=== PATIENT | female | born 1955 | race African-American/Black ===

== ENCOUNTER 2016-09-12 12:32 | Emergency (ER) | payer MEDICARE, MEDICAID ==
--- NOTE | 2016-09-12 13:11 | ER Document Report ---
ED Medical Screen (RME) - General Chief Complaint: Cough Stated Complaint: COUGH,SHORTNESS OF BREATH Notes: 60 yo female with hx/o asthma, COPD, CHF, Afib, c/o persitant cough. Pt was seen in ED 08/16 for same. Treated with steroids with some improvement, but cough has increased. worse at night when supine. denies fever, chest pain, shortness of breath, swelling to feet. TRAVEL OUTSIDE OF THE [place] IN LAST 30 DAYS: No - Related Data Allergies/Adverse Reactions: No Known Allergies Allergy (Verified 09/12/16 12:53) Past Medical History - Social History Chew tobacco use (# tins/day): No Frequency of alcohol use: None Drug Abuse: None - Past Medical History Cardiac Medical History: Reports: Hx Atrial Fibrillation, Hx Congestive Heart Failure, Hx Hypercholesterolemia, Hx Hypertension Pulmonary Medical History: Reports: Hx Asthma, Hx COPD Denies: Hx Tuberculosis Neurological Medical History: Reports: Hx Cerebrovascular Accident Endocrine Medical History: Reports: Hx Diabetes Mellitus Type 2 Musculoskeltal Medical History: Reports Hx Arthritis Past Surgical History: Reports: Hx Section - X2, Hx Orthopedic Surgery - Bilateral knee replacement, Hx Tubal Ligation - Immunizations Hx Diphtheria, Pertussis, Tetanus Vaccination: Yes Physical Exam - Vital signs Vitals: Temp Pulse Resp BP Pulse Ox 97.9 F 80 20 177/111 H 98 09/12/16 12:55 09/12/16 12:55 09/12/16 12:55 09/12/16 12:55 09/12/16 12:55 Course - Vital Signs Vital signs: Temp Pulse Resp BP Pulse Ox 97.9 F 80 20 177/111 H 98 09/12/16 12:55 09/12/16 12:55 09/12/16 12:55 09/12/16 12:55 09/12/16 12:55
[2016-09-12 13:39] LABS: ABSOLUTE BASOPHILS # (AUTO) 0.1 10^3/uL (0.0-0.2); ABSOLUTE EOSINOPHILS # (AUTO) 0.3 10^3/uL (0.0-0.6); ABSOLUTE LYMPHOCYTES (AUTO) 2.9 10^3/uL (0.5-4.7); ABSOLUTE MONOCYTES (AUTO) 0.7 10^3/uL (0.1-1.4); ABSOLUTE NEUT (AUTO) 4.9 10^3/uL (1.7-8.2); BASOPHILS % (AUTO) 0.7 % (0-2); EOSINOPHILS % (AUTO) 2.9 % (0-6); HEMATOCRIT 39.1 % (36.0-47.0); HEMOGLOBIN 12.9 g/dL (12.0-15.5); HGB HCT DIFFERENCE -0.4; LYMPHOCYTES % (AUTO) 33.1 % (13-45); MEAN CORPUSCULAR VOLUME 82 fl (80-97); MONOCYTES % (AUTO) 7.9 % (3-13); RED BLOOD COUNT 4.78 10^6/uL (3.72-5.28); RED CELL DISTRIBUTION WIDTH 17.4 % (11.5-14.0); SEGMENTED NEUTROPHILS % (AUTO) 55.4 % (42-78); WHITE BLOOD COUNT 8.7 10^3/uL (4.0-10.5)
[2016-09-12 13:44] LABS: APPEARANCE,URINE SLIGHTLY-CLOUDY; BILIRUBIN,URINE NEGATIVE (NEGATIVE); GLUCOSE, URINE NEGATIVE (NEGATIVE); KETONES,URINE NEGATIVE (NEGATIVE); LEUKOCYTE ESTERASE,URINE NEGATIVE (NEGATIVE); NITRITE,URINE NEGATIVE (NEGATIVE); PROTEIN,URINE NEGATIVE (NEGATIVE); URINE SPECIFIC GRAVITY 1.005; UROBILINOGEN,URINE NEGATIVE mg/dL (<2.0)
[2016-09-12 13:58] LABS: ALANINE AMINOTRANSFERASE 40 U/L (9-52); ALKALINE PHOSPHATASE 110 U/L (38-126); ANION GAP 12 (5-19); ASPARTATE AMINO TRANSFERASE 30 U/L (14-36); BILIRUBIN,TOTAL 0.7 mg/dL (0.2-1.3); BLOOD UREA NITROGEN 12 mg/dL (7-20); CALCIUM 9.8 mg/dL (8.4-10.2); CARBON DIOXIDE 28 mmol/L (22-30); CHLORIDE 105 mmol/L (98-107); CREATININE RESULT 0.98 mg/dL (0.52-1.25); GLUCOSE 112 mg/dL (75-110); POTASSIUM 4.5 mmol/L (3.6-5.0); SODIUM 144.5 mmol/L (137-145); TOTAL PROTEIN 7.7 g/dL (6.3-8.2)
--- NOTE | 2016-09-12 15:01 | ER Document Report ---
[id number],SHORTNESS OF BREATH Notes: The patient is a 60-year-old female, past medical history COPD, current smoker, hypertension, presents with 5 days of cough with white sputum. He is taking TheraFlu and using her albuterol inhaler with some relief of symptoms. She had similar symptoms 2 months ago and was placed on steroids, which relieved her coughing. She denies chest pain, leg swelling, nausea, vomiting, PND, orthopnea , back pain, abdominal pain, fevers or chills. TRAVEL OUTSIDE OF THE [place] IN LAST 30 DAYS: No - Related Data Allergies/Adverse Reactions: No Known Allergies Allergy (Verified 09/12/16 12:53) Past Medical History - General Information source: Patient - Social History Smoking Status: Current Some Day Smoker Chew tobacco use (# tins/day): No Frequency of alcohol use: None Drug Abuse: None Family History: CAD, CVA, DM, Hyperlipidemia, Hypertension Patient has suicidal ideation: No Patient has homicidal ideation: No - Past Medical History Cardiac Medical History: Reports: Hx Atrial Fibrillation, Hx Congestive Heart Failure, Hx Hypercholesterolemia, Hx Hypertension Pulmonary Medical History: Reports: Hx Asthma, Hx COPD Denies: Hx Tuberculosis Neurological Medical History: Reports: Hx Cerebrovascular Accident Endocrine Medical History: Reports: Hx Diabetes Mellitus Type 2 Musculoskeltal Medical History: Reports Hx Arthritis Past Surgical History: Reports: Hx Section - X2, Hx Orthopedic Surgery - Bilateral knee replacement, Hx Tubal Ligation - Immunizations Hx Diphtheria, Pertussis, Tetanus Vaccination: Yes Hx Pneumococcal Vaccination: 06/09/13 Review of Systems - Review of Systems Notes: REVIEW OF SYSTEMS: CONSTITUTIONAL: Denies fever, chills, or sweats. Denies recent illness. EENT: Denies eye, ear, throat, or mouth pain or symptoms. Denies nasal or sinus congestion. CARDIOVASCULAR: Denies chest pain. RESPIRATORY: +cough, Denies SOB ABDOMINAL: Denies nausea, vomiting, or diarrhea. Denies constipation. GENITOURINARY: Denies difficulty urinating, painful urination, burning, frequency, or blood in urine. FEMALE GENITOURINARY: Denies vaginal bleeding, abnormal or irregular periods. MUSCULOSKELETAL: Denies neck or back pain or joint pain or swelling. SKIN: Denies rash or skin lesions. HEMATOLOGIC: Denies easy bruising or bleeding. LYMPHATIC: Denies swollen, enlarged glands. NEUROLOGICAL: Denies altered mental status or loss of consciousness. Denies headache. Denies weakness or paralysis or loss of use of either side. Denies problems with gait or speech. Denies sensory or motor loss. PSYCHIATRIC: Denies anxiety or stress or depression. ALL OTHER SYSTEMS REVIEWED AND NEGATIVE. Physical Exam - Vital signs Vitals: Temp Pulse Resp BP Pulse Ox 97.9 F 80 20 177/111 H 98 09/12/16 12:55 09/12/16 12:55 09/12/16 12:55 09/12/16 12:55 09/12/16 12:55 - Notes Notes: PHYSICAL EXAMINATION: GENERAL: Well-appearing, well-nourished and in no acute distress. HEAD: Atraumatic, normocephalic. EYES: Pupils equal round and reactive to light, extraocular movements intact, sclera anicteric, conjunctiva are normal. ENT: nares patent, oropharynx clear without exudates. Moist mucous membranes. NECK: Normal range of motion, supple without lymphadenopathy LUNGS: Mild end-expiratory wheezing. No respiratory distress. HEART: Regular rate and rhythm without murmurs ABDOMEN: Soft, nontender, normoactive bowel sounds. No guarding, no rebound. No masses appreciated. EXTREMITIES: Normal range of motion, no pitting or edema. No cyanosis. NEUROLOGICAL: Cranial nerves grossly intact. Normal speech, normal gait. Normal sensory, motor, and reflex exams. PSYCH: Normal mood, normal affect. SKIN: Warm, Dry, normal turgor, no rashes or lesions noted. Course - Re-evaluation Re-evalutation: Patient has no evidence of pneumonia on chest x-ray. Will treat with steroids and albuterol for mild bronchitis. Patient does not appear to be fluid overloaded. Will DC home with follow-up at her primary care doctor - Vital Signs Vital signs: Temp Pulse Resp BP Pulse Ox 97.5 F 163 H 18 164/91 H 99 09/12/16 15:27 09/12/16 15:27 09/12/16 15:27 09/12/16 15:27 09/12/16 15:27 09/12/16 18:28 Actual pulse rate 63. Tech entered 163 in error. - Laboratory Result Diagrams: 09/12/16 13:15 09/12/16 13:15 Laboratory results interpreted by me: 01/12/2409/12/16 09/12/16 13:15 13:15 13:15 RDW 17.4 H Est GFR (Non-Af Amer) 58 L Glucose 112 H NT-Pro-B Natriuret Pep 2630 H Urine Blood 09/12/16 13:15 RDW Est GFR (Non-Af Amer) Glucose NT-Pro-B Natriuret Pep Urine Blood SMALL H - Diagnostic Test Radiology reviewed: Image reviewed, Reports reviewed Radiology results interpreted by me: CXR: NAD Discharge - Discharge Clinical Impression: Mild intermittent asthmatic bronchitis with exacerbation Disposition: HOME, SELF-CARE Additional Instructions: BRONCHITIS: You have acute bronchitis. This disease is an infection or inflammation of the air passageways in your lungs. Symptoms usually include cough, low grade fever, shortness of breath, and wheezing. The cough usually persists for a couple of weeks. Most cases of bronchitis get better without antibiotics. We prescribe antibiotics when we believe bacteria are damaging your airways, or if there's high risk the bronchitis will worsen into pneumonia. Increase your fluid intake. A cool mist humidifier may make your lungs more comfortable. An expectorant (cough medicine that loosens phlegm) can help. If you smoke, STOP!!! Recovery from bronchitis can be somewhat slow, but you should see improvement within a day or two. Repeated episodes of bronchitis may result in lung damage -- for example, chronic bronchitis, recurrent pneumonias, or emphysema. Call the doctor if you develop increasing fever, shortness of breath, chest pain, bloody sputum, or otherwise worsen. If you have not improved at all after several days, contact the physician. BRONCHITIS WITH BRONCHOSPASM (WHEEZING): You have bronchitis with bronchospasm (wheezing). Sometimes people develop wheezing with a chest cold. This occurs either because of an underlying tendency toward asthma or because the virus itself irritates the bronchial tubes. This irritation causes cough, shortness of breath, and wheezing. Emergency treatment of bronchospasm may include adrenaline shots or bronchodilator aerosol. You may feel lightheaded and have a rapid pulse for an hour or two. Rest and get plenty of fluids. At home, we'll treat you with a bronchodilator inhaler. Corticosteroids may be required for some patients. Until you recover, avoid chemical fumes, dusts, pollens, and exercising in very cold or dry air. If you smoke, stop now! Most cases of bronchitis get better without antibiotics. We prescribe antibiotics when we believe bacteria are damaging your airways, or if there's high risk the bronchitis will worsen into pneumonia. Increase your fluid intake. A cool mist humidifier may make your lungs more comfortable. An expectorant (cough medicine that loosens phlegm) can help. Repeated episodes of bronchitis and bronchospasm may result in lung damage -- for example, chronic bronchitis, recurrent pneumonias, or emphysema. If you develop a fever, increased wheezing, chest pain, or severe shortness of breath, you should contact the doctor immediately. INHALED BRONCHODILATORS: You have received a treatment of and/or prescription for an inhaled bronchodilator -- a medication which stimulates the airways in the lung to dilate. This improves the flow of air in asthma, bronchitis, and emphysema. These medicines have some similarity to adrenaline, and can cause similar side effects: shakiness, racing heart, and a sense of nervousness. These side effects decrease with time. Contact your doctor if these side effects are severe. Do not over-use the medicine. Too-frequent use of the inhaler may make it ineffective. Call your doctor if the inhaler is not controlling your symptoms at the prescribed doses. STEROID MEDICATION: You have been given an injection of or oral medicine of the cortisone/ steroid class. This medication is used to control inflammation or allergy. Lucho t is usually only given for a short period of time, until the acute process subsides. There are usually no side effects from short-term use of cortisone-like medications. Some persons feel an increased sense of well-being and are not sleepy at bedtime. Long-term use of cortisone medications is best avoided, unless required for a severe condition. If your condition does not remit, or relapses after the course of corticosteroid medication, you should consult your physician. USE OF ACETAMINOPHEN (Tylenol): Acetaminophen may be taken for pain relief or fever control. It's much safer than aspirin, offering a wider range of "safe" dosages. It is safe during . Some brand names are Tylenol, Panadol, Datril, Anacin 3, Tempra, and Liquiprin. Acetaminophen can be repeated every four hours. The following are maximum recommended dosages: >89 pounds or adults 650 mg to 900 mg Acetaminophen can be repeated every four hours. Maximum dose not to exceed 4000 mg a day. SMOKING: If you smoke, you should stop smoking. The tar and chemicals in cigarette smoke are harmful. Smoking has been shown to cause: emphysema chronic bronchitis lung cancer mouth and throat cancer stomach and pancreas cancer premature aging defects In addition, smoking increases ear and lung infections in children of smokers. FOLLOW-UP CARE: If you have been referred to a physician for follow-up care, call the physician s office for an appointment as you were instructed or within the next two days. If you experience worsening or a significant change in your symptoms, notify the physician immediately or return to the Emergency Department at any time for re-evaluation. Prescriptions: Albuterol Sulfate [Albuterol Sulfate 2.5mg/3 mL] 2.5 mg IH Q4H PRN 10 Days PRN Reason: Prednisone 50 mg PO DAILY #5 tablet Referrals: ESTEFANÍA ESPINAL FNP-C [Primary Care Provider] - Follow up as needed
[2016-09-12 15:35] VITALS: BP 164/91
== END 2016-09-12 15:39 | disposition home or self-care (01) ==
LOC: ER 12:32
DX: J45.21 Mild intermittent asthma with (acute) exacerbation (principal); J44.9 Chronic obstructive pulmonary disease, unspecified; F17.200 Nicotine dependence, unspecified, uncomplicated; I10 Essential (primary) hypertension; I48.91 Unspecified atrial fibrillation; I50.9 Heart failure, unspecified; E78.00 Pure hypercholesterolemia, unspecified; E11.9 Type 2 diabetes mellitus without complications; Z96.653 Presence of artificial knee joint, bilateral; Z98.51 Tubal ligation status
CPT/HCPCS: 36415; 71020; 80053; 81001; 83880; 85025; 99283

== ENCOUNTER 2016-10-25 11:08 | Emergency (ER) | payer MEDICARE, MEDICAID ==
[2016-10-25] MEDS ORDERED: IPRATROPIUM/ALBUTEROL 0.5-2.5 MG/3 ML AMPUL NEB ONE (11:15)
[2016-10-25] MEDS ORDERED: PREDNISONE 20 MG TABLET PO ONE (11:15)
--- NOTE | 2016-10-25 11:16 | ER Document Report ---
ED Medical Screen (RME) - General Stated Complaint: DIFFICULTY BREATHING Notes: patient complaining of SOB since saturday, worse with exertion and laying flat. using albuterol nebulizers weconnorh she states helps her breathing. PMH; COPD, CVA in 2011, atrial fibrillation on xarelto, htn, hld Patinet is sating 99-100% on room air, heart rate 84bpm. able to speak in full sentences, no pursed lip breathing, dyspneic and SOb but able to speak in full sentences I have greeted and performed a rapid initial assessment of this patient. A comprehensive ED assessment and evaluation of the patient, analysis of test results and completion of the medical decision making process will be conducted by additional ED providers. TRAVEL OUTSIDE OF THE [place] IN LAST 30 DAYS: No - Related Data Allergies/Adverse Reactions: No Known Allergies Allergy (Verified 09/12/16 12:53) Past Medical History - Past Medical History Cardiac Medical History: Reports: Hx Atrial Fibrillation, Hx Congestive Heart Failure, Hx Hypercholesterolemia, Hx Hypertension Pulmonary Medical History: Reports: Hx Asthma, Hx COPD Denies: Hx Tuberculosis Neurological Medical History: Reports: Hx Cerebrovascular Accident Endocrine Medical History: Reports: Hx Diabetes Mellitus Type 2 Musculoskeltal Medical History: Reports Hx Arthritis Past Surgical History: Reports: Hx Section - X2, Hx Orthopedic Surgery - Bilateral knee replacement, Hx Tubal Ligation - Immunizations Hx Diphtheria, Pertussis, Tetanus Vaccination: Yes
[2016-10-25] MEDS: ALBUTEROL SULFATE 0.083% NEB 2.5 MG/3 ML AMPUL NEB SCH ×2 (11:27→13:21)
[2016-10-25 11:45] LABS: ABSOLUTE BASOPHILS # (AUTO) 0.1 10^3/uL (0.0-0.2); ABSOLUTE EOSINOPHILS # (AUTO) 0.5 10^3/uL (0.0-0.6); ABSOLUTE LYMPHOCYTES (AUTO) 1.6 10^3/uL (0.5-4.7); ABSOLUTE MONOCYTES (AUTO) 0.5 10^3/uL (0.1-1.4); ABSOLUTE NEUT (AUTO) 3.2 10^3/uL (1.7-8.2); BASOPHILS % (AUTO) 1.7 % (0-2); EOSINOPHILS % (AUTO) 8.3 % (0-6); HEMATOCRIT 37.6 % (36.0-47.0); HEMOGLOBIN 11.9 g/dL (12.0-15.5); HGB HCT DIFFERENCE -1.9; LYMPHOCYTES % (AUTO) 27.3 % (13-45); MEAN CORPUSCULAR HEMOGLOBIN 26.4 pg (27.0-33.4); MEAN CORPUSCULAR HGB CONC 31.7 g/dL (32.0-36.0); MEAN CORPUSCULAR VOLUME 83 fl (80-97); MONOCYTES % (AUTO) 8.4 % (3-13); RED BLOOD COUNT 4.52 10^6/uL (3.72-5.28); RED CELL DISTRIBUTION WIDTH 16.2 % (11.5-14.0); SEGMENTED NEUTROPHILS % (AUTO) 54.3 % (42-78); WHITE BLOOD COUNT 5.9 10^3/uL (4.0-10.5)
[2016-10-25 12:06] LABS: ALANINE AMINOTRANSFERASE 30 U/L (9-52); ALBUMIN 4.1 g/dL (3.5-5.0); ALKALINE PHOSPHATASE 115 U/L (38-126); ANION GAP 11 (5-19); ASPARTATE AMINO TRANSFERASE 30 U/L (14-36); BILIRUBIN,TOTAL 0.7 mg/dL (0.2-1.3); BLOOD UREA NITROGEN 20 mg/dL (7-20); CALCIUM 9.8 mg/dL (8.4-10.2); CARBON DIOXIDE 26 mmol/L (22-30); CHLORIDE 108 mmol/L (98-107); GLUCOSE 131 mg/dL (75-110); POTASSIUM 4.3 mmol/L (3.6-5.0); SODIUM 144.6 mmol/L (137-145); TOTAL PROTEIN 7.5 g/dL (6.3-8.2)
--- NOTE | 2016-10-25 12:49 | EKG REPORT ---
SEVERITY:- ABNORMAL ECG - ATRIAL FIBRILLATION RIGHT BUNDLE BRANCH BLOCK : Confirmed by: Bradley Oilvarez 25-Oct-2016 12:48:19
--- NOTE | 2016-10-25 13:30 | ER Document Report ---
[id number] DIFFICULTY BREATHING Notes: The patient is a 60-year-old female, past medical history A. fib, COPD, asthma, current smoker, hypertension, presents with increased wheezing, cough and shortness of breath over the past 3 days. He said is having an asthma exacerbation every month. She is taking her Symbicort and Advair. She is also using her albuterol and is now out of it. Denies nausea, vomiting, chest pain, leg swelling, fevers, back pain or abdominal pain. TRAVEL OUTSIDE OF THE [place] IN LAST 30 DAYS: No - Related Data Allergies/Adverse Reactions: No Known Allergies Allergy (Verified 10/25/16 11:13) Past Medical History - General Information source: Patient - Social History Smoking Status: Current Some Day Smoker Chew tobacco use (# tins/day): No Frequency of alcohol use: None Drug Abuse: None Family History: CAD, CVA, DM, Hyperlipidemia, Hypertension Patient has suicidal ideation: No Patient has homicidal ideation: No - Past Medical History Cardiac Medical History: Reports: Hx Atrial Fibrillation, Hx Congestive Heart Failure, Hx Hypercholesterolemia, Hx Hypertension Pulmonary Medical History: Reports: Hx Asthma, Hx COPD Denies: Hx Tuberculosis Neurological Medical History: Reports: Hx Cerebrovascular Accident Endocrine Medical History: Reports: Hx Diabetes Mellitus Type 2 Renal/ Medical History: Denies: Hx Peritoneal Dialysis Musculoskeltal Medical History: Reports Hx Arthritis Past Surgical History: Reports: Hx Section - X2, Hx Orthopedic Surgery - Bilateral knee replacement, Hx Tubal Ligation - Immunizations Hx Diphtheria, Pertussis, Tetanus Vaccination: Yes Hx Pneumococcal Vaccination: 06/09/13 Review of Systems - Review of Systems Notes: REVIEW OF SYSTEMS: CONSTITUTIONAL: -fevers, -chills EENT: -eye pain, -difficulty swallowing, -nasal congestion CARDIOVASCULAR: -chest pain, -syncope. RESPIRATORY: +cough, +SOB GASTROINTESTINAL: -abdominal pain, - nausea, -vomiting, -diarrhea GENITOURINARY: -dysuria, -hematuria MUSCULOSKELETAL: -back pain, -neck pain SKIN: -rash or skin lesions. HEMATOLOGIC: -easy bruising or bleeding. LYMPHATIC: -swollen, enlarged glands. NEUROLOGICAL: -altered mental status or loss of consciousness, -headache, - neurologic symptoms PSYCHIATRIC: -anxiety, -depression. ALL OTHER SYSTEMS REVIEWED AND NEGATIVE. Physical Exam - Vital signs Vitals: Resp 24 H 10/25/16 13:05 - Notes Notes: PHYSICAL EXAMINATION: GENERAL: Well-appearing, well-nourished and in no acute distress. HEAD: Atraumatic, normocephalic. EYES: Pupils equal round and reactive to light, extraocular movements intact, sclera anicteric, conjunctiva are normal. ENT: nares patent, oropharynx clear without exudates. Moist mucous membranes. NECK: Normal range of motion, supple without lymphadenopathy LUNGS: No respiratory distress. Mild end expiratory wheezes. HEART: Regular rate and rhythm without murmurs ABDOMEN: Soft, nontender, normoactive bowel sounds. No guarding, no rebound. No masses appreciated. EXTREMITIES: Normal range of motion, no pitting or edema. No cyanosis. NEUROLOGICAL: Cranial nerves grossly intact. Normal speech, normal gait. Normal sensory, motor, and reflex exams. PSYCH: Normal mood, normal affect. SKIN: Warm, Dry, normal turgor, no rashes or lesions noted. Course - Re-evaluation Re-evalutation: Patient appears well. No respiratory distress. Wheezing mostly resolved. Labs and chest x-ray are all unremarkable. Will provide her with steroids course and refill her albuterol with follow-up at her primary care physician. - Vital Signs Vital signs: Temp Pulse Resp BP Pulse Ox 97.5 F 77 21 H 153/82 H 99 10/25/16 14:30 10/25/16 14:30 10/25/16 14:30 10/25/16 14:30 10/25/16 14:30 - Laboratory Result Diagrams: 10/25/16 11:30 10/25/16 11:30 Laboratory results interpreted by me: 10/25/16 10/25/16 11:30 11:30 Hgb 11.9 L MCH 26.4 L MCHC 31.7 L RDW 16.2 H Plt Count 144 L Eosinophils % 8.3 H Chloride 108 H Est GFR (Non-Af Amer) 50 L Glucose 131 H - Diagnostic Test Radiology reviewed: Image reviewed, Reports reviewed Radiology results interpreted by me: 10/25/16 20:19 CXR: NAD Discharge - Discharge Clinical Impression: Asthma exacerbation, mild Condition: Good Disposition: HOME, SELF-CARE Additional Instructions: BRONCHITIS: You have acute bronchitis. This disease is an infection or inflammation of the air passageways in your lungs. Symptoms usually include cough, low grade fever, shortness of breath, and wheezing. The cough usually persists for a couple of weeks. Most cases of bronchitis get better without antibiotics. We prescribe antibiotics when we believe bacteria are damaging your airways, or if there's high risk the bronchitis will worsen into pneumonia. Increase your fluid intake. A cool mist humidifier may make your lungs more comfortable. An expectorant (cough medicine that loosens phlegm) can help. If you smoke, STOP!!! Recovery from bronchitis can be somewhat slow, but you should see improvement within a day or two. Repeated episodes of bronchitis may result in lung damage -- for example, chronic bronchitis, recurrent pneumonias, or emphysema. Call the doctor if you develop increasing fever, shortness of breath, chest pain, bloody sputum, or otherwise worsen. If you have not improved at all after several days, contact the physician. BRONCHITIS WITH BRONCHOSPASM (WHEEZING): You have bronchitis with bronchospasm (wheezing). Sometimes people develop wheezing with a chest cold. This occurs either because of an underlying tendency toward asthma or because the virus itself irritates the bronchial tubes. This irritation causes cough, shortness of breath, and wheezing. Emergency treatment of bronchospasm may include adrenaline shots or bronchodilator aerosol. You may feel lightheaded and have a rapid pulse for an hour or two. Rest and get plenty of fluids. At home, we'll treat you with a bronchodilator inhaler. Corticosteroids may be required for some patients. Until you recover, avoid chemical fumes, dusts, pollens, and exercising in very cold or dry air. If you smoke, stop now! Most cases of bronchitis get better without antibiotics. We prescribe antibiotics when we believe bacteria are damaging your airways, or if there's high risk the bronchitis will worsen into pneumonia. Increase your fluid intake. A cool mist humidifier may make your lungs more comfortable. An expectorant (cough medicine that loosens phlegm) can help. Repeated episodes of bronchitis and bronchospasm may result in lung damage -- for example, chronic bronchitis, recurrent pneumonias, or emphysema. If you develop a fever, increased wheezing, chest pain, or severe shortness of breath, you should contact the doctor immediately. INHALED BRONCHODILATORS: You have received a treatment of and/or prescription for an inhaled bronchodilator -- a medication which stimulates the airways in the lung to dilate. This improves the flow of air in asthma, bronchitis, and emphysema. These medicines have some similarity to adrenaline, and can cause similar side effects: shakiness, racing heart, and a sense of nervousness. These side effects decrease with time. Contact your doctor if these side effects are severe. Do not over-use the medicine. Too-frequent use of the inhaler may make it ineffective. Call your doctor if the inhaler is not controlling your symptoms at the prescribed doses. STEROID MEDICATION: You have been given an injection of or oral medicine of the cortisone/ steroid class. This medication is used to control inflammation or allergy. Lucho t is usually only given for a short period of time, until the acute process subsides. There are usually no side effects from short-term use of cortisone-like medications. Some persons feel an increased sense of well-being and are not sleepy at bedtime. Long-term use of cortisone medications is best avoided, unless required for a severe condition. If your condition does not remit, or relapses after the course of corticosteroid medication, you should consult your physician. USE OF ACETAMINOPHEN (Tylenol): Acetaminophen may be taken for pain relief or fever control. It's much safer than aspirin, offering a wider range of "safe" dosages. It is safe during . Some brand names are Tylenol, Panadol, Datril, Anacin 3, Tempra, and Liquiprin. Acetaminophen can be repeated every four hours. The following are maximum recommended dosages: >89 pounds or adults 650 mg to 900 mg Acetaminophen can be repeated every four hours. Maximum dose not to exceed 4000 mg a day. SMOKING: If you smoke, you should stop smoking. The tar and chemicals in cigarette smoke are harmful. Smoking has been shown to cause: emphysema chronic bronchitis lung cancer mouth and throat cancer stomach and pancreas cancer premature aging defects In addition, smoking increases ear and lung infections in children of smokers. FOLLOW-UP CARE: If you have been referred to a physician for follow-up care, call the physician s office for an appointment as you were instructed or within the next two days. If you experience worsening or a significant change in your symptoms, notify the physician immediately or return to the Emergency Department at any time for re-evaluation. Prescriptions: Albuterol Sulfate [Proair HFA Inhalation Aerosol 8.5 gm MDI] 2 puff IH Q4H PRN # 1 mdi PRN Reason: Prednisone [Deltasone 20 mg Tablet] 3 tab PO DAILY 5 Days Referrals: JHON PIMENTEL MD [Primary Care Provider] - Follow up as needed
[2016-10-25 15:53] VITALS: BP 153/82
== END 2016-10-25 14:45 | disposition home or self-care (01) ==
LOC: ER 11:08
DX: J45.901 Unspecified asthma with (acute) exacerbation (principal); J44.9 Chronic obstructive pulmonary disease, unspecified; F17.200 Nicotine dependence, unspecified, uncomplicated; I10 Essential (primary) hypertension; R05 Cough; R06.02 Shortness of breath; E11.9 Type 2 diabetes mellitus without complications; Z79.899 Other long term (current) drug therapy; Z79.51 Long term (current) use of inhaled steroids; Z86.73 Personal history of transient ischemic attack (TIA), and cerebral infarction without residual deficits
CPT/HCPCS: 93005; 94640 ×2; 99285; 36415; 85025; 80053; 84484; 71010; 93010; A9270 ×3; J7512; J7620

== ENCOUNTER 2016-11-21 17:14 | Emergency (ER) | payer MEDICARE, MEDICAID ==
[2016-11-21] MEDS ORDERED: FUROSEMIDE INJ/PF 40 MG/4 ML SDV IV ONE (18:03)
--- NOTE | 2016-11-21 18:09 | ER Document Report ---
ED General - General Chief Complaint: Breathing Difficulty Stated Complaint: SHORTNESS OF BREATH Time seen by provider: 17:50 Mode of Arrival: Medic Information source: Patient Notes: 61-year-old female who reports chronic shortness of breath and dyspnea on exertion and has been getting worse over the past 2 weeks. Patient seen emergent yesterday diagnosed bronchitis and placed on Levaquin and oral steroids but says she is no better. Patient says she recently completed a two- week course of doxycycline prescribed by her fast food manager Dr. Flores which also did not seem to help. The patient reports for the past month she's noticed swelling to her legs worsen her baseline and family believes that she looks puffy "all over" though they're not sure how long she look that way. The patient reports sleeping on 6 pillows at night but says she's done that for least 6 months. She denies chest pain, abdominal pain, back pain, nausea, vomiting, diaphoresis, fever, chills, earache, sore throat. She reports numbness to the right side of her body related to old stroke that is not new. She reports cough productive of yellow or white sputum which is chronic for her. Patient reports prior history of renal insufficiency related to nonsteroidal use but says her renal function improved to 6% of normal after stopping that. She says she's been told in the past she might of fluid around her lungs but denies a diagnosis of congestive heart.. She reports she chronically has an irregular heartbeat for which she is on Xarelto but doesn't know the name of it and says she follows Dr. Lanodn for that Physical Exam: General: Alert, appears well. HEENT: Normocephalic. Atraumatic. PERRLA. Extraocular movements intact. Oropharynx clear. Neck: Supple. Non-tender. JVD Respiratory: Mildly tachypnea with talking but able to speak in complete sentences. Chest with diminished aeration throughout all lung yanez and scattered wheezes bilaterally. Cardiovascular: Slightly irregular no murmur PMI not displaced Abdominal: Normal Inspection. Soft, non-tender. No distension. Normal Bowel Sounds. Back: Non-tender. No deformity or step off. Extremities: Moves all four extremities. Upper extremities: Normal inspection. Non-tender. Normal color. Normal ROM. Normal temperature. Lower extremities: 2+ pulses no cyanosis no Homans sign 3+ edema from knees down bilaterally Neurological: Speech clear mentation normal strength 5 out of 5 equal both upper - motor function 4+ out of 5 and equal both lower extremities Psychological: Normal affect. Normal Mood. Skin: Warm. Dry. Normal color. TRAVEL OUTSIDE OF THE [place] IN LAST 30 DAYS: No - Related Data Allergies/Adverse Reactions: No Known Allergies Allergy (Verified 11/20/16 11:11) Past Medical History - Social History Smoking Status: Current Every Day Smoker Family History: CAD, CVA, DM, Hyperlipidemia, Hypertension - Past Medical History Cardiac Medical History: Reports: Hx Atrial Fibrillation, Hx Congestive Heart Failure, Hx Hypercholesterolemia, Hx Hypertension Pulmonary Medical History: Reports: Hx Asthma, Hx COPD Denies: Hx Tuberculosis Neurological Medical History: Reports: Hx Cerebrovascular Accident Endocrine Medical History: Reports: Hx Diabetes Mellitus Type 2 Renal/ Medical History: Denies: Hx Peritoneal Dialysis Musculoskeltal Medical History: Reports Hx Arthritis Past Surgical History: Reports: Hx Section - X2, Hx Orthopedic Surgery - Bilateral knee replacement, Hx Tubal Ligation - Immunizations Hx Diphtheria, Pertussis, Tetanus Vaccination: Yes Hx Pneumococcal Vaccination: 06/09/13 Review of Systems - Review of Systems Constitutional: denies: Chills, Diaphoresis EENT: denies: Ear pain, Throat pain Cardiovascular: denies: Chest pain, Syncope, Dizziness, Lightheaded Respiratory: See HPI Gastrointestinal: denies: Abdominal pain, Diarrhea, Nausea, Vomiting, Blood in vomit, Black stools, Rectal bleeding Genitourinary: denies: Burning, Dysuria Female Genitourinary: denies: Musculoskeletal: Leg swelling, Ankle swelling. denies: Back pain, Muscle pain Skin: denies: Rash Hematologic/Lymphatic: denies: Swollen glands Neurological/Psychological: denies: Weakness, Numbness Physical Exam - Vital signs Vitals: Temp Pulse Resp BP Pulse Ox 97.8 F 92 24 H 159/109 H 100 11/21/16 17:40 11/21/16 17:40 11/21/16 17:40 11/21/16 17:40 11/21/16 17:40 Course - Re-evaluation Re-evalutation: 11/21/16 20:22 Reevaluation shows much improved aeration. Patient reports she has diarrhea since she's been here. Oxygen saturations remained 100% on room air which she is not to with talking. I believe there is a component of volume overload as her BNP is elevated compared to yesterday but she's had no chest pain and to believe she requires admission for this. I instructed to take Lasix 40 TWICE a day instead of once a day for the next 3 days but not to do extra dosing beyond that without following up with her physicians including her food counter worker, fast food manager, and advertising account manager. I also instructed her to continue taking steroids nebulizer treatments and antibiotics previously prescribed - Vital Signs Vital signs: Temp Pulse Resp BP Pulse Ox 97.8 F 92 20 152/106 H 100 11/21/16 17:40 11/21/16 17:40 11/21/16 19:53 11/21/16 19:53 11/21/16 19:53 - Laboratory Result Diagrams: 11/21/16 19:13 11/21/16 19:13 Laboratory results interpreted by me: 11/21/16 11/21/16 11/21/16 19:13 19:13 19:13 MCH 26.0 L MCHC 31.9 L RDW 16.4 H Seg Neutrophils % 82.9 H Lymphocytes % 12.1 L Potassium 5.2 H BUN 24 H Est GFR (Non-Af Amer) 49 L Glucose 122 H Alkaline Phosphatase 134 H NT-Pro-B Natriuret Pep 3750 H - Diagnostic Test Radiology reviewed: Image reviewed, Reports reviewed - EKG Interpretation by Me Additional EKG results interpreted by me: 11/21/16 20:22 EKG reviewed on [facility] or fibrillation with ventricular rate of 85 right bundle-branch block no acute changes Discharge - Discharge Clinical Impression: Congestive heart failure Qualifiers: Congestive heart failure type: unspecified congestive heart failure type Congestive heart failure chronicity: unspecified congestive heart failure chronicity Qualified Code(s): I50.9 - Heart failure, unspecified Condition: Stable Disposition: HOME, SELF-CARE Additional Instructions: Congestive Heart Failure You have been diagnosed as having congestive heart failure (CHF). CHF occurs when the heart is unable to pump blood efficiently, leading to fluid buildup in the veins and lungs. Typical symptoms are swelling of the legs, shortness of breath on minor exertion, and fatigue. CHF is treated with salt restriction, medicine to eliminate excess water and salt from the body, and medication to help the heart contract more efficiently. Eliminate added salt and salty foods in your diet. Decrease your activity until excess fluid has been eliminated. It will also be helpful to raise the head of your bed so you can sleep more easily. Keep a daily record of your weight. This will help your physician monitor your progress. Once extra water has been eliminated, light aerobic exercise daily -- such as walking -- will be helpful (unless your physician has told you to restrict activity for other reasons). Be sure to follow up with the physician as instructed. Contact the doctor at once if you worsen in any way. Continue taking her other medicines as prescribed. He have bronchitis causing some of your breathing problems and those medicines will help. Take Lasix 40 mg twice a day instead of once a day for the next 3 days and then go back to your normal once a day dose unless told otherwise by your doctors Referrals: JHON PIMENTEL MD [Primary Care Provider] - Follow up in 1 week ENE FLORES MD [ACTIVE STAFF] - Follow up in 1 week AMOL GARZA MD [ACTIVE STAFF] - Follow up in 1 week GINA LANDON MD [ACTIVE STAFF] - Follow up in 1 week
[2016-11-21] MEDS ORDERED: IPRATROPIUM/ALBUTEROL 0.5-2.5 MG/3 ML AMPUL NEB ONE (18:39)
[2016-11-21 19:23] LABS: ABSOLUTE LYMPHOCYTES (AUTO) 1.1 10^3/uL (0.5-4.7); ABSOLUTE MONOCYTES (AUTO) 0.5 10^3/uL (0.1-1.4); ABSOLUTE NEUT (AUTO) 7.9 10^3/uL (1.7-8.2); BASOPHILS % (AUTO) 0.3 % (0-2); HEMATOCRIT 37.5 % (36.0-47.0); HGB HCT DIFFERENCE -1.5; LYMPHOCYTES % (AUTO) 12.1 % (13-45); MEAN CORPUSCULAR HGB CONC 31.9 g/dL (32.0-36.0); MEAN CORPUSCULAR VOLUME 81 fl (80-97); MONOCYTES % (AUTO) 4.7 % (3-13); RED BLOOD COUNT 4.62 10^6/uL (3.72-5.28); RED CELL DISTRIBUTION WIDTH 16.4 % (11.5-14.0); SEGMENTED NEUTROPHILS % (AUTO) 82.9 % (42-78); WHITE BLOOD COUNT 9.5 10^3/uL (4.0-10.5)
[2016-11-21 19:50] LABS: ALANINE AMINOTRANSFERASE 33 U/L (9-52); ALBUMIN 4.3 g/dL (3.5-5.0); ALKALINE PHOSPHATASE 134 U/L (38-126); ANION GAP 13 (5-19); ASPARTATE AMINO TRANSFERASE 31 U/L (14-36); BILIRUBIN,TOTAL 0.6 mg/dL (0.2-1.3); BLOOD UREA NITROGEN 24 mg/dL (7-20); CALCIUM 10.1 mg/dL (8.4-10.2); CARBON DIOXIDE 23 mmol/L (22-30); CHLORIDE 107 mmol/L (98-107); CREATINE KINASE 91 U/L (30-135); CREATININE RESULT 1.12 mg/dL (0.52-1.25); GLUCOSE 122 mg/dL (75-110); MAGNESIUM 2.3 mg/dL (1.6-2.3); POTASSIUM 5.2 mmol/L (3.6-5.0); TOTAL PROTEIN 8.2 g/dL (6.3-8.2)
[2016-11-21 20:01] LABS: CREATINE KINASE MB 1.74 ng/mL (<4.55)
[2016-11-21 20:02] LABS: TROPONIN I < 0.012 ng/mL
[2016-11-21 20:57] VITALS: BP 170/107
--- NOTE | 2016-11-22 11:12 | EKG REPORT ---
SEVERITY:- ABNORMAL ECG - ATRIAL FIBRILLATION, V-RATE 62-112 RIGHT BUNDLE BRANCH BLOCK : Confirmed by: Bradley Olivarez 22-Nov-2016 11:11:53
== END 2016-11-21 20:57 | disposition home or self-care (01) ==
LOC: ER 17:14
DX: I11.0 Hypertensive heart disease with heart failure (principal); I50.9 Heart failure, unspecified; I45.10 Unspecified right bundle-branch block; R19.7 Diarrhea, unspecified; J44.9 Chronic obstructive pulmonary disease, unspecified; J45.909 Unspecified asthma, uncomplicated; E11.9 Type 2 diabetes mellitus without complications; I69.398 Other sequelae of cerebral infarction; R20.0 Anesthesia of skin; I48.91 Unspecified atrial fibrillation; Z79.01 Long term (current) use of anticoagulants; R05 Cough; R06.02 Shortness of breath; F17.200 Nicotine dependence, unspecified, uncomplicated; Z82.49 Family history of ischemic heart disease and other diseases of the circulatory system
CPT/HCPCS: 93005; 94640; 99285; 96374; 36415; 82553; 82550; 83735; 85025; 80053; 84484; 83880; 71010; 93010; J1940; A9270; J7620

== ENCOUNTER 2016-12-11 07:23 | Emergency (ER) | payer MEDICARE, MEDICAID ==
--- NOTE | 2016-12-11 08:21 | ER Document Report ---
ED Respiratory Problem - General Chief Complaint: Breathing Difficulty Stated Complaint: DIFFICULTY BREATHING Mode of Arrival: Ambulatory Information source: Patient TRAVEL OUTSIDE OF THE [place] IN LAST 30 DAYS: No - HPI Patient complains to provider of: Short of breath Duration: Continuous Quality of pain: No pain Context: Hx CHF, Hx COPD. denies: DVT, Factor V Leiden, Malignancy, , Recent cardiac event, Recent foreign travel, Recent long distance trvl, Recent immobilization, Recent surgery Short of Breath: Moderate Cough: Nonproductive Associated symptoms: Ankle/leg swelling - Chronic, Cough - Chronic, Orthopnea - Chronic, Short of breath - Chronic. denies: Fever, Heart racing, Hoarseness, Hurts to breathe, Hyperventilation, Leg/calf/joint pain Notes: The patient arrives today with complaints of shortness of breath. This is a chronic problem for this patient, and she has been seen several times in the emergency department for this in the past. She saw her weed sprayer last week and was put on steroids. Patient states that she continues to feel short of breath feels like this might be getting somewhat worse. Ejection has an appointment to see her weed sprayer today, but states that she didn't sleep very good last night so she came to the emergency department to be evaluated. She denies any chest pain. She denies any fever. She denies any worsening swelling to her legs. She denies any chest pain at this time. She denies any unilateral numbness tingling or weakness. No nausea vomiting diarrhea. No other complaints at this moment. Patient has a history of A. fib, she's currently on Xaralto for this, chronic renal disease, congestive heart failure, COPD, diabetes, hypertension. She denies any recent trips or surgeries, no unilateral leg swelling or pain, no history of DVT or PE, no cancer, no hormones. - Related Data Allergies/Adverse Reactions: No Known Allergies Allergy (Verified 12/11/16 07:27) Past Medical History - Social History Smoking Status: Unknown if Ever Smoked Family History: CAD, CVA, DM, Hyperlipidemia, Hypertension Patient has suicidal ideation: No Patient has homicidal ideation: No - Past Medical History Cardiac Medical History: Reports: Hx Atrial Fibrillation, Hx Congestive Heart Failure, Hx Hypercholesterolemia, Hx Hypertension Pulmonary Medical History: Reports: Hx Asthma, Hx COPD Denies: Hx Tuberculosis Neurological Medical History: Reports: Hx Cerebrovascular Accident Endocrine Medical History: Reports: Hx Diabetes Mellitus Type 2 Renal/ Medical History: Denies: Hx Peritoneal Dialysis Musculoskeltal Medical History: Reports Hx Arthritis Past Surgical History: Reports: Hx Section - X2, Hx Orthopedic Surgery - Bilateral knee replacement, Hx Tubal Ligation - Immunizations Hx Diphtheria, Pertussis, Tetanus Vaccination: Yes Hx Pneumococcal Vaccination: 06/09/13 Review of Systems - Review of Systems -: Yes All other systems reviewed and negative Physical Exam - Vital signs Vitals: Temp Pulse Resp BP Pulse Ox 97.5 F 103 H 20 149/85 H 94 12/11/16 07:29 12/11/16 07:29 12/11/16 07:29 12/11/16 07:29 12/11/16 07:29 - General General appearance: Appears well, Alert In distress: None - HEENT Head: Normocephalic Eyes: Normal Conjunctiva: Normal External canal: Normal Mucous membranes: Normal Pharynx: Normal Neck: Normal - Respiratory Respiratory status: No respiratory distress Breath sounds: Rales - Fine in the bases, Wheezing - Expiratory throughout - Cardiovascular Rhythm: Irregularly irregular. No: Tachycardia Murmur: No - Abdominal Inspection: Normal Tenderness: Nontender - Back Back: Normal, Nontender - Extremities General upper extremity: Normal inspection, Nontender, Normal color, Normal ROM , Normal temperature General lower extremity: Normal inspection, Nontender, Normal color, Normal ROM , Normal temperature, Normal weight bearing. No: Skip's sign - Neurological Notes: +2 pitting edema to the bilateral lower extremities up to the mid plascencia. No redness. Oral pulses and sensation distally. - Psychological Associated symptoms: Normal affect, Normal mood - Skin Skin Temperature: Warm Skin Moisture: Dry Skin Color: Normal Course - Re-evaluation Re-evalutation: 12/11/16 10:29 Patient is nontoxic-appearing with stable vitals. The patient arrives today with complaints of chronic shortness of breath. This is not a new complaint for her. She was seen by her weed sprayer last week and actually has an appointment with her weed sprayer today. Given the ER if she didn't sleep very well last night. She has a completely benign exam at this time. She is noted have some mild pitting edema to the lower extremities which is chronic. Her vitals are stable, she is 100% on room air. Her lab work shows a normal renal function and her BNP is stable at 2500. Troponin is normal. EKG shows A. fib which is chronic. Patient's in no respiratory distress at this time. This point we will discharge her home with instructions to follow-up with her weed sprayer as scheduled later today, SOONER for any worsening symptoms or any further concerns. The patient is noted to have elevated blood pressure during today's emergency department visit. The patient was informed of this finding. The patient was instructed that this may be related to pre-hypertension and requires further evaluation with a primary care provider. The patient has no hypertensive symptoms at this time. The patient's emergency department workup and current diagnosis were explained to the patient and or family. Follow-up instructions were provided. Medications if prescribed were discussed. Instructions for when to return to the emergency department including specific worrisome symptoms were discussed with the patient and/or family. - Vital Signs Vital signs: Temp Pulse Resp BP Pulse Ox 97.5 F 103 H 20 145/92 H 100 12/11/16 07:29 12/11/16 07:29 12/11/16 09:07 12/11/16 09:07 12/11/16 09:07 - Laboratory Result Diagrams: 12/11/16 08:30 12/11/16 08:30 Laboratory results interpreted by me: 12/11/16 12/11/16 12/11/16 08:30 08:30 08:30 Hgb 11.6 L Hct 35.8 L MCV 79 L MCH 25.6 L RDW 16.7 H Sodium 146.6 H Est GFR (Non-Af Amer) 51 L Glucose 116 H NT-Pro-B Natriuret Pep 2500 H Urine Blood 12/11/16 08:30 Hgb Hct MCV MCH RDW Sodium Est GFR (Non-Af Amer) Glucose NT-Pro-B Natriuret Pep Urine Blood SMALL H - EKG Interpretation by Me Additional EKG results interpreted by me: 12/11/16 09:20 Atrial fibrillation with a rate of 89 and a right bundle branch block. Unchanged from prior EKG dated 11/21/2016 Discharge - Discharge Clinical Impression: Shortness of breath Condition: Stable Disposition: HOME, SELF-CARE Instructions: Chronic Obstructive Lung Disease ([facility]), Congestive Heart Failure ([facility]) Additional Instructions: Continue taking all your normal medications. Follow-up with her weed sprayer as scheduled later today. Follow-up sooner or return to emergency department for worsening shortness of breath, high fever, chest pain, difficulty breathing , or any further concerns Your blood pressure was elevated during today's visit. Have this rechecked with your doctor. Forms: Elevated Blood Pressure Referrals: ENE FLORES MD [ACTIVE STAFF] - 12/11/16 (As scheduled)
[2016-12-11 08:41] LABS: ABSOLUTE BASOPHILS # (AUTO) 0.1 10^3/uL (0.0-0.2); ABSOLUTE EOSINOPHILS # (AUTO) 0.3 10^3/uL (0.0-0.6); ABSOLUTE LYMPHOCYTES (AUTO) 1.9 10^3/uL (0.5-4.7); ABSOLUTE MONOCYTES (AUTO) 0.8 10^3/uL (0.1-1.4); ABSOLUTE NEUT (AUTO) 4.8 10^3/uL (1.7-8.2); HEMATOCRIT 35.8 % (36.0-47.0); HEMOGLOBIN 11.6 g/dL (12.0-15.5); LYMPHOCYTES % (AUTO) 23.7 % (13-45); MEAN CORPUSCULAR HEMOGLOBIN 25.6 pg (27.0-33.4); MEAN CORPUSCULAR HGB CONC 32.4 g/dL (32.0-36.0); MEAN CORPUSCULAR VOLUME 79 fl (80-97); MONOCYTES % (AUTO) 10.3 % (3-13); RED BLOOD COUNT 4.55 10^6/uL (3.72-5.28); RED CELL DISTRIBUTION WIDTH 16.7 % (11.5-14.0); WHITE BLOOD COUNT 7.9 10^3/uL (4.0-10.5)
[2016-12-11 08:49] LABS: APPEARANCE,URINE CLEAR; BILIRUBIN,URINE NEGATIVE (NEGATIVE); GLUCOSE, URINE NEGATIVE (NEGATIVE); KETONES,URINE NEGATIVE (NEGATIVE); LEUKOCYTE ESTERASE,URINE NEGATIVE (NEGATIVE); NITRITE,URINE NEGATIVE (NEGATIVE); PROTEIN,URINE NEGATIVE (NEGATIVE); URINE SPECIFIC GRAVITY 1.006; UROBILINOGEN,URINE NEGATIVE mg/dL (<2.0)
[2016-12-11 09:00] LABS: ALANINE AMINOTRANSFERASE 36 U/L (9-52); ALBUMIN 3.8 g/dL (3.5-5.0); ALKALINE PHOSPHATASE 122 U/L (38-126); ANION GAP 16 (5-19); ASPARTATE AMINO TRANSFERASE 32 U/L (14-36); BILIRUBIN,DIRECT 0.3 mg/dL (0.0-0.4); BILIRUBIN,TOTAL 1.1 mg/dL (0.2-1.3); BLOOD UREA NITROGEN 18 mg/dL (7-20); CALCIUM 9.6 mg/dL (8.4-10.2); CARBON DIOXIDE 25 mmol/L (22-30); CHLORIDE 106 mmol/L (98-107); CREATINE KINASE 65 U/L (30-135); CREATININE RESULT 1.08 mg/dL (0.52-1.25); GLUCOSE 116 mg/dL (75-110); POTASSIUM 4.2 mmol/L (3.6-5.0); SODIUM 146.6 mmol/L (137-145); TOTAL PROTEIN 7.2 g/dL (6.3-8.2)
[2016-12-11 09:12] LABS: TROPONIN I < 0.012 ng/mL
[2016-12-11 10:22] VITALS: BP 145/92
--- NOTE | 2016-12-11 13:08 | EKG REPORT ---
SEVERITY:- ABNORMAL ECG - ATRIAL FIBRILLATION, V-RATE 77-107 RIGHT BUNDLE BRANCH BLOCK : Confirmed by: Shirley Moreland MD 11-Dec-2016 13:07:35
== END 2016-12-11 10:44 | disposition home or self-care (01) ==
LOC: ER 07:23
DX: R06.02 Shortness of breath (principal); I48.91 Unspecified atrial fibrillation; Z79.01 Long term (current) use of anticoagulants; I50.9 Heart failure, unspecified; J44.9 Chronic obstructive pulmonary disease, unspecified; E11.9 Type 2 diabetes mellitus without complications; I10 Essential (primary) hypertension
CPT/HCPCS: 36415; 71020; 80053; 81001; 82550; 83880; 84484; 85025; 93005; 93010; 99285

== ENCOUNTER → 2016-12-12 | Outpatient (CLI) | payer MEDICARE, MEDICAID | LOC: RAD 10:10 | PROVIDERS: ATTEND Internal Medicine Critical Care Medicine | DX: J45.909 Unspecified asthma, uncomplicated (principal); R91.8 Other nonspecific abnormal finding of lung field; F51.04 Psychophysiologic insomnia; R53.83 Other fatigue; Z86.73 Personal history of transient ischemic attack (TIA), and cerebral infarction without residual deficits; Z87.09 Personal history of other diseases of the respiratory system; I10 Essential (primary) hypertension; G47.10 Hypersomnia, unspecified; E66.01 Morbid (severe) obesity due to excess calories | CPT/HCPCS: 71250 ==

== ENCOUNTER 2016-12-27 09:34 | Emergency (ER) | payer MEDICARE, MEDICAID ==
--- NOTE | 2016-12-27 09:50 | ER Document Report ---
ED Medical Screen (RME) - General Chief Complaint: Edema Stated Complaint: LEG PROBLEM Notes: 61-year-old female patient with chronic interstitial lung disease, congestive heart failure, edema. She reports breathing been bad since August it is not any worse over the last several days than it has been. She is here for weeping from the right leg. She had her Lasix dose increased last week and thinks it has improved the swelling. She is on high-dose Lasix. I have greeted and performed a rapid initial assessment of this patient. A comprehensive ED assessment and evaluation of the patient, analysis of test results and completion of the medical decision making process will be conducted by additional ED providers. TRAVEL OUTSIDE OF THE [place] IN LAST 30 DAYS: No - Related Data Allergies/Adverse Reactions: No Known Allergies Allergy (Verified 12/27/16 09:46) Past Medical History - Past Medical History Cardiac Medical History: Reports: Hx Atrial Fibrillation, Hx Congestive Heart Failure, Hx Hypercholesterolemia, Hx Hypertension Pulmonary Medical History: Reports: Hx Asthma, Hx COPD Denies: Hx Tuberculosis Neurological Medical History: Reports: Hx Cerebrovascular Accident Endocrine Medical History: Reports: Hx Diabetes Mellitus Type 2 Renal/ Medical History: Denies: Hx Peritoneal Dialysis Musculoskeltal Medical History: Reports Hx Arthritis Past Surgical History: Reports: Hx Section - X2, Hx Orthopedic Surgery - Bilateral knee replacement, Hx Tubal Ligation - Immunizations Hx Diphtheria, Pertussis, Tetanus Vaccination: Yes Physical Exam - Vital signs Vitals: Temp Pulse Resp BP Pulse Ox 97.6 F 96 24 H 143/114 H 98 12/27/16 09:38 12/27/16 09:38 12/27/16 09:38 12/27/16 09:38 12/27/16 09:38 Course - Vital Signs Vital signs: Temp Pulse Resp BP Pulse Ox 97.6 F 96 24 H 143/114 H 98 12/27/16 09:38 12/27/16 09:38 12/27/16 09:38 12/27/16 09:38 12/27/16 09:38 - Laboratory Result Diagrams: 12/27/16 09:58 12/27/16 09:58
[2016-12-27 10:37] LABS: ABSOLUTE BASOPHILS # (AUTO) 0.1 10^3/uL (0.0-0.2); ABSOLUTE EOSINOPHILS # (AUTO) 0.2 10^3/uL (0.0-0.6); ABSOLUTE LYMPHOCYTES (AUTO) 1.8 10^3/uL (0.5-4.7); ABSOLUTE MONOCYTES (AUTO) 0.7 10^3/uL (0.1-1.4); ABSOLUTE NEUT (AUTO) 4.3 10^3/uL (1.7-8.2); BASOPHILS % (AUTO) 1.1 % (0-2); EOSINOPHILS % (AUTO) 2.8 % (0-6); HEMATOCRIT 34.6 % (36.0-47.0); HEMOGLOBIN 11.3 g/dL (12.0-15.5); HGB HCT DIFFERENCE -0.7; LYMPHOCYTES % (AUTO) 25.2 % (13-45); MEAN CORPUSCULAR HEMOGLOBIN 25.6 pg (27.0-33.4); MEAN CORPUSCULAR HGB CONC 32.6 g/dL (32.0-36.0); MEAN CORPUSCULAR VOLUME 79 fl (80-97); RED CELL DISTRIBUTION WIDTH 17.1 % (11.5-14.0); SEGMENTED NEUTROPHILS % (AUTO) 60.9 % (42-78)
[2016-12-27 10:42] LABS: APPEARANCE,URINE CLEAR; BILIRUBIN,URINE NEGATIVE (NEGATIVE); GLUCOSE, URINE NEGATIVE (NEGATIVE); KETONES,URINE NEGATIVE (NEGATIVE); LEUKOCYTE ESTERASE,URINE NEGATIVE (NEGATIVE); NITRITE,URINE NEGATIVE (NEGATIVE); PROTEIN,URINE 30 mg/dL (NEGATIVE)
--- NOTE | 2016-12-27 10:49 | ER Document Report ---
ED General - General Chief Complaint: Edema Stated Complaint: LEG PROBLEM Time seen by provider: 10:43 Mode of Arrival: Wheelchair Information source: Patient Notes: 61-year-old female presented to ED for chronic interstitial lung disease CHF edema and reports she has been breathing at 20-24 hours since August and is not getting any worse today at the last several days and she has been but she has started having weeping from her right lower leg. She had her Lasix increased last week and thinks it is important to swelling she is on a high dose of Lasix at home. TRAVEL OUTSIDE OF THE [place] IN LAST 30 DAYS: No - HPI Onset: This morning Onset/Duration: Gradual Quality of pain: Pressure Pain Level: 3 Associated symptoms: Shortness of breath Exacerbated by: Movement, Walking Relieved by: Denies Similar symptoms previously: Yes Recently seen / treated by doctor: Yes - Related Data Allergies/Adverse Reactions: No Known Allergies Allergy (Verified 12/27/16 09:46) Past Medical History - General Information source: Patient - Social History Smoking Status: Current Every Day Smoker Cigarette use (# per day): Yes - 1cig per day Chew tobacco use (# tins/day): No Smoking Education Provided: Yes - less than 2 minutes Frequency of alcohol use: None Drug Abuse: None Lives with: Alone Family History: Arthritis, CAD, CVA, DM, Hyperlipidemia, Hypertension, Malignancy Patient has suicidal ideation: No Patient has homicidal ideation: No - Past Medical History Cardiac Medical History: Reports: Hx Atrial Fibrillation, Hx Congestive Heart Failure, Hx Hypercholesterolemia, Hx Hypertension Pulmonary Medical History: Reports: Hx Asthma, Hx COPD, Hx Pneumonia EENT Medical History: Reports: None Neurological Medical History: Reports: Hx Cerebrovascular Accident Endocrine Medical History: Reports: Hx Diabetes Mellitus Type 2 Renal/ Medical History: Reports: None Malignancy Medical History: Reports: None GI Medical History: Reports: None Musculoskeltal Medical History: Reports Hx Arthritis, Reports Hx Musculoskeletal Deformity Skin Medical History: Reports None Psychiatric Medical History: Reports: None Traumatic Medical History: Reports: None Infectious Medical History: Reports: None Past Surgical History: Reports: Hx Section - X2, Hx Orthopedic Surgery - Bilateral knee replacement, Hx Tubal Ligation - Immunizations Hx Diphtheria, Pertussis, Tetanus Vaccination: Yes Hx Pneumococcal Vaccination: 06/09/13 Review of Systems - Review of Systems Constitutional: No symptoms reported EENT: No symptoms reported Cardiovascular: Edema Respiratory: Short of breath Gastrointestinal: No symptoms reported Genitourinary: No symptoms reported Female Genitourinary: No symptoms reported Musculoskeletal: Leg swelling, Ankle swelling Skin: No symptoms reported Hematologic/Lymphatic: No symptoms reported Neurological/Psychological: No symptoms reported -: Yes All other systems reviewed and negative Physical Exam - Vital signs Vitals: Temp Pulse Resp BP Pulse Ox 97.6 F 96 24 H 143/114 H 98 12/27/16 09:38 12/27/16 09:38 12/27/16 09:38 12/27/16 09:38 12/27/16 09:38 Interpretation: Normal - General General appearance: Appears well, Alert - HEENT Head: Normocephalic, Atraumatic Eyes: Normal Pupils: PERRL - Respiratory Respiratory status: Tachypnea Chest status: Nontender Breath sounds: Nonproductive cough, Wheezing Chest palpation: Normal - Cardiovascular Rhythm: Regular Heart sounds: Normal auscultation Murmur: No - Abdominal Inspection: Normal Distension: No distension Bowel sounds: Normal Tenderness: Nontender Organomegaly: No organomegaly - Back Back: Normal, Nontender - Extremities General upper extremity: Normal inspection, Nontender, Normal color, Normal ROM , Normal temperature General lower extremity: Normal inspection, Nontender, Normal color, Normal ROM , Normal temperature, Normal weight bearing. No: Skip's sign Ankle: Edema, Other - Right leg weeping Foot: Edema - Neurological Neuro grossly intact: Yes Cognition: Normal Orientation: AAOx4 [place] Coma Scale Eye Opening: Spontaneous [place] Coma Scale Verbal: Oriented [place] Coma Scale Motor: Obeys Commands [place] Coma Scale Total: 15 Speech: Normal Motor strength normal: LUE, RUE, LLE, RLE Sensory: Normal - Psychological Associated symptoms: Normal affect, Normal mood - Skin Skin Temperature: Warm Skin Moisture: Dry Skin Color: Normal Course - Re-evaluation Re-evalutation: 12/27/16 15:[address] Jo concerning the elevation in bun and creatinine. She stated the patient needs to increase lasix to 80 mg bid. Will start on azithromycin and prednisone and write another prescription for abuterol nebs. 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 - Vital Signs Vital signs: Temp Pulse Resp BP Pulse Ox 97.6 F 79 18 140/93 H 98 12/27/16 15:40 12/27/16 15:40 12/27/16 15:40 12/27/16 15:40 12/27/16 15:40 - Laboratory Result Diagrams: 12/27/16 09:58 12/27/16 09:58 Laboratory results interpreted by me: 12/27/16 12/27/16 12/27/16 09:58 09:58 09:58 Hgb 11.3 L Hct 34.6 L MCV 79 L MCH 25.6 L RDW 17.1 H Sodium 147.8 H BUN 24 H Creatinine 1.30 H Est GFR ( Amer) 50 L Est GFR (Non-Af Amer) 42 L Alkaline Phosphatase 157 H NT-Pro-B Natriuret Pep Urine Protein 30 H Urine Blood SMALL H Urine Urobilinogen 2.0 H 12/27/16 13:18 Hgb Hct MCV MCH RDW Sodium BUN Creatinine Est GFR ( Amer) Est GFR (Non-Af Amer) Alkaline Phosphatase NT-Pro-B Natriuret Pep 1860 H Urine Protein Urine Blood Urine Urobilinogen - Diagnostic Test Radiology reviewed: Image reviewed, Reports reviewed Discharge - Discharge Clinical Impression: COPD exacerbation, Leg edema, right HTN (hypertension) Qualifiers: Hypertension type: other secondary hypertension Qualified Code(s): I15.8 - Other secondary hypertension Condition: Stable Disposition: HOME, SELF-CARE Additional Instructions: Chronic Obstructive Lung Disease You have chronic obstructive lung disease (COPD). The symptoms come from emphysema (damage to small airways, with trapping of air in large sacks in the lung) and chronic bronchitis (repeated infection and damage to larger airways). The cause is almost always cigarette smoking, although dust exposure, asthma, and infections contribute. You should avoid fumes, dust, and smoke (especially tobacco smoke). Your condition will flare from time to time. There is no cure, but the symptoms can be treated. Bronchodilators (asthma medicine) are often helpful. Antibiotics help when infection is present. When shortness of breath is severe, we may prescribe cortisone medication. If medicine doesn't help enough, we can arrange for you to have an oxygen tank at home. Notify your doctor at once if sputum becomes thick, foul, or bloody, if you develop a fever or chest pain, or if your shortness of breath worsens. STEROID MEDICATION: You have been given an injection of or oral medicine of the cortisone/ steroid class. This medication is used to control inflammation or allergy. Lucho t is usually only given for a short period of time, until the acute process subsides. There are usually no side effects from short-term use of cortisone-like medications. Some persons feel an increased sense of well-being and are not sleepy at bedtime. Long-term use of cortisone medications is best avoided, unless required for a severe condition. If your condition does not remit, or relapses after the course of corticosteroid medication, you should consult your physician. INHALED BRONCHODILATORS: You have received treatment(s) of and/or prescription for an inhaled bronchodilator -- a medication which stimulates the airways in the lung to dilate. This improves the flow of air in asthma, bronchitis, and emphysema. These medicines have some similarity to adrenaline, and can cause similar side effects: shakiness, racing heart, and a sense of nervousness. These side effects decrease with time. Contact your doctor if these side effects are severe. Do not over-use the medicine. Too-frequent use of the inhaler may make it ineffective. Call your doctor if the inhaler is not controlling your symptoms at the prescribed doses. Lasix increase Lasix to 80 mg twice a day and follow-up with your lung doctor and your kidney doctor Furosemide (Lasix) has been prescribed to eliminate excess fluid from your system. Lasix forces the kidney to put out extra salt and water in the urine. It is used for fluid retention due to heart or lung disease -- improving the symptoms of swelling, shortness of breath, and fatigue. Lasix may cause potassium loss (hypokalemia), so a potassium supplement is usually prescribed. If no potassium has been recommended for you, be sure to have your serum potassium checked after a short time on the medication. Contact your doctor if you have severe weakness or palpitations. Weigh yourself daily. Changes in your weight show how much salt and water your body is eliminating (or retaining). Generally, you should not lose more than about two pounds daily. Once you have lost the desired amount of extra fluid, continued weighing is recommended to monitor your condition. SMOKING: If you smoke, you should stop smoking. The tar and chemicals in cigarette smoke are harmful. Smoking has been shown to cause: emphysema chronic bronchitis lung cancer mouth and throat cancer stomach and pancreas cancer premature aging defects In addition, smoking increases ear and lung infections in children of smokers. AZITHROMYCIN: Azithromycin (Zithromax) is a broad spectrum antibiotic in the same class as erythromycin. It can treat a variety of bacterial infections, but is most frequently used for respiratory infections. Azithromycin is extremely long-lasting. It accumulates in body tissues and continues to kill bacteria for many days. In order to improve absorption, Azithromycin should be taken at least one hour before or two hours after a meal. It does not have the same strong tendency to upset the stomach as erythromycin and is usually very well tolerated. Patients who have had a rash or other true allergic reactions to erythromycin should not take this medication. Call if you develop gastrointestinal distress, severe diarrhea, rash, hives, itching, or shortness of breath. FOLLOW-UP CARE: If you have been referred to a physician for follow-up care, call the physician s office for an appointment as you were instructed or within the next two days. If you experience worsening or a significant change in your symptoms, notify the physician immediately or return to the Emergency Department at any time for re-evaluation. Please complete the patient's satisfaction survey if you get one and return. If you do not receive a survey you can go to [facility] website [email or web address] and place your comments about your very good care. Thank you very much. It was a pleasure be in your medical provider today. Prescriptions: Albuterol Sulfate [Albuterol Sulfate 2.5mg/3 mL] 1 vial IH Q4 PRN #24 vial PRN Reason: Azithromycin [Zithromax 250 mg Tablet] 250 mg PO ASDIR PRN #6 tablet PRN Reason: Prednisone [Deltasone 20 mg Tablet] 3 tab PO DAILY 5 Days Forms: Elevated Blood Pressure, Smoking Cessation Education
[2016-12-27] MEDS ORDERED: IPRATROPIUM/ALBUTEROL 0.5-2.5 MG/3 ML AMPUL NEB ONE (10:50)
[2016-12-27 10:53] LABS: ALANINE AMINOTRANSFERASE 32 U/L (9-52); ALKALINE PHOSPHATASE 157 U/L (38-126); ANION GAP 18 (5-19); ASPARTATE AMINO TRANSFERASE 33 U/L (14-36); BILIRUBIN,DIRECT 0.3 mg/dL (0.0-0.4); BILIRUBIN,TOTAL 0.8 mg/dL (0.2-1.3); BLOOD UREA NITROGEN 24 mg/dL (7-20); CALCIUM 9.1 mg/dL (8.4-10.2); CARBON DIOXIDE 24 mmol/L (22-30); CHLORIDE 106 mmol/L (98-107); CREATINE KINASE 106 U/L (30-135); GLUCOSE 87 mg/dL (75-110); SODIUM 147.8 mmol/L (137-145); TOTAL PROTEIN 7.4 g/dL (6.3-8.2)
[2016-12-27] MEDS: ALBUTEROL SULFATE 0.083% NEB 2.5 MG/3 ML AMPUL NEB SCH ×2 (11:28→12:07)
[2016-12-27 14:37] LABS: CREATINE KINASE MB 1.56 ng/mL (<4.55)
[2016-12-27 14:39] LABS: TROPONIN I < 0.012 ng/mL
[2016-12-27 15:41] VITALS: BP 140/93
== END 2016-12-27 15:40 | disposition home or self-care (01) ==
LOC: ER 09:34
DX: I11.0 Hypertensive heart disease with heart failure (principal); I50.9 Heart failure, unspecified; J44.1 Chronic obstructive pulmonary disease with (acute) exacerbation; R60.0 Localized edema; R05 Cough; R06.02 Shortness of breath; F17.210 Nicotine dependence, cigarettes, uncomplicated; Z71.6 Tobacco abuse counseling; E11.9 Type 2 diabetes mellitus without complications; Z79.899 Other long term (current) drug therapy; Z86.73 Personal history of transient ischemic attack (TIA), and cerebral infarction without residual deficits; Z87.01 Personal history of pneumonia (recurrent)
CPT/HCPCS: 94640 ×2; 99285; 36415; 82553; 82550; 85025; 80053; 81001; 84484; 83880; 71020; A9270 ×2; J7620

== ENCOUNTER 2017-01-16 12:17 | Emergency (ER) | payer MEDICARE, MEDICAID ==
--- NOTE | 2017-01-16 12:59 | ER Document Report ---
ED General - General Chief Complaint: Abdominal Pain Stated Complaint: ABDOMINAL PAIN Time Seen by Provider: 01/16/17 12:54 Mode of Arrival: Wheelchair Information source: Patient Notes: 61-year-old female reports sudden onset of right upper quadrant abdominal pain when she was twisting around to put on her seatbelt. She reports that she has had frequent episodes of sharp pain like this with movement which usually go away after few minutes. At times she is passed out with the pain but did not do that this time. She did have one episode of nausea vomiting after the pain began but that has since resolved. She reports the pain went away after few minutes her nausea has resolved and she has no complaints now. She reports she seen physicians for this complaint TIMES in the past with no specific etiology having been found. She reports she has history of kidney problems which she is followed by Dr. garza and had blood drawn this morning for which she is supposed to follow-up with her next week. She otherwise has been in her usual state of health recently. Physical Exam: General: Alert, appears well. HEENT: Normocephalic. Atraumatic. PERRLA. Extraocular movements intact. Oropharynx clear. Neck: Supple. Non-tender. Respiratory: No respiratory distress. Clear and equal breath sounds bilaterally. Cardiovascular: Regular rate and rhythm. Abdominal: Normal Inspection. Soft, non-tender. No distension. Normal Bowel Sounds. No guarding rebound rigidity Back: Non-tender. No deformity or step off. 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 Normal Mood. Skin: Warm. Dry. Normal color. TRAVEL OUTSIDE OF THE [place] IN LAST 30 DAYS: No - Related Data Allergies/Adverse Reactions: No Known Allergies Allergy (Verified 01/16/17 12:52) Past Medical History - Social History Smoking Status: Current Every Day Smoker Chew tobacco use (# tins/day): No Frequency of alcohol use: None Drug Abuse: None Family History: Arthritis, CAD, CVA, DM, Hyperlipidemia, Hypertension, Malignancy Patient has suicidal ideation: No Patient has homicidal ideation: No - Past Medical History Cardiac Medical History: Reports: Hx Atrial Fibrillation, Hx Congestive Heart Failure, Hx Hypercholesterolemia, Hx Hypertension Pulmonary Medical History: Reports: Hx Asthma, Hx COPD, Hx Pneumonia Denies: Hx Tuberculosis Neurological Medical History: Reports: Hx Cerebrovascular Accident Endocrine Medical History: Reports: Hx Diabetes Mellitus Type 2 Renal/ Medical History: Denies: Hx Peritoneal Dialysis Musculoskeltal Medical History: Reports Hx Arthritis, Reports Hx Musculoskeletal Deformity Past Surgical History: Reports: Hx Section - X2, Hx Orthopedic Surgery - Bilateral knee replacement, Hx Tubal Ligation - Immunizations Hx Diphtheria, Pertussis, Tetanus Vaccination: Yes Hx Pneumococcal Vaccination: 06/09/13 Review of Systems - Review of Systems Constitutional: denies: Chills, Fever EENT: denies: Ear pain, Throat pain Cardiovascular: denies: Chest pain, Syncope, Dizziness Respiratory: denies: Cough, Short of breath Gastrointestinal: See HPI. denies: Blood in vomit, Black stools, Rectal bleeding Genitourinary: denies: Burning, Dysuria Female Genitourinary: denies: Musculoskeletal: denies: Back pain, Muscle pain, Leg swelling Skin: denies: Rash Hematologic/Lymphatic: denies: Swollen glands Neurological/Psychological: denies: Weakness, Numbness Course - Re-evaluation Re-evalutation: 01/16/17 12:57 Patient has a benign exam and no complaints now. She has a history consistent with muscle cramping reports prior workups for this with no specific problem or serious that being found. Patient doesn't wish further workup here and is agreeable to discharge. She is hemodynamically stable and do not believe that further workup here would be in her best interest. Discharge - Discharge Clinical Impression: Nausea & vomiting Qualifiers: Vomiting type: unspecified Vomiting Intractability: non-intractable Qualified Code(s): R11.2 - Nausea with vomiting, unspecified Condition: Stable Disposition: HOME, SELF-CARE Instructions: Vomiting ([facility]) Referrals: AMOL GARZA MD [ACTIVE STAFF] - Follow up in 1 week
== END 2017-01-16 13:03 | disposition home or self-care (01) ==
LOC: ER 12:17
DX: R11.2 Nausea with vomiting, unspecified (principal); R10.11 Right upper quadrant pain; E11.9 Type 2 diabetes mellitus without complications; I10 Essential (primary) hypertension; J44.9 Chronic obstructive pulmonary disease, unspecified; F17.200 Nicotine dependence, unspecified, uncomplicated; Z86.79 Personal history of other diseases of the circulatory system
CPT/HCPCS: 99283

== ENCOUNTER → 2017-04-05 | Outpatient (CLI) | payer MEDICARE, MEDICAID ==
--- NOTE | 2017-04-05 14:49 | WOMENS IMAGING REPORT ---
EXAM DESCRIPTION: 3D SCREENING MAMMO BILAT COMPLETED DATE/TIME: 04/05/2017 9:45 am REASON FOR STUDY: ROUTINE SCREENING 3D; Z12.31 Z12.31 ENCNTR SCREEN MAMMOGRAM FOR MALIGNANT NEOPLAS M OF ANH COMPARISON: 11/10/2015 and 10/19/2014. TECHNIQUE: Standard craniocaudal and mediolateral oblique views of each breast recorded using digita l acquisition and breast tomosynthesis. LIMITATIONS: None. FINDINGS: Findings present which are benign by mammographic criteria. No suspicious masses, calcifi cations or architectural distortion. Pertinent benign findings: Benign calcifications. Read with the assistance of CAD. .[facility] - R2 [employer] Version 1.3 .[facility] - R2 Cenova Version 1.3 .[facility] - R2 Cenova Version 2.4 .[facility] [place] R2 Cenova Version 2.4 .[facility] - R2 [employer] Version 9.2 Benign mammographic findings may include one or more of the following: Smooth masses, popcorn/rim/co arse calcifications, asymmetries, post-procedure changes, and lesions with long-standing stability. IMPRESSION: BENIGN MAMMOGRAPHIC FINDINGS. BIRADS 2 BREAST DENSITY: b. There are scattered areas of fibroglandular density. BIRAD: 2 BENIGN FINDING(S) RECOMMENDATION: RECOMMENDATION: ROUTINE SCREENING COMMENT: The patient has been notified of the results by letter per [place] requirements. Additional no tification policies are in place for contacting patient with suspicious or incomplete findings. Quality ID #[id number]: The [employer] recommends an annual screening mammogram for women aged 40 years or over. This facility utilizes a reminder system to ensure that all patients receive reminder letters, and/or direct phone calls for appointments. This includes reminders for routine scr eening mammograms, diagnostic mammograms, or other Breast Imaging Interventions when appropriate. Th is patient will be placed in the appropriate reminder system. The [employer] (ACR) has developed recommendations for screening MRI of the breast s in certain patient populations, to be used in conjunction with mammography. Breast MRI surveillanc e may be appropriate for women with more than 20% lifetime risk of developing breast cancer as deter mined by genetic testing, significant family history of the disease, or history of mantle radiation f or Hodgkins Disease. ACR Practice Guidelines 2008. DBT Technology DBT is a type of tomographic mammography. With conventional mammography, overlapping breast tissue ma y make lesions difficult to detect, even with good compression. DBT uses an x-ray tube that rotates a round the breast, taking images at different angles. These images are then combined to create thin sl ices of the breast that the radiologist can view as a 3D reconstruction. The [employer] unit can perform full-field digital mammograms (2D imaging); or DBT (3D imaging); or both, in a combination mode that quickly performs both the mammogram and the tomosynthesis scan while the breast is still compressed. PQRS 6045F: Fluoroscopic imaging is not utilized for breast tomosynthesis. TECHNICAL DOCUMENTATION: FINDING NUMBER: (1) ASSESSMENT: (1) JOB ID: [id number] [employer]- All Rights Reserved
== END ==
LOC: WI 10:35
PROVIDERS: ATTEND Family Medicine
DX: Z12.31 Encounter for screening mammogram for malignant neoplasm of breast (principal)
CPT/HCPCS: 77063; G0202; 77067

== ENCOUNTER 2017-08-29 06:00 | Emergency (ER) | payer MEDICARE, MEDICAID ==
[2017-08-29] MEDS ORDERED: IPRATROPIUM/ALBUTEROL 0.5-2.5 MG/3 ML AMPUL NEB ONE ×3 (06:41→06:42)
--- NOTE | 2017-08-29 06:42 | ER Document Report ---
ED General - General Chief Complaint: Breathing Difficulty Stated Complaint: BREATHING DIFFICULTY Time Seen by Provider: 08/29/17 06:32 Mode of Arrival: Ambulatory Information source: Patient Notes: 61-year-old female history of COPD CHF presents with complaints of shortness of breath of one-week duration. Patient notes initially was a productive cough that has since turned into dry cough. Patient notes shortness of breath when laying flat and with exertion. She denies any recent weight gain. TRAVEL OUTSIDE OF THE [place] IN LAST 30 DAYS: No - HPI Onset: Last week Onset/Duration: Worse Quality of pain: No pain Severity: Moderate Pain Level: Denies Associated symptoms: Nonproductive cough, Productive cough, Shortness of breath Exacerbated by: Supine, Walking Relieved by: Denies Similar symptoms previously: Yes Recently seen / treated by doctor: Yes - Related Data Allergies/Adverse Reactions: No Known Allergies Allergy (Verified 01/16/17 12:52) Past Medical History - Social History Smoking Status: Current Every Day Smoker Cigarette use (# per day): Yes Chew tobacco use (# tins/day): No Smoking Education Provided: No Frequency of alcohol use: None Drug Abuse: None Family History: Arthritis, CAD, CVA, DM, Hyperlipidemia, Hypertension, Malignancy Patient has suicidal ideation: No Patient has homicidal ideation: No - Past Medical History Cardiac Medical History: Reports: Hx Atrial Fibrillation, Hx Congestive Heart Failure, Hx Hypercholesterolemia, Hx Hypertension Pulmonary Medical History: Reports: Hx Asthma, Hx COPD, Hx Pneumonia Denies: Hx Tuberculosis Neurological Medical History: Reports: Hx Cerebrovascular Accident Endocrine Medical History: Reports: Hx Diabetes Mellitus Type 2 Renal/ Medical History: Denies: Hx Peritoneal Dialysis Musculoskeltal Medical History: Reports Hx Arthritis, Reports Hx Musculoskeletal Deformity Past Surgical History: Reports: Hx Section - X2, Hx Orthopedic Surgery - Bilateral knee replacement, Hx Tubal Ligation - Immunizations Hx Diphtheria, Pertussis, Tetanus Vaccination: Yes Hx Pneumococcal Vaccination: 06/09/13 Review of Systems - Review of Systems Notes: REVIEW OF SYSTEMS: CONSTITUTIONAL : Denies fever, chills, or sweats. Denies recent illness. EENT: Denies eye, ear, throat, or mouth pain or symptoms. Denies nasal or sinus congestion or discharge. Denies throat, tongue, or mouth swelling or difficulty swallowing. CARDIOVASCULAR: Denies chest pain. Denies palpitations or racing or irregular heart beat. Denies ankle edema. RESPIRATORY: Admits shortness of breath cough initially productive the nonproductive GASTROINTESTINAL: Denies abdominal pain or distention. Denies nausea, vomiting , or diarrhea. Denies blood in vomitus, stools, or per rectum. Denies black, tarry stools. Denies constipation. GENITOURINARY: Denies difficulty urinating, painful urination, burning, frequency, blood in urine, or discharge. FEMALE GENITOURINARY: Denies vaginal bleeding, heavy or abnormal periods, irregular periods. Denies vaginal discharge or odor. MUSCULOSKELETAL: Denies back or neck pain or stiffness. Denies joint pain or swelling. SKIN: Denies rash, lesions or sores. HEMATOLOGIC : Denies easy bruising or bleeding. LYMPHATIC: Denies swollen, enlarged glands. NEUROLOGICAL: Denies confusion or altered mental status. Denies passing out or loss of consciousness. Denies dizziness or lightheadedness. Denies headache. Denies weakness or paralysis or loss of use of either side. Denies problems with gait or speech. Denies sensory loss, numbness, or tingling. Denies seizures. PSYCHIATRIC: Denies anxiety or stress. Denies depression, suicidal ideation, or homicidal ideation. ALL OTHER SYSTEMS REVIEWED AND NEGATIVE. PHYSICAL EXAMINATION: GENERAL: Well-appearing, well-nourished and in no acute distress. HEAD: Atraumatic, normocephalic. EYES: Pupils equal round and reactive to light, extraocular movements intact, conjunctiva are normal. ENT: Nares patent, oropharynx clear without exudates. Moist mucous membranes. NECK: Normal range of motion, supple without lymphadenopathy LUNGS: Tachypneic with end expiratory wheezing all throughout HEART: Regular rate and rhythm without murmurs ABDOMEN: Soft, nontender, nondistended abdomen. No guarding, no rebound. No masses appreciated. Female : deferred Musculoskeletal: Normal range of motion, no pitting or edema. No cyanosis. NEUROLOGICAL: Cranial nerves grossly intact. Normal speech, normal gait. Normal sensory, motor exams PSYCH: Normal mood, normal affect. SKIN: Warm, Dry, normal turgor, no rashes or lesions noted. Dictation was performed using [email or web address] voice recognition software Physical Exam - Vital signs Vitals: Temp Pulse Resp BP Pulse Ox 97.9 F 72 22 H 161/105 H 97 08/29/17 06:09 08/29/17 06:09 08/29/17 06:09 08/29/17 06:09 08/29/17 06:09 Course - Re-evaluation Re-evalutation: 08/29/17 06:44 Patient's presentation is more consistent with COPD rather than CHF however lab work workup pending to rule out life-threatening causes of respiratory distress. Patient is satting 100% on room air at this time in no distress 08/29/17 14:49 Patient was reevaluated multiple times she feels much better wishes to be discharged, I will discharge her with the understanding that she must return immediately if there are any other concerns After performing a Medical Screening Examination, I estimate there is LOW risk for ACUTE CORONARY SYNDROME, PULMONARY EMBOLI, RESPIRATORY FAILURE, SEPSIS OR MENINGITIS, thus I consider the discharge disposition reasonable. I have reevaluated this patient multiple times and no significant life threatening changes are noted. The patient and I have discussed the diagnosis and risks, and we agree with discharging home with close follow-up. We also discussed returning to the Emergency Department immediately if new or worsening symptoms occur. We have discussed the symptoms which are most concerning (e.g., changing or worsening pain, trouble swallowing or breathing, neck stiffness, fever) that necessitate immediate return. - Vital Signs Vital signs: Temp Pulse Resp BP Pulse Ox 97.9 F 72 25 H 141/77 H 100 08/29/17 06:09 08/29/17 06:09 08/29/17 09:02 08/29/17 09:02 08/29/17 09:00 - Laboratory Result Diagrams: 08/29/17 06:55 08/29/17 06:55 Laboratory results interpreted by me: 08/29/17 08/29/17 08/29/17 06:55 06:55 06:55 Hgb 10.4 L Hct 31.6 L RDW 16.5 H Plt Count 127 L BUN 26 H Est GFR ( Amer) 54 L Est GFR (Non-Af Amer) 44 L Glucose 111 H NT-Pro-B Natriuret Pep 3760 H Total Protein 8.5 H Urine Protein Urine Blood Ur Leukocyte Esterase 08/29/17 07:51 Hgb Hct RDW Plt Count BUN Est GFR ( Amer) Est GFR (Non-Af Amer) Glucose NT-Pro-B Natriuret Pep Total Protein Urine Protein 100 H Urine Blood SMALL H Ur Leukocyte Esterase SMALL H - Diagnostic Test Radiology reviewed: Image reviewed, Reports reviewed Discharge - Discharge Clinical Impression: COPD exacerbation, SOB (shortness of breath) Condition: Stable Disposition: HOME, SELF-CARE Instructions: Chronic Obstructive Lung Disease ([facility]) Additional Instructions: Follow up with your physician tomorrow for further care or return to the ED IMMEDIATELY if symptoms worsen or new concerns occur. If you cannot afford to follow up with your primary care physician a list of low cost clinics have been provided at the end of your discharge papers as well. Prescriptions: Prednisone [Deltasone 20 mg Tablet] 3 tab PO DAILY 5 Days tablet
[2017-08-29 07:11] LABS: ABSOLUTE BASOPHILS # (AUTO) 0.1 10^3/uL (0.0-0.2); ABSOLUTE EOSINOPHILS # (AUTO) 0.2 10^3/uL (0.0-0.6); ABSOLUTE LYMPHOCYTES (AUTO) 1.6 10^3/uL (0.5-4.7); ABSOLUTE MONOCYTES (AUTO) 0.8 10^3/uL (0.1-1.4); ABSOLUTE NEUT (AUTO) 5.5 10^3/uL (1.7-8.2); BASOPHILS % (AUTO) 0.6 % (0-2); EOSINOPHILS % (AUTO) 2.9 % (0-6); HEMATOCRIT 31.6 % (36.0-47.0); HEMOGLOBIN 10.4 g/dL (12.0-15.5); HGB HCT DIFFERENCE -0.4; MEAN CORPUSCULAR HEMOGLOBIN 27.6 pg (27.0-33.4); MEAN CORPUSCULAR HGB CONC 33.1 g/dL (32.0-36.0); MEAN CORPUSCULAR VOLUME 84 fl (80-97); MONOCYTES % (AUTO) 10.1 % (3-13); RED BLOOD COUNT 3.79 10^6/uL (3.72-5.28); RED CELL DISTRIBUTION WIDTH 16.5 % (11.5-14.0); SEGMENTED NEUTROPHILS % (AUTO) 66.4 % (42-78); WHITE BLOOD COUNT 8.3 10^3/uL (4.0-10.5)
[2017-08-29 07:34] LABS: ALANINE AMINOTRANSFERASE 28 U/L (9-52); ALBUMIN 4.4 g/dL (3.5-5.0); ALKALINE PHOSPHATASE 119 U/L (38-126); ANION GAP 12 (5-19); ASPARTATE AMINO TRANSFERASE 31 U/L (14-36); BILIRUBIN,DIRECT 0.4 mg/dL (0.0-0.4); BILIRUBIN,TOTAL 0.5 mg/dL (0.2-1.3); BLOOD UREA NITROGEN 26 mg/dL (7-20); CALCIUM 9.9 mg/dL (8.4-10.2); CARBON DIOXIDE 25 mmol/L (22-30); CHLORIDE 106 mmol/L (98-107); CREATINE KINASE 81 U/L (30-135); CREATININE RESULT 1.23 mg/dL (0.52-1.25); GLUCOSE 111 mg/dL (75-110); POTASSIUM 3.7 mmol/L (3.6-5.0); SODIUM 142.9 mmol/L (137-145); TOTAL PROTEIN 8.5 g/dL (6.3-8.2)
--- NOTE | 2017-08-29 07:34 | RADIOLOGY REPORT (SQ) ---
EXAM DESCRIPTION: CHEST SINGLE VIEW CLINICAL HISTORY: 61 years, Female, dyspnea, hx copd, chf COMPARISON: 11/21/2016. LIMITATIONS: None. FINDINGS: Small atelectasis or scar of the left midlung field, moderate lung volume, moderate enlargement of the cardiac silhouette, atherosclerosis, and intact bony thorax. IMPRESSION: No acute cardiopulmonary findings. No significant interval change. 2011 [employer]- All Rights Reserved
[2017-08-29 07:46] LABS: CREATINE KINASE MB 0.91 ng/mL (<4.55)
--- NOTE | 2017-08-29 07:47 | EKG REPORT ---
SEVERITY:- ABNORMAL ECG - SINUS RHYTHM RIGHT BUNDLE BRANCH BLOCK NONSPECIFIC ST-T CHANGES- INFERIOR LEADS : Confirmed by: Antonio Stuart MD 29-Aug-2017 07:47:21
[2017-08-29 07:49] LABS: TROPONIN I < 0.012 ng/mL
[2017-08-29] MEDS ORDERED: METHYLPREDNISOLONE INJ 125 MG/2 ML SDV IV ONE (08:00)
[2017-08-29 08:08] LABS: APPEARANCE,URINE SLIGHTLY-CLOUDY; BILIRUBIN,URINE NEGATIVE (NEGATIVE); GLUCOSE, URINE NEGATIVE (NEGATIVE); KETONES,URINE NEGATIVE (NEGATIVE); LEUKOCYTE ESTERASE,URINE SMALL (NEGATIVE); NITRITE,URINE NEGATIVE (NEGATIVE); PROTEIN,URINE 100 mg/dL (NEGATIVE); URINE SPECIFIC GRAVITY 1.017; UROBILINOGEN,URINE NEGATIVE mg/dL (<2.0)
[2017-08-29 09:12] VITALS: BP 141/77
== END 2017-08-29 09:20 | disposition home or self-care (01) ==
LOC: ER 06:00
DX: J44.1 Chronic obstructive pulmonary disease with (acute) exacerbation (principal); R06.02 Shortness of breath; I50.9 Heart failure, unspecified; R05 Cough; F17.210 Nicotine dependence, cigarettes, uncomplicated
CPT/HCPCS: 93005; 94640 ×2; 99285; 96374; 36415; 87040; 82553; 82550; 85025; 80053; 81001; 84484; 83880; 71010; 93010; J2930; A9270; J7620

== ENCOUNTER 2017-09-03 10:00 | Inpatient (IN) | payer MEDICARE, MEDICAID ==
[2017-09-03] MEDS ORDERED: IPRATROPIUM/ALBUTEROL 0.5-2.5 MG/3 ML AMPUL NEB ONE ×2 (10:24→14:55)
[2017-09-03] MEDS ORDERED: ALBUTEROL SULFATE 0.083% NEB 2.5 MG/3 ML AMPUL NEB ONE ×2 (10:25→11:45)
[2017-09-03] MEDS ORDERED: LORAZEPAM 1 MG TABLET PO ONE (10:25)
--- NOTE | 2017-09-03 10:26 | ER Document Report ---
ED General - General Mode of Arrival: Ambulatory Information source: Patient TRAVEL OUTSIDE OF THE [place] IN LAST 30 DAYS: No <OTTO KAUFMAN - Last Filed: 09/03/17 10:28> <NGUYEN XIAO - Last Filed: 09/03/17 16:24> - General Chief Complaint: Breathing Difficulty Stated Complaint: DIFFICULTY BREATHING Time Seen by Provider: 09/03/17 10:16 Notes: Patient is a 61 year old female with a history of COPD, CHF and Type 2 Diabetes reports to the emergency department complaining of shortness of breath. Patient was recently seen in the emergency department 5 days ago complaining of shortness of breath and was treated with Albuetrol and a prescription of Prednisone. At bedside patient began to complain of left sided chest pain. (OTTO KAUFMAN) - Related Data Allergies/Adverse Reactions: No Known Allergies Allergy (Verified 09/03/17 10:03) Past Medical History - General Information source: Patient - Social History Smoking Status: Current Every Day Smoker Cigarette use (# per day): Yes Chew tobacco use (# tins/day): No Family History: Arthritis, CAD, CVA, DM, Hyperlipidemia, Hypertension, Malignancy - Past Medical History Cardiac Medical History: Reports: Hx Atrial Fibrillation, Hx Congestive Heart Failure, Hx Hypercholesterolemia, Hx Hypertension Pulmonary Medical History: Reports: Hx Asthma, Hx COPD, Hx Pneumonia Neurological Medical History: Reports: Hx Cerebrovascular Accident Endocrine Medical History: Reports: Hx Diabetes Mellitus Type 2 Musculoskeltal Medical History: Reports Hx Arthritis, Reports Hx Musculoskeletal Deformity Past Surgical History: Reports: Hx Section - X2, Hx Orthopedic Surgery - Bilateral knee replacement, Hx Tubal Ligation - Immunizations Hx Diphtheria, Pertussis, Tetanus Vaccination: Yes Hx Pneumococcal Vaccination: 06/09/13 <OTTO KAUFMAN - Last Filed: 09/03/17 10:28> Review of Systems - Review of Systems Constitutional: No symptoms reported EENT: No symptoms reported Cardiovascular: No symptoms reported Respiratory: See HPI, Short of breath Gastrointestinal: No symptoms reported Genitourinary: No symptoms reported Female Genitourinary: No symptoms reported Musculoskeletal: No symptoms reported Skin: No symptoms reported Hematologic/Lymphatic: No symptoms reported Neurological/Psychological: No symptoms reported -: Yes All other systems reviewed and negative <OTTO KAUFMAN - Last Filed: 09/03/17 10:28> Physical Exam - General General appearance: Appears well, Alert, Other - Patient is very excitable and is hyperventilating at bedside. - Respiratory Respiratory status: Labored Chest status: Tender - tender to palpation on left inferior peristernal Breath sounds: Wheezing - Cardiovascular Rhythm: Regular Heart sounds: Normal auscultation - Abdominal Inspection: Obese Distension: No distension Bowel sounds: Normal Tenderness: Nontender Organomegaly: No organomegaly - Back Back: Normal - Extremities General upper extremity: Normal inspection, Normal ROM General lower extremity: Normal inspection, Normal ROM - Neurological Neuro grossly intact: Yes Cognition: Normal Orientation: AAOx4 Guill[place] Coma Scale Eye Opening: Spontaneous [place] Coma Scale Verbal: Oriented Guillermo Coma Scale Motor: Obeys Commands [place] Coma Scale Total: 15 Speech: Normal - Psychological Associated symptoms: Normal affect, Normal mood - Skin Skin Temperature: Warm Skin Moisture: Dry Skin Color: Normal <OTTO KAUFMAN - Last Filed: 09/03/17 10:28> - Vital signs Vitals: Temp Pulse Resp BP Pulse Ox 97.5 F 86 36 H 184/82 H 92 09/03/17 10:05 09/03/17 10:05 09/03/17 10:05 09/03/17 10:05 09/03/17 10:05 Course <OTTO KAUFMAN - Last Filed: 09/03/17 10:28> - Laboratory Result Diagrams: 09/03/17 10:45 09/03/17 10:45 - Diagnostic Test Radiology reviewed: Image reviewed, Reports reviewed - Chest x-ray shows mild cardiomegaly with no acute changes and no pulmonary vascular congestion or pulmonary edema. - Consults Ghulam Perkins RN Time consulted: 16:20 Consulted provider: will come to ER <NGUYEN XIAO - Last Filed: 09/03/17 16:24> - Re-evaluation Re-evalutation: 09/03/17 14:57 Patient reports he feels much better and is happy now. I think Ativan is worked quite well. She still has diffuse inspiratory respiratory wheezes but is considerably improved from when she first came in. We will add magnesium IV and another DuoNeb treatment at this time. (NGUYEN XIAO) - Vital Signs Vital signs: Temp Pulse Resp BP Pulse Ox 97.5 F 86 19 159/110 H 100 09/03/17 10:05 09/03/17 10:05 09/03/17 15:14 09/03/17 15:14 09/03/17 15:14 - Laboratory Laboratory results interpreted by me: 09/03/17 09/03/17 09/03/17 10:45 10:45 10:45 Hgb 11.2 L Hct 34.4 L RDW 16.4 H Lymphocytes % 12.2 L Potassium 3.3 L Carbon Dioxide 34 H BUN 25 H Creatinine 1.26 H Est GFR ( Amer) 52 L Est GFR (Non-Af Amer) 43 L Glucose 180 H Creatine Kinase 162 H NT-Pro-B Natriuret Pep 5920 H Discharge <OTTO KAUFMAN - Last Filed: 09/03/17 10:28> - Discharge Admitting Provider: Hospitalist Unit Admitted: IMCU <NGUYEN XIAO - Last Filed: 09/03/17 16:24> - Discharge Clinical Impression: Acute exacerbation of COPD with asthma, Status asthmaticus with COPD (chronic obstructive pulmonary disease) Anxiety disorder Qualifiers: Anxiety disorder type: unspecified anxiety disorder Qualified Code(s): F41.9 - Anxiety disorder, unspecified Condition: Stable Disposition: ADMITTED INPATIENT Scribe Attestation: 09/03/17 11:45 I personally performed the services described in the documentation, reviewed and edited the documentation which was dictated to the scribe in my presence, and it accurately records my words and actions. (NGUYEN XIAO) Scribe Documentation - Scribe Written by Scribe:: Kina Hercules, 09/03/2017 10:31 acting as scribe for :: Antwan <OTTO KAUFMAN - Last Filed: 09/03/17 10:28>
[2017-09-03 10:57] LABS: ABSOLUTE EOSINOPHILS # (AUTO) 0.2 10^3/uL (0.0-0.6); ABSOLUTE LYMPHOCYTES (AUTO) 1.2 10^3/uL (0.5-4.7); ABSOLUTE MONOCYTES (AUTO) 1.1 10^3/uL (0.1-1.4); ABSOLUTE NEUT (AUTO) 7.4 10^3/uL (1.7-8.2); BASOPHILS % (AUTO) 0.3 % (0-2); EOSINOPHILS % (AUTO) 1.7 % (0-6); HEMATOCRIT 34.4 % (36.0-47.0); HEMOGLOBIN 11.2 g/dL (12.0-15.5); LYMPHOCYTES % (AUTO) 12.2 % (13-45); MEAN CORPUSCULAR HGB CONC 32.5 g/dL (32.0-36.0); MEAN CORPUSCULAR VOLUME 83 fl (80-97); MONOCYTES % (AUTO) 10.9 % (3-13); PLATELET COUNT 190 10^3/uL (150-450); RED BLOOD COUNT 4.14 10^6/uL (3.72-5.28); RED CELL DISTRIBUTION WIDTH 16.4 % (11.5-14.0); SEGMENTED NEUTROPHILS % (AUTO) 74.9 % (42-78); TOTAL CELLS COUNTED % (AUTO) 100 %; WHITE BLOOD COUNT 9.9 10^3/uL (4.0-10.5)
--- NOTE | 2017-09-03 11:10 | RADIOLOGY REPORT (SQ) ---
EXAM DESCRIPTION: CHEST SINGLE VIEW COMPLETED DATE/TIME: 09/03/2017 10:57 am REASON FOR STUDY: SOB COMPARISON: 08/29/2017 EXAM PARAMETERS: NUMBER OF VIEWS: One view. TECHNIQUE: Single frontal radiographic view of the chest acquired. RADIATION DOSE: NA LIMITATIONS: Poor inspiration. FINDINGS: LUNGS AND PLEURA: Minimal atelectasis or scarring in the left mid lung. No acute opacitie s, masses or pneumothorax. No pleural effusion. MEDIASTINUM AND HILAR STRUCTURES: Chronic prominence of the aortic arch. HEART AND VASCULAR STRUCTURES: Mild cardiomegaly. No evidence of failure. BONES: No acute findings. HARDWARE: None in the chest. OTHER: No other significant finding. IMPRESSION: Mild cardiomegaly without evidence of acute cardiopulmonary disease. TECHNICAL DOCUMENTATION: JOB ID: [id number] [employer]- All Rights Reserved
[2017-09-03 11:14] LABS: ALANINE AMINOTRANSFERASE 41 U/L (9-52); ALBUMIN 4.2 g/dL (3.5-5.0); ALKALINE PHOSPHATASE 98 U/L (38-126); ANION GAP 11 (5-19); ASPARTATE AMINO TRANSFERASE 31 U/L (14-36); BILIRUBIN,DIRECT 0.3 mg/dL (0.0-0.4); BILIRUBIN,TOTAL 0.7 mg/dL (0.2-1.3); BLOOD UREA NITROGEN 25 mg/dL (7-20); CALCIUM 9.9 mg/dL (8.4-10.2); CARBON DIOXIDE 34 mmol/L (22-30); CHLORIDE 99 mmol/L (98-107); CREATINE KINASE 162 U/L (30-135); GLUCOSE 180 mg/dL (75-110); POTASSIUM 3.3 mmol/L (3.6-5.0); SODIUM 143.9 mmol/L (137-145); TOTAL PROTEIN 7.5 g/dL (6.3-8.2)
[2017-09-03 11:25] LABS: TROPONIN I 0.014 ng/mL
[2017-09-03] MEDS ORDERED: PREDNISONE 20 MG TABLET PO ONE (14:57)
[2017-09-03] MEDS: MAGNESIUM SULFATE/D5W 1 GM/100 ML RTUPB IV SCH ×2 (15:07→16:38)
[2017-09-03] MEDS ORDERED: ACETAMINOPHEN 325 MG TABLET PO PRN ×2 (16:24→19:20)
[2017-09-03] MEDS ORDERED: ONDANSETRON 4 MG TAB.RAPDIS PO PRN (16:24)
[2017-09-03] MEDS ORDERED: LEVALBUTEROL HCL NEB 0.63 MG/3 ML AMPUL NEB PRN (17:10)
[2017-09-03] MEDS ORDERED: DEXTROSE 50%-WATER 25 GM/50 ML DISP.SYRIN IV PRN ×2 (17:13)
[2017-09-03] MEDS ORDERED: HYDRALAZINE HCL INJ/PF 20 MG/1 ML SDV IV PRN (17:13)
[2017-09-03] MEDS ORDERED: DEXTROSE 40% GEL 15 GM TUBE PO PRN ×2 (17:13)
[2017-09-03] MEDS ORDERED: GLUCAGON,HUMAN RECOMB 1 MG INJ IM PRN (17:13)
[2017-09-03] MEDS ORDERED: POTASSIUM CHLORIDE 10 MEQ TABLET.SA PO ONE (17:15)
[2017-09-03] MEDS ORDERED: FUROSEMIDE INJ/PF 40 MG/4 ML SDV IV ONE (17:15)
[2017-09-03] MEDS: DOCUSATE SODIUM 100 MG CAPSULE PO SCH (17:26)
[2017-09-03] MEDS ORDERED: LEVALBUTEROL HCL NEB 1.25 MG/3 ML AMPUL NEB PRN (17:30)
[2017-09-03] MEDS ORDERED: MONTELUKAST SODIUM 10 MG TABLET PO SCH (18:00)
[2017-09-03] MEDS ORDERED: DOXYCYCLINE HYCLATE 100 MG TABLET PO ONE (18:00)
[2017-09-03] MEDS ORDERED: GUAIFENESIN 600 MG TABLET.SA PO ONE (18:00)
[2017-09-03] MEDS ORDERED: FLUTICASONE NASAL SPRAY 50 MCG/SPRY 120 SPRAY/16 GM NASL ONE (18:30)
--- NOTE | 2017-09-03 18:43 | HISTORY AND PHYSICAL E ---
History and Physical NAME: JOLIE CAMARA : 1955 AGE: 61Y ADMITTED: 09/03/2017 ROOM: ED08 PRIMARY CARE PROVIDER: Dr. Quiroga. OUTPATIENT STEEL FINISHER: Libia Jo MD. OUTPATIENT SENIOR WIND TURBINE TECHNICIAN: Justyn Sung MD. CHIEF COMPLAINT: Shortness of breath. HISTORY OF PRESENT ILLNESS: The patient is a very pleasant 61-year-old female with a past medical history of COPD. The patient presented to the emergency department with a chief complaint of shortness of breath. According to the patient, about a week ago, she was seen in the emergency department. At that time, she was given a steroid pack and the patient stated that her symptoms remained at bay; however, yesterday was her first day without a steroid, and subsequently, her symptoms came back worse than before. The patient notes progressive wheezing, as well as a strong cough, but scant sputum production. The patient denies any nausea, vomiting, diarrhea. No fevers, chills. The patient does admit to being sore on her chest, which she relates to significant coughing. The patient stated that her daughter saw her today and felt that she was edematous, as well, and was urged to come to the emergency department for evaluation. Upon presentation to the emergency department, the patient was found to be tachypneic, hypoxic. The chest x-ray was not suggestive of any overt failure; however, given the patient's persistent tachypnea, with heart rates up to 30 and her requiring oxygen supplementation, the patient has been referred to the hospital for admission and management. Upon my examination of the patient, she is quite dyspneic, unable to complete sentences, and does appear to be in some mild distress. PAST MEDICAL HISTORY: 1. Paroxysmal atrial fibrillation. 2. Chronic anticoagulation. 3. Cerebrovascular disease with history of cerebrovascular accident without deficit. 4. Chronic right bundle branch block. 5. Chronic obstructive pulmonary disease. 6. Anxiety disorder. 7. Thoracic aortic aneurysm. 8. Hypertension. 9. Morbid obesity with a BMI of 44. 10. Chronic kidney disease, stage III. PAST SURGICAL HISTORY: 1. section x2. 2. Bilateral knee arthroscopy. 3. Sebaceous cyst removal on her back. 4. Tubal ligation. ALLERGIES: No known drug allergies. HOME MEDICATIONS: Include: 1. Prednisone taper. 2. Atorvastatin 40 mg p.o. q. hour of sleep. 3. Lasix 40 mg p.o. daily. 4. Xarelto 20 mg p.o. daily. 5. Advair 250/50 one puff inhalation daily. 6. Albuterol nebulizer 1 neb q.6 hours p.r.n. 7. Singulair 10 mg p.o. q. hour of sleep. 8. ProAir HFA 2 puffs inhalation q.i.d. p.r.n. 9. Spiriva 2 puffs inhalation q. a.m. 10. Tramadol 50 mg p.o. daily. SOCIAL HISTORY: [place] The patient's surrogate decision-maker is her daughter, Anette, who may be reached at [phone]. The patient does have a long history of tobacco use, equating approximately 40 pack years. Since the patient's stroke in 2013, she has only been smoking 1 to 3 cigarettes a day. The patient denies any alcohol use or illicit drug use. FAMILY MEDICAL HISTORY: Positive for hypertension, diabetes and heart disease. REVIEW OF SYSTEMS: CONSTITUTIONAL: The patient denies any fevers, chills. No dizziness, weakness. No change of appetite. SKIN: The patient denies any diaphoresis, rashes, bruising or itching. HEENT: Denies any visual changes, hearing loss, nasal drainage, sore throat or headache. She does admit to sinus congestion. CARDIOVASCULAR: The patient denies any chest pain, edema, heart palpitations. RESPIRATORY: Denies any hemoptysis, but admits to shortness of breath, cough and sputum production. GASTROINTESTINAL: Denies any nausea, vomiting, diarrhea, abdominal pain, bloody hematemesis, constipation, melena, hematochezia. No epigastric pain. GENITOURINARY: Denies any hematuria, pyuria or dysuria. MUSCULOSKELETAL: Denies any acute or chronic joint pain. NEUROLOGIC: No seizures or loss of consciousness. HEMATOLOGIC: Denies any wicho bleeding, easy bruising. ENDOCRINE: Denies any recent weight changes. PSYCHIATRIC: Denies suicidal or homicidal ideations. The rest of the review of the other systems was negative. PHYSICAL EXAMINATION: GENERAL: The patient is a well-developed, morbidly obese 61-year-old female, who is awake, alert and oriented to person, place and situation. She is verbal, conversational. Is still unable to complete sentences and appears to be in some mild distress. VITAL SIGNS: Temperature is 97.5, pulse 74, respirations 18, blood pressure is 159/110, oxygen saturation is 97% on 2 liters nasal cannula. SKIN: Warm and dry. No rashes. Nondiaphoretic. HEENT: Pupils equal, round and reactive to light and accommodation. Conjunctivae are clear. Sclerae are anicteric. NECK: Supple. No JVD. No palpable lymphadenopathy or thyromegaly. CARDIOVASCULAR: Heart is regular. No murmur or rub. CHEST: Expiratory wheezes are noted throughout upper lung yanez. Symmetrical, labored. ABDOMEN: Soft, nontender, nondistended. Bowel sounds are present. Could not appreciate organomegaly. BACK: No CVA tenderness or sacral edema. EXTREMITIES: No clubbing, cyanosis or peripheral signs of embolization. Plus 1 pedal pulses noted bilaterally. The patient has 1+ bilateral lower extremity edema. DIAGNOSTICS: Lab values are as follows: Hematology obtained 09/03/2017: WBCs 9.9, hemoglobin 12.2, hematocrit 34.4, platelet count is 190,000. Coagulation obtained on 09/03/2017: D-dimer is 0.23. Chemistry obtained on 09/03/2017: Sodium is 143, potassium 2.3, chloride is 99, carbon dioxide is 34, BUN 25, creatinine is 1.26, glucose 180. A1c is 6.2. Calcium is 9.9. Bilirubin is 0.7. AST 31, ALT 41, alk phos 98. CK 162, troponin 0.014. BNP is 5920. Total protein is 7.2, albumin 4.2. Chest x-ray obtained on 09/03/2017 reveals mild cardiomegaly without evidence of an acute cardiopulmonary disease. IMPRESSION AND PLAN: 1. Chronic obstructive pulmonary disease exacerbation. Will admit the patient to inpatient. Will add steroids. Continue the patient's home inhalers as well, and follow. We do have suspicion for possible bronchitis. Will add Mucinex as well as Singulair and flutter valve, as well as incentive spirometry. 2. Acute on chronic hypoxemic respiratory failure. Will titrate O2 accordingly. Will obtain d-dimer. 3. Paroxysmal atrial fibrillation. The patient is currently in sinus rhythm. Will continue the patient's home medications, as well as chronic coagulation, and follow. 4. Hypertensive urgency. Will resume the patient's home blood pressure medications and add the coverage. 5. Chronic kidney disease, stage III. The patient's creatinine is at baseline. 6. Hypokalemia. Will supplement potassium and repeat. 7. Prediabetes. Will place the patient on sliding scale coverage and a CCC diet, given the steroids, and add an A1c and follow. 8. Chronic CHF. Unable to further classify, given there is no available information at this time. Will obtain an echocardiogram. The patient is on chronic Lasix, but will diuresis with Lasix for now, and follow. 9. Tobacco use. Have counseled the patient regarding cessation of smoking. The patient declines any pharmacological intervention at this time. Spent 3 minutes doing this. DISPOSITION: The patient is a FULL CODE. Pending patient's symptomatology and diagnostic findings, will reevaluate in the a.m. Will admit the patient to inpatient IMCU, as the patient's expected length of stay should surpass 2 midnights. Time spent on this admission, including assessment, plan, physical examination, patient education, family meeting and review of records is 50 minutes. DICTATING PHYSICIAN: ANAHI HARVEY [id number] PHY#: [id number] ID: [id number] JOB#: [id number] ACCT: [id number] cc:MERON DUFFY M.D. > MTDDennis
[2017-09-03] MEDS ORDERED: (PENDING PHARMACY ID) (Acetaminophen [Tylenol Arthritis 650 Mg Tablet] 650 MG) PO PRN (19:07)
[2017-09-03] MEDS ORDERED: TRAMADOL HCL 50 MG TABLET PO PRN (19:07)
[2017-09-03] MEDS ORDERED: RIVAROXABAN 10 MG TABLET PO ONE (20:00)
[2017-09-03] MEDS ORDERED: LEVALBUTEROL HCL NEB 1.25 MG/3 ML AMPUL NEB SCH (20:00)
[2017-09-03] MEDS ORDERED: LISINOPRIL 10 MG TABLET PO ONE (20:00)
[2017-09-03 21:00] LABS: ARTERIAL BLOOD BASE EXCESS 7.6 mmol/L; ARTERIAL BLOOD FIO2 2L; ARTERIAL BLOOD H2CO3 1.57 mmol/L (1.05-1.35); ARTERIAL BLOOD HCO3 33.4 mmol/L (20-26); ARTERIAL BLOOD O2 SATURATION 96.1 % (94-98); ARTERIAL BLOOD PCO2 52.3 mmHg (35-45); ARTERIAL BLOOD PH 7.42 (7.35-7.45); ARTERIAL BLOOD PO2 81.7 mmHg (80-100)
[2017-09-03] MEDS ORDERED: MAGNESIUM SULFATE/D5W 1 GM/100 ML RTUPB IV SCH (21:00)
[2017-09-03] MEDS: GUAIFENESIN 600 MG TABLET.SA PO SCH (21:03)
[2017-09-03] MEDS: RIVAROXABAN 10 MG TABLET PO SCH (21:04)
[2017-09-03] MEDS: HEPARIN SOD (PORCINE) 5,000 UNIT/ML 1 ML SYRINGE SUBCUT SCH (21:04)
[2017-09-03] MEDS: MONTELUKAST SODIUM 10 MG TABLET PO SCH (21:05)
[2017-09-03] MEDS: ATORVASTATIN CALCIUM 40 MG TABLET PO SCH (21:06)
[2017-09-03] MEDS: METHYLPREDNISOLONE INJ 125 MG/2 ML SDV IV SCH (21:06)
[2017-09-03] MEDS: FLUTICASONE/SALMETEROL DISKUS 250-50 MCG/DOSE IH SCH (21:36)
[2017-09-03] MEDS: LEVALBUTEROL HCL NEB 1.25 MG/3 ML AMPUL NEB PRN (21:40)
[2017-09-04] MEDS: HALOPERIDOL LACTATE INJ 5 MG/1 ML VIAL IV PRN (00:52)
[2017-09-04] MEDS: LORAZEPAM 0.5 MG TABLET PO PRN ×2 (03:50→17:48)
[2017-09-04 05:29] LABS: ANION GAP 14 (5-19); BLOOD UREA NITROGEN 27 mg/dL (7-20); CALCIUM 9.7 mg/dL (8.4-10.2); CARBON DIOXIDE 32 mmol/L (22-30); CHLORIDE 98 mmol/L (98-107); GLUCOSE 174 mg/dL (75-110); MAGNESIUM 2.2 mg/dL (1.6-2.3); POTASSIUM 4.2 mmol/L (3.6-5.0); SODIUM 143.9 mmol/L (137-145)
[2017-09-04] MEDS: HEPARIN SOD (PORCINE) 5,000 UNIT/ML 1 ML SYRINGE SUBCUT SCH ×3 (05:38→21:06)
[2017-09-04] MEDS: FLUTICASONE NASAL SPRAY 50 MCG/SPRY 120 SPRAY/16 GM NASL SCH ×2 (05:38→17:49)
[2017-09-04] MEDS: METHYLPREDNISOLONE INJ 125 MG/2 ML SDV IV SCH ×3 (05:38→21:06)
[2017-09-04] MEDS: LEVALBUTEROL HCL NEB 1.25 MG/3 ML AMPUL NEB SCH ×4 (07:36→20:28)
[2017-09-04] MEDS ORDERED: (PENDING PHARMACY ID) (Tiotropium Bromide [Spiriva Respimat] 2 PUFF) IH SCH (08:00)
[2017-09-04] MEDS: LEVALBUTEROL HCL NEB 1.25 MG/3 ML AMPUL NEB PRN ×2 (09:30→17:57)
[2017-09-04] MEDS: METOPROLOL SUCCINATE 50 MG TAB.SR.24H PO SCH (10:00)
[2017-09-04] MEDS: DOCUSATE SODIUM 100 MG CAPSULE PO SCH ×2 (10:00→17:47)
[2017-09-04] MEDS: DOXYCYCLINE HYCLATE 100 MG TABLET PO SCH ×2 (10:00→21:06)
[2017-09-04] MEDS: GUAIFENESIN 600 MG TABLET.SA PO SCH ×2 (10:01→21:06)
[2017-09-04] MEDS: MAGNESIUM OXIDE 400 MG TABLET PO SCH (10:01)
[2017-09-04] MEDS: CHOLECALCIFEROL (D3) 1,000 UNIT TABLET PO SCH (10:01)
[2017-09-04] MEDS: FUROSEMIDE 40 MG TABLET PO SCH ×2 (10:02→17:48)
[2017-09-04] MEDS: FERROUS SULFATE 325 MG TABLET PO SCH (10:02)
[2017-09-04] MEDS: LISINOPRIL 10 MG TABLET PO SCH (10:05)
[2017-09-04] MEDS: TIOTROPIUM BROMIDE DPI 5 CAP/KIT (18 MCG/CAP) IH SCH (10:06)
[2017-09-04] MEDS: FLUTICASONE/SALMETEROL DISKUS 250-50 MCG/DOSE IH SCH ×2 (10:07→21:08)
[2017-09-04] MEDS ORDERED: LORAZEPAM 1 MG TABLET PO ONE (10:51)
[2017-09-04] MEDS ORDERED: POTASSIUM CHLORIDE 10 MEQ TABLET.SA PO ONE (10:51)
[2017-09-04] MEDS ORDERED: AMLODIPINE BESYLATE 5 MG TABLET PO ONE (11:30)
[2017-09-04] MEDS ORDERED: FUROSEMIDE INJ/PF 40 MG/4 ML SDV IV ONE ×2 (12:00→16:00)
--- NOTE | 2017-09-04 12:48 | PROGRESS NOTE E ---
Progress Note NAME: JOLIE CAMARA : 1955 AGE: 61Y DATE: 09/04/2017 ROOM: 303 SUBJECTIVE: The patient is currently lying in bed. She states that she feels much better than she did yesterday. The patient is still not able to fully complete sentences but is not as distressed as she was upon admission yesterday. The patient denies any nausea, vomiting or diarrhea, no dizziness or chest pain. The patient has been producing an excellent amount of sputum and the patient is complaining of edema in her lower extremities and does not voice any other concerns. REVIEW OF SYSTEMS: Rest of the review of systems is negative. MEDICATIONS: Medications have been reviewed. OBJECTIVE: GENERAL: The patient is a 61-year-old female, who is awake, alert and oriented to person, place and situation. She is verbal, conversational and does not appear to be in any distress. VITAL SIGNS: Temperature is 97.9, pulse 87, respirations 20, blood pressure is 163/82, oxygen saturation is 98% on 3 L nasal cannula. SKIN: Warm and dry. No rashes. Not diaphoretic. HEENT: Pupils equal, round and reactive to light and accommodation. Conjunctivae are pink. No JVP. CARDIOVASCULAR: Heart is regular. There is no rub. CHEST: Expiratory wheezes are noted throughout both lung yanez. Mildly labored but symmetrical. ABDOMEN: Obese, soft. Bowel sounds are present. EXTREMITIES: No clubbing or cyanosis. The patient does have trace bilateral lower extremity edema. PSYCHIATRIC: Very pleasant affect and mood. DIAGNOSTICS: Lab values are as follows: Hematology obtained 09/03/2017: WBCs 9.9, hemoglobin 12.2, hematocrit 34.4, platelet count is 190,000. Chemistry obtained on 09/04/2017: Sodium is 142, potassium 4.2, chloride is 98, carbon dioxide is 32, BUN 27, creatinine is 0.95, glucose 174. A1c is 6.2. Calcium is 9.7, magnesium is 2.2. IMPRESSION AND PLAN: 1. CHRONIC OBSTRUCTIVE PULMONARY DISEASE EXACERBATION. Will continue the patient's home inhalers as well as steroids and follow. 2. ACUTE ASTHMATIC BRONCHITIS. Have added Singulair as well as doxycycline. The patient is producing a good amount of sputum. Will continue to encourage flutter valve as well. 3. ON CHRONIC HYPOXEMIC RESPIRATORY FAILURE. Will titrate O2 accordingly. The patient did have a negative D-dimer. 4. PAROXYSMAL ATRIAL FIBRILLATION. Will continue the patient's home medications as well as her chronic coagulation. 5. HYPERTENSIVE URGENCY. The patient's blood pressures have improved overall but still remain elevated. Will add additional agent and follow. 6. CHRONIC KIDNEY DISEASE, STAGE III. The patient's creatinine is at baseline. 7. HYPOKALEMIA. This was supplemented. 8. PREDIABETES. Will continue sliding scale coverage. 9. CHRONIC CONGESTIVE HEART FAILURE. Unable to further classify, most likely diastolic dysfunction. Currently awaiting echocardiogram. Will give the patient another dose of Lasix and follow. 10. TOBACCO DEPENDENCY. Will continue p.r.n. nicotine patch. DISPOSITION: The patient is a FULL CODE. Pending patient's symptomatology and diagnostic findings, we will reevaluate in the a.m. Time spent on this admission, including assessment, plan, physical examination, patient education, and review of records is 35 minutes. DICTATING PHYSICIAN: ANAHI HARVEY NP [id number] PHY#: [id number] ID: [id number] JOB#: [id number] ACCT: [id number] cc: > MTDD
--- NOTE | 2017-09-04 12:50 | XCELERA REPORT ---
[address] [address] Transthoracic Echocardiogram Report Name: JOLIE CAMARA Age: 61 yrs Gender: Female : 1955 Patient Status: Inpatient Patient Location: [address] [place] [address] Study Date: 09/04/2017 09:18 AM Height: 68 in Weight: 294 lb BSA: 2.4 m2 Procedure: A complete two-dimensional transthoracic echocardiogram was performed (2D, M-mode, spectral and color flow Doppler). The study was technically difficult with many images being suboptimal in quality. Reason For Study: Dyspnea, hypoxia, elevated BNP Ordering Physician: ANAHI HARVEY Performed By: Malena Hernandez Interpretation Summary The left ventricular ejection fraction is normal. There is borderline concentric left ventricular hypertrophy. The left ventricle is grossly normal size. Doppler measurements suggest pseudonormalized left ventricular relaxation, which is associated with grade II/IV or mild to moderate diastolic dysfunction Wall motion cannot be accurately commented on, but no definite regional wall motion abnormalities noted. The right ventricular systolic function is mild to moderately reduced. The right ventricle is moderately dilated. The left atrium is severely dilated. The right atrium is moderate to severely dilated. There is a moderate amount of mitral regurgitation There is no mitral valve stenosis. There is a moderate amount of aortic regurgitation There is no aortic valve stenosis There is a mild amount of tricuspid regurgitation There is servere pulmonary hypertension by echo Right ventricular systolic pressure is estimated to be elevated at >60mmHg. There is no pericardial effusion. MMode/2D Measurements & Calculations RVDd: 3.8 cm LVIDd: 4.9 cm FS: 40.2 % Ao root diam: 2.9 cm IVSd: 0.89 cm LVIDs: 2.9 cm EDV(Teich): 112.9 ml LVPWd: 0.94 cm ESV(Teich): 33.0 ml Ao root area: 6.4 cm2 EF(Teich): 70.7 % LA dimension: 5.7 cm Doppler Measurements & Calculations MV E max hillary: MV P1/2t max hillary: Ao V2 max: AI max hillary: 149.3 cm/sec 149.3 cm/sec 156.7 cm/sec 475.6 cm/sec MV A max hillary: MV P1/2t: 59.8 msec Ao max PG: AI max P.6 cm/sec 9.8 mmHg 90.5 mmHg MV E/A: 1.6 MVA(P1/2t): 3.7 cm2 AI dec slope: MV dec slope: 731.7 cm/sec2 408.9 cm/sec2 MV dec time: AI P1/2t: 0.20 sec 340.7 msec LV V1 max PG: PA V2 max: PI end-d hillary: TR max hillary: 6.5 mmHg 90.3 cm/sec 173.7 cm/sec 441.1 cm/sec LV V1 max: PA max P.3 mmHg TR max P.8 cm/sec 77.8 mmHg Left Ventricle The left ventricle is grossly normal size. There is borderline concentric left ventricular hypertrophy. The left ventricular ejection fraction is normal. Doppler measurements suggest pseudonormalized left ventricular relaxation, which is associated with grade II/IV or mild to moderate diastolic dysfunction. Wall motion cannot be accurately commented on, but no definite regional wall motion abnormalities noted. Right Ventricle The right ventricle is moderately dilated. There is normal right ventricular wall thickness. The right ventricular systolic function is mild to moderately reduced. Atria The right atrium is moderate to severely dilated. The left atrium is severely dilated. Interarterial septum not well visualized and not well dopplered. Cannot comment on ASD/PFO presence. Mitral Valve The mitral valve is grossly normal. There is no mitral valve stenosis. There is a moderate amount of mitral regurgitation. Aortic Valve The aortic valve is not well visualized secondary to technical limitations. There is no aortic valve stenosis. There is a moderate amount of aortic regurgitation. Tricuspid Valve The tricuspid valve is not well visualized secondary to technical limitations. There is no tricuspid stenosis. There is a mild amount of tricuspid regurgitation. There is servere pulmonary hypertension by echo. Right ventricular systolic pressure is estimated to be elevated at >60mmHg. Pulmonic Valve The pulmonic valve is not well visualized. Great Vessels The aortic root is not well visualized. The inferior vena cava was not visualized. Effusions There is no pericardial effusion. : ANAHI HARVEY > Bradley Olivarez
[2017-09-04] MEDS: RIVAROXABAN 10 MG TABLET PO SCH (21:06)
[2017-09-04] MEDS: MONTELUKAST SODIUM 10 MG TABLET PO SCH (21:06)
[2017-09-04] MEDS: ATORVASTATIN CALCIUM 40 MG TABLET PO SCH (21:06)
[2017-09-04] MEDS: INSULIN LISPRO 100 UNIT/ML 3 ML VIAL SUBCUT PRN (23:04)
[2017-09-05] MEDS: LORAZEPAM 0.5 MG TABLET PO PRN ×2 (02:16→11:53)
[2017-09-05] MEDS: HALOPERIDOL LACTATE INJ 5 MG/1 ML VIAL IV PRN (03:34)
[2017-09-05] MEDS: HEPARIN SOD (PORCINE) 5,000 UNIT/ML 1 ML SYRINGE SUBCUT SCH (05:20)
[2017-09-05] MEDS: METHYLPREDNISOLONE INJ 125 MG/2 ML SDV IV SCH ×3 (05:20→22:27)
[2017-09-05] MEDS: FLUTICASONE NASAL SPRAY 50 MCG/SPRY 120 SPRAY/16 GM NASL SCH ×2 (05:23→18:23)
[2017-09-05 06:16] LABS: ANION GAP 10 (5-19); BLOOD UREA NITROGEN 32 mg/dL (7-20); CALCIUM 9.7 mg/dL (8.4-10.2); CARBON DIOXIDE 35 mmol/L (22-30); CHLORIDE 97 mmol/L (98-107); GLUCOSE 165 mg/dL (75-110); MAGNESIUM 2.2 mg/dL (1.6-2.3); POTASSIUM 3.7 mmol/L (3.6-5.0); SODIUM 141.7 mmol/L (137-145)
[2017-09-05] MEDS: LEVALBUTEROL HCL NEB 1.25 MG/3 ML AMPUL NEB SCH ×4 (07:48→19:40)
[2017-09-05] MEDS: INSULIN LISPRO 100 UNIT/ML 3 ML VIAL SUBCUT PRN ×3 (08:23→18:21)
[2017-09-05] MEDS: FLUTICASONE/SALMETEROL DISKUS 250-50 MCG/DOSE IH SCH ×2 (09:21→22:31)
[2017-09-05] MEDS: TIOTROPIUM BROMIDE DPI 5 CAP/KIT (18 MCG/CAP) IH SCH (09:22)
[2017-09-05] MEDS: FUROSEMIDE 40 MG TABLET PO SCH ×2 (09:23→18:21)
[2017-09-05] MEDS: FERROUS SULFATE 325 MG TABLET PO SCH (09:23)
[2017-09-05] MEDS: CHOLECALCIFEROL (D3) 1,000 UNIT TABLET PO SCH (09:23)
[2017-09-05] MEDS: MAGNESIUM OXIDE 400 MG TABLET PO SCH (09:24)
[2017-09-05] MEDS: METOPROLOL SUCCINATE 50 MG TAB.SR.24H PO SCH (09:25)
[2017-09-05] MEDS: DOCUSATE SODIUM 100 MG CAPSULE PO SCH ×2 (09:25→18:22)
[2017-09-05] MEDS: LISINOPRIL 10 MG TABLET PO SCH (09:25)
[2017-09-05] MEDS: DOXYCYCLINE HYCLATE 100 MG TABLET PO SCH ×2 (09:26→22:26)
[2017-09-05] MEDS: GUAIFENESIN 600 MG TABLET.SA PO SCH ×2 (09:26→22:27)
[2017-09-05] MEDS ORDERED: AMLODIPINE BESYLATE 5 MG TABLET PO SCH (10:00)
--- NOTE | 2017-09-05 11:33 | PROGRESS NOTE E ---
Progress Note NAME: JOLIE CAMARA : 1955 AGE: 61Y DATE: 09/05/2017 ROOM: 303 SUBJECTIVE: The patient is currently sitting up in bed. She states that she does feel better than yesterday or even when she came in; however, the patient is still quite dyspneic and unable to fully complete sentences. The patient denies any nausea, vomiting, or diarrhea. No dizziness, chest pain, fever, chills. The patient is still producing a good amount of sputum, has a strong cough, and the patient does not voice any other concerns at this time. REVIEW OF SYSTEMS: Rest of the review of systems negative. MEDICATIONS: Have been reviewed. OBJECTIVE: GENERAL: The patient is a 61-year-old -[place] female who is awake, alert, and oriented to person, place, time, and situation. She is verbal, conversational, and does not appear to be distressed. VITAL SIGNS: Temperature 97.4, pulse 79, respirations 23, blood pressure 136/82, oxygen saturation is 100% on 3 L nasal cannula. SKIN: Warm and dry. No rash. She is not diaphoretic. HEENT: Pupils equal, round, reactive to light and accommodation. Conjunctivae are pink. No JVP. CARDIOVASCULAR: Heart is regular. No rub. CHEST: Patient does have expiratory wheezes noted throughout both lung yanez, symmetrical, slightly labored. ABDOMEN: Obese, soft, nontender. EXTREMITIES: No clubbing or cyanosis. The patient's edema has appeared to have resolved. PSYCHIATRIC: Appropriate affect. Pleasant mood. DIAGNOSTICS: Lab values are as follows: Hematology obtained on 09/03/2017: WBCs 9.9, hemoglobin 12.2, hematocrit 34.4, platelet count is 190,000. Chemistry obtained on 09/05/2017: Sodium is 141, potassium 3.7, chloride is 97, carbon dioxide is 35, BUN 32, creatinine is 0.93, glucose 165, calcium is 9.7, magnesium is 2.2. IMPRESSION AND PLAN: 1. CHRONIC OBSTRUCTIVE PULMONARY DISEASE EXACERBATION. Will continue the patient's home inhalers as well as steroids. Given that the patient's symptoms have not improved tremendously, will go ahead and obtain a CTA and follow. 2. ACUTE ASTHMATIC BRONCHITIS. Will continue Singulair as well as doxycycline. The patient is producing a good amount of sputum. Will continue flutter valve and monitor. 3. [id number] HYPOXEMIC RESPIRATORY FAILURE. Will titrate O2 accordingly. Negative D-dimer. 4. PAROXYSMAL ATRIAL FIBRILLATION. Will continue the patient's home medications as well as chronic coagulation. The patient does appear to be well rate controlled in spite of nebs. 5. HYPERTENSIVE URGENCY. Overall the patient's blood pressures are much improved. Will continue current regimen. 6. CHRONIC KIDNEY DISEASE STAGE III. The patient's creatinine is at baseline. 7. HYPOKALEMIA. The patient has been supplemented. 8. PREDIABETES. Will continue sliding scale coverage. 9. CHRONIC DIASTOLIC CONGESTIVE HEART FAILURE. The patient also has evidence of right-sided heart failure on echo. The patient is followed by Dr. Veras as her outpatient infant teacher. Continue home dose of Lasix for now. She has been diuresed with IV Lasix and follow. 10. SEVERE PULMONARY HYPERTENSION BY ECHO. The patient is followed outpatient by Dr. Veras. 11. TOBACCO DEPENDENCY. Have recommended p.r.n. nicotine patch. The patient is down to 3 cigarettes a day. DISPOSITION: The patient is a FULL CODE. Pending patient's symptomatology and diagnostic findings, we will reevaluate as needed. Time spent on this admission, including assessment, plan, physical examination, patient education, and review of records is 35 minutes. DICTATING PHYSICIAN: ANAHI HARVEY NP [id number] PHY#: [id number] ID: [id number] JOB#: [id number] ACCT: [id number] cc: >
--- NOTE | 2017-09-05 13:42 | RADIOLOGY REPORT (SQ) ---
EXAM DESCRIPTION: CTA CHEST COMPLETED DATE/TIME: 09/05/2017 12:22 pm REASON FOR STUDY: Hypoxia, dyspnea COMPARISON: 12/12/2016. TECHNIQUE: CT scan of the chest performed using helical scanning technique with dynamic intravenous contrast injection. Images reviewed with lung, soft tissue and bone windows. Reconstructed coronal and sagittal MPR images reviewed. Additional 3 dimensional post-processing performed to develop Maximal Intensity Projection images (AZ P). All images stored on PACS. All CT scanners at this facility use dose modulation, iterative reconstruction, and/or weight based d osing when appropriate to reduce radiation dose to as low as reasonably achievable (ALARA). [facility]: Dose Right [facility]: CareDose [facility]: Dose Right [facility]: Teradose 4D [facility]: [facility] CONTRAST TYPE AND DOSE: contrast/concentration: Isovue 370.00 mg/ml; Total Contrast Delivered: 86.0 ml; Total Saline Delivered: 100.0 ml Contrast bolus optimized for the pulmonary arteries. Not diagnostic for the aorta. RENAL FUNCTION: BUN 32 creatinine 0.93. RADIATION DOSE: CT Rad equipment meets quality standard of care and radiation dose reduction techniq ues were employed. CTDIvol: 23.2 - 38.9 mGy. DLP: 1354 mGy-cm. . LIMITATIONS: None. FINDINGS: LUNGS AND PLEURA: No masses, infiltrates, pneumothorax. No pleural effusions, calcificati ons. AORTA AND GREAT VESSELS: No aneurysm. Contrast bolus not optimized for the aorta. HEART: No pericardial effusion. No significant coronary artery calcifications. PULMONARY ARTERIES: No emboli visualized in the main pulmonary arteries or the segmental branches. HILAR AND MEDIASTINAL STRUCTURES: No identified masses or abnormal nodes. HARDWARE: None in the chest. UPPER ABDOMEN: No significant findings. Limited exam. THYROID AND OTHER SOFT TISSUES: No masses. No adenopathy. BONES: No acute or significant finding. 3D MIPS: Confirm above findings. OTHER: No other significant finding. IMPRESSION: NORMAL CTA OF THE CHEST. NO PULMONARY EMBOLI. COMMENT: Quality ID # [id number]: Final reports with documentation of one or more dose reduction techniques (e.g., Automated exposure control, adjustment of the mA and/or kV according to patient size, use of iterative reconstruction technique) TECHNICAL DOCUMENTATION: JOB ID: [id number] [employer]- All Rights Reserved
[2017-09-05] MEDS: RIVAROXABAN 10 MG TABLET PO SCH (22:25)
[2017-09-05] MEDS: AMLODIPINE BESYLATE 5 MG TABLET PO SCH (22:26)
[2017-09-05] MEDS: ATORVASTATIN CALCIUM 40 MG TABLET PO SCH (22:27)
[2017-09-05] MEDS: MONTELUKAST SODIUM 10 MG TABLET PO SCH (22:27)
[2017-09-06] MEDS: LEVALBUTEROL HCL NEB 1.25 MG/3 ML AMPUL NEB PRN (04:18)
[2017-09-06 05:00] LABS: HEMATOCRIT 36.6 % (36.0-47.0); HEMOGLOBIN 11.7 g/dL (12.0-15.5); MEAN CORPUSCULAR HEMOGLOBIN 26.5 pg (27.0-33.4); MEAN CORPUSCULAR HGB CONC 32.1 g/dL (32.0-36.0); MEAN CORPUSCULAR VOLUME 83 fl (80-97); PLATELET COUNT 222 10^3/uL (150-450); RED BLOOD COUNT 4.43 10^6/uL (3.72-5.28); RED CELL DISTRIBUTION WIDTH 16.5 % (11.5-14.0); WHITE BLOOD COUNT 17.8 10^3/uL (4.0-10.5)
[2017-09-06] MEDS: METHYLPREDNISOLONE INJ 125 MG/2 ML SDV IV SCH ×3 (05:01→22:04)
[2017-09-06] MEDS: FLUTICASONE NASAL SPRAY 50 MCG/SPRY 120 SPRAY/16 GM NASL SCH ×2 (05:01→18:04)
[2017-09-06 05:20] LABS: ANION GAP 14 (5-19); BLOOD UREA NITROGEN 35 mg/dL (7-20); CALCIUM 10.2 mg/dL (8.4-10.2); CARBON DIOXIDE 35 mmol/L (22-30); CHLORIDE 97 mmol/L (98-107); GLUCOSE 177 mg/dL (75-110); MAGNESIUM 2.3 mg/dL (1.6-2.3); POTASSIUM 3.6 mmol/L (3.6-5.0); SODIUM 146.2 mmol/L (137-145)
[2017-09-06] MEDS: LEVALBUTEROL HCL NEB 1.25 MG/3 ML AMPUL NEB SCH ×4 (07:57→19:23)
[2017-09-06] MEDS: INSULIN LISPRO 100 UNIT/ML 3 ML VIAL SUBCUT PRN ×3 (08:35→18:04)
[2017-09-06] MEDS: LISINOPRIL 10 MG TABLET PO SCH (11:17)
[2017-09-06] MEDS: GUAIFENESIN 600 MG TABLET.SA PO SCH ×2 (11:18→22:04)
[2017-09-06] MEDS: TIOTROPIUM BROMIDE DPI 5 CAP/KIT (18 MCG/CAP) IH SCH (11:18)
[2017-09-06] MEDS: DOCUSATE SODIUM 100 MG CAPSULE PO SCH ×2 (11:19→18:03)
[2017-09-06] MEDS: CETIRIZINE 10 MG TABLET PO SCH (11:19)
[2017-09-06] MEDS: MAGNESIUM OXIDE 400 MG TABLET PO SCH (11:19)
[2017-09-06] MEDS: AMLODIPINE BESYLATE 5 MG TABLET PO SCH ×2 (11:19→22:04)
[2017-09-06] MEDS: CHOLECALCIFEROL (D3) 1,000 UNIT TABLET PO SCH (11:19)
[2017-09-06] MEDS: DOXYCYCLINE HYCLATE 100 MG TABLET PO SCH ×2 (11:20→22:04)
[2017-09-06] MEDS: METOPROLOL SUCCINATE 50 MG TAB.SR.24H PO SCH (11:20)
[2017-09-06] MEDS: FUROSEMIDE 40 MG TABLET PO SCH ×2 (11:20→18:03)
[2017-09-06] MEDS: FLUTICASONE/SALMETEROL DISKUS 250-50 MCG/DOSE IH SCH (11:20)
[2017-09-06] MEDS: FERROUS SULFATE 325 MG TABLET PO SCH (11:20)
--- NOTE | 2017-09-06 12:19 | PDOC CONSULTATION ---
Consultation Consult Date: 09/06/17 Attending physician:: ANAHI HARVEY Consult reason:: Dyspnea History of Present Illness Admission Date/PCP: 09/03/17 16:29 History of Present Illness: JOLIE CAMARA is a 61 year old female Came to ED complaining shortness of breath was given Solu-Medrol nebulized treatments and was sent home return within 24 hours of same complaints was subsequently admitted admitted. He denies wearing oxygen at home denies shortness of breath or dips and exertion at baseline cough productive of yellow phlegm no hemoptysis PPD status unknown no history of chronic lung disease as a child or adolescent. No history of exposure to passive smoke as a child. She herself is smoked a pack a day for 40 years and is currently down to a quarter pack per day she is also been around many adults that was smoking. She denies any significant occupational exposure to potential respiratory toxins. She has no pets and has no recent travel. She admits to some tightness in her chest sleeps on 5 pillows or in a recliner admits to frequent PND frequent nocturnal cough and edema. She carries a diagnosis of obstructive sleep apnea however she is not aware of her CPAP/BiPAP settings Past Medical History Cardiac Medical History: Reports: Atrial Fibrillation, Congestive Heart Failure , Hyperlipidema, Hypertension Pulmonary Medical History: Reports: Asthma, Chronic Obstructive Pulmonary Disease (COPD), Pneumonia, Sleep Apnea Denies: Tuberculosis EENT Medical History: Denies: Ears, Nose, Throat Neurological Medical History: Reports: Ischemic CVA Denies: Multiple Sclerosis, Seizures Endocrine Medical History: Reports: Diabetes Mellitus Type 2, Obesity Renal/ Medical History: Reports: Chronic Kidney Disease Denies: Nephrolithiasis Malignancy Medical History: Reports: None GI Medical History: Denies: Crohn's Disease, Hepatitis, Peptic Ulcer Disease, Ulcerative Colitis Musculoskeltal Medical History: Reports: Arthritis Denies: Gout Skin Medical History: Denies: Eczema, Psoriasis Psychiatric Medical History: Reports: General Anxiety Disorder, Tobacco Dependency Traumatic Medical History: Denies: Traumatic Brain Injury Hematology: Denies: Sickle Cell Disease, Bleeding Tendencies Infectious Medical History: Denies: Hepatitis B, Hepatitis C Past Surgical History Past Surgical History: Reports: Section - X2, Orthopedic Surgery - Bilateral knee replacement, Tubal Ligation Social History Information Source: Patient, [facility] Records Lives with: Family Smoking Status: Current Every Day Smoker Cigarettes Packs Per Day: 1 Last Time Smoked: 44 Passive smoke exposure as: Adult Frequency of Alcohol Use: Occasional Hx Recreational Drug Use: No Drugs: None Hx Prescription Drug Abuse: No Do you have pets?: No Have you had any respiratory illnesses as a child?: No Have you been exposed to any sick contacts recently?: No Have you had any recent respiratory illnesses?: No Have you travelled outside of [place] in the past 12 months?: No Family History Family History: Arthritis, CAD, CVA, DM, Hyperlipidemia, Hypertension, Malignancy Parental Family History Reviewed: Yes Children Family History Reviewed: Yes Sibling(s) Family History Reviewed.: Yes Medication/Allergy Home Medications: Acetaminophen [Tylenol Arthritis 650 mg Tablet] 650 mg PO Q4HP PRN 09/03/17 Albuterol Sulfate [Albuterol Sulfate 2.5mg/3 mL] 1 vial IH RTQ6 09/03/17 Albuterol Sulfate [Proair Hfa Inhalation Aerosol 8.5 gm Mdi] 2 puff IH Q4 Atorvastatin Calcium [Lipitor 40 mg Tablet] 40 mg PO QHS 09/03/17 Cholecalciferol (Vitamin D3) [Vitamin D3 1000 Unit Tablet] 1,000 unit PO DAILY 09/03/17 Clonidine HCl [Clonidine HCl] 0.4 mg PO DAILY 09/03/17 Ferrous Sulfate [Feosol] 325 mg PO DAILY 09/03/17 Fluticasone/Salmeterol [Advair 250-50 Diskus 28 dose] 1 inh IH Q12 09/03/17 Furosemide [Lasix 40 mg Tablet] 40 mg PO BID 09/03/17 Lisinopril [Prinivil 40 mg Tablet] 40 mg PO DAILY 09/03/17 Magnesium Oxide [Mag-Ox 400 mg Tablet] 400 mg PO DAILY 09/03/17 Melatonin 1 mg PO QHS 09/03/17 Metolazone [Zaroxolyn 2.5 Mg Tablet] 2.5 mg PO DAILYP PRN 09/03/17 Metoprolol Succinate [Toprol Xl] 50 mg PO DAILY 09/03/17 Montelukast Sodium [Singulair 10 mg Tablet] 10 mg PO QHS 09/03/17 Rivaroxaban [Xarelto] 20 mg PO DAILY 09/03/17 Tiotropium [place] [Spiriva Respimat] 2 puff IH QAM 09/03/17 Tramadol HCl [Ultram] 50 mg PO Q4HP PRN 09/03/17 Allergies/Adverse Reactions: No Known Allergies Allergy (Verified 09/03/17 10:03) Review of Systems Constitutional: PRESENT: chills, fever(s), headache(s). ABSENT: anorexia, fatigue, night sweats, weakness Eyes: ABSENT: visual disturbances Ears: ABSENT: hearing changes Nose, Mouth, and Throat: ABSENT: mouth pain, sore throat Cardiovascular: PRESENT: dyspnea on exertion, orthropnea, palpitations. ABSENT : edema Respiratory: PRESENT: cough, dyspnea. ABSENT: hemoptysis Gastrointestinal: PRESENT: dysphagia, melena, nausea. ABSENT: abdominal pain, bloating, coffee ground emesis, heartburn, hematemesis, hematochezia Genitourinary: PRESENT: nocturia. ABSENT: dysuria, hematuria Musculoskeletal: ABSENT: deformity, joint swelling Integumentary: ABSENT: pruritus, rash Neurological: ABSENT: abnormal speech, confusion, convulsions, focal weakness, frequent falls, memory loss Psychiatric: ABSENT: hallucinations, homidical ideation, suicidal ideation Endocrine: ABSENT: cold intolerance, heat intolerance Hematologic/Lymphatic: ABSENT: easy bruising Physical Exam Vital Signs: Temp Pulse Resp BP Pulse Ox 98.0 F 77 20 177/77 H 100 09/06/17 11:03 09/06/17 11:03 09/06/17 11:03 09/06/17 11:03 09/06/17 11:03 Intake & Output 09/05/17 09/06/17 09/07/17 06:59 06:59 06:59 Intake Total 825 1026 Output Total 665 450 Balance 160 576 Weight 131.4 kg 130.8 kg General appearance: PRESENT: no acute distress, cooperative, disheveled, morbidly obese, well-developed Head exam: PRESENT: atraumatic, normocephalic Eye exam: PRESENT: conjunctiva pale, EOMI. ABSENT: conjunctival injection, conjunctiva pink, nystagmus, periorbital swelling, scleral icterus Mouth exam: PRESENT: moist, neck supple, tongue midline. ABSENT: dry mucosa, laceration Teeth exam: PRESENT: poor dentation Neck exam: ABSENT: carotid bruit, JVD, lymphadenopathy, thyromegaly, tracheal deviation, tracheostomy Respiratory exam: PRESENT: crackles, decreased breath sounds, prolonged expiratory phas, rhonchi, symmetrical, unlabored, wheezes. ABSENT: accessory muscle use, chest wall tenderness, clear to auscultation tao, rales, retraction , stridor, tachypnea Cardiovascular exam: PRESENT: irregular rhythm Pulses: PRESENT: normal radial pulses GI/Abdominal exam: PRESENT: normal bowel sounds, soft. ABSENT: distended, guarding, mass, organolmegaly, rebound, tenderness Extremities exam: PRESENT: pedal edema. ABSENT: clubbing, joint swelling Musculoskeletal exam: ABSENT: deformity, dislocation Neurological exam: PRESENT: alert, awake Psychiatric exam: PRESENT: normal mood Skin exam: PRESENT: dry, warm Results Laboratory Results: 09/06/17 04:18 09/06/17 04:18 09/06/17 09/06/17 04:18 04:18 WBC 17.8 H RBC 4.43 Hgb 11.7 L Hct 36.6 MCV 83 MCH 26.5 L MCHC 32.1 RDW 16.5 H Plt Count 222 Sodium 146.2 H Potassium 3.6 Chloride 97 L Carbon Dioxide 35 H Anion Gap 14 BUN 35 H Creatinine 1.03 Est GFR ( Amer) > 60 Est GFR (Non-Af Amer) 54 L Glucose 177 H Calcium 10.2 Magnesium 2.3 Impressions: Chest X-Ray 09/03/17 10:25 IMPRESSION: Mild cardiomegaly without evidence of acute cardiopulmonary disease. Chest/Abdomen CTA 09/05/17 00:00 IMPRESSION: NORMAL CTA OF THE CHEST. NO PULMONARY EMBOLI. Assessment & Plan - Diagnosis (1) Acute exacerbation of COPD with asthma Is this a current diagnosis for this admission?: Yes Plan: Was not able to historically elicit a history of asthma Generic Name Dose Route Start Last Admin Trade Name Freq PRN Reason Stop Dose Admin Guaifenesin 1,200 mg 09/03/17 22:00 09/06/17 11:18 Mucinex Sr 600 Mg Tablet.Sa PO 10/03/17 21:59 1,200 mg Q12 ALLIE Methylprednisolone Sodium Succinate 60 mg 09/06/17 11:28 Solu-Medrol Inj/Pf 125 Mg/2 Ml Sdv IV 10/06/17 11:27 Q8 ALLIE Tiotropium [place] 1 cap 09/04/17 10:00 09/06/17 11:18 Spiriva Handihaler 5 Cap/Kit (18 Mcg/Cap) 10/04/17 09:59 1 cap DAILY ALLIE Levalbuterol HCl 1.25 mg 09/03/17 21:02 09/06/17 04:18 Xopenex Neb 1.25 Mg/3 Ml Ampul NEB 10/03/17 21:01 1.25 mg RTQ2HP PRN SHORTNESS OF BREATH Levalbuterol HCl 1.25 mg 09/04/17 08:00 09/06/17 12:04 Xopenex Neb 1.25 Mg/3 Ml Ampul NEB 10/04/17 07:59 1.25 mg [id number] ALLIE Fluticasone/Salmeterol 1 inh 09/03/17 22:00 09/06/17 11:20 Advair 250-50 Diskus 14 Dose/Diskus IH 10/03/17 21:59 1 inh Q12 ALLIE Fluticasone Propionate 2 spray 09/04/17 06:00 09/06/17 05:01 Flonase Nasal [place] 50 Mcg/Rogers 16 Gm NASL 10/04/17 05:59 2 spray Q12A ALLIE Montelukast Sodium 10 mg 09/03/17 22:00 09/05/17 22:27 Singulair 10 Mg Tablet PO 10/03/17 21:59 10 mg QHS ALLIE (2) Anxiety disorder Qualifiers: Anxiety disorder type: unspecified anxiety disorder Qualified Code(s): F41.9 - Anxiety disorder, unspecified Is this a current diagnosis for this admission?: Yes (3) Afib Is this a current diagnosis for this admission?: Yes Plan: Chronic anticoagulation (4) Obstructive sleep apnea Is this a current diagnosis for this admission?: Yes Plan: Continue noninvasive positive pressure ventilation (5) Sleeps in sitting position due to orthopnea Is this a current diagnosis for this admission?: Yes Plan: Check a MUGA
--- NOTE | 2017-09-06 15:58 | RADIOLOGY REPORT (SQ) ---
EXAM DESCRIPTION: NM MUGA REST COMPLETED DATE/TIME: 09/06/2017 3:24 pm REASON FOR STUDY: orthopnea COMPARISON: Cardiac echo 09/04/2017 CT chest 09/05/2017 RADIONUCLIDE AND DOSE: 21.8 mCi of technetium 99 M pyrophosphate was tagged to the patient's own red cells The route of agent administration: Intravenous TECHNIQUE: Following administration of the radionuclide, gated images of the heart are obtained in t hree projections. Left ventricular functional analysis performed. LIMITATIONS: Patient has AFib FINDINGS: LEFT VENTRICULAR FUNCTION: EJECTION FRACTION: 76%. END-DIASTOLIC VOLUME: 142 mL. END-SYSTOLIC VOLUME: 31 mL. WALL MOTION: No focal wall motion abnormalities. OTHER: No other significant finding. IMPRESSION: Left ventricular ejection fraction 76%. Please note the patient was in AFib during the exam this. This report was called to Dr Solano TECHNICAL DOCUMENTATION: JOB ID: [id number] [employer]- All Rights Reserved
--- NOTE | 2017-09-06 17:28 | PDOC PROGRESS REPORT ---
Subjective Progress Note for:: 09/06/17 Subjective:: Patient presented with COPD exacerbation with very gradual improvement. Patient states her breathing is getting better however she is wheezing quite a bit. Patient states she feels very anxious and worried. Patient easily brought to tears. Reason For Visit: COPD EXACERBATION Physical Exam Vital Signs: Temp Pulse Resp BP Pulse Ox 97.7 F 76 18 165/85 H 99 09/06/17 15:59 09/06/17 15:59 09/06/17 15:59 09/06/17 15:59 09/06/17 15:59 Intake & Output 09/05/17 09/06/17 09/07/17 06:59 06:59 06:59 Intake Total 825 1026 200 Output Total 665 450 Balance 160 576 200 Weight 131.4 kg 130.8 kg General appearance: PRESENT: no acute distress, morbidly obese, well-nourished Head exam: PRESENT: normocephalic Eye exam: PRESENT: EOMI. ABSENT: scleral icterus Mouth exam: PRESENT: moist Neck exam: ABSENT: carotid bruit, JVD, lymphadenopathy, thyromegaly Respiratory exam: PRESENT: tachypnea, wheezes - Diffuse wheezing, other - Pausing between words. ABSENT: accessory muscle use, rales, rhonchi, unlabored Cardiovascular exam: PRESENT: irregular rhythm. ABSENT: diastolic murmur, rubs , systolic murmur GI/Abdominal exam: PRESENT: normal bowel sounds, soft. ABSENT: distended, guarding, mass, organolmegaly, rebound, tenderness Rectal exam: PRESENT: deferred Extremities exam: PRESENT: full ROM. ABSENT: calf tenderness, clubbing, pedal edema Neurological exam: PRESENT: alert, awake, oriented to person, oriented to place , oriented to time, oriented to situation, CN II-XII grossly intact. ABSENT: motor sensory deficit Psychiatric exam: PRESENT: anxious. ABSENT: homicidal ideation, suicidal ideation Skin exam: PRESENT: dry, intact, warm. ABSENT: cyanosis, rash Results Laboratory Results: 09/06/17 04:18 09/06/17 04:18 09/06/17 09/06/17 04:18 04:18 WBC 17.8 H RBC 4.43 Hgb 11.7 L Hct 36.6 MCV 83 MCH 26.5 L MCHC 32.1 RDW 16.5 H Plt Count 222 Sodium 146.2 H Potassium 3.6 Chloride 97 L Carbon Dioxide 35 H Anion Gap 14 BUN 35 H Creatinine 1.03 Est GFR ( Amer) > 60 Est GFR (Non-Af Amer) 54 L Glucose 177 H Calcium 10.2 Magnesium 2.3 Impressions: Chest X-Ray 09/03/17 10:25 IMPRESSION: Mild cardiomegaly without evidence of acute cardiopulmonary disease. Chest/Abdomen CTA 09/05/17 00:00 IMPRESSION: NORMAL CTA OF THE CHEST. NO PULMONARY EMBOLI. MUGA 09/06/17 12:17 IMPRESSION: Left ventricular ejection fraction 76%. Please note the patient was in AFib during the exam this. This report was called to Dr Solano Assessment & Plan - Diagnosis (1) COPD exacerbation Plan: Patient with COPD exacerbation most likely due to acute bronchitis. Patient currently on nebs with systemic steroids and inhaled steroids. Patient also on doxycycline. Patient is being followed by Dr. Solano. Patient is having very slow improvement in her symptoms. Patient still with diffuse wheezing and tachypnea. Patient is not able to speak in complete sentences without pausing. (2) Acute bronchitis Is this a current diagnosis for this admission?: Yes Plan: Patient is having a productive cough will order sputum is culture. Patient has been on doxycycline therefore the culture be negative. Continue management as stated above in problem #1. (3) Acute on chronic respiratory failure with hypoxemia Is this a current diagnosis for this admission?: Yes Plan: Patient still receiving supplemental oxygen and BiPAP when needed. CTA negative for PE. (4) Hypertensive urgency Is this a current diagnosis for this admission?: Yes Plan: Blood pressures are currently on the higher side however this may be secondary to the use of high-dose steroids. Will continue to monitor and use as needed antihypertensives. (5) Hypokalemia Is this a current diagnosis for this admission?: Yes Plan: Her potassium has been repleted. (6) Pre-diabetes Is this a current diagnosis for this admission?: Yes Plan: Med on sliding scale insulin. Patient blood glucoses may be elevated due to the use of high-dose steroids. (7) Chronic diastolic (congestive) heart failure Is this a current diagnosis for this admission?: Yes Plan: She appears euvolemic at this time. Will continue patient on diuretic. (8) Pulmonary hypertension, moderate to severe Is this a current diagnosis for this admission?: Yes Plan: Followed by Dr. Veras as outpatient. Dr. Solano is following patient while admitted. (9) CKD (chronic kidney disease), stage III Is this a current diagnosis for this admission?: Yes Plan: Patient renal function is actually stable at this point. Will continue to monitor. (10) Tobacco abuse Is this a current diagnosis for this admission?: Yes Plan: She states that she has stopped smoking. (11) Morbid obesity with BMI of 40.0-44.9, adult Is this a current diagnosis for this admission?: Yes Plan: Will counseling case manager patient on healthy diet and activity and weight loss. - Time Time Spent with patient: 15-24 minutes Anticipated discharge: Home Within: within 72 hours - Inpatient Certification Medical Necessity: Significant Comorbidiites Make Outpatient Treatment Too Risky , Need Close Monitoring Due to Risk of Patient Decompensation, Need For Continuous Telemetry Monitoring, Need for Nebulizer Therapy and Monitoring of Response
[2017-09-06] MEDS: BUDESONIDE NEB 0.5 MG/2 ML AMPUL NEB SCH (19:23)
[2017-09-06] MEDS: RIVAROXABAN 10 MG TABLET PO SCH (22:04)
[2017-09-06] MEDS: MONTELUKAST SODIUM 10 MG TABLET PO SCH (22:04)
[2017-09-06] MEDS: ATORVASTATIN CALCIUM 40 MG TABLET PO SCH (22:04)
[2017-09-07] MEDS: INSULIN LISPRO 100 UNIT/ML 3 ML VIAL SUBCUT PRN ×4 (01:18→21:44)
[2017-09-07] MEDS: METHYLPREDNISOLONE INJ 125 MG/2 ML SDV IV SCH ×3 (05:05→21:05)
[2017-09-07] MEDS: FLUTICASONE NASAL SPRAY 50 MCG/SPRY 120 SPRAY/16 GM NASL SCH ×2 (05:05→17:41)
[2017-09-07] MEDS: BUDESONIDE NEB 0.5 MG/2 ML AMPUL NEB SCH ×2 (07:54→19:51)
[2017-09-07] MEDS: LEVALBUTEROL HCL NEB 1.25 MG/3 ML AMPUL NEB SCH ×4 (07:54→19:51)
[2017-09-07] MEDS: DOCUSATE SODIUM 100 MG CAPSULE PO SCH ×2 (09:52→17:40)
[2017-09-07] MEDS: FUROSEMIDE 40 MG TABLET PO SCH ×2 (09:52→17:40)
[2017-09-07] MEDS: CHOLECALCIFEROL (D3) 1,000 UNIT TABLET PO SCH (09:53)
[2017-09-07] MEDS: CETIRIZINE 10 MG TABLET PO SCH (09:53)
[2017-09-07] MEDS: METOPROLOL SUCCINATE 50 MG TAB.SR.24H PO SCH (09:53)
[2017-09-07] MEDS: GUAIFENESIN 600 MG TABLET.SA PO SCH ×2 (09:53→21:06)
[2017-09-07] MEDS: AMLODIPINE BESYLATE 5 MG TABLET PO SCH ×2 (09:53→21:05)
[2017-09-07] MEDS: MAGNESIUM OXIDE 400 MG TABLET PO SCH (09:54)
[2017-09-07] MEDS: DOXYCYCLINE HYCLATE 100 MG TABLET PO SCH ×2 (09:54→21:05)
[2017-09-07] MEDS: LISINOPRIL 10 MG TABLET PO SCH (09:54)
[2017-09-07] MEDS: FERROUS SULFATE 325 MG TABLET PO SCH (09:54)
[2017-09-07] MEDS ORDERED: METOLAZONE 2.5 MG TABLET PO PRN (11:55)
--- NOTE | 2017-09-07 12:06 | PDOC PROGRESS REPORT ---
Subjective Progress Note for:: 09/07/17 Subjective:: Patient presented with COPD exacerbation with very gradual improvement. Patient states her breathing is getting better. Patient was able to ambulate and felt okay. Patient will ambulate with a pulse ox the next time. Patient still has some end expiratory wheezing. She feels better today. Reason For Visit: COPD EXACERBATION Physical Exam Vital Signs: Temp Pulse Resp BP Pulse Ox 98.0 F 81 16 183/90 H 98 09/07/17 07:31 09/07/17 07:54 09/07/17 07:54 09/07/17 07:31 09/07/17 07:54 Intake & Output 09/06/17 09/07/17 09/08/17 06:59 06:59 06:59 Intake Total 1026 1320 Output Total 450 Balance 576 1320 Weight 130.8 kg General appearance: PRESENT: no acute distress, morbidly obese, well-developed, well-nourished Head exam: PRESENT: normocephalic Eye exam: PRESENT: EOMI. ABSENT: scleral icterus Mouth exam: PRESENT: moist Neck exam: ABSENT: carotid bruit, JVD, lymphadenopathy, thyromegaly Respiratory exam: PRESENT: wheezes - End expiratory wheezing coarse breath sounds at the bases. ABSENT: rales, rhonchi Cardiovascular exam: PRESENT: RRR. ABSENT: diastolic murmur, rubs, systolic murmur GI/Abdominal exam: PRESENT: normal bowel sounds, soft. ABSENT: distended, guarding, mass, organolmegaly, rebound, tenderness Rectal exam: PRESENT: deferred Extremities exam: PRESENT: full ROM. ABSENT: calf tenderness, clubbing, pedal edema Neurological exam: PRESENT: alert, awake, oriented to person, oriented to place , oriented to time, oriented to situation, CN II-XII grossly intact. ABSENT: motor sensory deficit Psychiatric exam: PRESENT: appropriate affect, normal mood. ABSENT: homicidal ideation, suicidal ideation Skin exam: PRESENT: dry, intact, warm. ABSENT: cyanosis, rash Results Laboratory Results: 09/06/17 04:18 09/06/17 04:18 Impressions: Chest X-Ray 09/03/17 10:25 IMPRESSION: Mild cardiomegaly without evidence of acute cardiopulmonary disease. Chest/Abdomen CTA 09/05/17 00:00 IMPRESSION: NORMAL CTA OF THE CHEST. NO PULMONARY EMBOLI. MUGA 09/06/17 12:17 IMPRESSION: Left ventricular ejection fraction 76%. Please note the patient was in AFib during the exam this. This report was called to Dr Solano Assessment & Plan - Diagnosis (1) COPD exacerbation Plan: Patient with COPD exacerbation most likely due to acute bronchitis. Patient currently on nebs with systemic steroids and inhaled steroids. Patient also on doxycycline. Patient is being followed by Dr. Solano. Patient seems to finally be showing noticeable improvement. She still has end-expiratory wheezing however she is not as tachypneic and is able to speak in complete sentences. Will continue current management. (2) Acute bronchitis Is this a current diagnosis for this admission?: Yes Plan: Not able to obtain a sputum. However this may be of low yield since patient has been on several days of doxycycline. Continue management as stated above in problem #1. (3) Acute on chronic respiratory failure with hypoxemia Is this a current diagnosis for this admission?: Yes Plan: Patient still receiving supplemental oxygen and BiPAP when needed. She has been off her oxygen to ambulate. Patient ambulate with pulse ox to make sure she is not de satting. CTA negative for PE. (4) Hypertensive urgency Is this a current diagnosis for this admission?: Yes Plan: Blood pressures are currently on the higher side however this may be secondary to the use of high-dose steroids. Continue as needed hydralazine. Will wean steroids as tolerated. (5) Hypokalemia Is this a current diagnosis for this admission?: Yes Plan: Resolved. Will follow up in a.m. (6) Pre-diabetes Is this a current diagnosis for this admission?: Yes Plan: Continue sliding scale insulin and monitor. Patient blood glucoses in the 100s. A1c is 6.2. (7) Chronic diastolic (congestive) heart failure Is this a current diagnosis for this admission?: Yes Plan: She appears euvolemic at this time. Continue diuretic. (8) Pulmonary hypertension, moderate to severe Is this a current diagnosis for this admission?: Yes Plan: Followed by Dr. Veras as outpatient. Dr. Solano is following patient while admitted. (9) CKD (chronic kidney disease), stage III Is this a current diagnosis for this admission?: Yes Plan: Patient renal function is actually stable at this point. Continue to monitor. (10) Tobacco abuse Is this a current diagnosis for this admission?: Yes Plan: She states that she has stopped smoking. (11) Morbid obesity with BMI of 40.0-44.9, adult Is this a current diagnosis for this admission?: Yes Plan: Will marriage counselor patient on healthy diet and activity and weight loss. (12) Leukocytosis Is this a current diagnosis for this admission?: Yes Plan: Most likely secondary to steroid use. Have weaned steroids. Will follow-up CBC in the morning. - Time Time Spent with patient: Less than 15 minutes Anticipated discharge: Home Within: within 72 hours - Inpatient Certification Medical Necessity: Significant Comorbidiites Make Outpatient Treatment Too Risky , Need Close Monitoring Due to Risk of Patient Decompensation
[2017-09-07] MEDS: MONTELUKAST SODIUM 10 MG TABLET PO SCH (21:05)
[2017-09-07] MEDS: ATORVASTATIN CALCIUM 40 MG TABLET PO SCH (21:05)
[2017-09-07] MEDS: RIVAROXABAN 10 MG TABLET PO SCH (21:06)
[2017-09-08] MEDS: METHYLPREDNISOLONE INJ 125 MG/2 ML SDV IV SCH ×2 (05:18→13:48)
[2017-09-08] MEDS: FLUTICASONE NASAL SPRAY 50 MCG/SPRY 120 SPRAY/16 GM NASL SCH ×2 (05:18→17:13)
[2017-09-08 05:53] LABS: HEMATOCRIT 35.4 % (36.0-47.0); HEMOGLOBIN 11.3 g/dL (12.0-15.5); MEAN CORPUSCULAR HEMOGLOBIN 26.5 pg (27.0-33.4); MEAN CORPUSCULAR VOLUME 83 fl (80-97); PLATELET COUNT 178 10^3/uL (150-450); RED BLOOD COUNT 4.27 10^6/uL (3.72-5.28); RED CELL DISTRIBUTION WIDTH 16.5 % (11.5-14.0); WHITE BLOOD COUNT 13.7 10^3/uL (4.0-10.5)
[2017-09-08 06:26] LABS: ABSOLUTE LYMPHOCYTES# (MANUAL) 2.3 10^3/uL (0.5-4.7); ABSOLUTE MONOCYTES # (MANUAL) 0.3 10^3/uL (0.1-1.4); ABSOLUTE NEUTROPHILS# (MANUAL) 11.1 10^3/uL (1.7-8.2); BAND NEUTROPHILS % (MANUAL) 1 % (3-5); BASOPHILS % (MANUAL) 0 % (0-2); EOSINOPHILS % (MANUAL) 0 % (0-6); LYMPHOCYTES % (MANUAL) 14 % (13-45); MONOCYTES % (MANUAL) 2 % (3-13); SEGMENTED NEUTROPHILS % (MAN) 80 % (42-78); TOTAL CELLS COUNTED 100
[2017-09-08 06:29] LABS: ANISOCYTOSIS 1+; HYPOCHROMASIA SLIGHT; POLYCHROMASIA SLIGHT; TOXIC GRANULATION SLIGHT; TOXIC VACUOLATION PRESENT
[2017-09-08 06:30] LABS: OVALOCYTES 1+; PLATELET COMMENT ADEQUATE; POIKILOCYTOSIS SLIGHT
[2017-09-08] MEDS: INSULIN LISPRO 100 UNIT/ML 3 ML VIAL SUBCUT PRN ×3 (07:59→17:14)
[2017-09-08] MEDS: BUDESONIDE NEB 0.5 MG/2 ML AMPUL NEB SCH (08:17)
[2017-09-08] MEDS: LEVALBUTEROL HCL NEB 1.25 MG/3 ML AMPUL NEB SCH ×3 (08:17→16:00)
[2017-09-08] MEDS: MAGNESIUM OXIDE 400 MG TABLET PO SCH (09:39)
[2017-09-08] MEDS: LISINOPRIL 10 MG TABLET PO SCH (09:39)
[2017-09-08] MEDS: FERROUS SULFATE 325 MG TABLET PO SCH (09:40)
[2017-09-08] MEDS: DOCUSATE SODIUM 100 MG CAPSULE PO SCH ×2 (09:40→17:12)
[2017-09-08] MEDS: CHOLECALCIFEROL (D3) 1,000 UNIT TABLET PO SCH (09:40)
[2017-09-08] MEDS: METOPROLOL SUCCINATE 50 MG TAB.SR.24H PO SCH (09:40)
[2017-09-08] MEDS: GUAIFENESIN 600 MG TABLET.SA PO SCH (09:40)
[2017-09-08] MEDS: DOXYCYCLINE HYCLATE 100 MG TABLET PO SCH (09:40)
[2017-09-08] MEDS: CETIRIZINE 10 MG TABLET PO SCH (09:41)
[2017-09-08] MEDS: AMLODIPINE BESYLATE 5 MG TABLET PO SCH (09:41)
[2017-09-08] MEDS: FUROSEMIDE 40 MG TABLET PO SCH ×2 (09:41→17:12)
--- NOTE | 2017-09-08 18:10 | PDOC DISCHARGE SUMMARY ---
General - Admit/Disc Date/PCP Admission Date/Primary Care Provider: 09/03/17 16:29 Discharge Date: 09/08/17 - Discharge Diagnosis (2) Acute bronchitis Is this a current diagnosis for this admission?: Yes (3) Acute on chronic respiratory failure with hypoxemia Is this a current diagnosis for this admission?: Yes (4) Hypertensive urgency Is this a current diagnosis for this admission?: Yes (5) Hypokalemia Is this a current diagnosis for this admission?: Yes (6) Pre-diabetes Is this a current diagnosis for this admission?: Yes (7) Chronic diastolic (congestive) heart failure Is this a current diagnosis for this admission?: Yes (8) Pulmonary hypertension, moderate to severe Is this a current diagnosis for this admission?: Yes (9) CKD (chronic kidney disease), stage III Is this a current diagnosis for this admission?: Yes (10) Tobacco abuse Is this a current diagnosis for this admission?: Yes (11) Morbid obesity with BMI of 40.0-44.9, adult Is this a current diagnosis for this admission?: Yes (12) Leukocytosis Is this a current diagnosis for this admission?: Yes - Additional Information Discharge Diet: Regular Discharge Activity: Activity As Tolerated Prescriptions: Doxycycline Hyclate [Vibramycin 100 mg Tablet] 100 mg PO Q12 #10 tablet Methylprednisolone [Medrol Dosepack (4 mg/Tab) 21 Tab/Dosepak] 4 mg PO ASDIR # 21 tab.ds.pk Home Medications: Acetaminophen [Tylenol Arthritis 650 mg Tablet] 650 mg PO Q4HP PRN 09/03/17 Albuterol Sulfate [Proair HFA Inhalation Aerosol 8.5 gm MDI] 2 puff IH Q4 Atorvastatin Calcium [Lipitor 40 mg Tablet] 40 mg PO QHS 09/03/17 Cholecalciferol (Vitamin D3) [Vitamin D3 1000 Unit Tablet] 1,000 unit PO DAILY 09/03/17 Clonidine HCl 0.4 mg PO DAILY 09/03/17 Ferrous Sulfate [Feosol] 325 mg PO DAILY 09/03/17 Fluticasone/Salmeterol [Advair 250-50 Diskus 28 dose] 1 inh IH Q12 09/03/17 Furosemide [Lasix 40 mg Tablet] 40 mg PO BID 09/03/17 Lisinopril [Prinivil 40 mg Tablet] 40 mg PO DAILY 09/03/17 Magnesium Oxide [Mag-Ox 400 mg Tablet] 400 mg PO DAILY 09/03/17 Melatonin 1 mg PO QHS 09/03/17 Metolazone [Zaroxolyn 2.5 mg Tablet] 2.5 mg PO DAILYP PRN 09/03/17 Metoprolol Succinate [Toprol Xl] 50 mg PO DAILY 09/03/17 Montelukast Sodium [Singulair 10 mg Tablet] 10 mg PO QHS 09/03/17 Rivaroxaban [Xarelto] 20 mg PO DAILY 09/03/17 Tiotropium [place] [Spiriva Respimat] 2 puff IH QAM 09/03/17 Tramadol HCl [Ultram] 50 mg PO Q4HP PRN 09/03/17 Albuterol Sulfate [Albuterol Sulfate 2.5mg/3 mL] 1 vial IH TID #90 09/08/17 Doxycycline Hyclate [Vibramycin 100 mg Tablet] 100 mg PO Q12 #10 tablet Methylprednisolone [Medrol Dosepack (4 mg/Tab) 21 Tab/Dosepak] 4 mg PO ASDIR # 21 tab.ds.pk 09/08/17 History of Present Illness History of Present Illness: JOLIE CAMARA is a 61 year old female with history of COPD. Patient was admitted for COPD exacerbation. Please refer to history and physical dictated by Ghulam Perkins NP. Hospital Course Hospital Course: Patient presented with COPD exacerbation most likely due to bronchitis. Patient was placed on systemic steroids while in this hospital. Patient steroids were weaned gradually during admission. Patient did take some time to improve however has improved significantly over the last several days. Patient was continued on doxycycline. Patient does continue to have mild wheeze however when relating she no longer has dyspnea. Patient did give a sputum sample however is not growing anything at this time. Patient also with acute on chronic hypoxic respiratory failure and was placed on BiPAP. Patient does use BiPAP at home. CTA was done of the chest to rule out PE and was negative. Hypertensive urgency patient blood pressures have been higher however this may be due to the use of steroids. Patient was continued on her home medications. Explained to the patient that once she is weaned off steroids the blood pressures will be better controlled. However in the hospital we did have the use as needed hydralazine to control blood pressures. Patient was given potassium replacement for hypokalemia. Patient is also known to be treated diabetic with a hemoglobin A1c of 6.2 and is on sliding scale insulin. Patient blood glucoses did remain in the 100s however she did have one in the 200s today. Patient also with chronic diastolic heart failure and appears euvolemic at this time. With patient was continued on her diuretics. Patient also has moderate to severe pulmonary hypertension patient sees Dr. Veras as outpatient. Patient has a recent history of tobacco abuse however states that she has stopped smoking. Patient is awaiting her of her weight and how this can be affecting her breathing. Patient tries to stay physically active and watch what she eats. Patient did have leukocytosis however this is most likely due to the use of steroids. The leukocytosis did improve with weaning of her steroids. Also has a history of A. fib which is rate controlled however she still in A. fib. Patient is on anticoagulation with Xarelto. Physical Exam Vital Signs: Temp Pulse Resp BP Pulse Ox 98.1 F 84 16 163/82 H 97 09/08/17 15:39 09/08/17 16:00 09/08/17 16:00 09/08/17 15:39 09/08/17 16:00 Intake & Output 09/07/17 09/08/17 09/09/17 06:59 06:59 06:59 Intake Total 2016 836 8510 Balance 1775 570 4303 Weight 119.1 kg General appearance: PRESENT: no acute distress, morbidly obese Head exam: PRESENT: normocephalic Eye exam: PRESENT: EOMI. ABSENT: scleral icterus Ear exam: PRESENT: normal external ear exam Mouth exam: PRESENT: moist Neck exam: ABSENT: carotid bruit, JVD, lymphadenopathy, thyromegaly Respiratory exam: PRESENT: unlabored, wheezes - Mild wheezing wheezing. ABSENT : rales, rhonchi Cardiovascular exam: PRESENT: RRR. ABSENT: diastolic murmur, rubs, systolic murmur GI/Abdominal exam: PRESENT: normal bowel sounds, soft. ABSENT: distended, guarding, mass, organolmegaly, rebound, tenderness Rectal exam: PRESENT: deferred Extremities exam: PRESENT: full ROM. ABSENT: calf tenderness, clubbing, pedal edema Neurological exam: PRESENT: alert, awake, oriented to person, oriented to place , oriented to time, oriented to situation, other - Hard of hearing. ABSENT: motor sensory deficit Psychiatric exam: PRESENT: appropriate affect, normal mood. ABSENT: homicidal ideation, suicidal ideation Skin exam: PRESENT: dry, intact, warm. ABSENT: cyanosis, rash Results Laboratory Results: 09/08/17 04:39 09/06/17 04:18 09/08/17 09/08/17 04:39 04:39 WBC 13.7 H RBC 4.27 Hgb 11.3 L Hct 35.4 L MCV 83 MCH 26.5 L MCHC 32.0 RDW 16.5 H Plt Count 178 Seg Neutrophils % Not Reportable Lymphocytes % Not Reportable Monocytes % Not Reportable Eosinophils % Not Reportable Basophils % Not Reportable Absolute Neutrophils Not Reportable Absolute Lymphocytes Not Reportable Absolute Monocytes Not Reportable Absolute Eosinophils Not Reportable Absolute Basophils Not Reportable Magnesium 2.2 Impressions: Chest X-Ray 09/03/17 10:25 IMPRESSION: Mild cardiomegaly without evidence of acute cardiopulmonary disease. Chest/Abdomen CTA 09/05/17 00:00 IMPRESSION: NORMAL CTA OF THE CHEST. NO PULMONARY EMBOLI. MUGA 09/06/17 12:17 IMPRESSION: Left ventricular ejection fraction 76%. Please note the patient was in AFib during the exam this. This report was called to Dr Solano Qualifiers [facility] BEING DISCHARGED WITH ANY OF THE FOLLOWING DIAGNOSIS?: No Plan Time Spent: Greater than 30 Minutes
[2017-09-08 18:39] VITALS: BP 151/68
== END 2017-09-08 19:10 | disposition home or self-care (01) | DRG 190 ==
LOC: ER 10:00 → EH 16:29 → 3N 18:45
PROVIDERS: ADMIT Pediatrics; ATTEND Pediatrics
PROC: 5A09557 Assistance with Respiratory Ventilation, Greater than 96 Consecutive Hours, Continuous Positive Airway Pressure (ICD-10-PCS; principal; 2017-09-03)
PROC: 3E0F73Z Introduction of Anti-inflammatory into Respiratory Tract, Via Natural or Artificial Opening (ICD-10-PCS; 2017-09-03)
DX: J44.1 Chronic obstructive pulmonary disease with (acute) exacerbation (principal); J96.21 Acute and chronic respiratory failure with hypoxia; I13.0 Hypertensive heart and chronic kidney disease with heart failure and stage 1 through stage 4 chronic kidney disease, or unspecified chronic kidney disease; I50.32 Chronic diastolic (congestive) heart failure; Z68.41 Body mass index [BMI] 40.0-44.9, adult; J45.902 Unspecified asthma with status asthmaticus; I16.0 Hypertensive urgency; N18.3 Chronic kidney disease, stage 3 (moderate); E87.6 Hypokalemia; R73.03 Prediabetes; I27.20 Pulmonary hypertension, unspecified; F17.210 Nicotine dependence, cigarettes, uncomplicated; E66.01 Morbid (severe) obesity due to excess calories; J20.9 Acute bronchitis, unspecified; J44.0 Chronic obstructive pulmonary disease with (acute) lower respiratory infection; E78.5 Hyperlipidemia, unspecified; G47.30 Sleep apnea, unspecified; M19.90 Unspecified osteoarthritis, unspecified site; F41.1 Generalized anxiety disorder; G47.33 Obstructive sleep apnea (adult) (pediatric); I45.10 Unspecified right bundle-branch block; I48.0 Paroxysmal atrial fibrillation; Z79.01 Long term (current) use of anticoagulants; Z86.73 Personal history of transient ischemic attack (TIA), and cerebral infarction without residual deficits; Z79.899 Other long term (current) drug therapy; Z96.653 Presence of artificial knee joint, bilateral; Z82.61 Family history of arthritis; Z82.3 Family history of stroke; Z83.3 Family history of diabetes mellitus; Z80.9 Family history of malignant neoplasm, unspecified; Z82.49 Family history of ischemic heart disease and other diseases of the circulatory system
CPT/HCPCS: 36415; 71010; 71275; 78472; 80048; 80053; 82550; 82803; 82962; 83036; 83735; 83880; 84484; 85025; 85027; 85379; 87070; 87077; 87205; 93306; 94660; 94667; 94668; 94799; 96365; 99285; A9560; J0360; J1630; J1644; J1815; J1940; J2930; J3475; J3490; J7512; J7620; Q9969

== ENCOUNTER 2017-11-27 15:30 | Inpatient (IN) | payer MEDICARE, MEDICAID ==
--- NOTE | 2017-11-27 16:14 | ER Document Report ---
ED Medical Screen (RME) - General Chief Complaint: Shortness Of Breath Stated Complaint: BREATHING ISSUES Time Seen by Provider: 11/27/17 16:12 Notes: pt with several days of sob/cough/fatigue TRAVEL OUTSIDE OF THE [place] IN LAST 30 DAYS: No - Related Data Allergies/Adverse Reactions: No Known Allergies Allergy (Verified 09/03/17 10:03) Past Medical History - Social History Chew tobacco use (# tins/day): No Frequency of alcohol use: None Drug Abuse: None - Past Medical History Cardiac Medical History: Reports: Hx Atrial Fibrillation, Hx Congestive Heart Failure, Hx Hypercholesterolemia, Hx Hypertension Pulmonary Medical History: Reports: Hx Asthma, Hx COPD, Hx Pneumonia, Hx Sleep Apnea Denies: Hx Tuberculosis Neurological Medical History: Reports: Hx Cerebrovascular Accident. Denies: Hx Seizures Endocrine Medical History: Reports: Hx Diabetes Mellitus Type 2 Renal/ Medical History: Denies: Hx Peritoneal Dialysis GI Medical History: Denies: Hx Crohn's Disease, Hx Hepatitis, Hx Ulcerative Colitis Musculoskeltal Medical History: Reports Hx Arthritis, Denies Hx Gout, Reports Hx Musculoskeletal Deformity Skin Medical History: Denies Hx Eczema, Denies Hx Psoriasis Traumatic Medical History: Denies: Hx Traumatic Brain Injury Infectious Medical History: Denies: Hx Hepatitis Past Surgical History: Reports: Hx Section - X2, Hx Orthopedic Surgery - Bilateral knee replacement, Hx Tubal Ligation - Immunizations Hx Diphtheria, Pertussis, Tetanus Vaccination: Yes History of Influenza Vaccine for 06/2017 - 11/2017 Season: Yes Influenza Administration Date for 06/2017 - 11/2017 Season: 07/09/17 Physical Exam - Vital signs Vitals: Temp Pulse Resp BP Pulse Ox 97.8 F 63 30 H 154/73 H 99 11/27/17 15:35 11/27/17 15:35 11/27/17 15:35 11/27/17 15:35 11/27/17 15:35 Course - Vital Signs Vital signs: Temp Pulse Resp BP Pulse Ox 97.8 F 63 30 H 154/73 H 99 11/27/17 15:35 11/27/17 15:35 11/27/17 15:35 11/27/17 15:35 11/27/17 15:35
[2017-11-27] MEDS ORDERED: ALBUTEROL SULFATE 0.083% NEB 2.5 MG/3 ML AMPUL NEB ONE (16:15)
[2017-11-27 16:27] LABS: ABSOLUTE BASOPHILS # (AUTO) 0.1 10^3/uL (0.0-0.2); ABSOLUTE EOSINOPHILS # (AUTO) 0.7 10^3/uL (0.0-0.6); ABSOLUTE LYMPHOCYTES (AUTO) 3.2 10^3/uL (0.5-4.7); ABSOLUTE MONOCYTES (AUTO) 0.7 10^3/uL (0.1-1.4); ABSOLUTE NEUT (AUTO) 2.4 10^3/uL (1.7-8.2); BASOPHILS % (AUTO) 1.2 % (0-2); EOSINOPHILS % (AUTO) 9.7 % (0-6); HEMOGLOBIN 12.3 g/dL (12.0-15.5); LYMPHOCYTES % (AUTO) 45.4 % (13-45); MEAN CORPUSCULAR HEMOGLOBIN 26.2 pg (27.0-33.4); MEAN CORPUSCULAR HGB CONC 32.2 g/dL (32.0-36.0); MEAN CORPUSCULAR VOLUME 81 fl (80-97); PLATELET COUNT 155 10^3/uL (150-450); RED BLOOD COUNT 4.69 10^6/uL (3.72-5.28); RED CELL DISTRIBUTION WIDTH 16.9 % (11.5-14.0); SEGMENTED NEUTROPHILS % (AUTO) 33.7 % (42-78); TOTAL CELLS COUNTED % (AUTO) 100 %; WHITE BLOOD COUNT 7.1 10^3/uL (4.0-10.5)
--- NOTE | 2017-11-27 16:34 | RADIOLOGY REPORT (SQ) ---
EXAM DESCRIPTION: CHEST PA/LAT COMPLETED DATE/TIME: 11/27/2017 4:26 pm REASON FOR STUDY: cough/sob COMPARISON: CT angio chest 09/05/2017 Two-view chest 12/27/2016 EXAM PARAMETERS: NUMBER OF VIEWS: two views TECHNIQUE: Digital Frontal and Lateral radiographic views of the chest acquired. RADIATION DOSE: NA LIMITATIONS: none FINDINGS: LUNGS AND PLEURA: Patchy left basilar airspace disease worrisome for early or developing p neumonia. Right lung clear. No pleural effusion, no pneumothorax. MEDIASTINUM AND HILAR STRUCTURES: No masses or contour abnormalities. HEART AND VASCULAR STRUCTURES: Cardiac silhouette size upper limits of normal BONES: No acute findings. HARDWARE: None in the chest. OTHER: No other significant finding. IMPRESSION: Left basilar airspace disease atelectasis versus pneumonia TECHNICAL DOCUMENTATION: JOB ID: [id number] [employer]- All Rights Reserved Reading location - IP/workstation name: [email or web address]
[2017-11-27 16:52] LABS: ALANINE AMINOTRANSFERASE 47 U/L (9-52); ALBUMIN 4.6 g/dL (3.5-5.0); ALKALINE PHOSPHATASE 109 U/L (38-126); ANION GAP 12 (5-19); ASPARTATE AMINO TRANSFERASE 45 U/L (14-36); BILIRUBIN,DIRECT 0.4 mg/dL (0.0-0.4); BILIRUBIN,TOTAL 0.6 mg/dL (0.2-1.3); BLOOD UREA NITROGEN 34 mg/dL (7-20); CALCIUM 9.9 mg/dL (8.4-10.2); CARBON DIOXIDE 29 mmol/L (22-30); CHLORIDE 100 mmol/L (98-107); GLUCOSE 99 mg/dL (75-110); POTASSIUM 4.5 mmol/L (3.6-5.0); SODIUM 140.9 mmol/L (137-145); TOTAL PROTEIN 8.4 g/dL (6.3-8.2)
[2017-11-27 17:04] LABS: NT PRO BNP 1270 pg/mL (5-900); TROPONIN I < 0.012 ng/mL
[2017-11-27] MEDS ORDERED: IPRATROPIUM/ALBUTEROL 0.5-2.5 MG/3 ML AMPUL NEB ONE ×2 (19:01→19:28)
[2017-11-27] MEDS ORDERED: METHYLPREDNISOLONE INJ 125 MG/2 ML SDV IV ONE (19:27)
[2017-11-27] MEDS ORDERED: VANCOMYCIN HCL INJ 1000 MG VIAL IV ONE (19:27)
--- NOTE | 2017-11-27 19:36 | ER Document Report ---
ED Respiratory Problem - General Chief Complaint: Shortness Of Breath Stated Complaint: BREATHING ISSUES Time Seen by Provider: 11/27/17 16:12 Mode of Arrival: Ambulatory Information source: Patient TRAVEL OUTSIDE OF THE [place] IN LAST 30 DAYS: No - HPI Patient complains to provider of: Cough, Short of breath Onset: Last week Notes: Patient is here with complaints of shortness of breath. She has a history of COPD. She was recently admitted to the hospital for COPD exacerbation without hospital in September 09. Here today with 1 week of cough and exertional shortness of breath with wheezing. She denies fever. She denies any chest pain. She denies any leg swelling. She denies any recent long trips or surgeries, hormones, cancer, history of DVT or PE. She denies any nausea, vomiting, diarrhea. She denies any rash. She denies any abdominal pain. Shortness of breath is worse with exertion, seems to be better when she rests. She denies any other complaints at this time. - Related Data Allergies/Adverse Reactions: No Known Allergies Allergy (Verified 09/03/17 10:03) Past Medical History - Social History Smoking Status: Current Every Day Smoker Chew tobacco use (# tins/day): No Frequency of alcohol use: None Drug Abuse: None Family History: Arthritis, CAD, CVA, DM, Hyperlipidemia, Hypertension, Malignancy Patient has suicidal ideation: No Patient has homicidal ideation: No - Past Medical History Cardiac Medical History: Reports: Hx Atrial Fibrillation, Hx Congestive Heart Failure, Hx Hypercholesterolemia, Hx Hypertension Pulmonary Medical History: Reports: Hx Asthma, Hx COPD, Hx Pneumonia, Hx Sleep Apnea Denies: Hx Tuberculosis Neurological Medical History: Reports: Hx Cerebrovascular Accident. Denies: Hx Seizures Endocrine Medical History: Reports: Hx Diabetes Mellitus Type 2 Renal/ Medical History: Denies: Hx Peritoneal Dialysis GI Medical History: Denies: Hx Crohn's Disease, Hx Hepatitis, Hx Ulcerative Colitis Musculoskeltal Medical History: Reports Hx Arthritis, Denies Hx Gout, Reports Hx Musculoskeletal Deformity Skin Medical History: Denies Hx Eczema, Denies Hx Psoriasis Traumatic Medical History: Denies: Hx Traumatic Brain Injury Infectious Medical History: Denies: Hx Hepatitis Past Surgical History: Reports: Hx Section - X2, Hx Orthopedic Surgery - Bilateral knee replacement, Hx Tubal Ligation - Immunizations Hx Diphtheria, Pertussis, Tetanus Vaccination: Yes Hx Pneumococcal Vaccination: 07/08/13 Review of Systems - Review of Systems -: Yes All other systems reviewed and negative Physical Exam - Vital signs Vitals: Temp Pulse Resp BP Pulse Ox 97.8 F 63 30 H 154/73 H 99 11/27/17 15:35 11/27/17 15:35 11/27/17 15:35 11/27/17 15:35 11/27/17 15:35 - Notes Notes: GENERAL: alert, cooperative, nontoxic, mild respiratory distress. HEAD: normocephalic, atraumatic EYES: conjunctiva pink without discharge, no external redness or swelling. EARS: no external swelling, no external redness NOSE: atraumatic, no external swelling MOUTH/THROAT: mucous membranes moist and pink, posterior pharynx without erythema, swelling, exudate. No trismus or drooling. NECK: soft, supple, full range of motion, no meningismus. CHEST: Mild respiratory distress with mild tachypnea. Slight increased work of breathing. Respiratory respiratory wheezing noted throughout. Fair air movement. CARDIAC: regular rate and rhythm, no murmur, normal capillary refill, normal pulses. Trace pitting edema to the bilateral lower extremities. ABDOMEN: Soft, nontender. BACK: full range of motion, no CVA tenderness. EXTREMITIES: full range of motion of all extremities. No redness, no swelling. NEURO: alert and oriented x 3, no focal deficits, full range of motion of all extremities. PYSCH: appropriate mood, affect. Patient is cooperative. SKIN: pink, warm, dry, no rash. Course - Re-evaluation Re-evalutation: 11/27/17 19:33 Patient is here with mild distress with increased work of breathing expiratory expiratory wheezing and tachypnea. She is not hypoxic. She has a history of COPD is here with complaints of cough and shortness of breath with exertion for 1 week. No fever. She was recently admitted to the hospital within the last 90 days. White count is normal. Her BNP is mildly elevated but stable for her. Troponin is negative. Chest x-ray shows left basilar pneumonia versus atelectasis. Patient continues to be in some mild distress after 2 breathing treatments. She will be given another DuoNeb, I have ordered Solu-Medrol and vancomycin due to a facility acquired pneumonia. Plan will be to admit the patient to the hospital for further evaluation and management. We will continue to closely monitor the patient. I have attempted to contact the hospitalist without success at this time. 11/27/17 19:59 Case discussed with overnight hospitalist. She has accepted the admission. Patient will be admitted for further evaluation and management. - Vital Signs Vital signs: Temp Pulse Resp BP Pulse Ox 97.8 F 63 30 H 154/73 H 99 11/27/17 15:35 11/27/17 15:35 11/27/17 15:35 11/27/17 15:35 11/27/17 15:35 - Laboratory Result Diagrams: 11/27/17 16:17 11/27/17 16:17 Laboratory results interpreted by me: 11/27/17 11/27/17 11/27/17 16:17 16:17 16:17 MCH 26.2 L RDW 16.9 H Seg Neutrophils % 33.7 L Lymphocytes % 45.4 H Eosinophils % 9.7 H Absolute Eosinophils 0.7 H BUN 34 H Est GFR ( Amer) 54 L Est GFR (Non-Af Amer) 45 L AST 45 H NT-Pro-B Natriuret Pep 1270 H Total Protein 8.4 H - Diagnostic Test Radiology reviewed: Image reviewed, Reports reviewed - Left basilar pneumonia versus atelectasis on chest x-ray. Discharge - Discharge Clinical Impression: COPD exacerbation, Respiratory distress Pneumonia Qualifiers: Pneumonia type: due to unspecified organism Laterality: left Lung location: lower lobe of lung Qualified Code(s): J18.1 - Lobar pneumonia, unspecified organism Condition: Serious Disposition: ADMITTED INPATIENT Admitting Provider: Hospitalist - Dr Pugh Unit Admitted: Telemetry Referrals: JHON PIMENTEL MD [Primary Care Provider] - Follow up as needed
[2017-11-27] MEDS ORDERED: ACETAMINOPHEN 325 MG TABLET PO PRN (21:09)
[2017-11-27] MEDS ORDERED: PROMETHAZINE HCL INJ 25 MG/1 ML VIAL IV PRN (21:09)
[2017-11-27] MEDS ORDERED: ALBUTEROL SULFATE 0.083% NEB 2.5 MG/3 ML AMPUL NEB PRN (21:09)
[2017-11-27] MEDS ORDERED: VANCOMYCIN HCL 0 MG in DEXTROSE 5%-WATER 250 ML IV NR (21:15)
[2017-11-27] MEDS ORDERED: VANCOMYCIN HCL 1,000 MG in DEXTROSE 5%-WATER 250 ML IV SCH (22:00)
[2017-11-27] MEDS ORDERED: GUAIFENESIN/D-METHORPHAN (200-20 MG) SYRUP 10 ML PO PRN (23:52)
[2017-11-28] MEDS ORDERED: CEFEPIME 1 GM/D5W RTU 1 GM/50 ML RTUPB IV ONE (00:15)
[2017-11-28] MEDS: CEFEPIME 1 GM/D5W RTU 1 GM/50 ML RTUPB IV SCH ×2 (00:26→09:43)
[2017-11-28] MEDS ORDERED: DEXTROSE 40% GEL 15 GM TUBE PO PRN ×2 (01:22)
[2017-11-28] MEDS ORDERED: GLUCAGON,HUMAN RECOMB 1 MG INJ IM PRN (01:22)
[2017-11-28] MEDS ORDERED: DEXTROSE 50%-WATER 25 GM/50 ML DISP.SYRIN IV PRN ×2 (01:22)
--- NOTE | 2017-11-28 01:45 | PDOC H&P ---
History of Present Illness Admission Date/PCP: 11/27/17 20:19 JHON PIMENTEL MD Patient complains of: Worsening dyspnea on exertion for last week or so. History of Present Illness: JOLIE CAMARA is a 62 year old female smoker with history of COPD/asthma ( not on home oxygen), severe cor pulmonale/diastolic CHF, obstructive sleep apnea (noncompliant with CPAP), A. fib (on Eliquis) and pre-diabetes was admitted with above-mentioned complaint. The patient was last hospitalized from 09/03/2017 to 09/08/2017 with COPD exacerbation/bronchitis and hypertensive urgency. She denied any chest pain but complained of worsening cough with yellowish sputum, no sick contacts or fever but she had chills couple of days ago with runny nose but no sore throat. She also denied any increased leg swelling. She said that she usually walks with a walker when she goes outside. She used her nebulizer twice today with some improvement in her breathing. She still smokes 3 cigarettes a day. She is up-to-date with her flu vaccine but she never received any pneumonia vaccine. In the ED, her temperature was 97.8, heart rate 63, respiratory rate 30, blood pressure 154/73 with oxygen saturation of 99% on room air. Her WBC was 7.1 with hemoglobin of 12.3. Her inital troponin was negative. A chest x-ray was done which showed lower lobe atelectasis/pneumonia. She received Albuterol neb x1, DuoNebs x2, 125 mg IV Solu-Medrol 1 and Vancomycin 1. Past Medical History Medical History: Other - According to the patient and periphery previous records. Cardiac Medical History: Reports: Atrial Fibrillation, Congestive Heart Failure , Hyperlipidema, Hypertension Pulmonary Medical History: Reports: Asthma, Chronic Obstructive Pulmonary Disease (COPD), Pneumonia, Sleep Apnea Denies: Tuberculosis Neurological Medical History: Denies: Seizures Endocrine Medical History: Reports: Diabetes Mellitus Type 2 - prediabetic. GI Medical History: Denies: Crohn's Disease, Hepatitis, Ulcerative Colitis Musculoskeltal Medical History: Reports: Arthritis Denies: Gout Skin Medical History: Denies: Eczema, Psoriasis Traumatic Medical History: Denies: Traumatic Brain Injury Hematology: Denies: Sickle Cell Disease, Bleeding Tendencies Past Surgical History Past Surgical History: Reports: Section - X2, Orthopedic Surgery - Bilateral knee replacement, Tubal Ligation, Other - D&C right groin cyst. Social History Smoking Status: Current Every Day Smoker Cigarettes Packs Per Day: 0.5 - 3 cigarettes a day now but she's been smoking more than 20 years. Frequency of Alcohol Use: None Hx Recreational Drug Use: No Drugs: None Hx Prescription Drug Abuse: No - Advance Directive Resuscitation Status: Full Code Family History Family History: Arthritis, CAD, CVA, DM, Hyperlipidemia, Hypertension, Malignancy Parental Family History Reviewed: Yes - Mother: DM 2, sister: CAD Children Family History Reviewed: No Sibling(s) Family History Reviewed.: Yes Medication/Allergy Home Medications: Albuterol Sulfate [Albuterol Sulfate 2.5mg/3 mL] 1 vial NEB Q6 11/27/17 Albuterol Sulfate [Proair HFA] 2 puff IH QID 11/27/17 Apixaban [Eliquis 5 mg Tablet] 5 mg PO BID 11/27/17 Atorvastatin Calcium [Lipitor 40 mg Tablet] 40 mg PO QHS 11/27/17 Clonidine HCl [Catapres 0.2 mg Tablet] 0.4 mg PO DAILY 11/27/17 Fluticasone Propionate [Flovent Hfa 110 Mcg Inhalation Aerosol 12 gm] 2 puff IH BID 11/27/17 Furosemide [Lasix 40 mg Tablet] 40 mg PO BID 11/27/17 Lisinopril [Prinivil 40 mg Tablet] 40 mg PO DAILY 11/27/17 Metoprolol Succinate [Toprol Xl 50 mg Tab.sr] 50 mg PO DAILY 11/27/17 Montelukast Sodium [Singulair 10 mg Tablet] 10 mg PO QHS 11/27/17 Umeclidinium Brm/Vilanterol Tr [Anoro Ellipta 62.5-25 Mcg INH] 1 puff IH DAILY 11/27/17 Allergies/Adverse Reactions: No Known Allergies Allergy (Verified 09/03/17 10:03) Review of Systems ROS unobtainable: Other - Pertinent positives and negatives as detailed in the HPI. She denied any abdominal pain, diarrhea or constipation or any urinary symptoms. She also denied any focal weakness or numbness. She ambulates outside with a walker. Physical Exam Vital Signs: Temp Pulse Resp BP Pulse Ox 97.8 F 63 30 H 154/73 H 99 11/27/17 15:35 11/27/17 15:35 11/27/17 15:35 11/27/17 15:35 11/27/17 15:35 General appearance: PRESENT: mild distress, well-developed, well-nourished Head exam: PRESENT: atraumatic, normocephalic Eye exam: PRESENT: conjunctiva pink, PERRLA. ABSENT: scleral icterus Mouth exam: PRESENT: moist, neck supple Neck exam: PRESENT: full ROM. ABSENT: JVD Respiratory exam: PRESENT: decreased breath sounds, rhonchi, wheezes. ABSENT: rales Cardiovascular exam: PRESENT: RRR, +S1, +S2 Pulses: PRESENT: normal dorsalis pedis pul GI/Abdominal exam: PRESENT: normal bowel sounds, soft. ABSENT: distended, rebound, tenderness Rectal exam: PRESENT: deferred Extremities exam: ABSENT: pedal edema Musculoskeletal exam: PRESENT: full ROM Neurological exam: PRESENT: alert, altered, awake, motor sensory deficit - grossly. Skin exam: PRESENT: dry, warm. ABSENT: erythema, rash Results Laboratory Results: CBC: WBC 7.1, hemoglobin 12.3, hematocrit 38.0, MCV 81, RDW 16.9, platelets 155. CMP: Sodium 140.9, potassium 4.5, chloride 100, bicarb 29, anion gap 12, BUN 34 , creatinine 1.22, liver enzymes within normal limits. Troponin: Less than 0.012. ProBNP pending. Impressions: Chest X-Ray 11/27/17 16:13 IMPRESSION: Left basilar airspace disease atelectasis versus pneumonia Assessment & Plan - Diagnosis (1) COPD exacerbation Is this a current diagnosis for this admission?: Yes Plan: Chest x-ray reviewed. We will check VBG and continue scheduled duonebs, IV Solu -Medrol and Vanco and cefepime given possible pneumonia on chest x-ray. We will follow-up blood cultures. She was strongly advised to stop smoking. (2) LLL pneumonia Qualifiers: Pneumonia type: due to unspecified organism Qualified Code(s): J18.1 - Lobar pneumonia, unspecified organism Is this a current diagnosis for this admission?: Yes Plan: possible HCAP. Will continue broad-coverage antibiotics for now with vancomycin and cefepime awaiting blood cultures. Will check CAT scan angiogram of the chest as well. Of note, the patient is on Eliquis for A. fib. (3) Moderate to severe pulmonary hypertension Is this a current diagnosis for this admission?: No Plan: With a chronic cor pulmonale/diastolic congestive heart failure. Will check proBNP. She had a recent echocardiogram on 09/04/2017 so will not repeat. Will resume some her BP home medications until further clarified by pharmacy. (4) Pre-diabetes Is this a current diagnosis for this admission?: No Plan: HbA1c 6.2 on 09/03/2017. Will start Humalog sliding scale while on steroids. (5) LAYNE (obstructive sleep apnea) Is this a current diagnosis for this admission?: No Plan: noncompliant with CPAP. (6) Smoker Is this a current diagnosis for this admission?: Yes Plan: 3 cigarettes a day now but she's been smoking for many years. She does not seem motivated to quit. She refused a nicotine patch. (7) Atrial fibrillation Qualifiers: Atrial fibrillation type: chronic Qualified Code(s): I48.2 - Chronic atrial fibrillation Is this a current diagnosis for this admission?: No Plan: rate controlled. Will continue Eliquis. - Time Time Spent: 50 to 70 Minutes Anticipated discharge: Home - Inpatient Certification Based on my medical assessment, after consideration of the patient's comorbidities, presenting symptoms, or acuity I expect that the services needed warrant INPATIENT care.: Yes I certify that my determination is in accordance with my understanding of Medicare's requirements for reasonable and necessary INPATIENT services [42 CFR 412.3e].: Yes
[2017-11-28] MEDS: IPRATROPIUM/ALBUTEROL 0.5-2.5 MG/3 ML AMPUL NEB SCH ×4 (02:09→19:59)
[2017-11-28 04:43] LABS: HEMATOCRIT 35.6 % (36.0-47.0); HEMOGLOBIN 11.5 g/dL (12.0-15.5); MEAN CORPUSCULAR HEMOGLOBIN 26.1 pg (27.0-33.4); MEAN CORPUSCULAR HGB CONC 32.4 g/dL (32.0-36.0); MEAN CORPUSCULAR VOLUME 80 fl (80-97); PLATELET COUNT 140 10^3/uL (150-450); RED BLOOD COUNT 4.42 10^6/uL (3.72-5.28); RED CELL DISTRIBUTION WIDTH 16.4 % (11.5-14.0); WHITE BLOOD COUNT 6.5 10^3/uL (4.0-10.5)
[2017-11-28 04:59] LABS: ANION GAP 17 (5-19); BLOOD UREA NITROGEN 34 mg/dL (7-20); CALCIUM 9.5 mg/dL (8.4-10.2); CARBON DIOXIDE 22 mmol/L (22-30); CHLORIDE 100 mmol/L (98-107); GLUCOSE 206 mg/dL (75-110); POTASSIUM 3.8 mmol/L (3.6-5.0); SODIUM 138.8 mmol/L (137-145)
[2017-11-28] MEDS ORDERED: METHYLPREDNISOLONE INJ 40 MG/1 ML SDV IV SCH ×2 (06:00→10:00)
[2017-11-28] MEDS: INSULIN LISPRO 100 UNIT/ML 3 ML VIAL SUBCUT PRN ×4 (08:35→22:14)
--- NOTE | 2017-11-28 09:10 | EKG REPORT ---
SEVERITY:- ABNORMAL ECG - SINUS RHYTHM RIGHT BUNDLE BRANCH BLOCK : Confirmed by: Bradley Olivarez 28-Nov-2017 09:09:19
--- NOTE | 2017-11-28 09:17 | RADIOLOGY REPORT (SQ) ---
EXAM DESCRIPTION: CTA CHEST COMPLETED DATE/TIME: 11/28/2017 8:32 am REASON FOR STUDY: Dyspnea on exertion COMPARISON: CT chest 09/05/2017, 12/12/2016, 06/02/2013, 03/09/2007 TECHNIQUE: CT scan of the chest performed using helical scanning technique with dynamic intravenous contrast injection. Images reviewed with lung, soft tissue and bone windows. Reconstructed coronal and sagittal MPR images reviewed. Additional 3 dimensional post-processing performed to develop Maximal Intensity Projection images (NH P). All images stored on PACS. All CT scanners at this facility use dose modulation, iterative reconstruction, and/or weight based d osing when appropriate to reduce radiation dose to as low as reasonably achievable (ALARA). [facility]: Dose Right [facility]: CareDose [facility]: Dose Right [facility]: Teradose 4D [facility]: [employer] CONTRAST TYPE AND DOSE: 71 mL IV Isovue 370 Contrast bolus adequate for pulmonary arteries and aorta. RENAL FUNCTION: Creatinine 1.0 RADIATION DOSE: 65 mGy . LIMITATIONS: None. FINDINGS: LUNGS AND PLEURA: There is bandlike scarring in the lateral aspect of the left upper lobe near the major fissure, and lateral basal segment left lower lobe similar compared to previous studie s. Patient had dense pneumonia in these areas in 2006. No fluffy alveolar infiltrates worrisome for edema or pneumonia. No pleural effusion. No pneumothor ax. Airways are patent. AORTA AND GREAT VESSELS: Proximal descending thoracic aorta, 4.3 cm in greatest transverse diameter s imilar compared to 09/06/2017 and 12/12/2016. No thoracic aortic dissection. HEART: No pericardial effusion. No significant coronary artery calcifications. PULMONARY ARTERIES: No emboli visualized in the main pulmonary arteries or the segmental branches. HILAR AND MEDIASTINAL STRUCTURES: Precarinal 1.9 x 1.2 cm lymph node axial image 44 HARDWARE: None in the chest. UPPER ABDOMEN: No significant findings. Limited exam. THYROID AND OTHER SOFT TISSUES: Large perforation, breasts are outside the field of view. Thyroid un remarkable. BONES: No acute or significant finding. 3D MIPS: Confirm above findings. OTHER: No other significant finding. IMPRESSION: No acute findings. COMMENT: Quality ID # [id number]: Final reports with documentation of one or more dose reduction techniques (e.g., Automated exposure control, adjustment of the mA and/or kV according to patient size, use of iterative reconstruction technique) TECHNICAL DOCUMENTATION: JOB ID: [id number] [facility] [email or web address]- All Rights Reserved Reading location - IP/workstation name: [email or web address]
[2017-11-28] MEDS: METOPROLOL SUCCINATE 50 MG TAB.SR.24H PO SCH (09:41)
[2017-11-28] MEDS: APIXABAN 5 MG TABLET PO SCH ×2 (09:42→17:15)
[2017-11-28] MEDS ORDERED: FUROSEMIDE 40 MG TABLET PO SCH (10:00)
[2017-11-28] MEDS ORDERED: VANCOMYCIN HCL 1,000 MG in DEXTROSE 5%-WATER 250 ML IV SCH (10:00)
[2017-11-28] MEDS ORDERED: BENZONATATE 100 MG CAPSULE PO PRN (11:40)
[2017-11-28] MEDS ORDERED: NICOTINE 14 MG/24 HR PATCH.TD24 TD PRN (12:36)
--- NOTE | 2017-11-28 12:38 | PDOC PROGRESS REPORT ---
Subjective Progress Note for:: 11/28/17 Subjective:: Patient refers that she still short of breath. She admits that she does not use the CPAP on a regular basis and she continues smoking Review of system All organ systems evaluated and negative except as in subjective All significant laboratories and diagnostics have been reviewed Reason For Visit: COPD EXACERBATION/PNA Physical Exam Vital Signs: Temp Pulse Resp BP Pulse Ox 97.6 F 65 18 147/68 H 99 11/27/17 22:32 11/28/17 02:10 11/28/17 02:10 11/27/17 22:32 11/27/17 22:32 Intake & Output 11/27/17 11/28/17 11/29/17 06:59 06:59 06:59 Intake Total 200 Output Total 700 Balance -500 General appearance: PRESENT: cooperative, mild distress Head exam: PRESENT: atraumatic, normocephalic Eye exam: PRESENT: conjunctiva pink, EOMI, PERRLA Ear exam: PRESENT: normal external ear exam Mouth exam: PRESENT: moist Neck exam: PRESENT: full ROM. ABSENT: JVD, lymphadenopathy, tenderness Respiratory exam: PRESENT: crackles, decreased breath sounds, wheezes Cardiovascular exam: PRESENT: irregular rhythm. ABSENT: diastolic murmur, systolic murmur GI/Abdominal exam: PRESENT: normal bowel sounds, soft. ABSENT: tenderness Extremities exam: PRESENT: full ROM, +2 edema Musculoskeletal exam: PRESENT: ambulatory Neurological exam: PRESENT: alert, awake, oriented to person, oriented to place , oriented to time, oriented to situation, CN II-XII grossly intact Psychiatric exam: PRESENT: appropriate affect, normal mood Skin exam: PRESENT: intact, normal color Results Laboratory Results: 11/28/17 04:20 11/28/17 04:20 11/28/17 11/28/17 11/28/17 04:20 04:20 04:20 WBC 6.5 RBC 4.42 Hgb 11.5 L Hct 35.6 L MCV 80 MCH 26.1 L MCHC 32.4 RDW 16.4 H Plt Count 140 L Sodium 138.8 Potassium 3.8 Chloride 100 Carbon Dioxide 22 Anion Gap 17 BUN 34 H Creatinine 1.03 Est GFR ( Amer) > 60 Est GFR (Non-Af Amer) 54 L Glucose 206 H Calcium 9.5 Magnesium 2.1 Impressions: Chest X-Ray 11/27/17 16:13 IMPRESSION: Left basilar airspace disease atelectasis versus pneumonia Assessment & Plan - Diagnosis (1) Atrial fibrillation Qualifiers: Atrial fibrillation type: chronic Qualified Code(s): I48.2 - Chronic atrial fibrillation Is this a current diagnosis for this admission?: Yes Plan: Continue Eliquis and Toprol-XL (2) COPD exacerbation Is this a current diagnosis for this admission?: Yes Plan: Continue nebulizer treatments and will decrease IV steroids. Discontinue vancomycin and cefepime. To place on Zithromax (3) LLL pneumonia Qualifiers: Pneumonia type: due to unspecified organism Qualified Code(s): J18.1 - Lobar pneumonia, unspecified organism Is this a current diagnosis for this admission?: No Plan: Patient had CTA of the chest and there are no acute infiltrates (4) Moderate to severe pulmonary hypertension Is this a current diagnosis for this admission?: Yes Plan: This is major issue on this patient. Will switch to IV Lasix and will diurese aggressively as long as blood pressure allows (5) LAYNE (obstructive sleep apnea) Is this a current diagnosis for this admission?: Yes Plan: Patient made aware of importance 2 years CPAP at bedtime since may be lifesaving in her case. Will order CPAP (6) Chronic diastolic (congestive) heart failure Is this a current diagnosis for this admission?: Yes Plan: Elevated BNP due to right-sided failure. Will start on Norvasc for blood pressure control (7) HTN (hypertension) Qualifiers: Hypertension type: essential hypertension Qualified Code(s): I10 - Essential (primary) hypertension Is this a current diagnosis for this admission?: Yes Plan: Norvasc and follow-up response (8) Tobacco abuse Is this a current diagnosis for this admission?: Yes Plan: To place a nicotine patch - Time Time Spent with patient: 15-24 minutes Medications reviewed and adjusted accordingly: Yes Anticipated discharge: Home Within: within 72 hours - Inpatient Certification Based on my medical assessment, after consideration of the patient's comorbidities, presenting symptoms, or acuity I expect that the services needed warrant INPATIENT care.: Yes I certify that my determination is in accordance with my understanding of Medicare's requirements for reasonable and necessary INPATIENT services [42 CFR 412.3e].: Yes Medical Necessity: Need Close Monitoring Due to Risk of Patient Decompensation, Need For Continuous Telemetry Monitoring, Need for Nebulizer Therapy and Monitoring of Response
[2017-11-28] MEDS ORDERED: AZITHROMYCIN 250 MG TABLET PO ONE (13:00)
[2017-11-28] MEDS ORDERED: AMLODIPINE BESYLATE 10 MG TABLET PO ONE (13:00)
[2017-11-28] MEDS: METHYLPREDNISOLONE INJ 40 MG/1 ML SDV IV SCH ×2 (13:33→22:14)
[2017-11-28] MEDS ORDERED: MAGNESIUM OXIDE 400 MG TABLET PO ONE (15:00)
[2017-11-28] MEDS: FUROSEMIDE INJ/PF 40 MG/4 ML SDV IV SCH (17:14)
[2017-11-28] MEDS: MONTELUKAST SODIUM 10 MG TABLET PO SCH (22:13)
[2017-11-28] MEDS: ATORVASTATIN CALCIUM 40 MG TABLET PO SCH (22:13)
[2017-11-28] MEDS: MAGNESIUM OXIDE 400 MG TABLET PO SCH (22:14)
[2017-11-28] MEDS: GUAIFENESIN 600 MG TABLET.SA PO SCH (22:14)
[2017-11-29] MEDS: METHYLPREDNISOLONE INJ 40 MG/1 ML SDV IV SCH (05:17)
[2017-11-29] MEDS: FUROSEMIDE INJ/PF 40 MG/4 ML SDV IV SCH (05:17)
[2017-11-29 08:20] LABS: ANION GAP 17 (5-19); BLOOD UREA NITROGEN 44 mg/dL (7-20); CALCIUM 10.3 mg/dL (8.4-10.2); CARBON DIOXIDE 24 mmol/L (22-30); CHLORIDE 101 mmol/L (98-107); GLUCOSE 207 mg/dL (75-110); POTASSIUM 3.7 mmol/L (3.6-5.0); SODIUM 141.5 mmol/L (137-145)
[2017-11-29] MEDS: IPRATROPIUM/ALBUTEROL 0.5-2.5 MG/3 ML AMPUL NEB SCH ×3 (08:27→20:03)
[2017-11-29 09:02] LABS: ABSOLUTE LYMPHOCYTES (AUTO) 1.4 10^3/uL (0.5-4.7); ABSOLUTE MONOCYTES (AUTO) 0.4 10^3/uL (0.1-1.4); ABSOLUTE NEUT (AUTO) 12.4 10^3/uL (1.7-8.2); BASOPHILS % (AUTO) 0.1 % (0-2); HEMATOCRIT 38.6 % (36.0-47.0); HEMOGLOBIN 12.5 g/dL (12.0-15.5); LYMPHOCYTES % (AUTO) 9.9 % (13-45); MEAN CORPUSCULAR HGB CONC 32.4 g/dL (32.0-36.0); MEAN CORPUSCULAR VOLUME 80 fl (80-97); PLATELET COUNT 169 10^3/uL (150-450); RED BLOOD COUNT 4.81 10^6/uL (3.72-5.28); RED CELL DISTRIBUTION WIDTH 16.6 % (11.5-14.0); TOTAL CELLS COUNTED % (AUTO) 100 %
[2017-11-29 09:04] LABS: WHITE BLOOD COUNT 14.2 10^3/uL (4.0-10.5)
[2017-11-29] MEDS: GUAIFENESIN 600 MG TABLET.SA PO SCH ×2 (09:27→21:22)
[2017-11-29] MEDS: MAGNESIUM OXIDE 400 MG TABLET PO SCH ×2 (09:27→21:24)
[2017-11-29] MEDS: AMLODIPINE BESYLATE 10 MG TABLET PO SCH (09:27)
[2017-11-29] MEDS: APIXABAN 5 MG TABLET PO SCH ×2 (09:28→18:23)
[2017-11-29] MEDS: METOPROLOL SUCCINATE 50 MG TAB.SR.24H PO SCH (09:28)
[2017-11-29] MEDS ORDERED: AZITHROMYCIN 250 MG TABLET PO SCH (10:00)
[2017-11-29 10:47] LABS: VANCOMYCIN,TROUGH 9.8 ug/mL (5.0-20.0)
[2017-11-29] MEDS: INSULIN LISPRO 100 UNIT/ML 3 ML VIAL SUBCUT PRN ×2 (12:13→18:23)
--- NOTE | 2017-11-29 15:02 | PDOC PROGRESS REPORT ---
Subjective Progress Note for:: 11/29/17 Subjective:: Refers she feels better and would like to be discharged to go to [facility] [employer] [facility]. Respiratory reports that patient did not use CPAP last night Review of system All organ systems evaluated and negative except as in subjective All significant laboratories and diagnostics have been reviewed Reason For Visit: COPD EXACERBATION/PNA Physical Exam Vital Signs: Temp Pulse Resp BP Pulse Ox 97.9 F 84 20 185/91 H 96 11/29/17 11:36 11/29/17 14:01 11/29/17 14:01 11/29/17 11:36 11/29/17 14:01 Intake & Output 11/28/17 11/29/17 11/30/17 06:59 06:59 06:59 Intake Total 200 1610 Output Total 700 1550 Balance -500 60 Weight 131 kg General appearance: PRESENT: cooperative, morbidly obese Head exam: PRESENT: atraumatic, normocephalic Eye exam: PRESENT: conjunctiva pink, EOMI, PERRLA Ear exam: PRESENT: normal external ear exam Neck exam: PRESENT: full ROM. ABSENT: JVD, lymphadenopathy, tenderness Respiratory exam: PRESENT: other - Improved movement of air with scattered wheezes and crackles mostly localized to the left side of her lung Cardiovascular exam: PRESENT: irregular rhythm. ABSENT: diastolic murmur, systolic murmur GI/Abdominal exam: PRESENT: normal bowel sounds, soft. ABSENT: tenderness Extremities exam: PRESENT: full ROM. ABSENT: pedal edema Musculoskeletal exam: PRESENT: ambulatory Neurological exam: PRESENT: alert, awake, oriented to person, oriented to place , oriented to time, oriented to situation, CN II-XII grossly intact Psychiatric exam: PRESENT: appropriate affect, normal mood Skin exam: PRESENT: intact, normal color Results Laboratory Results: 11/29/17 07:37 11/29/17 09:45 11/29/17 11/29/17 11/29/17 07:37 07:37 07:37 WBC 14.2 H D RBC 4.81 Hgb 12.5 Hct 38.6 MCV 80 MCH 26.0 L MCHC 32.4 RDW 16.6 H Plt Count 169 Seg Neutrophils % 87.0 H Lymphocytes % 9.9 L Monocytes % 3.0 Eosinophils % 0.0 Basophils % 0.1 Absolute Neutrophils 12.4 H Absolute Lymphocytes 1.4 Absolute Monocytes 0.4 Absolute Eosinophils 0.0 Absolute Basophils 0.0 Sodium 141.5 Potassium 3.7 Chloride 101 Carbon Dioxide 24 Anion Gap 17 BUN 44 H Creatinine 1.36 H Est GFR ( Amer) 48 L Est GFR (Non-Af Amer) 39 L Glucose 207 H Calcium 10.3 H Magnesium 2.4 H 11/29/17 09:45 WBC RBC Hgb Hct MCV MCH MCHC RDW Plt Count Seg Neutrophils % Lymphocytes % Monocytes % Eosinophils % Basophils % Absolute Neutrophils Absolute Lymphocytes Absolute Monocytes Absolute Eosinophils Absolute Basophils Sodium Potassium Chloride Carbon Dioxide Anion Gap BUN Creatinine 1.33 H Est GFR ( Amer) 49 L Est GFR (Non-Af Amer) 40 L Glucose Calcium Magnesium Impressions: Chest/Abdomen CTA 11/27/17 00:00 IMPRESSION: No acute findings. Chest X-Ray 11/27/17 16:13 IMPRESSION: Left basilar airspace disease atelectasis versus pneumonia Assessment & Plan - Diagnosis (1) Atrial fibrillation Qualifiers: Atrial fibrillation type: chronic Qualified Code(s): I48.2 - Chronic atrial fibrillation Is this a current diagnosis for this admission?: Yes Plan: Continue Eliquis and Toprol-XL (2) COPD exacerbation Is this a current diagnosis for this admission?: Yes Plan: Continue nebulizer treatments. To place patient on Advair and Spiriva (3) LLL pneumonia Qualifiers: Pneumonia type: due to unspecified organism Qualified Code(s): J18.1 - Lobar pneumonia, unspecified organism Is this a current diagnosis for this admission?: No Plan: Patient had a CT scan and ruled out pneumonia (4) Moderate to severe pulmonary hypertension Is this a current diagnosis for this admission?: Yes Plan: This is major issue on this patient. Will switch to IV Lasix to Demadex (5) LAYNE (obstructive sleep apnea) Is this a current diagnosis for this admission?: Yes Plan: Patient gave reminding of lifesaving properties of CPAP particularly in her case. Anticipate that if she continues with her behavior will return with similar symptoms (6) Chronic diastolic (congestive) heart failure Is this a current diagnosis for this admission?: Yes Plan: Elevated BNP due to right-sided failure. Continue Norvasc and will add hydralazine for blood pressure control (7) HTN (hypertension) Qualifiers: Hypertension type: essential hypertension Qualified Code(s): I10 - Essential (primary) hypertension Is this a current diagnosis for this admission?: Yes Plan: Still needs better control. To continue Norvasc and will add hydralazine (8) Tobacco abuse Is this a current diagnosis for this admission?: Yes Plan: Continue nicotine patch (9) Muscle cramps Is this a current diagnosis for this admission?: Yes Plan: Continue magnesium oxide. Due to diuretic therapy - Time Time Spent with patient: 15-24 minutes Medications reviewed and adjusted accordingly: Yes Anticipated discharge: Home Within: within 24 hours - Inpatient Certification Based on my medical assessment, after consideration of the patient's comorbidities, presenting symptoms, or acuity I expect that the services needed warrant INPATIENT care.: Yes Medical Necessity: Need Close Monitoring Due to Risk of Patient Decompensation, Need For Continuous Telemetry Monitoring
[2017-11-29] MEDS ORDERED: MAGNESIUM SULFATE/D5W 1 GM/100 ML RTUPB IV ONE ×2 (16:37→19:00)
[2017-11-29] MEDS ORDERED: TORSEMIDE 20 MG TABLET PO SCH (18:00)
[2017-11-29] MEDS: FLUTICASONE/SALMETEROL DISKUS 500-50 MCG/DOSE IH SCH (21:21)
[2017-11-29] MEDS: MONTELUKAST SODIUM 10 MG TABLET PO SCH (21:22)
[2017-11-29] MEDS: ATORVASTATIN CALCIUM 40 MG TABLET PO SCH (21:22)
[2017-11-29] MEDS: HYDRALAZINE HCL 50 MG TABLET PO SCH (21:23)
[2017-11-30 05:31] LABS: ABSOLUTE LYMPHOCYTES (AUTO) 2.6 10^3/uL (0.5-4.7); ABSOLUTE MONOCYTES (AUTO) 1.2 10^3/uL (0.1-1.4); ABSOLUTE NEUT (AUTO) 13.3 10^3/uL (1.7-8.2); BASOPHILS % (AUTO) 0.2 % (0-2); HEMATOCRIT 38.2 % (36.0-47.0); HEMOGLOBIN 12.4 g/dL (12.0-15.5); LYMPHOCYTES % (AUTO) 15.3 % (13-45); MEAN CORPUSCULAR HEMOGLOBIN 26.1 pg (27.0-33.4); MEAN CORPUSCULAR HGB CONC 32.4 g/dL (32.0-36.0); MEAN CORPUSCULAR VOLUME 81 fl (80-97); MONOCYTES % (AUTO) 7.2 % (3-13); PLATELET COUNT 175 10^3/uL (150-450); RED BLOOD COUNT 4.74 10^6/uL (3.72-5.28); RED CELL DISTRIBUTION WIDTH 16.8 % (11.5-14.0); SEGMENTED NEUTROPHILS % (AUTO) 77.3 % (42-78); TOTAL CELLS COUNTED % (AUTO) 100 %; WHITE BLOOD COUNT 17.2 10^3/uL (4.0-10.5)
[2017-11-30] MEDS: HYDRALAZINE HCL 50 MG TABLET PO SCH ×3 (05:33→21:43)
[2017-11-30 06:55] LABS: ANION GAP 16 (5-19); BLOOD UREA NITROGEN 56 mg/dL (7-20); CALCIUM 10.1 mg/dL (8.4-10.2); CARBON DIOXIDE 24 mmol/L (22-30); CHLORIDE 102 mmol/L (98-107); GLUCOSE 155 mg/dL (75-110); POTASSIUM 3.7 mmol/L (3.6-5.0); SODIUM 141.8 mmol/L (137-145)
[2017-11-30] MEDS: IPRATROPIUM/ALBUTEROL 0.5-2.5 MG/3 ML AMPUL NEB SCH ×3 (08:01→19:44)
[2017-11-30] MEDS: INSULIN LISPRO 100 UNIT/ML 3 ML VIAL SUBCUT PRN ×2 (08:51→18:35)
[2017-11-30] MEDS: GUAIFENESIN 600 MG TABLET.SA PO SCH ×2 (10:40→21:43)
[2017-11-30] MEDS: FLUTICASONE/SALMETEROL DISKUS 500-50 MCG/DOSE IH SCH ×2 (10:40→21:44)
[2017-11-30] MEDS: TIOTROPIUM BROMIDE DPI 5 CAP/KIT (18 MCG/CAP) IH SCH (10:40)
[2017-11-30] MEDS: APIXABAN 5 MG TABLET PO SCH ×2 (10:40→17:33)
[2017-11-30] MEDS: METOPROLOL SUCCINATE 50 MG TAB.SR.24H PO SCH (10:40)
[2017-11-30] MEDS: AMLODIPINE BESYLATE 10 MG TABLET PO SCH (10:40)
--- NOTE | 2017-11-30 14:12 | PDOC PROGRESS REPORT ---
Subjective Progress Note for:: 11/30/17 Subjective:: Patient refers that she is better however on exam she appears to be dyspneic. Respiratory therapist was in the room ready to administer a nebulizer treatment Review of system All organ systems evaluated and negative except as in subjective All significant laboratories and diagnostics have been reviewed Reason For Visit: COPD EXACERBATION/PNA Physical Exam Vital Signs: Temp Pulse Resp BP Pulse Ox 97.8 F 85 18 141/74 H 98 11/30/17 03:23 11/30/17 03:23 11/30/17 03:23 11/30/17 03:23 11/30/17 03:23 Intake & Output 11/29/17 11/30/17 12/01/17 06:59 06:59 06:59 Intake Total 1610 2283 Output Total 1550 800 Balance 60 1483 Weight 131 kg General appearance: PRESENT: cooperative, morbidly obese Head exam: PRESENT: atraumatic, normocephalic Eye exam: PRESENT: conjunctiva pink, EOMI, PERRLA Mouth exam: PRESENT: moist Neck exam: PRESENT: full ROM. ABSENT: JVD, lymphadenopathy, tenderness Respiratory exam: PRESENT: crackles, decreased breath sounds, wheezes Cardiovascular exam: PRESENT: irregular rhythm. ABSENT: diastolic murmur, systolic murmur GI/Abdominal exam: PRESENT: normal bowel sounds, soft. ABSENT: tenderness Extremities exam: PRESENT: full ROM Musculoskeletal exam: PRESENT: ambulatory Neurological exam: PRESENT: alert, awake, oriented to person, oriented to place , oriented to time, oriented to situation Psychiatric exam: PRESENT: appropriate affect, normal mood Skin exam: PRESENT: intact, normal color Results Laboratory Results: 11/30/17 04:34 11/30/17 06:34 11/29/17 11/29/17 11/29/17 07:37 07:37 07:37 WBC 14.2 H D RBC 4.81 Hgb 12.5 Hct 38.6 MCV 80 MCH 26.0 L MCHC 32.4 RDW 16.6 H Plt Count 169 Seg Neutrophils % 87.0 H Lymphocytes % 9.9 L Monocytes % 3.0 Eosinophils % 0.0 Basophils % 0.1 Absolute Neutrophils 12.4 H Absolute Lymphocytes 1.4 Absolute Monocytes 0.4 Absolute Eosinophils 0.0 Absolute Basophils 0.0 Sodium 141.5 Potassium 3.7 Chloride 101 Carbon Dioxide 24 Anion Gap 17 BUN 44 H Creatinine 1.36 H Est GFR ( Amer) 48 L Est GFR (Non-Af Amer) 39 L Glucose 207 H Calcium 10.3 H Magnesium 2.4 H 11/29/17 11/30/17 11/30/17 09:45 04:34 04:34 WBC 17.2 H RBC 4.74 Hgb 12.4 Hct 38.2 MCV 81 MCH 26.1 L MCHC 32.4 RDW 16.8 H Plt Count 175 Seg Neutrophils % 77.3 Lymphocytes % 15.3 Monocytes % 7.2 Eosinophils % 0.0 Basophils % 0.2 Absolute Neutrophils 13.3 H Absolute Lymphocytes 2.6 Absolute Monocytes 1.2 Absolute Eosinophils 0.0 Absolute Basophils 0.0 Sodium Cancelled Potassium Cancelled Chloride Cancelled Carbon Dioxide Cancelled Anion Gap Cancelled BUN Cancelled Creatinine 1.33 H Cancelled Est GFR ( Amer) 49 L Cancelled Est GFR (Non-Af Amer) 40 L Cancelled Glucose Cancelled Calcium Cancelled Magnesium Cancelled 11/30/17 06:34 WBC RBC Hgb Hct MCV MCH MCHC RDW Plt Count Seg Neutrophils % Lymphocytes % Monocytes % Eosinophils % Basophils % Absolute Neutrophils Absolute Lymphocytes Absolute Monocytes Absolute Eosinophils Absolute Basophils Sodium 141.8 Potassium 3.7 Chloride 102 Carbon Dioxide 24 Anion Gap 16 BUN 56 H Creatinine 1.37 H Est GFR ( Amer) 47 L Est GFR (Non-Af Amer) 39 L Glucose 155 H Calcium 10.1 Magnesium 3.0 H Impressions: Chest/Abdomen CTA 11/27/17 00:00 IMPRESSION: No acute findings. Chest X-Ray 11/27/17 16:13 IMPRESSION: Left basilar airspace disease atelectasis versus pneumonia Assessment & Plan - Diagnosis (1) Atrial fibrillation Qualifiers: Atrial fibrillation type: chronic Qualified Code(s): I48.2 - Chronic atrial fibrillation Is this a current diagnosis for this admission?: Yes Plan: Continue Eliquis and Toprol-XL (2) COPD exacerbation Is this a current diagnosis for this admission?: Yes Plan: Continue nebulizer treatments, Advair and Spiriva (3) LLL pneumonia Qualifiers: Pneumonia type: due to unspecified organism Qualified Code(s): J18.1 - Lobar pneumonia, unspecified organism Is this a current diagnosis for this admission?: No Plan: Patient had a CT scan and ruled out pneumonia (4) Moderate to severe pulmonary hypertension Is this a current diagnosis for this admission?: Yes Plan: This is major issue on this patient. Place her back on Lasix IV (5) LAYNE (obstructive sleep apnea) Is this a current diagnosis for this admission?: Yes Plan: Patient gave reminding of lifesaving properties of CPAP particularly in her case. Anticipate that if she continues with her behavior will return with similar symptoms. Continue CPAP while in-house (6) Chronic diastolic (congestive) heart failure Is this a current diagnosis for this admission?: Yes Plan: Elevated BNP due to right-sided failure. Continue Norvasc and hydralazine for blood pressure control (7) HTN (hypertension) Qualifiers: Hypertension type: essential hypertension Qualified Code(s): I10 - Essential (primary) hypertension Is this a current diagnosis for this admission?: Yes Plan: Still needs better control. To continue Norvasc and increase hydralazine (8) Tobacco abuse Is this a current diagnosis for this admission?: Yes Plan: Continue nicotine patch (9) Muscle cramps Is this a current diagnosis for this admission?: Yes Plan: Increase magnesium oxide daily dose. Due to diuretic therapy - Time Time Spent with patient: 15-24 minutes Medications reviewed and adjusted accordingly: Yes Anticipated discharge: Home Within: within 48 hours - Inpatient Certification Based on my medical assessment, after consideration of the patient's comorbidities, presenting symptoms, or acuity I expect that the services needed warrant INPATIENT care.: Yes I certify that my determination is in accordance with my understanding of Medicare's requirements for reasonable and necessary INPATIENT services [42 CFR 412.3e].: Yes Medical Necessity: Need Close Monitoring Due to Risk of Patient Decompensation, Need For Continuous Telemetry Monitoring, Need for Nebulizer Therapy and Monitoring of Response
[2017-11-30] MEDS ORDERED: AZITHROMYCIN 250 MG TABLET PO SCH (15:00)
[2017-11-30] MEDS: FUROSEMIDE INJ/PF 20 MG/2 ML SDV IV SCH ×2 (15:47→21:43)
[2017-11-30] MEDS: MAGNESIUM OXIDE 400 MG TABLET PO SCH ×2 (15:48→21:43)
[2017-11-30] MEDS: MONTELUKAST SODIUM 10 MG TABLET PO SCH (21:43)
[2017-11-30] MEDS: ATORVASTATIN CALCIUM 40 MG TABLET PO SCH (21:43)
[2017-12-01] MEDS: MAGNESIUM OXIDE 400 MG TABLET PO SCH ×3 (05:24→21:41)
[2017-12-01] MEDS: HYDRALAZINE HCL 50 MG TABLET PO SCH ×2 (05:29→21:34)
[2017-12-01] MEDS: FUROSEMIDE INJ/PF 20 MG/2 ML SDV IV SCH (05:29)
[2017-12-01] MEDS: IPRATROPIUM/ALBUTEROL 0.5-2.5 MG/3 ML AMPUL NEB SCH ×3 (08:07→20:04)
[2017-12-01] MEDS: METOPROLOL SUCCINATE 50 MG TAB.SR.24H PO SCH (09:05)
[2017-12-01] MEDS: TIOTROPIUM BROMIDE DPI 5 CAP/KIT (18 MCG/CAP) IH SCH (09:05)
[2017-12-01] MEDS: APIXABAN 5 MG TABLET PO SCH ×2 (09:05→17:29)
[2017-12-01] MEDS: FLUTICASONE/SALMETEROL DISKUS 500-50 MCG/DOSE IH SCH ×2 (09:05→21:40)
[2017-12-01] MEDS: LEVOFLOXACIN 500 MG/D5W RTU 500 MG/100 ML RTUPB IV SCH ×2 (09:06→10:41)
[2017-12-01] MEDS: GUAIFENESIN 600 MG TABLET.SA PO SCH ×2 (09:06→21:41)
[2017-12-01] MEDS: AMLODIPINE BESYLATE 10 MG TABLET PO SCH (09:07)
[2017-12-01] MEDS: INSULIN LISPRO 100 UNIT/ML 3 ML VIAL SUBCUT PRN ×2 (12:13→21:58)
--- NOTE | 2017-12-01 14:44 | PDOC PROGRESS REPORT ---
Subjective Progress Note for:: 12/01/17 Subjective:: Patient refers that she is better. Has been using CPAP at night. Nurse reported that IV access was lost Review of system All organ systems evaluated and negative except as in subjective All significant laboratories and diagnostics have been reviewed Reason For Visit: COPD EXACERBATION/PNA Physical Exam Vital Signs: Temp Pulse Resp BP Pulse Ox 98.5 F 68 16 107/65 98 12/01/17 03:38 12/01/17 07:00 12/01/17 03:38 12/01/17 03:38 12/01/17 03:38 Intake & Output 11/30/17 12/01/17 12/02/17 06:59 06:59 06:59 Intake Total 2283 1718 Output Total 800 2350 Balance 1483 -632 General appearance: PRESENT: cooperative, mild distress, morbidly obese Head exam: PRESENT: atraumatic, normocephalic Eye exam: PRESENT: conjunctiva pink, EOMI, PERRLA Neck exam: PRESENT: full ROM. ABSENT: JVD, lymphadenopathy, tenderness Respiratory exam: PRESENT: other - Adequate movement left sided. Decreased movement of air right-sided with scattered wheezes Cardiovascular exam: PRESENT: irregular rhythm. ABSENT: diastolic murmur, systolic murmur Vascular exam: PRESENT: normal capillary refill GI/Abdominal exam: PRESENT: normal bowel sounds, soft. ABSENT: tenderness Extremities exam: PRESENT: full ROM Musculoskeletal exam: PRESENT: ambulatory Neurological exam: PRESENT: alert, awake, oriented to person, oriented to place , oriented to time, oriented to situation, CN II-XII grossly intact Psychiatric exam: PRESENT: appropriate affect, normal mood Skin exam: PRESENT: intact, normal color Results Laboratory Results: 11/30/17 04:34 11/30/17 06:34 Impressions: Chest/Abdomen CTA 11/27/17 00:00 IMPRESSION: No acute findings. Chest X-Ray 11/27/17 16:13 IMPRESSION: Left basilar airspace disease atelectasis versus pneumonia Assessment & Plan - Diagnosis (1) Atrial fibrillation Qualifiers: Atrial fibrillation type: chronic Qualified Code(s): I48.2 - Chronic atrial fibrillation Is this a current diagnosis for this admission?: Yes Plan: Continue Eliquis and Toprol-XL (2) COPD exacerbation Is this a current diagnosis for this admission?: Yes Plan: Continue nebulizer treatments, Advair and Spiriva (3) LLL pneumonia Qualifiers: Pneumonia type: due to unspecified organism Qualified Code(s): J18.1 - Lobar pneumonia, unspecified organism Is this a current diagnosis for this admission?: No Plan: Patient had a CT scan and ruled out pneumonia (4) Moderate to severe pulmonary hypertension Is this a current diagnosis for this admission?: Yes Plan: This is major issue on this patient. To place on demadex (5) LAYNE (obstructive sleep apnea) Is this a current diagnosis for this admission?: Yes Plan: Patient gave reminding of lifesaving properties of CPAP particularly in her case. Anticipate that if she continues with her behavior will return with similar symptoms. Continue CPAP while in-house (6) Chronic diastolic (congestive) heart failure Is this a current diagnosis for this admission?: Yes Plan: Elevated BNP due to right-sided failure. Continue Norvasc and hydralazine for blood pressure control (7) HTN (hypertension) Qualifiers: Hypertension type: essential hypertension Qualified Code(s): I10 - Essential (primary) hypertension Is this a current diagnosis for this admission?: Yes Plan: Continue Norvasc and hydralazine (8) Tobacco abuse Is this a current diagnosis for this admission?: Yes Plan: Continue nicotine patch (9) Muscle cramps Is this a current diagnosis for this admission?: Yes Plan: Continue magnesium oxide (10) Acute on chronic renal failure Qualifiers: Acute renal failure type: unspecified Chronic kidney disease stage: stage 3 (moderate) Qualified Code(s): N17.9 - Acute kidney failure, unspecified; N18.3 - Chronic kidney disease, stage 3 (moderate); N18.3 - Chronic kidney disease, stage 3 (moderate) Is this a current diagnosis for this admission?: Yes Plan: Patient cardio renal. Trend - Time Time Spent with patient: 15-24 minutes Medications reviewed and adjusted accordingly: Yes Anticipated discharge: Home Within: within 24 hours - Inpatient Certification Based on my medical assessment, after consideration of the patient's comorbidities, presenting symptoms, or acuity I expect that the services needed warrant INPATIENT care.: Yes I certify that my determination is in accordance with my understanding of Medicare's requirements for reasonable and necessary INPATIENT services [42 CFR 412.3e].: Yes Medical Necessity: Need Close Monitoring Due to Risk of Patient Decompensation, Need For Continuous Telemetry Monitoring, Need for Nebulizer Therapy and Monitoring of Response
[2017-12-01] MEDS ORDERED: TORSEMIDE 20 MG TABLET PO SCH (18:00)
[2017-12-01] MEDS: ATORVASTATIN CALCIUM 40 MG TABLET PO SCH (21:40)
[2017-12-01] MEDS: MONTELUKAST SODIUM 10 MG TABLET PO SCH (21:41)
[2017-12-02 05:10] LABS: ABSOLUTE EOSINOPHILS # (AUTO) 0.3 10^3/uL (0.0-0.6); ABSOLUTE LYMPHOCYTES (AUTO) 4.3 10^3/uL (0.5-4.7); ABSOLUTE MONOCYTES (AUTO) 1.2 10^3/uL (0.1-1.4); ABSOLUTE NEUT (AUTO) 5.7 10^3/uL (1.7-8.2); BASOPHILS % (AUTO) 0.2 % (0-2); EOSINOPHILS % (AUTO) 2.3 % (0-6); HEMATOCRIT 37.4 % (36.0-47.0); HEMOGLOBIN 12.2 g/dL (12.0-15.5); LYMPHOCYTES % (AUTO) 37.6 % (13-45); MEAN CORPUSCULAR HEMOGLOBIN 26.3 pg (27.0-33.4); MEAN CORPUSCULAR HGB CONC 32.6 g/dL (32.0-36.0); MEAN CORPUSCULAR VOLUME 81 fl (80-97); MONOCYTES % (AUTO) 10.5 % (3-13); PLATELET COUNT 171 10^3/uL (150-450); RED BLOOD COUNT 4.65 10^6/uL (3.72-5.28); RED CELL DISTRIBUTION WIDTH 16.9 % (11.5-14.0); SEGMENTED NEUTROPHILS % (AUTO) 49.4 % (42-78); TOTAL CELLS COUNTED % (AUTO) 100 %; WHITE BLOOD COUNT 11.5 10^3/uL (4.0-10.5)
[2017-12-02] MEDS: MAGNESIUM OXIDE 400 MG TABLET PO SCH (05:37)
[2017-12-02] MEDS: HYDRALAZINE HCL 50 MG TABLET PO SCH (05:38)
[2017-12-02 05:42] LABS: ANION GAP 10 (5-19); BLOOD UREA NITROGEN 66 mg/dL (7-20); CALCIUM 9.3 mg/dL (8.4-10.2); CARBON DIOXIDE 28 mmol/L (22-30); CHLORIDE 100 mmol/L (98-107); GLUCOSE 127 mg/dL (75-110); POTASSIUM 3.4 mmol/L (3.6-5.0); SODIUM 138.4 mmol/L (137-145)
[2017-12-02] MEDS: INSULIN LISPRO 100 UNIT/ML 3 ML VIAL SUBCUT PRN (05:48)
[2017-12-02] MEDS: IPRATROPIUM/ALBUTEROL 0.5-2.5 MG/3 ML AMPUL NEB SCH (07:45)
[2017-12-02 07:55] VITALS: BP 106/58
[2017-12-02] MEDS ORDERED: HYDRALAZINE HCL 50 MG TABLET PO SCH (08:44)
[2017-12-02] MEDS: METOPROLOL SUCCINATE 50 MG TAB.SR.24H PO SCH (09:21)
[2017-12-02] MEDS: GUAIFENESIN 600 MG TABLET.SA PO SCH (09:25)
[2017-12-02] MEDS: AMLODIPINE BESYLATE 10 MG TABLET PO SCH (09:25)
[2017-12-02] MEDS: FLUTICASONE/SALMETEROL DISKUS 500-50 MCG/DOSE IH SCH (09:26)
[2017-12-02] MEDS: APIXABAN 5 MG TABLET PO SCH (09:26)
[2017-12-02] MEDS: TIOTROPIUM BROMIDE DPI 5 CAP/KIT (18 MCG/CAP) IH SCH (09:27)
[2017-12-02] MEDS ORDERED: POTASSIUM CHLORIDE 10 MEQ TABLET.SA PO ONE (09:30)
[2017-12-02] MEDS ORDERED: ROFLUMILAST 500 MCG TABLET PO SCH (10:00)
[2017-12-02] MEDS ORDERED: LEVOFLOXACIN 500 MG TABLET PO SCH (10:00)
[2017-12-02] MEDS ORDERED: HYDRALAZINE HCL 25 MG TABLET PO SCH (14:00)
[2017-12-02] MEDS ORDERED: TORSEMIDE 20 MG TABLET PO SCH (18:00)
--- NOTE | 2017-12-02 18:40 | PDOC DISCHARGE SUMMARY ---
General - Admit/Disc Date/PCP Admission Date/Primary Care Provider: 11/27/17 20:19 JHON PIMENTEL MD Discharge Date: 12/02/17 - Discharge Diagnosis (1) COPD exacerbation Is this a current diagnosis for this admission?: Yes (2) Moderate to severe pulmonary hypertension Is this a current diagnosis for this admission?: Yes (3) Chronic diastolic (congestive) heart failure Is this a current diagnosis for this admission?: Yes (4) Atrial fibrillation Is this a current diagnosis for this admission?: Yes (5) LAYNE (obstructive sleep apnea) Is this a current diagnosis for this admission?: Yes (6) HTN (hypertension) Is this a current diagnosis for this admission?: Yes (7) Tobacco abuse Is this a current diagnosis for this admission?: Yes (8) Muscle cramps Is this a current diagnosis for this admission?: Yes (9) Acute on chronic renal failure Is this a current diagnosis for this admission?: Yes - Additional Information Resuscitation Status: Full Code Discharge Diet: Cardiac Discharge Activity: Activity As Tolerated Prescriptions: Amlodipine Besylate [Norvasc 10 mg Tablet] 10 mg PO DAILY #30 tablet Benzonatate [Tessalon Perles 100 mg Capsule] 100 mg PO Q8HP PRN #30 capsule PRN Reason: Fluticasone/Salmeterol [Advair 500-50 Diskus 14 Dose/Diskus] 1 inh IH Q12 #60 inhaler Guaifenesin [Mucinex Sr 600 mg Tablet.sa] 600 mg PO Q12 #60 tablet.sa Hydralazine HCl [Apresoline 50 mg Tablet] 25 mg PO Q8 #60 tablet Levofloxacin [Levaquin 500 mg Tablet] 500 mg PO DAILY #5 tablet Magnesium Oxide [Mag-Ox 400 mg Tablet] 400 mg PO Q8 #90 tablet Roflumilast [Daliresp 500 Mcg Tablet] 500 mcg PO DAILY #30 tablet Tiotropium [place] [Spiriva Handihaler 5 Cap/Kit (18 Mcg/Cap)] 1 cap IH DAILY # 30 kit Torsemide [Demadex 20 mg Tablet] 20 mg PO BID #60 tablet Home Medications: Albuterol Sulfate [Albuterol Sulfate 2.5mg/3 mL] 1 vial NEB Q6 11/27/17 Albuterol Sulfate [Proair HFA] 2 puff IH QID 11/27/17 Apixaban [Eliquis 5 mg Tablet] 5 mg PO BID 11/27/17 Atorvastatin Calcium [Lipitor 40 mg Tablet] 40 mg PO QHS 11/27/17 Metoprolol Succinate [Toprol Xl 50 mg Tab.sr] 50 mg PO DAILY 11/27/17 Montelukast Sodium [Singulair 10 mg Tablet] 10 mg PO QHS 11/27/17 Amlodipine Besylate [Norvasc 10 mg Tablet] 10 mg PO DAILY #30 tablet 12/02/17 Benzonatate [Tessalon Perles 100 mg Capsule] 100 mg PO Q8HP PRN #30 capsule Fluticasone/Salmeterol [Advair 500-50 Diskus 14 Dose/Diskus] 1 inh IH Q12 #60 inhaler 12/02/17 Guaifenesin [Mucinex Sr 600 mg Tablet.sa] 600 mg PO Q12 #60 tablet.sa 12/02/17 Hydralazine HCl [Apresoline 50 mg Tablet] 25 mg PO Q8 #60 tablet 12/02/17 Levofloxacin [Levaquin 500 mg Tablet] 500 mg PO DAILY #5 tablet 12/02/17 Magnesium Oxide [Mag-Ox 400 mg Tablet] 400 mg PO Q8 #90 tablet 12/02/17 Roflumilast [Daliresp 500 Mcg Tablet] 500 mcg PO DAILY #30 tablet 12/02/17 Tiotropium [place] [Spiriva Handihaler 5 Cap/Kit (18 Mcg/Cap)] 1 cap IH DAILY # 30 kit 12/02/17 Torsemide [Demadex 20 mg Tablet] 20 mg PO BID #60 tablet 12/02/17 History of Present Illness History of Present Illness: JOLIE CAMARA is a 62 year old female smoker with history of COPD/asthma ( not on home oxygen), severe cor pulmonale/diastolic CHF, obstructive sleep apnea (noncompliant with CPAP), A. fib (on Eliquis) and pre-diabetes presented complaining of shortness of breath. The patient was last hospitalized from to 09/08/2017 with COPD exacerbation/bronchitis and hypertensive urgency. She denied any chest pain but complained of worsening cough with yellowish sputum, no sick contacts or fever but she had chills couple of days ago with runny nose but no sore throat. She also denied any increased leg swelling. She said that she usually walks with a walker when she goes outside. She used her nebulizer twice on the day of admission with some improvement in her breathing. She still smokes 3 cigarettes a day. She is up-to-date with her flu vaccine but she never received any pneumonia vaccine. In the ED, her temperature was 97.8, heart rate 63, respiratory rate 30, blood pressure 154/73 with oxygen saturation of 99% on room air. Her WBC was 7.1 with hemoglobin of 12.3. Her inital troponin was negative. A chest x-ray was done which showed lower lobe atelectasis/pneumonia. She received Albuterol neb x1, DuoNebs x2, 125 mg IV Solu-Medrol 1 and Vancomycin 1. Patient was admitted under hospitalist service for further management Hospital Course Hospital Course: Patient was evaluated through CTA of the chest due to concerns of pneumonia which was ruled out. She was aggressively diuresis as she does have diastolic congestive heart failure and pulmonary hypertension. Kidney functions were closely monitor she has been advised to follow-up with Dr. Jo since she becomes cardiorenal. We optimized her medication regimen for the treatment of COPD which includes Advair, Spiriva and Daliresp. High blood pressure was treated aggressively with good response while on hydralazine and Norvasc. Patient had been advised to follow up with Dr Sung. Patient has been educated about quitting smoking. Patient has also been strongly encouraged as to use CPAP at home since lifesaving. She has been able to tolerate BiPAP while in- house however has required a lot of encouragement. Patient had been optimized however anticipate that she will return back under similar symptoms circumstances and possibly needing intubation. Patient has been made aware. On discharge arrangements have been made for her to follow-up with Dr. Sung and Dr. Jo. Since patient had achieved maximum benefit of hospitalization stay prompted to discharge. Physical Exam Vital Signs: Temp Pulse Resp BP Pulse Ox 97.5 F 79 20 106/58 L 97 12/02/17 10:13 12/02/17 10:13 12/02/17 10:13 12/02/17 10:13 12/02/17 10:13 Intake & Output 12/01/17 12/02/17 12/03/17 06:59 06:59 06:59 Intake Total 1718 1040 Output Total 2350 1900 Balance -632 -860 General appearance: PRESENT: cooperative, morbidly obese Head exam: PRESENT: atraumatic, normocephalic Eye exam: PRESENT: EOMI, PERRLA Ear exam: PRESENT: normal external ear exam Neck exam: PRESENT: full ROM. ABSENT: JVD, lymphadenopathy, tenderness, thyromegaly Respiratory exam: PRESENT: other - Appendectomy essentially clear to auscultation Cardiovascular exam: PRESENT: irregular rhythm. ABSENT: diastolic murmur, systolic murmur Vascular exam: PRESENT: normal capillary refill GI/Abdominal exam: PRESENT: normal bowel sounds, soft. ABSENT: tenderness Extremities exam: PRESENT: full ROM. ABSENT: pedal edema Musculoskeletal exam: PRESENT: ambulatory Neurological exam: PRESENT: alert, oriented to person, oriented to place, oriented to time, oriented to situation, CN II-XII grossly intact Psychiatric exam: PRESENT: appropriate affect, normal mood Skin exam: PRESENT: intact, normal color Results Laboratory Results: 12/02/17 04:00 12/02/17 04:00 12/02/17 12/02/17 04:00 04:00 WBC 11.5 H RBC 4.65 Hgb 12.2 Hct 37.4 MCV 81 MCH 26.3 L MCHC 32.6 RDW 16.9 H Plt Count 171 Seg Neutrophils % 49.4 Lymphocytes % 37.6 Monocytes % 10.5 Eosinophils % 2.3 Basophils % 0.2 Absolute Neutrophils 5.7 Absolute Lymphocytes 4.3 Absolute Monocytes 1.2 Absolute Eosinophils 0.3 Absolute Basophils 0.0 Sodium 138.4 Potassium 3.4 L Chloride 100 Carbon Dioxide 28 Anion Gap 10 BUN 66 H Creatinine 1.63 H Est GFR ( Amer) 39 L Est GFR (Non-Af Amer) 32 L Glucose 127 H Calcium 9.3 Magnesium 2.9 H Impressions: Chest/Abdomen CTA 11/27/17 00:00 IMPRESSION: No acute findings. Chest X-Ray 11/27/17 16:13 IMPRESSION: Left basilar airspace disease atelectasis versus pneumonia Qualifiers - * [facility]INT BEING DISCHARGED WITH ANY OF THE FOLLOWING DIAGNOSIS?: No
== END 2017-12-02 11:41 | disposition home health service (06) | DRG 191 ==
LOC: ER 15:30 → EH 20:19 → 4N 22:24
PROVIDERS: ADMIT Internal Medicine Geriatric Medicine; ATTEND Internal Medicine Geriatric Medicine
DX: J44.1 Chronic obstructive pulmonary disease with (acute) exacerbation (principal); I13.0 Hypertensive heart and chronic kidney disease with heart failure and stage 1 through stage 4 chronic kidney disease, or unspecified chronic kidney disease; I50.32 Chronic diastolic (congestive) heart failure; N17.9 Acute kidney failure, unspecified; N18.3 Chronic kidney disease, stage 3 (moderate); I48.2 Chronic atrial fibrillation; I27.20 Pulmonary hypertension, unspecified; I48.91 Unspecified atrial fibrillation; E11.22 Type 2 diabetes mellitus with diabetic chronic kidney disease; G47.33 Obstructive sleep apnea (adult) (pediatric); E78.5 Hyperlipidemia, unspecified; R25.2 Cramp and spasm; M19.90 Unspecified osteoarthritis, unspecified site; Z96.653 Presence of artificial knee joint, bilateral; F17.210 Nicotine dependence, cigarettes, uncomplicated; Z91.19 Patient's noncompliance with other medical treatment and regimen; Z82.49 Family history of ischemic heart disease and other diseases of the circulatory system; Z82.3 Family history of stroke; Z80.9 Family history of malignant neoplasm, unspecified; Z83.3 Family history of diabetes mellitus; Z79.51 Long term (current) use of inhaled steroids; Z79.899 Other long term (current) drug therapy; Z79.02 Long term (current) use of antithrombotics/antiplatelets
CPT/HCPCS: 36415; 71046; 71275; 80048; 80053; 80202; 82565; 82962; 83735; 83880; 84484; 85025; 85027; 87040; 93005; 93010; 94640; 94660; 99285; J0692; J1815; J1940; J1956; J2550; J2920; J2930; J3370; J3475; J3490; J7060; J7620

== ENCOUNTER → 2018-04-07 | Outpatient (CLI) | payer MEDICARE, MEDICAID ==
--- NOTE | 2018-04-07 12:06 | WOMENS IMAGING REPORT ---
EXAM DESCRIPTION: 3D SCREENING MAMMO BILAT COMPLETED DATE/TIME: 04/07/2018 10:04 am REASON FOR STUDY: BILATERAL SCREENING; Z12.31 Z12.31 ENCNTR SCREEN MAMMOGRAM FOR MALIGNANT NEOPLASM OF ANH COMPARISON: 04/05/2017 and 11/10/2015. TECHNIQUE: Standard craniocaudal and mediolateral oblique views of each breast recorded using digita l acquisition and breast tomosynthesis. LIMITATIONS: None. FINDINGS: Findings present which are benign by mammographic criteria. No suspicious masses, calcifi cations or architectural distortion. Pertinent benign findings: Stable benign calcifications. Read with the assistance of CAD. .[facility] - R2 Cenova Version 1.3 .[facility] - R2 Cenova Version 1.3 .[facility] - R2 Cenova Version 2.4 .[facility] [place] R2 Cenova Version 2.4 .[facility] - R2 Uranium Processing Supervisor Version 9.2 Benign mammographic findings may include one or more of the following: Smooth masses, popcorn/rim/co arse calcifications, asymmetries, post-procedure changes, and lesions with long-standing stability. IMPRESSION: BENIGN MAMMOGRAPHIC FINDINGS. BIRADS 2 BREAST DENSITY: b. There are scattered areas of fibroglandular density. BIRAD: 2 BENIGN FINDING(S) RECOMMENDATION: RECOMMENDATION: ROUTINE SCREENING COMMENT: The patient has been notified of the results by letter per SA requirements. Additional no tification policies are in place for contacting patient with suspicious or incomplete findings. Quality ID #[id number]: The [employer] recommends an annual screening mammogram for women aged 40 years or over. This facility utilizes a reminder system to ensure that all patients receive reminder letters, and/or direct phone calls for appointments. This includes reminders for routine scr eening mammograms, diagnostic mammograms, or other Breast Imaging Interventions when appropriate. Th is patient will be placed in the appropriate reminder system. The [employer] (ACR) has developed recommendations for screening MRI of the breast s in certain patient populations, to be used in conjunction with mammography. Breast MRI surveillanc e may be appropriate for women with more than 20% lifetime risk of developing breast cancer as deter mined by genetic testing, significant family history of the disease, or history of mantle radiation f or Hodgkins Disease. ACR Practice Guidelines 2008. DBT Technology DBT is a type of tomographic mammography. With conventional mammography, overlapping breast tissue ma y make lesions difficult to detect, even with good compression. DBT uses an x-ray tube that rotates a round the breast, taking images at different angles. These images are then combined to create thin sl ices of the breast that the radiologist can view as a 3D reconstruction. The Triage unit can perform full-field digital mammograms (2D imaging); or DBT (3D imaging); or both, in a combination mode that quickly performs both the mammogram and the tomosynthesis scan while the breast is still compressed. PQRS 6045F: Fluoroscopic imaging is not utilized for breast tomosynthesis. TECHNICAL DOCUMENTATION: FINDING NUMBER: (1) ASSESSMENT: (1) JOB ID: [id number] [employer]- All Rights Reserved Reading location - IP/workstation name: [email or web address]
== END ==
LOC: WI 09:00
PROVIDERS: ATTEND Family Medicine
DX: Z12.31 Encounter for screening mammogram for malignant neoplasm of breast (principal)
CPT/HCPCS: 77063; 77067

== ENCOUNTER 2018-07-29 07:46 | Emergency (ER) | payer MEDICARE, MEDICAID ==
[2018-07-29] MEDS ORDERED: IPRATROPIUM/ALBUTEROL 0.5-2.5 MG/3 ML AMPUL NEB ONE (08:17)
[2018-07-29] MEDS ORDERED: PREDNISONE 20 MG TABLET PO ONE (08:17)
[2018-07-29] MEDS ORDERED: ALBUTEROL SULFATE 0.083% NEB 2.5 MG/3 ML AMPUL NEB ONE (08:17)
--- NOTE | 2018-07-29 08:24 | ER Document Report ---
ED General - General Chief Complaint: Breathing Difficulty Stated Complaint: COLD SYMPTOMS Time Seen by Provider: 07/29/18 08:11 TRAVEL OUTSIDE OF THE [place] IN LAST 30 DAYS: No - HPI Notes: Patient is a 62-year-old female that presents to the emergency department for chief complaint of shortness of breath and cough. Patient states over the last 1-1/2 weeks she has had increased shortness of breath and coughing. Her cough is productive with a thick sputum. 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 She has been using her home albuterol 3-4 times daily with minimal relief. She denies previous admissions to the hospital or intubations for her asthma. She has not currently on any steroids. She denies fevers or chills. She did get her flu shot about 2 weeks ago. Patient also states that she feels a fullness in her throat after eating and coughing. She denies any difficulty swallowing. She denies associated palpitations, chest pain, nausea, vomiting, abdominal pain, numbness, weakness and headaches Past Medical History: Asthma, hyperlipidemia, hypertension, stroke, obstructive sleep apnea, obesity Past Surgical History: x2, tubal ligation, bilateral total knee replacement Social History: Daily tobacco. Denies drugs and alcohol Family History: Reviewed and noncontributory for presenting illness Allergies: Reviewed, see documented allergy list. REVIEW OF SYSTEMS: CONSTITUTIONAL : No fever No chills No diaphoresis No recent illness EENT: No vision changes congestion sore throat CARDIOVASCULAR: No chest pain No palpitations RESPIRATORY: shortness of breath cough difficulty breathing GASTROINTESTINAL: No abdominal pain No nausea No vomiting No diarrhea GENITOURINARY: No dysuria No hematuria No difficulty urinating MUSCULOSKELETAL: No back pain No leg pain No arm pain SKIN: No rashes No lesions LYMPHATIC: No swollen, enlarged glands. NEUROLOGICAL: No lightheadedness No headache No weakness No paresthesias PSYCHIATRIC: No anxiety No depression PHYSICAL EXAMINATION: Vital signs reviewed, nursing noted reviewed. GENERAL: Well-appearing, well-nourished and in no acute distress. HEAD: Atraumatic, normocephalic. EYES: Eyes appear normal, extraocular movements intact, sclera anicteric, conjunctiva are normal. ENT: nares patent, oropharynx clear without exudates. Moist mucous membranes. NECK: Normal range of motion, supple without lymphadenopathy LUNGS: No accessory muscle use. Bilateral wheezing. Prolonged expiratory phase. HEART: Regular rate and rhythm without murmurs ABDOMEN: Soft, nontender, normoactive bowel sounds. No rebound, guarding, or rigidity. No masses appreciated. EXTREMITIES: Nontender, good range of motion, no pitting or edema. NEUROLOGICAL: No focal neurological deficits. Moves all extremities spontaneously Motor and sensory grossly intact on exam. PSYCH: Normal mood, normal affect. SKIN: Warm, Dry, normal turgor, no rashes or lesions noted on exposed skin - Related Data Allergies/Adverse Reactions: No Known Allergies Allergy (Verified 07/29/18 07:47) Past Medical History - Social History Smoking Status: Current Every Day Smoker Family History: Arthritis, CAD, CVA, DM, Hyperlipidemia, Hypertension, Malignancy - Past Medical History Cardiac Medical History: Reports: Hx Atrial Fibrillation, Hx Congestive Heart Failure, Hx Hypercholesterolemia, Hx Hypertension Pulmonary Medical History: Reports: Hx Asthma, Hx COPD, Hx Pneumonia, Hx Sleep Apnea Denies: Hx Tuberculosis Neurological Medical History: Reports: Hx Cerebrovascular Accident. Denies: Hx Seizures Endocrine Medical History: Reports: Hx Diabetes Mellitus Type 2 - prediabetic. Renal/ Medical History: Denies: Hx Peritoneal Dialysis GI Medical History: Denies: Hx Crohn's Disease, Hx Hepatitis, Hx Ulcerative Colitis Musculoskeletal Medical History: Reports Hx Arthritis, Denies Hx Gout, Reports Hx Musculoskeletal Deformity Skin Medical History: Denies Hx Eczema, Denies Hx Psoriasis Psychiatric Medical History: Denies: Hx Depression Traumatic Medical History: Denies: Hx Traumatic Brain Injury Infectious Medical History: Denies: Hx Hepatitis Past Surgical History: Reports: Hx Section - X2, Hx Orthopedic Surgery - Bilateral knee replacement, Hx Tubal Ligation, Other - D&C right groin cyst. - Immunizations Hx Diphtheria, Pertussis, Tetanus Vaccination: Yes Hx Pneumococcal Vaccination: 07/08/13 Review of Systems - Review of Systems Notes: Dictated Physical Exam - Vital signs Vitals: Temp Pulse Resp BP Pulse Ox 97.9 F 91 20 132/82 H 97 07/29/18 07:51 07/29/18 07:51 07/29/18 07:51 07/29/18 07:51 07/29/18 07:51 - Notes Notes: Dictated Course - Re-evaluation Re-evalutation: 07/29/18 08:22 Vitals reviewed. Nursing notes reviewed. Patient is not in any respiratory distress and is oxygenating well on room air. She was given albuterol, DuoNeb, and prednisone for her asthma exacerbation. 07/29/18 08:50 Patient reevaluated and has had significant improvement of her wheezing and shortness of breath after aerosols. She is still oxygenating well on room air. Chest x-ray shows no pulmonary edema or pneumonia. Patient will be started on prednisone. She was encouraged to use her home nebulized albuterol every 4 hours and was given a refill of her albuterol. She will see her primary care doctor for reevaluation in the next few days. She will return for new or worsening symptoms. Discharged in stable condition. Chest X-Ray 07/29/18 08:17 IMPRESSION: Stable cardiomegaly. No acute infiltrates - Vital Signs Vital signs: Temp Pulse Resp BP Pulse Ox 97.9 F 91 20 132/82 H 97 07/29/18 07:51 07/29/18 07:51 07/29/18 07:51 07/29/18 07:51 07/29/18 07:51 Discharge - Discharge Clinical Impression: Asthma exacerbation Qualifiers: Asthma severity: unspecified severity Asthma persistence: unspecified Qualified Code(s): J45.901 - Unspecified asthma with (acute) exacerbation Condition: Stable Disposition: HOME, SELF-CARE Instructions: Asthma ([facility]) Additional Instructions: Please return to the emergency department if you have any worsening, or concern of your symptoms. Please return to the emergency department if you develop chest pain, difficulty breathing, severe abdominal pain, or ongoing vomiting. Please follow-up with your primary care physician in 2-3 days and any other recommended physicians. If prescribed, take all medications as directed. If you have any questions or concerns do not hesitate to return the emergency department for evaluation. Use your albuterol inhaler 2 puffs every 4 hours for the next 2-3 days and then as needed after that. Begin taking prednisone prescription tomorrow (07/30/18). Prescriptions: Albuterol Sulfate [Ventolin 0.083% Neb 2.5 mg/3 mL Ampul] 1 vial NEB Q4 #30 vial Prednisone [Deltasone 20 mg Tablet] 2 tab PO DAILY 5 Days tablet Forms: Smoking Cessation Education Referrals: JHON PIMENTEL MD [Primary Care Provider] - Follow up in 3-5 days
--- NOTE | 2018-07-29 08:40 | RADIOLOGY REPORT (SQ) ---
EXAM DESCRIPTION: CHEST SINGLE VIEW COMPLETED DATE/TIME: 07/29/2018 8:32 am REASON FOR STUDY: cough COMPARISON: 11/27/2017 chest film 11/28/2017 CT chest EXAM PARAMETERS: NUMBER OF VIEWS: One view. TECHNIQUE: Single frontal radiographic view of the chest acquired. RADIATION DOSE: NA LIMITATIONS: None. FINDINGS: LUNGS AND PLEURA: No opacities, masses or pneumothorax. No pleural effusion. MEDIASTINUM AND HILAR STRUCTURES: No masses. Contour normal. HEART AND VASCULAR STRUCTURES: Stable moderate to marked cardiomegaly BONES: No acute findings. HARDWARE: None in the chest. OTHER: No other significant finding. IMPRESSION: Stable cardiomegaly. No acute infiltrates TECHNICAL DOCUMENTATION: JOB ID: [id number] [employer]- All Rights Reserved Reading location - IP/workstation name: [email or web address]
[2018-07-29 09:20] VITALS: BP 135/88
== END 2018-07-29 09:19 | disposition home or self-care (01) ==
LOC: ER 07:46
DX: J45.901 Unspecified asthma with (acute) exacerbation (principal); E11.9 Type 2 diabetes mellitus without complications; F17.200 Nicotine dependence, unspecified, uncomplicated; I50.9 Heart failure, unspecified; E78.00 Pure hypercholesterolemia, unspecified; I11.0 Hypertensive heart disease with heart failure; Z96.653 Presence of artificial knee joint, bilateral; Z98.51 Tubal ligation status; Z86.73 Personal history of transient ischemic attack (TIA), and cerebral infarction without residual deficits
CPT/HCPCS: 94640 ×2; 99284; 71045; A9270 ×3; J7512; J7620

== ENCOUNTER 2018-08-07 07:30 | Emergency (ER) | payer MEDICARE, MEDICAID ==
[2018-08-07] MEDS ORDERED: METHYLPREDNISOLONE INJ 125 MG/2 ML SDV IM ONE (08:15)
[2018-08-07] MEDS ORDERED: IPRATROPIUM/ALBUTEROL 0.5-2.5 MG/3 ML AMPUL NEB ONE (08:16)
[2018-08-07] MEDS ORDERED: BUDESONIDE NEB 0.5 MG/2 ML AMPUL NEB ONE (08:16)
--- NOTE | 2018-08-07 08:21 | ER Document Report ---
ED General - General Chief Complaint: Sore Throat Stated Complaint: COLD SYMPTOMS Time Seen by Provider: 08/07/18 08:03 Notes: Patient is a 62-year-old female with COPD that presents to the emergency department for chief complaint of shortness of breath and sore throat. Patient states that she was seen 1 week ago, for a flare of her COPD, was placed on a quick steroid taper, but as soon as she came off the steroids, she was still having shortness of breath and her symptoms returned. She has been having wheezing at home, and somewhat of a sore throat, and a minimal cough. She states the breathing seems to be worse at night. She denies any chest pain, fevers, chills, night sweats, nausea, vomiting or abdominal pain. She has been using her inhaler and nebulizer, without much relief of her symptoms. Past Medical History: COPD, hypertension, history of CVA, chronic bronchitis Past Surgical History: Total knee arthroplasty bilaterally, tubal ligation, C- section Social History: Patient admits to smoking cigarettes, denies alcohol or illicit drug use. Family History: Reviewed and noncontributory for presenting illness Allergies: Reviewed, see documented allergy list. REVIEW OF SYSTEMS: Other than noted above, the 12 point review of systems was reviewed with the patient and were negative, all pertinent findings are included in the HPI. PHYSICAL EXAMINATION: Vital signs reviewed, nursing noted reviewed. GENERAL: Obese female, no acute distress, no respiratory distress. HEAD: Atraumatic, normocephalic. EYES: Eyes appear normal, extraocular movements intact, sclera anicteric, conjunctiva are normal. ENT: nares patent, oropharynx clear without exudates. Moist mucous membranes. NECK: Normal range of motion, supple without lymphadenopathy LUNGS: Bilateral expiratory wheezing noted on all lung yanez, mild conversational dyspnea, but no acute respiratory distress. HEART: Regular rate and rhythm without murmurs ABDOMEN: Soft, nontender, normoactive bowel sounds. No rebound, guarding, or rigidity. No masses appreciated. EXTREMITIES: Nontender, good range of motion, no pitting or edema. NEUROLOGICAL: No focal neurological deficits. Moves all extremities spontaneously Motor and sensory grossly intact on exam. PSYCH: Normal mood, normal affect. SKIN: Warm, Dry, normal turgor, no rashes or lesions noted on exposed skin TRAVEL OUTSIDE OF THE [place] IN LAST 30 DAYS: Yes - Related Data Allergies/Adverse Reactions: No Known Allergies Allergy (Verified 07/29/18 07:47) Past Medical History - Social History Smoking Status: Current Every Day Smoker Family History: Arthritis, CAD, CVA, DM, Hyperlipidemia, Hypertension, Malignancy - Past Medical History Cardiac Medical History: Reports: Hx Atrial Fibrillation, Hx Congestive Heart Failure, Hx Hypercholesterolemia, Hx Hypertension Pulmonary Medical History: Reports: Hx Asthma, Hx Bronchitis, Hx COPD, Hx Pneumonia, Hx Sleep Apnea Denies: Hx Tuberculosis Neurological Medical History: Reports: Hx Cerebrovascular Accident. Denies: Hx Seizures Endocrine Medical History: Reports: Hx Diabetes Mellitus Type 2 - prediabetic. Renal/ Medical History: Denies: Hx Peritoneal Dialysis GI Medical History: Denies: Hx Crohn's Disease, Hx Hepatitis, Hx Ulcerative Colitis Musculoskeletal Medical History: Reports Hx Arthritis, Denies Hx Gout, Reports Hx Musculoskeletal Deformity Skin Medical History: Denies Hx Eczema, Denies Hx Psoriasis Psychiatric Medical History: Denies: Hx Depression Traumatic Medical History: Denies: Hx Traumatic Brain Injury Infectious Medical History: Denies: Hx Hepatitis Past Surgical History: Reports: Hx Section - X2, Hx Orthopedic Surgery - Bilateral knee replacement, Hx Tubal Ligation, Other - D&C right groin cyst. - Immunizations Hx Diphtheria, Pertussis, Tetanus Vaccination: Yes Hx Pneumococcal Vaccination: 07/08/13 Physical Exam - Vital signs Vitals: Temp Pulse Resp BP Pulse Ox 98.2 F 90 20 128/85 H 100 08/07/18 07:35 08/07/18 07:35 08/07/18 07:35 08/07/18 07:35 08/07/18 07:35 Course - Re-evaluation Re-evalutation: Patient seen and examined vital signs reviewed. Laboratory data and imaging were ordered as appropriate for the patient's presenting symptoms and complaint, with consideration of any critical or life threatening conditions that may be associated with their obtained history and exam as noted above. Patient was treated with DuoNeb breathing treatments, budesonide inhaled, and given a dose of Solu-Medrol IM Results were reviewed when available and demonstrated negative chest x-ray for pneumonia The patient was re-evaluated and was improved, lung sounds improved Evaluation was most consistent with acute exacerbation of COPD, will discharge the patient home with prescription for duo nebs, as well as prednisone taper and to have her follow-up with her lung doctor. Results were discussed with the patient at this point, after careful consideration I feel that that patient can be discharged from the emergency department, the patient was educated treatments and reasons to return to the emergency department based on their presumed diagnosis as noted above, they were advised to followup with a primary care physician in 2-3 days. Patient was agreeable to plan of care. *Note is created using voice recognition software and may contain spelling, syntax or grammatical errors. Chest X-Ray 08/07/18 08:15 IMPRESSION: STABLE CARDIOMEGALY. NO ACUTE FINDINGS. - Vital Signs Vital signs: Temp Pulse Resp BP Pulse Ox 98.2 F 84 18 134/99 H 100 08/07/18 12:26 08/07/18 12:26 08/07/18 12:26 08/07/18 12:26 08/07/18 12:26 - EKG Interpretation by Me Additional EKG results interpreted by me: EKG demonstrates atrial fibrillation with right bundle branch block with a ventricular rate of 85 bpm, normal axis, QTC 514 ms, no evidence of acute ischemia on this EKG, this is compared with prior EKG from 11/28/2017, without significant change. Discharge - Discharge Clinical Impression: Acute exacerbation of chronic obstructive pulmonary disease (COPD) Condition: Stable Disposition: HOME, SELF-CARE Additional Instructions: Please return to the emergency department if you have any worsening, or concern of your symptoms. Please return to the emergency department if you develop chest pain, difficulty breathing, severe abdominal pain, or ongoing vomiting. Please follow-up with your primary care physician in 2-3 days and any other recommended physicians. If prescribed, take all medications as directed. If you have any questions or concerns do not hesitate to return the emergency department for evaluation. Prescriptions: Ipratropium/Albuterol Sulfate [Duoneb 3 ml Ampul] 3 ml NEB Q4H #100 vial.neb Prednisone [Deltasone 10 mg Tablet] 10 mg PO DAILY 60 Days #20 tablet Referrals: JHON PIMENTEL MD [Primary Care Provider] - Follow up in 3-5 days ENE FLORES MD [ACTIVE STAFF] - Follow up tomorrow
--- NOTE | 2018-08-07 08:49 | RADIOLOGY REPORT (SQ) ---
EXAM DESCRIPTION: CHEST 2 VIEWS COMPLETED DATE/TIME: 08/07/2018 8:37 am REASON FOR STUDY: WHEEZING, SHORT OF BREATH COMPARISON: 07/29/2018. EXAM PARAMETERS: NUMBER OF VIEWS: two views TECHNIQUE: Digital Frontal and Lateral radiographic views of the chest acquired. RADIATION DOSE: NA LIMITATIONS: none FINDINGS: LUNGS AND PLEURA: No opacities, masses or pneumothorax. No pleural effusion. MEDIASTINUM AND HILAR STRUCTURES: No masses or contour abnormalities. HEART AND VASCULAR STRUCTURES: Stable cardiomegaly. BONES: No acute findings. HARDWARE: None in the chest. OTHER: No other significant finding. IMPRESSION: STABLE CARDIOMEGALY. NO ACUTE FINDINGS. TECHNICAL DOCUMENTATION: JOB ID: [id number] [employer]- All Rights Reserved Reading location - IP/workstation name: [email or web address]
[2018-08-07 12:28] VITALS: BP 134/99
--- NOTE | 2018-08-07 13:20 | EKG REPORT ---
SEVERITY:- ABNORMAL ECG - ATRIAL FIBRILLATION RIGHT BUNDLE BRANCH BLOCK : Confirmed by: Antonio Stuart MD 07-Aug-2018 13:19:54
== END 2018-08-07 12:34 | disposition home or self-care (01) ==
LOC: ER 07:30
DX: J44.1 Chronic obstructive pulmonary disease with (acute) exacerbation (principal); J02.9 Acute pharyngitis, unspecified; R06.02 Shortness of breath; R06.2 Wheezing; R05 Cough; F17.210 Nicotine dependence, cigarettes, uncomplicated; R73.03 Prediabetes; I10 Essential (primary) hypertension
CPT/HCPCS: 93005; 94640 ×2; 99284; 96372; 87070; 87880; 71046; 93010; J2930; A9270; J7620

== ENCOUNTER 2018-08-10 10:37 | Inpatient (IN) | payer MEDICARE, MEDICAID ==
--- NOTE | 2018-08-10 10:46 | ER Document Report ---
ED Medical Screen (RME) - General Chief Complaint: Shortness Of Breath Stated Complaint: SHORT OF BREATH Time Seen by Provider: 08/10/18 10:45 Notes: Patient is a 62-year-old female with COPD that presents to the emergency department for chief complaint of shortness of breath and cough. Patient was recently seen in the ED, and treated for COPD, discharged on prednisone taper, this morning she felt more short of breath when she was in the shower, decided to come back to the emergency department because she does not think outpatient treatment is working for her.. ROS: Other than noted above, the 12 point review of systems was reviewed with the patient and were negative, all pertinent findings are included in the HPI. PHYSICAL EXAMINATION: Vital signs reviewed. GENERAL: Elderly, obese female, appears very anxious, increased work of breathing HEAD: Atraumatic, normocephalic. EYES: Pupils equal round extraocular movements intact, conjunctiva are normal. ENT: Nares patent NECK: Normal range of motion CV: Heart regular rate and rhythm LUNGS: Increased work of breathing, diffuse wheezing noted throughout all lung yanez. Musculoskeletal: Normal range of motion NEUROLOGICAL: Normal speech PSYCH: Normal mood, normal affect. MDM: Patient seen and examined for rapid initial assessment. Vital signs reviewed. A comprehensive ED assessment and evaluation of the patient, analysis of test results and completion of the medical decision making process will be conducted by additional ED providers. *Note is created using voice recognition software and may contain spelling, syntax or grammatical errors. TRAVEL OUTSIDE OF THE [place] IN LAST 30 DAYS: No - Related Data Allergies/Adverse Reactions: No Known Allergies Allergy (Verified 07/29/18 07:47) Past Medical History - Past Medical History Cardiac Medical History: Reports: Hx Atrial Fibrillation, Hx Congestive Heart Failure, Hx Hypercholesterolemia, Hx Hypertension Pulmonary Medical History: Reports: Hx Asthma, Hx Bronchitis, Hx COPD, Hx Pneumonia, Hx Sleep Apnea Denies: Hx Tuberculosis Neurological Medical History: Reports: Hx Cerebrovascular Accident. Denies: Hx Seizures Endocrine Medical History: Reports: Hx Diabetes Mellitus Type 2 - prediabetic. Renal/ Medical History: Denies: Hx Peritoneal Dialysis GI Medical History: Denies: Hx Crohn's Disease, Hx Hepatitis, Hx Ulcerative Colitis Musculoskeltal Medical History: Reports Hx Arthritis, Denies Hx Gout, Reports Hx Musculoskeletal Deformity Skin Medical History: Denies Hx Eczema, Denies Hx Psoriasis Psychiatric Medical History: Denies: Hx Depression Traumatic Medical History: Denies: Hx Traumatic Brain Injury Infectious Medical History: Denies: Hx Hepatitis Past Surgical History: Reports: Hx Section - X2, Hx Orthopedic Surgery - Bilateral knee replacement, Hx Tubal Ligation, Other - D&C right groin cyst. - Immunizations Hx Diphtheria, Pertussis, Tetanus Vaccination: Yes History of Influenza Vaccine for 06/2017 - 11/2017 Season: Yes Influenza Administration Date for 06/2017 - 11/2017 Season: 07/09/17 Physical Exam - Vital signs Vitals: Temp Pulse Resp BP Pulse Ox 98.4 F 100 24 H 140/88 H 97 08/10/18 10:41 08/10/18 10:41 08/10/18 10:41 08/10/18 10:41 08/10/18 10:41 Course - Vital Signs Vital signs: Temp Pulse Resp BP Pulse Ox 98.4 F 100 24 H 140/88 H 97 08/10/18 10:41 08/10/18 10:41 08/10/18 10:41 08/10/18 10:41 08/10/18 10:41 Doctor's Discharge - Discharge Referrals: JHON PIMENTEL MD [Primary Care Provider] - Follow up as needed
[2018-08-10] MEDS ORDERED: METHYLPREDNISOLONE INJ 125 MG/2 ML SDV IV ONE (10:48)
[2018-08-10] MEDS ORDERED: IPRATROPIUM/ALBUTEROL 0.5-2.5 MG/3 ML AMPUL NEB ONE (10:48)
[2018-08-10] MEDS ORDERED: MAGNESIUM SULFATE/D5W 1 GM/100 ML RTUPB IV ONE (10:49)
[2018-08-10 11:19] LABS: ABSOLUTE MONOCYTES (AUTO) 0.4 10^3/uL (0.1-1.4); MEAN CORPUSCULAR HEMOGLOBIN 26.2 pg (27.0-33.4); RED CELL DISTRIBUTION WIDTH 16.7 % (11.5-14.0); TOTAL CELLS COUNTED % (AUTO) 100 %
[2018-08-10 11:28] LABS: ABSOLUTE LYMPHOCYTES (AUTO) 1.4 10^3/uL (0.5-4.7); ABSOLUTE NEUT (AUTO) 10.9 10^3/uL (1.7-8.2); BASOPHILS % (AUTO) 0.3 % (0-2); HEMATOCRIT 30.5 % (36.0-47.0); HEMOGLOBIN 9.9 g/dL (12.0-15.5); LYMPHOCYTES % (AUTO) 10.7 % (13-45); MEAN CORPUSCULAR HGB CONC 32.4 g/dL (32.0-36.0); MEAN CORPUSCULAR VOLUME 81 fl (80-97); MONOCYTES % (AUTO) 3.1 % (3-13); PLATELET COUNT 189 10^3/uL (150-450); RED BLOOD COUNT 3.78 10^6/uL (3.72-5.28); SEGMENTED NEUTROPHILS % (AUTO) 85.9 % (42-78); WHITE BLOOD COUNT 12.6 10^3/uL (4.0-10.5)
[2018-08-10] MEDS ORDERED: LORAZEPAM INJ 2 MG/1 ML VIAL IV ONE (11:34)
[2018-08-10 11:36] LABS: ALANINE AMINOTRANSFERASE 57 U/L (9-52); ALBUMIN 4.3 g/dL (3.5-5.0); ALKALINE PHOSPHATASE 82 U/L (38-126); ANION GAP 13 (5-19); ASPARTATE AMINO TRANSFERASE 50 U/L (14-36); BILIRUBIN,DIRECT 0.3 mg/dL (0.0-0.4); BILIRUBIN,TOTAL 0.4 mg/dL (0.2-1.3); BLOOD UREA NITROGEN 31 mg/dL (7-20); CALCIUM 9.5 mg/dL (8.4-10.2); CARBON DIOXIDE 22 mmol/L (22-30); CHLORIDE 110 mmol/L (98-107); GLUCOSE 232 mg/dL (75-110); POTASSIUM 4.8 mmol/L (3.6-5.0); SODIUM 145.2 mmol/L (137-145); TOTAL PROTEIN 7.4 g/dL (6.3-8.2)
--- NOTE | 2018-08-10 11:38 | ER Document Report ---
ED General - General Chief Complaint: Shortness Of Breath Stated Complaint: SHORT OF BREATH Time Seen by Provider: 08/10/18 10:45 TRAVEL OUTSIDE OF THE [place] IN LAST 30 DAYS: No - HPI Notes: Patient is a 62-year-old female with a history of COPD, hypertension, history of CVA, A-fib (on eliquis) who presents to the ED complaining of increased wheezing, cough, and shortness of breath when she was in the shower this morning. Patient states that the humid air made it hard for her to breathe and she started to become anxious and states that she may have had a panic attack. Patient states that since then her symptoms have since greatly improved and she is feeling much better. Patient states that she was in the shower when symptoms started and realized that she did not have a phone near her and the door was locked which made her more anxious. She denies any drug allergies. Patient does continue to smoke. She was evaluated the other day for COPD exacerbation and was sent home on steroids. Patient states that her treatment does seem to be working overall aside from her symptoms in the shower this morning. No other concerns or complaints. Denies any headache, fever, neck pain, URI, sore throat, chest pain, palpitations, syncope, abdominal pain, nausea/vomiting/diarrhea, urinary retention, dysuria, hematuria, or rash. - Related Data Allergies/Adverse Reactions: No Known Allergies Allergy (Verified 07/29/18 07:47) Past Medical History - Social History Smoking Status: Current Every Day Smoker Family History: Arthritis, CAD, CVA, DM, Hyperlipidemia, Hypertension, Malignancy Patient has suicidal ideation: No Patient has homicidal ideation: No - Past Medical History Cardiac Medical History: Reports: Hx Atrial Fibrillation, Hx Congestive Heart Failure, Hx Hypercholesterolemia, Hx Hypertension Pulmonary Medical History: Reports: Hx Asthma, Hx Bronchitis, Hx COPD, Hx Pneumonia, Hx Sleep Apnea Denies: Hx Tuberculosis Neurological Medical History: Reports: Hx Cerebrovascular Accident. Denies: Hx Seizures Endocrine Medical History: Reports: Hx Diabetes Mellitus Type 2 - prediabetic. Renal/ Medical History: Denies: Hx Peritoneal Dialysis GI Medical History: Denies: Hx Crohn's Disease, Hx Hepatitis, Hx Ulcerative Colitis Musculoskeletal Medical History: Reports Hx Arthritis, Denies Hx Gout, Reports Hx Musculoskeletal Deformity Skin Medical History: Denies Hx Eczema, Denies Hx Psoriasis Psychiatric Medical History: Denies: Hx Depression Traumatic Medical History: Denies: Hx Traumatic Brain Injury Infectious Medical History: Denies: Hx Hepatitis Past Surgical History: Reports: Hx Section - X2, Hx Orthopedic Surgery - Bilateral knee replacement, Hx Tubal Ligation, Other - D&C right groin cyst. - Immunizations Hx Diphtheria, Pertussis, Tetanus Vaccination: Yes Hx Pneumococcal Vaccination: 07/08/13 Review of Systems - Review of Systems -: Yes All other systems reviewed and negative Physical Exam - Vital signs Vitals: Temp Pulse Resp BP Pulse Ox 98.4 F 100 24 H 140/88 H 97 08/10/18 10:41 08/10/18 10:41 08/10/18 10:41 08/10/18 10:41 08/10/18 10:41 - Notes Notes: PHYSICAL EXAMINATION: GENERAL: Well-appearing, well-nourished and in no acute distress. HEAD: Atraumatic, normocephalic. EYES: Pupils equal round and reactive to light, extraocular movements intact, sclera anicteric, conjunctiva are normal. ENT: Nares patent and without discharge. oropharynx clear without exudates. No tonsilar hypertrophy or erythema. Moist mucous membranes. NECK: Normal range of motion, supple without lymphadenopathy LUNGS: diminished with expiratory wheezes. No retractions. HEART: Regular rate and rhythm without murmurs, rubs, gallops. ABDOMEN: Soft, nontender, nondistended abdomen. No guarding, no rebound. Normal bowel sounds present. Musculoskeletal: FROM to passive/active. Strength 5+/5. Skip neg. No asymmetry to LE's. Extremities: 1+ pitting edema b/l LE's. Peripheral pulses 2+. Capillary refill less than 3 seconds. NEUROLOGICAL: Normal speech, normal gait. PSYCH: Normal mood, normal affect. SKIN: Warm, Dry, normal turgor, no rashes or lesions noted. Course - Re-evaluation Re-evalutation: 08/10/18 13:26 Patient is an afebrile, well-hydrated, 62-year-old female who presents to the ED with an acute exacerbation of her COPD. Patient's labs are at baseline and at rest patient has been maintaining oxygen over 95% with a heart rate in the 80s-90s. Patient states that she feels well at rest. When we ambulated her to test prior to discharge, patient became significantly short of breath with a heart rate into the 150s and respiratory rate into the 40s. Patient did not become hypoxic, maintaining at 93%, but the increased work of breathing and increase in her heart rate will result in her being admitted. I did speak with our hospitalist, Dr. Vega, who accepted pt to medical floor. Pt in agreement with plan. - Vital Signs Vital signs: Temp Pulse Resp BP Pulse Ox 98.4 F 100 24 H 140/88 H 98 08/10/18 10:41 08/10/18 10:41 08/10/18 10:41 08/10/18 10:41 08/10/18 12:00 - Laboratory Result Diagrams: 08/10/18 11:09 08/10/18 11:09 Laboratory results interpreted by me: 08/10/18 08/10/18 11:09 11:09 WBC 12.6 H Hgb 9.9 L Hct 30.5 L MCH 26.2 L RDW 16.7 H Seg Neutrophils % 85.9 H Lymphocytes % 10.7 L Absolute Neutrophils 10.9 H Sodium 145.2 H Chloride 110 H BUN 31 H Creatinine 1.28 H Est GFR ( Amer) 51 L Est GFR (Non-Af Amer) 42 L Glucose 232 H AST 50 H ALT 57 H Discharge - Discharge Clinical Impression: COPD with acute exacerbation, Tachypnea Condition: Stable Disposition: ADMITTED INPATIENT Admitting Provider: Hospitalist - Dr. Vega Unit Admitted: Medical Floor Referrals: JHON PIMENTEL MD [Primary Care Provider] - Follow up as needed
--- NOTE | 2018-08-10 12:45 | RADIOLOGY REPORT (SQ) ---
EXAM DESCRIPTION: CHEST SINGLE VIEW COMPLETED DATE/TIME: 08/10/2018 12:33 pm REASON FOR STUDY: short of breath COMPARISON: 08/07/2018 NUMBER OF VIEWS: One view. TECHNIQUE: Single frontal radiographic view of the chest acquired. LIMITATIONS: None. FINDINGS: LUNGS AND PLEURA: No opacities, masses or pneumothorax. No pleural effusion. MEDIASTINUM AND HILAR STRUCTURES: No masses. Contour normal. HEART AND VASCULAR STRUCTURES: Heart enlarged without failure. Normal vasculature. BONES: No acute findings. HARDWARE: None in the chest. OTHER: No other significant finding. IMPRESSION: HEART ENLARGED WITHOUT FAILURE. NO OTHER SIGNIFICANT RADIOGRAPHIC FINDING IN THE CHEST. TECHNICAL DOCUMENTATION: JOB ID: [id number] [employer]- All Rights Reserved Reading location - IP/workstation name: [email or web address]
[2018-08-10] MEDS ORDERED: FUROSEMIDE INJ/PF 20 MG/2 ML SDV IV ONE (12:49)
[2018-08-10] MEDS ORDERED: MAG HYDROX/AL HYDROX/SIMETH SUSP 30 ML UDCUP PO PRN (13:28)
[2018-08-10] MEDS ORDERED: MAGNESIUM HYDROXIDE SUSP 30 ML UDCUP PO PRN (13:28)
[2018-08-10] MEDS ORDERED: ONDANSETRON HCL INJ/PF 4 MG/2 ML SDV IV PRN (13:28)
[2018-08-10] MEDS ORDERED: ONDANSETRON 4 MG TAB.RAPDIS PO PRN (13:28)
[2018-08-10] MEDS ORDERED: TEMAZEPAM 15 MG CAPSULE PO PRN (13:28)
[2018-08-10] MEDS ORDERED: ACETAMINOPHEN 325 MG TABLET PO PRN (13:35)
[2018-08-10] MEDS ORDERED: ACETAMINOPHEN 650 MG SUPP.RECT PR PRN (13:35)
[2018-08-10] MEDS ORDERED: BENZONATATE 100 MG CAPSULE PO PRN (13:42)
[2018-08-10] MEDS ORDERED: HEPARIN SOD (PORCINE) 5,000 UNIT/ML 1 ML SYRINGE SUBCUT SCH (14:00)
[2018-08-10] MEDS: BUDESONIDE NEB 0.5 MG/2 ML AMPUL NEB SCH ×2 (14:13→19:43)
[2018-08-10] MEDS: MAGNESIUM OXIDE 400 MG TABLET PO SCH ×2 (15:10→21:16)
[2018-08-10] MEDS: LOSARTAN POTASSIUM 50 MG TABLET PO SCH (15:10)
[2018-08-10] MEDS: IPRATROPIUM BROMIDE 0.02% NEB 0.5 MG/2.5 ML AMPUL NEB SCH ×2 (15:21→23:51)
[2018-08-10] MEDS: LEVALBUTEROL HCL NEB 1.25 MG/3 ML AMPUL NEB SCH ×2 (15:21→23:51)
[2018-08-10] MEDS: APIXABAN 5 MG TABLET PO SCH (17:14)
[2018-08-10] MEDS: DOCUSATE SODIUM 100 MG CAPSULE PO SCH (17:14)
[2018-08-10] MEDS: TORSEMIDE 20 MG TABLET PO SCH (17:14)
[2018-08-10] MEDS: METHYLPREDNISOLONE INJ 40 MG/1 ML SDV IV SCH ×2 (17:14→23:31)
--- NOTE | 2018-08-10 17:16 | EKG REPORT ---
SEVERITY:- ABNORMAL ECG - ATRIAL FIBRILLATION, V-RATE [id number] RIGHT BUNDLE BRANCH BLOCK : Confirmed by: Antonio Stuart MD 10-Aug-2018 17:16:00
[2018-08-10 18:45] LABS: ARTERIAL BLOOD BASE EXCESS -1.5 mmol/L; ARTERIAL BLOOD H2CO3 1.07 mmol/L (1.05-1.35); ARTERIAL BLOOD HCO3 22.6 mmol/L (20-24); ARTERIAL BLOOD O2 SATURATION 97.4 % (94-98); ARTERIAL BLOOD PCO2 35.7 mmHg (35-45); ARTERIAL BLOOD PH 7.42 (7.35-7.45); ARTERIAL BLOOD PO2 94.3 mmHg (80-100); ARTERIAL BLOOD TOTAL CO2 23.7 mmol/L (21-25)
[2018-08-10 18:46] LABS: ARTERIAL BLOOD FIO2 ROOM AIR
--- NOTE | 2018-08-10 19:31 | PDOC H&P ---
History of Present Illness Admission Date/PCP: 08/10/18 14:00 JHON PIMENTEL MD Patient complains of: Dyspnea History of Present Illness: JOLIE CAMARA is a 62 year old female who presents to the emergency room with a 2-week history of gradually worsening dyspnea with associated cough, swelling in her throat and wheezing. She admits that her dyspnea became severe this morning while she was in the shower and bent over to get something and suddenly felt like she could not breathe. She then panicked because her bathroom door was locked and no one would be able to get in to help her if she was crying out for help. Then she tried to get out of the shower and had a great deal of difficulty and began breathing even harder. With the increased work of breathing she felt more short of breath and started coughing and wheezing with increasing intensity until she finally got out of the bathroom and got to her bedroom where she grabbed her CPAP. After a few minutes of CPAP she eventually got some relief of her dyspnea. After a few more minutes when she was feeling better she called her daughter who brought her to the emergency room. She attributes the onset of her dyspnea and wheezing to getting the flu shot 2 weeks ago with the symptoms beginning within 24 hours of that injection. She further admits that she has been to the emergency room on 2 occasions for treatment since the onset of the current episode. She was given steroids on both visits and was given an albuterol nebulizer on the last visit. By the time she got to the emergency room today she was feeling well but when she would try to ambulate her heart rate would rise and she would become slightly dyspneic, therefore the emergency room physician contacted the hospitalist service for admission. Past Medical History Cardiac Medical History: Reports: Atrial Fibrillation, Congestive Heart Failure , Hyperlipidema, Hypertension Pulmonary Medical History: Reports: Asthma, Bronchitis, Chronic Obstructive Pulmonary Disease (COPD), Pneumonia, Respiratory Failure, Sleep Apnea Denies: Tuberculosis EENT Medical History: Reports: None Neurological Medical History: Denies: Hemorrhagic CVA, Ischemic CVA, Multiple Sclerosis, Seizures Endocrine Medical History: Reports: Diabetes Mellitus Type 2 - prediabetic., Obesity Denies: Diabetes Mellitus Type 1, Hyperthyroidism, Hypothyroidism Renal/ Medical History: Denies: Chronic Kidney Disease, Nephrolithiasis Malignancy Medical History: Reports: None GI Medical History: Denies: Cirrhosis, Crohn's Disease, Hepatitis, Ulcerative Colitis Musculoskeltal Medical History: Reports: Arthritis Denies: Gout Skin Medical History: Denies: Eczema, Psoriasis Psychiatric Medical History: Reports: Tobacco Dependency Denies: Alcohol Dependency, Depression, Substance Abuse Traumatic Medical History: Reports: None Hematology: Denies: Anemia, Sickle Cell Disease, Bleeding Tendencies Infectious Medical History: Reports: None Past Surgical History Past Surgical History: Reports: Section - X2, Orthopedic Surgery - Bilateral knee replacement, Tubal Ligation, Other - D&C right groin cyst. Social History Information Source: Patient Lives with: Alone Smoking Status: Current Every Day Smoker Cigarettes Packs Per Day: 0.5 Number of Years Smokin Last Time Smoked: 08/02/18 Frequency of Alcohol Use: None Hx Recreational Drug Use: No Drugs: None Hx Prescription Drug Abuse: No - Advance Directive Resuscitation Status: Full Code Surrogate healthcare decision maker:: Anette Camara her daughter Family History Family History: Arthritis, CAD, CVA, DM, Hyperlipidemia, Hypertension, Malignancy Parental Family History Reviewed: Yes Children Family History Reviewed: Yes Sibling(s) Family History Reviewed.: Yes Medication/Allergy Home Medications: Albuterol Sulfate [Proair HFA] 2 puff IH QID 11/27/17 Apixaban [Eliquis 5 mg Tablet] 5 mg PO BID 11/27/17 Atorvastatin Calcium [Lipitor 40 mg Tablet] 40 mg PO QHS 11/27/17 Metoprolol Succinate [Toprol Xl 50 mg Tab.sr] 50 mg PO DAILY 11/27/17 Montelukast Sodium [Singulair 10 mg Tablet] 10 mg PO QHS 11/27/17 Amlodipine Besylate [Norvasc 10 mg Tablet] 10 mg PO DAILY #30 tablet 12/02/17 Hydralazine HCl [Apresoline 50 mg Tablet] 25 mg PO Q8 #60 tablet 12/02/17 Acetaminophen [Tylenol 325 mg Tablet] 650 mg PO Q6HP PRN 08/10/18 Albuterol Sulfate [Ventolin 0.083% Neb 2.5 mg/3 mL Ampul] 1 vial NEB RTQ4 Cholecalciferol (Vitamin D3) [Vitamin D3] 1,000 unit PO DAILY 08/10/18 Fluticasone/Salmeterol [Advair 250-50 Diskus 14 Dose/Diskus] 1 puff IN BID 08/10 Furosemide [Lasix 40 mg Tablet] 40 mg PO BID 08/10/18 Ipratropium/Albuterol Sulfate [Duoneb 3 ml Ampul] 3 ml NEB RTQ4 08/10/18 Iron 65 65 mg PO DAILY 08/10/18 Lisinopril [Prinivil 40 mg Tablet] 40 mg PO DAILY 08/10/18 Magnesium Oxide [Magox] 400 mg PO DAILY 08/10/18 Melatonin [Melatonin 1 mg Tablet] 1 mg PO HSP PRN 08/10/18 Nicotine [Nicoderm 7 mg/24 Hr Transdermal Patch] 1 patch TD DAILY 08/10/18 Prednisone [Deltasone 10 mg Tablet] 10 mg PO ASDIR 08/10/18 Allergies/Adverse Reactions: No Known Allergies Allergy (Verified 07/29/18 07:47) Review of Systems Constitutional: PRESENT: fatigue. ABSENT: chills, fever(s) Eyes: ABSENT: visual disturbances, other - Ocular pain Ears: ABSENT: hearing changes, other - Ear pain Nose, Mouth, and Throat: PRESENT: sore throat. ABSENT: headache(s), mouth pain , vertigo Cardiovascular: PRESENT: dyspnea on exertion. ABSENT: chest pain, edema, orthropnea, palpitations Respiratory: PRESENT: cough - Nonproductive, dyspnea Gastrointestinal: ABSENT: abdominal pain, constipation, diarrhea, heartburn, nausea, vomiting Genitourinary: ABSENT: dysuria, hematuria Musculoskeletal: ABSENT: back pain, deformity Integumentary: ABSENT: pruritus, rash Neurological: ABSENT: confusion, convulsions, memory loss, tremor(s), vertigo Psychiatric: PRESENT: anxiety. ABSENT: depression, hallucinations Endocrine: ABSENT: cold intolerance, heat intolerance Hematologic/Lymphatic: ABSENT: easy bleeding, easy bruising Allergic/Immunologic: PRESENT: other - Insect bite allergy. ABSENT: seasonal rhinorrhea Physical Exam Vital Signs: Temp Pulse Resp BP Pulse Ox 97.6 F 98 19 127/84 H 98 08/10/18 17:06 08/10/18 17:06 08/10/18 17:06 08/10/18 17:06 08/10/18 17:06 Intake & Output 08/08/18 08/09/18 08/10/18 23:59 23:59 23:59 Weight 142.7 kg General appearance: PRESENT: no acute distress, cooperative, morbidly obese Head exam: PRESENT: atraumatic, normocephalic Eye exam: PRESENT: conjunctiva pink, EOMI. ABSENT: scleral icterus Ear exam: PRESENT: normal external ear exam. ABSENT: drainage Mouth exam: PRESENT: neck supple, other - Oral mucosa moist and intact dentition in fair repair Neck exam: ABSENT: JVD, tracheal deviation Respiratory exam: PRESENT: clear to auscultation tao, decreased breath sounds - Mildly decreased breath sounds throughout all field consistent with mild to moderate COPD, symmetrical, unlabored. ABSENT: accessory muscle use, prolonged expiratory phas, rales, retraction, rhonchi, tachypnea, wheezes Cardiovascular exam: PRESENT: RRR, tachycardia - 102. ABSENT: clicks, gallop, rubs Pulses: PRESENT: normal radial pulses, normal dorsalis pedis pul Vascular exam: PRESENT: normal capillary refill. ABSENT: pallor GI/Abdominal exam: PRESENT: normal bowel sounds, soft Rectal exam: PRESENT: deferred Extremities exam: ABSENT: joint swelling, pedal edema Musculoskeletal exam: PRESENT: ambulatory, full ROM, normal inspection Neurological exam: PRESENT: alert, oriented to person, oriented to place, oriented to time, oriented to situation, CN II-XII grossly intact. ABSENT: motor sensory deficit Psychiatric exam: PRESENT: appropriate affect, normal mood Skin exam: ABSENT: jaundice, rash, urticaria Results Laboratory Results: 08/10/18 17:50 Carbonic Acid 1.07 HCO3/H2CO3 Ratio 21:1 ABG pH 7.42 ABG pCO2 35.7 ABG pO2 94.3 ABG HCO3 22.6 ABG O2 Saturation 97.4 ABG Base Excess -1.5 FiO2 ROOM AIR Impressions: Chest X-Ray 08/10/18 10:48 IMPRESSION: HEART ENLARGED WITHOUT FAILURE. NO OTHER SIGNIFICANT RADIOGRAPHIC FINDING IN THE CHEST. Assessment & Plan - Diagnosis (1) COPD with acute exacerbation Is this a current diagnosis for this admission?: Yes Plan: Patient will be treated with aggressive pulmonary toilet utilizing Xopenex, Atrovent, Mucomyst and Pulmicort administered via nebulizer. She will also receive IV Solu-Medrol and supplemental oxygen as required. (2) HTN (hypertension) Qualifiers: Hypertension type: essential hypertension Qualified Code(s): I10 - Essential (primary) hypertension Is this a current diagnosis for this admission?: Yes Plan: Patient's current regimen for essential hypertension includes hydralazine and amlodipine. This regiment will be substantially altered by discontinuation of both of these medications. Patient's metoprolol will be increased to 200 mg p.o. daily and she will be started on losartan 50 mg p.o. daily to better treat both her hypertension and her chronic diastolic congestive heart failure. She will be continued on torsemide 20 mg p.o. twice daily. This regiment will be reevaluated over the entire hospital course. (3) Chronic diastolic (congestive) heart failure Is this a current diagnosis for this admission?: Yes Plan: Patient's current regimen for essential hypertension includes hydralazine and amlodipine. This regiment will be substantially altered by discontinuation of both of these medications. Patient's metoprolol will be increased to 200 mg p.o. daily and she will be started on losartan 50 mg p.o. daily to better treat both her hypertension and her chronic diastolic congestive heart failure. She will be continued on torsemide 20 mg p.o. twice daily. This regiment will be reevaluated over the entire hospital course. (4) LAYNE (obstructive sleep apnea) Is this a current diagnosis for this admission?: Yes Plan: Patient states that she is supposed to wear CPAP at home for her obstructive sleep apnea but she does not do so because it seems like the use of the CPAP and CPAP mask make her have more trouble with her sleep apnea and she is unable to sleep well while wearing the device. She did find it convenient to use and helpful today when she was having a great deal of difficulty breathing therefore her CPAP device is of assistance with acute dyspnea and wheezing. She has asked that she not be given CPAP to wear at night during her hospital course. (5) Tobacco abuse Is this a current diagnosis for this admission?: Yes Plan: The patient is a current smoker and has a long smoking history. I have advised her to stop smoking and have counseled her on smoking cessation for 3-5 minutes. Patient expresses no interest whatsoever in discontinuation of the use of tobacco in the form of cigarettes. (6) Morbid obesity with BMI of 45.0-49.9, adult Is this a current diagnosis for this admission?: Yes Plan: Patient's morbid obesity is a significant comorbidity for all of her medical problems including her acute exacerbation of COPD. Other problems affected by morbid obesity is a comorbidity would include hypertension, congestive heart failure, pulmonary hypertension, obstructive sleep apnea and diabetes mellitus. I will ask for adjustment examiner consult that the patient may be seen and advised and appropriate diet that would be healthy for her to utilize considering her morbid obesity and multiple comorbidities. That should be aimed at a gradual weight loss with a realistic real world diet plan. - Time Time Spent: 30 to 50 Minutes Critical Time spent with patient: Less than 15 minutes Smoking Cessation Education: 3 to 10 minutes Medications reviewed and adjusted accordingly: Yes Anticipated discharge: Home Within: within 72 hours - Inpatient Certification Based on my medical assessment, after consideration of the patient's comorbidities, presenting symptoms, or acuity I expect that the services needed warrant INPATIENT care.: Yes I certify that my determination is in accordance with my understanding of Medicare's requirements for reasonable and necessary INPATIENT services [42 CFR 412.3e].: Yes Medical Necessity: Failure to Improve With Outpatient Therapy, Significant Comorbidiites Make Outpatient Treatment Too Risky, Need Close Monitoring Due to Risk of Patient Decompensation, Need for Nebulizer Therapy and Monitoring of Response
[2018-08-10] MEDS: ACETYLCYSTEINE 20% SOLN 800 MG/4 ML VIAL.NEB NEB SCH (19:43)
[2018-08-10] MEDS: ALBUTEROL SULFATE 0.083% NEB 2.5 MG/3 ML AMPUL NEB PRN (19:43)
[2018-08-10] MEDS: FAMOTIDINE 20 MG TABLET PO SCH (21:14)
[2018-08-10] MEDS: METOPROLOL SUCCINATE 50 MG TAB.SR.24H PO SCH (21:15)
[2018-08-10] MEDS: GUAIFENESIN 600 MG TABLET.SA PO SCH (21:16)
[2018-08-10] MEDS: MONTELUKAST SODIUM 10 MG TABLET PO SCH (21:16)
[2018-08-10] MEDS: ATORVASTATIN CALCIUM 40 MG TABLET PO SCH (21:16)
[2018-08-10] MEDS ORDERED: METOPROLOL SUCCINATE 50 MG TAB.SR.24H PO SCH (22:00)
[2018-08-11] MEDS: METHYLPREDNISOLONE INJ 40 MG/1 ML SDV IV SCH (06:25)
[2018-08-11] MEDS: MAGNESIUM OXIDE 400 MG TABLET PO SCH ×3 (06:26→21:54)
[2018-08-11 06:50] LABS: HEMATOCRIT 30.8 % (36.0-47.0); MEAN CORPUSCULAR HEMOGLOBIN 26.1 pg (27.0-33.4); MEAN CORPUSCULAR HGB CONC 32.4 g/dL (32.0-36.0); MEAN CORPUSCULAR VOLUME 81 fl (80-97); PLATELET COUNT 166 10^3/uL (150-450); RED BLOOD COUNT 3.81 10^6/uL (3.72-5.28); RED CELL DISTRIBUTION WIDTH 16.8 % (11.5-14.0); WHITE BLOOD COUNT 11.6 10^3/uL (4.0-10.5)
[2018-08-11 07:31] LABS: ABSOLUTE LYMPHOCYTES# (MANUAL) 1.4 10^3/uL (0.5-4.7); ABSOLUTE MONOCYTES # (MANUAL) 0.2 10^3/uL (0.1-1.4); BASOPHILS % (MANUAL) 0 % (0-2); EOSINOPHILS % (MANUAL) 0 % (0-6); LYMPHOCYTES % (MANUAL) 12 % (13-45); MONOCYTES % (MANUAL) 2 % (3-13); SEGMENTED NEUTROPHILS % (MAN) 86 % (42-78); TOTAL CELLS COUNTED 100
[2018-08-11 07:32] LABS: ANION GAP 13 (5-19); ANISOCYTOSIS 1+; BLOOD UREA NITROGEN 33 mg/dL (7-20); CALCIUM 9.2 mg/dL (8.4-10.2); CARBON DIOXIDE 23 mmol/L (22-30); CHLORIDE 107 mmol/L (98-107); CHOLESTEROL 123.17 mg/dL (0-200); GLUCOSE 182 mg/dL (75-110); OVALOCYTES 1+; PLATELET COMMENT ADEQUATE; POIKILOCYTOSIS 1+; POTASSIUM 4.6 mmol/L (3.6-5.0); SCHISTOCYTES SLIGHT; SODIUM 143.2 mmol/L (137-145); TRIGLYCERIDES 56 mg/dL (<150)
[2018-08-11 07:43] LABS: DIRECT LDL 55 mg/dL (<100)
[2018-08-11 07:47] LABS: FREE T3 2.54 pg/mL (2.77-5.27); FREE T4 (FREE THYROXINE) 0.88 ng/dL (0.78-2.19)
[2018-08-11 08:01] LABS: THYROID STIMULATING HORMONE 0.13 uIU/mL (0.47-4.68)
[2018-08-11] MEDS: ACETYLCYSTEINE 20% SOLN 800 MG/4 ML VIAL.NEB NEB SCH ×2 (08:01→20:01)
[2018-08-11] MEDS: IPRATROPIUM BROMIDE 0.02% NEB 0.5 MG/2.5 ML AMPUL NEB SCH ×2 (08:01→15:56)
[2018-08-11] MEDS: BUDESONIDE NEB 0.5 MG/2 ML AMPUL NEB SCH ×2 (08:01→20:01)
[2018-08-11] MEDS: LEVALBUTEROL HCL NEB 1.25 MG/3 ML AMPUL NEB SCH ×2 (08:01→15:56)
[2018-08-11] MEDS: TORSEMIDE 20 MG TABLET PO SCH ×2 (09:32→17:21)
[2018-08-11] MEDS: LOSARTAN POTASSIUM 50 MG TABLET PO SCH (09:32)
[2018-08-11] MEDS: GUAIFENESIN 600 MG TABLET.SA PO SCH ×2 (09:32→21:54)
[2018-08-11] MEDS: FAMOTIDINE 20 MG TABLET PO SCH ×2 (09:33→21:53)
[2018-08-11] MEDS: DOCUSATE SODIUM 100 MG CAPSULE PO SCH ×2 (09:33→17:21)
[2018-08-11] MEDS: APIXABAN 5 MG TABLET PO SCH ×2 (09:33→17:21)
--- NOTE | 2018-08-11 16:14 | PDOC PROGRESS REPORT ---
Subjective Progress Note for:: 08/11/18 Subjective:: JOLIE CAMARA is a 62 year old female who presents to the emergency room with a 2-week history of gradually worsening dyspnea with associated cough, swelling in her throat and wheezing. She admits that her dyspnea became severe this morning while she was in the shower and bent over to get something and suddenly felt like she could not breathe. She then panicked because her bathroom door was locked and no one would be able to get in to help her if she was crying out for help. Then she tried to get out of the shower and had a great deal of difficulty and began breathing even harder. With the increased work of breathing she felt more short of breath and started coughing and wheezing with increasing intensity until she finally got out of the bathroom and got to her bedroom where she grabbed her CPAP. After a few minutes of CPAP she eventually got some relief of her dyspnea. After a few more minutes when she was feeling better she called her daughter who brought her to the emergency room. She attributes the onset of her dyspnea and wheezing to getting the flu shot 2 weeks ago with the symptoms beginning within 24 hours of that injection. She further admits that she has been to the emergency room on 2 occasions for treatment since the onset of the current episode. She was given steroids on both visits and was given an albuterol nebulizer on the last visit. By the time she got to the emergency room today she was feeling well but when she would try to ambulate her heart rate would rise and she would become slightly dyspneic, therefore the emergency room physician contacted the hospitalist service for admission. 08/11/2018: Patient states she is doing much better today however she did have an episode where she became somewhat anxious while she was up to the bathroom and had some acute panic symptoms which were treated by the nursing staff with supplemental oxygen. Patient states she has been feeling better now and she is not sure she really needs the oxygen so she has been taking it off and putting it back on to suit her fancy. She has been eating and drinking well and has had no problems with eliminations. Her sore throat has resolved and she feels like her dyspnea is nearly resolved but would like to stay in the hospital 1 more day to get a little more improvement. Discussed with her that I will be adding medication to not only help her with her breathing but also to help to control her anxiety. She is receptive to this idea. Clonazepam will be initiated 0.25 mg p.o. twice daily. Reason For Visit: ACUTE EXACERBATION OF COPD Physical Exam Vital Signs: Temp Pulse Resp BP Pulse Ox 98.5 F 92 18 118/66 100 08/11/18 12:00 08/11/18 15:56 08/11/18 15:56 08/11/18 12:00 08/11/18 15:56 Pulse Oximeter Continuous Start: 08/11/18 13: 08 Freq: RTQ4 Status: Active Document 08/11/18 15:56 [facility] (Rec: 08/11/18 16:00 [facility] [id number]) Pulse Oximetry Assessment Oxygen Saturation (92-100) 100 Oxygen Delivery Method Room Air Fraction of Inspired Oxygen (FIO2) 21 Equipment Usage Initial Set Up Continuous Pulse Oximeter 24 Hour Charge Charge Now Continuous SpO2 Machine # [id number] Intake & Output 08/09/18 08/10/18 08/11/18 23:59 23:59 23:59 Intake Total 350 400 Balance 350 400 Weight 142.7 kg 142.8 kg General appearance: PRESENT: no acute distress, cooperative, morbidly obese Head exam: PRESENT: atraumatic, normocephalic Eye exam: PRESENT: conjunctiva pink, EOMI Ear exam: PRESENT: normal external ear exam. ABSENT: drainage Mouth exam: PRESENT: neck supple, other - Oral mucosa is moist and intact, dentition is fair Neck exam: ABSENT: JVD, tracheal deviation Respiratory exam: PRESENT: clear to auscultation tao, decreased breath sounds - Mild to moderate decreased breath sounds throughout all yanez, symmetrical, unlabored. ABSENT: prolonged expiratory phas, rales, rhonchi, wheezes Cardiovascular exam: PRESENT: RRR. ABSENT: clicks, gallop, rubs Vascular exam: PRESENT: normal capillary refill. ABSENT: pallor GI/Abdominal exam: PRESENT: normal bowel sounds, soft Rectal exam: PRESENT: deferred Extremities exam: ABSENT: joint swelling, pedal edema Musculoskeletal exam: PRESENT: ambulatory. ABSENT: deformity Neurological exam: PRESENT: alert, oriented to person, oriented to place, oriented to time, oriented to situation, CN II-XII grossly intact Psychiatric exam: PRESENT: anxious, normal mood Skin exam: PRESENT: dry, intact, warm Results Laboratory Results: 08/11/18 05:32 08/11/18 05:32 08/10/18 08/11/18 08/11/18 17:50 05:32 05:32 WBC 11.6 H RBC 3.81 Hgb 10.0 L Hct 30.8 L MCV 81 MCH 26.1 L MCHC 32.4 RDW 16.8 H Plt Count 166 Seg Neutrophils % Not Reportable Lymphocytes % Not Reportable Monocytes % Not Reportable Eosinophils % Not Reportable Basophils % Not Reportable Absolute Neutrophils Not Reportable Absolute Lymphocytes Not Reportable Absolute Monocytes Not Reportable Absolute Eosinophils Not Reportable Absolute Basophils Not Reportable Carbonic Acid 1.07 HCO3/H2CO3 Ratio 21:1 ABG pH 7.42 ABG pCO2 35.7 ABG pO2 94.3 ABG HCO3 22.6 ABG O2 Saturation 97.4 ABG Base Excess -1.5 FiO2 ROOM AIR Sodium 143.2 Potassium 4.6 Chloride 107 Carbon Dioxide 23 Anion Gap 13 BUN 33 H Creatinine 1.18 Est GFR ( Amer) 56 L Est GFR (Non-Af Amer) 46 L Glucose 182 H Calcium 9.2 Magnesium 2.6 H Triglycerides 56 Cholesterol 123.17 LDL Cholesterol Direct 55 VLDL Cholesterol 11.0 HDL Cholesterol 64 TSH Free T4 Free T3 pg/mL 08/11/18 05:32 WBC RBC Hgb Hct MCV MCH MCHC RDW Plt Count Seg Neutrophils % Lymphocytes % Monocytes % Eosinophils % Basophils % Absolute Neutrophils Absolute Lymphocytes Absolute Monocytes Absolute Eosinophils Absolute Basophils Carbonic Acid HCO3/H2CO3 Ratio ABG pH ABG pCO2 ABG pO2 ABG HCO3 ABG O2 Saturation ABG Base Excess FiO2 Sodium Potassium Chloride Carbon Dioxide Anion Gap BUN Creatinine Est GFR ( Amer) Est GFR (Non-Af Amer) Glucose Calcium Magnesium Triglycerides Cholesterol LDL Cholesterol Direct VLDL Cholesterol HDL Cholesterol TSH 0.13 L Free T4 0.88 Free T3 pg/mL 2.54 L 08/10/18 08/10/18 08/11/18 17:29 23:27 05:32 Troponin I < 0.012 < 0.012 < 0.012 NT-Pro-B Natriuret Pep 08/11/18 05:32 Troponin I NT-Pro-B Natriuret Pep 4630 H Impressions: Chest X-Ray 08/10/18 10:48 IMPRESSION: HEART ENLARGED WITHOUT FAILURE. NO OTHER SIGNIFICANT RADIOGRAPHIC FINDING IN THE CHEST. Assessment & Plan - Diagnosis (1) COPD with acute exacerbation Is this a current diagnosis for this admission?: Yes Plan: Patient will be treated with aggressive pulmonary toilet utilizing Xopenex, Atrovent, Mucomyst and Pulmicort administered via nebulizer. She will also receive IV Solu-Medrol and supplemental oxygen as required. (2) HTN (hypertension) Qualifiers: Hypertension type: essential hypertension Qualified Code(s): I10 - Essential (primary) hypertension Is this a current diagnosis for this admission?: Yes Plan: Patient's current regimen for essential hypertension includes hydralazine and amlodipine. This regiment will be substantially altered by discontinuation of both of these medications. Patient's metoprolol will be increased to 200 mg p.o. daily and she will be started on losartan 50 mg p.o. daily to better treat both her hypertension and her chronic diastolic congestive heart failure. She will be continued on torsemide 20 mg p.o. twice daily. This regiment will be reevaluated over the entire hospital course. (3) Chronic diastolic (congestive) heart failure Is this a current diagnosis for this admission?: Yes Plan: Patient's current regimen for essential hypertension includes hydralazine and amlodipine. This regiment will be substantially altered by discontinuation of both of these medications. Patient's metoprolol will be increased to 200 mg p.o. daily and she will be started on losartan 50 mg p.o. daily to better treat both her hypertension and her chronic diastolic congestive heart failure. She will be continued on torsemide 20 mg p.o. twice daily. This regiment will be reevaluated over the entire hospital course. (4) LAYNE (obstructive sleep apnea) Is this a current diagnosis for this admission?: Yes Plan: Patient states that she is supposed to wear CPAP at home for her obstructive sleep apnea but she does not do so because it seems like the use of the CPAP and CPAP mask make her have more trouble with her sleep apnea and she is unable to sleep well while wearing the device. She did find it convenient to use and helpful today when she was having a great deal of difficulty breathing therefore her CPAP device is of assistance with acute dyspnea and wheezing. She has asked that she not be given CPAP to wear at night during her hospital course. 08/11/2018: Patient does agree to wear supplemental oxygen at 3 L/min via nasal cannula at night while she is sleeping. Though she refuses CPAP this would at least provide some increased oxygen in her airway that may help to reduce the potential damage caused by sleep apnea. This is not an ideal solution but it is a solution that can be implemented and most likely tolerated by the patient. (5) Tobacco abuse Is this a current diagnosis for this admission?: Yes Plan: The patient is a current smoker and has a long smoking history. I have advised her to stop smoking and have counseled her on smoking cessation for 3-5 minutes. Patient expresses no interest whatsoever in discontinuation of the use of tobacco in the form of cigarettes. (6) Morbid obesity with BMI of 45.0-49.9, adult Is this a current diagnosis for this admission?: Yes Plan: Patient's morbid obesity is a significant comorbidity for all of her medical problems including her acute exacerbation of COPD. Other problems affected by morbid obesity is a comorbidity would include hypertension, congestive heart failure, pulmonary hypertension, obstructive sleep apnea and diabetes mellitus. I will ask for directory clerk consult that the patient may be seen and advised and appropriate diet that would be healthy for her to utilize considering her morbid obesity and multiple comorbidities. That should be aimed at a gradual weight loss with a realistic real world diet plan. - Time Time Spent with patient: 15-24 minutes Medications reviewed and adjusted accordingly: Yes Anticipated discharge: Home Within: within 24 hours
[2018-08-11] MEDS: CLONAZEPAM 1 MG TABLET PO SCH (17:21)
[2018-08-11] MEDS: ALBUTEROL SULFATE 0.083% NEB 2.5 MG/3 ML AMPUL NEB PRN (20:01)
[2018-08-11] MEDS: METOPROLOL SUCCINATE 50 MG TAB.SR.24H PO SCH (21:52)
[2018-08-11] MEDS: ATORVASTATIN CALCIUM 40 MG TABLET PO SCH (21:53)
[2018-08-11] MEDS: MONTELUKAST SODIUM 10 MG TABLET PO SCH (21:54)
[2018-08-12] MEDS: IPRATROPIUM BROMIDE 0.02% NEB 0.5 MG/2.5 ML AMPUL NEB SCH ×3 (00:14→16:14)
[2018-08-12] MEDS: LEVALBUTEROL HCL NEB 1.25 MG/3 ML AMPUL NEB SCH ×3 (00:14→16:14)
[2018-08-12 05:17] LABS: HEMATOCRIT 31.7 % (36.0-47.0); HEMOGLOBIN 10.3 g/dL (12.0-15.5); MEAN CORPUSCULAR HEMOGLOBIN 26.1 pg (27.0-33.4); MEAN CORPUSCULAR HGB CONC 32.5 g/dL (32.0-36.0); MEAN CORPUSCULAR VOLUME 80 fl (80-97); PLATELET COUNT 169 10^3/uL (150-450); RED BLOOD COUNT 3.95 10^6/uL (3.72-5.28); RED CELL DISTRIBUTION WIDTH 16.7 % (11.5-14.0); WHITE BLOOD COUNT 15.3 10^3/uL (4.0-10.5)
[2018-08-12 05:23] LABS: ABSOLUTE LYMPHOCYTES# (MANUAL) 2.1 10^3/uL (0.5-4.7); ABSOLUTE MONOCYTES # (MANUAL) 1.1 10^3/uL (0.1-1.4); ABSOLUTE NEUTROPHILS# (MANUAL) 12.1 10^3/uL (1.7-8.2); BASOPHILS % (MANUAL) 0 % (0-2); EOSINOPHILS % (MANUAL) 0 % (0-6); LYMPHOCYTES % (MANUAL) 14 % (13-45); MONOCYTES % (MANUAL) 7 % (3-13); SEGMENTED NEUTROPHILS % (MAN) 79 % (42-78); TOTAL CELLS COUNTED 100; TOXIC GRANULATION 1+
[2018-08-12 05:24] LABS: ANISOCYTOSIS 1+; OVALOCYTES 1+; PLATELET COMMENT ADEQUATE; PLATELET LARGE PRESENT; POIKILOCYTOSIS SLIGHT; POLYCHROMASIA SLIGHT; SCHISTOCYTES 1+; TOXIC VACUOLATION PRESENT
[2018-08-12 05:29] LABS: ANION GAP 13 (5-19); BLOOD UREA NITROGEN 47 mg/dL (7-20); CALCIUM 9.6 mg/dL (8.4-10.2); CARBON DIOXIDE 27 mmol/L (22-30); CHLORIDE 106 mmol/L (98-107); GLUCOSE 147 mg/dL (75-110); POTASSIUM 4.3 mmol/L (3.6-5.0); SODIUM 145.8 mmol/L (137-145)
[2018-08-12] MEDS: MAGNESIUM OXIDE 400 MG TABLET PO SCH ×2 (05:46→16:59)
[2018-08-12] MEDS: BUDESONIDE NEB 0.5 MG/2 ML AMPUL NEB SCH ×2 (09:33→20:30)
[2018-08-12] MEDS: ACETYLCYSTEINE 20% SOLN 800 MG/4 ML VIAL.NEB NEB SCH ×2 (09:33→20:30)
[2018-08-12] MEDS: CLONAZEPAM 1 MG TABLET PO SCH ×2 (12:28→18:52)
[2018-08-12] MEDS: TORSEMIDE 20 MG TABLET PO SCH ×2 (12:29→18:51)
[2018-08-12] MEDS: LOSARTAN POTASSIUM 50 MG TABLET PO SCH (12:29)
[2018-08-12] MEDS: DOCUSATE SODIUM 100 MG CAPSULE PO SCH ×2 (12:30→18:51)
[2018-08-12] MEDS: GUAIFENESIN 600 MG TABLET.SA PO SCH ×2 (12:30→22:23)
[2018-08-12] MEDS: APIXABAN 5 MG TABLET PO SCH ×2 (12:30→18:51)
[2018-08-12] MEDS: FAMOTIDINE 20 MG TABLET PO SCH ×2 (12:30→22:23)
--- NOTE | 2018-08-12 15:54 | PDOC PROGRESS REPORT ---
Subjective Progress Note for:: 08/12/18 Subjective:: Ms. Liz is a 62-year-old female with a past medical history of COPD, hypertension, chronic diastolic heart failure and LAYNE noncompliant with CPAP at home who initially presented with worsening shortness of breath associated with cough and wheezing. He was admitted for acute COPD exacerbation. Upon encounter this morning, patient says that her breathing has improved but says that she still feels short of breath. She says that she is at his baseline and that when she went to the bathroom early this morning, she got really short of breath. Patient says that she does have chronic SOB and on her regular days, she gets short of breath from walking from her bedroom to the living room. She is currently saturating well on 2L of NC. She does have rhonchi and wheezes bilaterally and bibasal rales R>L this morning . Reason For Visit: ACUTE EXACERBATION OF COPD Physical Exam Vital Signs: Temp Pulse Resp BP Pulse Ox 97.3 F 75 16 122/84 99 08/12/18 12:34 08/12/18 12:34 08/12/18 12:34 08/12/18 12:34 08/12/18 12:34 Pulse Oximeter Continuous Start: 08/11/18 13: 08 Freq: RTQ4 Status: Active Document 08/12/18 12:00 [facility] (Rec: 08/12/18 13:10 [facility] [id number]) Pulse Oximetry Assessment Oxygen Saturation (92-100) 97 Oxygen Delivery Method Room Air Fraction of Inspired Oxygen (FIO2) 21 Equipment Usage Equipment in Use Continuous SpO2 Machine # 14 Intake & Output 08/11/18 08/12/18 08/13/18 06:59 06:59 06:59 Intake Total 750 738 Balance 750 738 Weight 314 lb 13.121 oz 320 lb 5.306 oz General appearance: PRESENT: no acute distress, well-developed, well-nourished Head exam: PRESENT: atraumatic, normocephalic Eye exam: PRESENT: conjunctiva pink, EOMI, PERRLA. ABSENT: scleral icterus Ear exam: PRESENT: normal external ear exam Mouth exam: PRESENT: moist, tongue midline Neck exam: ABSENT: carotid bruit, JVD, lymphadenopathy, thyromegaly Respiratory exam: PRESENT: rales, rhonchi, wheezes - rhonchi bilaterally and bibasal rales R>L this morning Results Laboratory Results: 08/12/18 04:49 08/12/18 04:49 08/12/18 08/12/18 08/12/18 04:49 04:49 04:49 WBC 15.3 H RBC 3.95 Hgb 10.3 L Hct 31.7 L MCV 80 MCH 26.1 L MCHC 32.5 RDW 16.7 H Plt Count 169 Seg Neutrophils % Not Reportable Lymphocytes % Not Reportable Monocytes % Not Reportable Eosinophils % Not Reportable Basophils % Not Reportable Absolute Neutrophils Not Reportable Absolute Lymphocytes Not Reportable Absolute Monocytes Not Reportable Absolute Eosinophils Not Reportable Absolute Basophils Not Reportable Sodium 145.8 H Potassium 4.3 Chloride 106 Carbon Dioxide 27 Anion Gap 13 BUN 47 H Creatinine 1.48 H Est GFR ( Amer) 43 L Est GFR (Non-Af Amer) 36 L Glucose 147 H Calcium 9.6 Magnesium 2.6 H Free T4 0.89 08/10/18 08/10/18 08/11/18 17:29 23:27 05:32 Troponin I < 0.012 < 0.012 < 0.012 NT-Pro-B Natriuret Pep 08/11/18 05:32 Troponin I NT-Pro-B Natriuret Pep 4630 H Impressions: Chest X-Ray 08/10/18 10:48 IMPRESSION: HEART ENLARGED WITHOUT FAILURE. NO OTHER SIGNIFICANT RADIOGRAPHIC FINDING IN THE CHEST. Assessment & Plan - Diagnosis (1) Acute on chronic respiratory failure with hypoxemia Is this a current diagnosis for this admission?: Yes Plan: Secondary to COPD exacerbation. Currently saturating well on 2 L of oxygen via NC. (2) COPD with acute exacerbation Is this a current diagnosis for this admission?: Yes Plan: Continue IV steroids and breathing treatments. (3) Chronic atrial fibrillation Is this a current diagnosis for this admission?: Yes Plan: Currently rate controlled. Continue Eliquis and Lopressor. - Time Time Spent with patient: 15-24 minutes
[2018-08-12] MEDS: ALBUTEROL SULFATE 0.083% NEB 2.5 MG/3 ML AMPUL NEB PRN (20:30)
[2018-08-12] MEDS: METOPROLOL SUCCINATE 50 MG TAB.SR.24H PO SCH (22:21)
[2018-08-12] MEDS: MONTELUKAST SODIUM 10 MG TABLET PO SCH (22:23)
[2018-08-12] MEDS: ATORVASTATIN CALCIUM 40 MG TABLET PO SCH (22:23)
[2018-08-13] MEDS: MAGNESIUM OXIDE 400 MG TABLET PO SCH ×3 (00:08→14:10)
[2018-08-13] MEDS: LEVALBUTEROL HCL NEB 1.25 MG/3 ML AMPUL NEB SCH ×2 (00:14→09:06)
[2018-08-13] MEDS: IPRATROPIUM BROMIDE 0.02% NEB 0.5 MG/2.5 ML AMPUL NEB SCH ×2 (00:14→09:06)
[2018-08-13 04:49] LABS: ABSOLUTE BASOPHILS # (AUTO) 0.1 10^3/uL (0.0-0.2); ABSOLUTE LYMPHOCYTES (AUTO) 3.5 10^3/uL (0.5-4.7); ABSOLUTE MONOCYTES (AUTO) 1.3 10^3/uL (0.1-1.4); ABSOLUTE NEUT (AUTO) 7.5 10^3/uL (1.7-8.2); BASOPHILS % (AUTO) 0.5 % (0-2); EOSINOPHILS % (AUTO) 0.3 % (0-6); HEMATOCRIT 31.6 % (36.0-47.0); HEMOGLOBIN 10.2 g/dL (12.0-15.5); LYMPHOCYTES % (AUTO) 28.1 % (13-45); MEAN CORPUSCULAR HEMOGLOBIN 26.1 pg (27.0-33.4); MEAN CORPUSCULAR HGB CONC 32.4 g/dL (32.0-36.0); MEAN CORPUSCULAR VOLUME 81 fl (80-97); MONOCYTES % (AUTO) 10.4 % (3-13); PLATELET COUNT 169 10^3/uL (150-450); RED BLOOD COUNT 3.92 10^6/uL (3.72-5.28); RED CELL DISTRIBUTION WIDTH 16.6 % (11.5-14.0); SEGMENTED NEUTROPHILS % (AUTO) 60.7 % (42-78); TOTAL CELLS COUNTED % (AUTO) 100 %; WHITE BLOOD COUNT 12.4 10^3/uL (4.0-10.5)
[2018-08-13 05:12] LABS: ANION GAP 12 (5-19); BLOOD UREA NITROGEN 42 mg/dL (7-20); CALCIUM 9.3 mg/dL (8.4-10.2); CARBON DIOXIDE 32 mmol/L (22-30); CHLORIDE 102 mmol/L (98-107); GLUCOSE 128 mg/dL (75-110); POTASSIUM 3.5 mmol/L (3.6-5.0); SODIUM 145.8 mmol/L (137-145)
[2018-08-13] MEDS: ACETYLCYSTEINE 20% SOLN 800 MG/4 ML VIAL.NEB NEB SCH (09:06)
[2018-08-13] MEDS: BUDESONIDE NEB 0.5 MG/2 ML AMPUL NEB SCH (09:06)
[2018-08-13] MEDS: DOCUSATE SODIUM 100 MG CAPSULE PO SCH (10:02)
[2018-08-13] MEDS: TORSEMIDE 20 MG TABLET PO SCH (10:03)
[2018-08-13] MEDS: GUAIFENESIN 600 MG TABLET.SA PO SCH (10:03)
[2018-08-13] MEDS: FAMOTIDINE 20 MG TABLET PO SCH (10:03)
[2018-08-13] MEDS: CLONAZEPAM 1 MG TABLET PO SCH (10:04)
[2018-08-13] MEDS: LOSARTAN POTASSIUM 50 MG TABLET PO SCH (10:06)
[2018-08-13] MEDS: APIXABAN 5 MG TABLET PO SCH (10:06)
[2018-08-13 13:40] VITALS: BP 115/69
--- NOTE | 2018-08-13 15:52 | PDOC DISCHARGE SUMMARY ---
General - Admit/Disc Date/PCP Admission Date/Primary Care Provider: 08/10/18 14:00 JHON PIMENTEL MD Discharge Date: 08/13/18 - Discharge Diagnosis (1) Acute on chronic respiratory failure with hypoxemia Is this a current diagnosis for this admission?: Yes (2) COPD with acute exacerbation Is this a current diagnosis for this admission?: Yes (3) Chronic atrial fibrillation Is this a current diagnosis for this admission?: Yes - Additional Information Resuscitation Status: Full Code Discharge Diet: As Tolerated Discharge Activity: Activity As Tolerated Prescriptions: Ipratropium/Albuterol Sulfate [Duoneb 3 ml Ampul] 3 ml NEB RTQ4 PRN #20 vial.neb PRN Reason: Prednisone [Deltasone 20 mg Tablet] 20 mg PO BID #10 tablet Tiotropium Frazee [Spiriva Handihaler 5 Cap/Kit (18 Mcg/Cap)] 1 cap IH DAILY # 5 capsule Home Medications: Albuterol Sulfate [Proair HFA] 2 puff IH QID 11/27/17 Apixaban [Eliquis 5 mg Tablet] 5 mg PO BID 11/27/17 Atorvastatin Calcium [Lipitor 40 mg Tablet] 40 mg PO QHS 11/27/17 Metoprolol Succinate [Toprol Xl 50 mg Tab.sr] 50 mg PO DAILY 11/27/17 Montelukast Sodium [Singulair 10 mg Tablet] 10 mg PO QHS 11/27/17 Amlodipine Besylate [Norvasc 10 mg Tablet] 10 mg PO DAILY #30 tablet 12/02/17 Hydralazine HCl [Apresoline 50 mg Tablet] 25 mg PO Q8 #60 tablet 12/02/17 Acetaminophen [Tylenol 325 mg Tablet] 650 mg PO Q6HP PRN 08/10/18 Cholecalciferol (Vitamin D3) [Vitamin D3] 1,000 unit PO DAILY 08/10/18 Fluticasone/Salmeterol [Advair 250-50 Diskus 14 Dose/Diskus] 1 puff IN BID 08/10 Furosemide [Lasix 40 mg Tablet] 40 mg PO BID 08/10/18 Iron 65 65 mg PO DAILY 08/10/18 Lisinopril [Prinivil 40 mg Tablet] 40 mg PO DAILY 08/10/18 Magnesium Oxide [Magox] 400 mg PO DAILY 08/10/18 Melatonin [Melatonin 1 mg Tablet] 1 mg PO HSP PRN 08/10/18 Nicotine [Nicoderm 7 mg/24 Hr Transdermal Patch] 1 patch TD DAILY 08/10/18 Ipratropium/Albuterol Sulfate [Duoneb 3 ml Ampul] 3 ml NEB RTQ4 PRN #20 vial.neb 08/13/18 Prednisone [Deltasone 20 mg Tablet] 20 mg PO BID #10 tablet 08/13/18 Tiotropium Frazee [Spiriva Handihaler 5 Cap/Kit (18 Mcg/Cap)] 1 cap IH DAILY # 5 capsule 08/13/18 Torsemide [Demadex 20 mg Tablet] 20 mg PO BID tablet 08/13/18 History of Present Illness History of Present Illness: Admitting hospitalist's H&P: JOLIE CAMARA is a 62 year old female who presents to the emergency room with a 2-week history of gradually worsening dyspnea with associated cough and wheezing. She admits that her dyspnea became severe this morning while she was in the shower and bent over to get something and suddenly felt like she could not breathe. She then panicked because her bathroom door was locked and no one would be able to get in to help her if she was crying out for help. Then she tried to get out of the shower and had a great deal of difficulty and began breathing even harder. With the increased work of breathing she felt more short of breath and started coughing and wheezing with increasing intensity until she finally got out of the bathroom and got to her bedroom where she grabbed her CPAP. After a few minutes of CPAP she eventually got some relief of her dyspnea. After a few more minutes when she was feeling better she called her daughter who brought her to the emergency room. She attributes the onset of her dyspnea and wheezing to getting the flu shot 2 weeks ago with the symptoms beginning within 24 hours of that injection. She further admits that she has been to the emergency room on 2 occasions for treatment since the onset of the current episode. She was given steroids on both visits and was given an albuterol nebulizer on the last visit. By the time she got to the emergency room today she was feeling well but when she would try to ambulate her heart rate would rise and she would become slightly dyspneic, therefore the emergency room physician contacted the hospitalist service for admission. Hospital Course Hospital Course: Ms. Camara is a 62-year-old female with a past medical history of COPD, hypertension, chronic diastolic heart failure and LAYNE noncompliant with CPAP at home who initially presented with worsening shortness of breath associated with cough and wheezing. She was admitted for acute COPD exacerbation. She was started on IV steroids and scheduled breathing treatments. Chest x-ray was negative for pneumonia. Patient did gradually improve. Upon day of discharge, she says that she feels like she is back to her baseline. She did improve lung sounds on day of discharge with only minimal wheezes. Patient says that she does have chronic SOB and on her regular days, she gets short of breath from walking from her bedroom to the living room. She is not O2 dependent at home. Patient ambulated through the hallway and a 6-minute walk test was done to see if she needs home O2. Patient was saturating at >91% upon 6-minute walk test on room air. She will be discharged on a short course of oral steroids. Spiriva was also added to her home regimen/inhalers. Physical Exam Vital Signs: Temp Pulse Resp BP Pulse Ox 97.3 F 70 18 115/69 100 08/13/18 13:38 08/13/18 13:38 08/13/18 13:38 08/13/18 13:38 08/13/18 13:38 Pulse Oximeter Continuous Start: 08/11/18 13: 08 Freq: RTQ4 Status: Discharge Document 08/13/18 12:00 [facility] (Rec: 08/13/18 12:39 [facility] [id number]) Pulse Oximetry Assessment Equipment Usage Equipment Standby Continuous SpO2 Machine # 14 Intake & Output 08/12/18 08/13/18 08/14/18 06:59 06:59 06:59 Intake Total 738 236 Balance 738 236 Weight 320 lb 5.306 oz 309 lb 11.991 oz General appearance: PRESENT: no acute distress, obese Head exam: PRESENT: atraumatic, normocephalic Eye exam: PRESENT: conjunctiva pink, EOMI, PERRLA. ABSENT: scleral icterus Ear exam: PRESENT: normal external ear exam Mouth exam: PRESENT: moist, tongue midline Neck exam: ABSENT: carotid bruit, JVD, lymphadenopathy, thyromegaly Respiratory exam: PRESENT: clear to auscultation tao, wheezes - Few occasional wheezes, no rhonchi compared to yesterday. ABSENT: rales, rhonchi Cardiovascular exam: PRESENT: RRR. ABSENT: diastolic murmur, rubs, systolic murmur Pulses: PRESENT: normal dorsalis pedis pul GI/Abdominal exam: PRESENT: normal bowel sounds, soft. ABSENT: distended, guarding, mass, organolmegaly, rebound, tenderness Rectal exam: PRESENT: deferred Neurological exam: PRESENT: alert, awake, oriented to person, oriented to place , oriented to time, oriented to situation, CN II-XII grossly intact. ABSENT: motor sensory deficit Results Laboratory Results: 08/13/18 04:29 08/13/18 04:29 08/13/18 08/13/18 08/13/18 04:29 04:29 04:29 WBC 12.4 H RBC 3.92 Hgb 10.2 L Hct 31.6 L MCV 81 MCH 26.1 L MCHC 32.4 RDW 16.6 H Plt Count 169 Seg Neutrophils % 60.7 Lymphocytes % 28.1 Monocytes % 10.4 Eosinophils % 0.3 Basophils % 0.5 Absolute Neutrophils 7.5 Absolute Lymphocytes 3.5 Absolute Monocytes 1.3 Absolute Eosinophils 0.0 Absolute Basophils 0.1 Sodium 145.8 H Potassium 3.5 L Chloride 102 Carbon Dioxide 32 H Anion Gap 12 BUN 42 H Creatinine 1.29 H Est GFR ( Amer) 51 L Est GFR (Non-Af Amer) 42 L Glucose 128 H Calcium 9.3 Magnesium 2.1 Free T4 1.06 08/10/18 08/10/18 08/11/18 17:29 23:27 05:32 Troponin I < 0.012 < 0.012 < 0.012 NT-Pro-B Natriuret Pep 08/11/18 05:32 Troponin I NT-Pro-B Natriuret Pep 4630 H Impressions: Chest X-Ray 08/10/18 10:48 IMPRESSION: HEART ENLARGED WITHOUT FAILURE. NO OTHER SIGNIFICANT RADIOGRAPHIC FINDING IN THE CHEST. Qualifiers - * PATIENT BEING DISCHARGED WITH ANY OF THE FOLLOWING DIAGNOSIS: No
== END 2018-08-13 14:54 | disposition home or self-care (01) | DRG 190 ==
LOC: ER 10:37 → EH 14:00 → 4N 17:02
PROVIDERS: ADMIT Emergency Medicine; ATTEND Emergency Medicine
PROC: 3E0F73Z Introduction of Anti-inflammatory into Respiratory Tract, Via Natural or Artificial Opening (ICD-10-PCS; principal; 2018-08-10)
DX: J44.1 Chronic obstructive pulmonary disease with (acute) exacerbation (principal); J96.21 Acute and chronic respiratory failure with hypoxia; I50.32 Chronic diastolic (congestive) heart failure; Z68.42 Body mass index [BMI] 45.0-49.9, adult; I48.2 Chronic atrial fibrillation; E78.00 Pure hypercholesterolemia, unspecified; E11.9 Type 2 diabetes mellitus without complications; M19.90 Unspecified osteoarthritis, unspecified site; I11.0 Hypertensive heart disease with heart failure; G47.33 Obstructive sleep apnea (adult) (pediatric); E66.01 Morbid (severe) obesity due to excess calories; I27.22 Pulmonary hypertension due to left heart disease; I48.91 Unspecified atrial fibrillation; F17.210 Nicotine dependence, cigarettes, uncomplicated; Z96.653 Presence of artificial knee joint, bilateral; Z60.2 Problems related to living alone; Z79.01 Long term (current) use of anticoagulants; Z86.73 Personal history of transient ischemic attack (TIA), and cerebral infarction without residual deficits; Z79.899 Other long term (current) drug therapy; Z82.61 Family history of arthritis; Z82.49 Family history of ischemic heart disease and other diseases of the circulatory system; Z83.3 Family history of diabetes mellitus; Z82.3 Family history of stroke; Z80.9 Family history of malignant neoplasm, unspecified
CPT/HCPCS: 36415; 36600; 71045; 80048; 80053; 80061; 82803; 83036; 83735; 83880; 84439; 84443; 84481; 84484; 85025; 93005; 93010; 94640; 94762; 96365; 96375; 99285; J2060; J2920; J2930; J3475; J3490; J7620

== ENCOUNTER 2018-09-11 12:29 | Emergency (ER) | payer MEDICARE, MEDICAID ==
[2018-09-11] MEDS ORDERED: METHYLPREDNISOLONE INJ 125 MG/2 ML SDV IV ONE (12:59)
[2018-09-11 13:12] LABS: ABSOLUTE BASOPHILS # (AUTO) 0.2 10^3/uL (0.0-0.2); ABSOLUTE EOSINOPHILS # (AUTO) 0.1 10^3/uL (0.0-0.6); ABSOLUTE LYMPHOCYTES (AUTO) 4.5 10^3/uL (0.5-4.7); ABSOLUTE MONOCYTES (AUTO) 1.1 10^3/uL (0.1-1.4); ABSOLUTE NEUT (AUTO) 9.7 10^3/uL (1.7-8.2); EOSINOPHILS % (AUTO) 0.7 % (0-6); HEMATOCRIT 35.6 % (36.0-47.0); HEMOGLOBIN 11.7 g/dL (12.0-15.5); MEAN CORPUSCULAR HEMOGLOBIN 26.6 pg (27.0-33.4); MEAN CORPUSCULAR HGB CONC 32.9 g/dL (32.0-36.0); MEAN CORPUSCULAR VOLUME 81 fl (80-97); RED CELL DISTRIBUTION WIDTH 17.2 % (11.5-14.0); SEGMENTED NEUTROPHILS % (AUTO) 62.3 % (42-78); TOTAL CELLS COUNTED % (AUTO) 100 %; WHITE BLOOD COUNT 15.5 10^3/uL (4.0-10.5)
--- NOTE | 2018-09-11 13:31 | ER Document Report ---
ED General - General Chief Complaint: Facial Swelling Stated Complaint: SHORTNESS OF BREATH Time Seen by Provider: 09/11/18 12:56 Notes: Patient says that she is feeling short of breath. She has a history of asthma and COPD and sleep apnea, wearing a machine at night to breathe. She is been seen here 2 times in the past couple of weeks for breathing difficulties and was admitted to the hospital on 1 of those visits on August 10, for COPD exacerbation. Patient is having some swelling of the maxillary region of her face. Patient currently denies any difficulty swallowing. Able to handle oral secretions. Does not note any hoarseness of her voice. She notes a lump behind her left ear. It feels like a small 1 cm cyst which feels old, although the patient says she had noted it before. Does not recall any recent application of hair dye or other new medications or chemicals to her skin. TRAVEL OUTSIDE OF THE [place] IN LAST 30 DAYS: No - Related Data Allergies/Adverse Reactions: No Known Allergies Allergy (Verified 07/29/18 07:47) Past Medical History - Social History Smoking Status: Current Every Day Smoker Frequency of alcohol use: None Drug Abuse: None Family History: Arthritis, CAD, CVA, DM, Hyperlipidemia, Hypertension, Malignancy Patient has suicidal ideation: No Patient has homicidal ideation: No - Past Medical History Cardiac Medical History: Reports: Hx Atrial Fibrillation, Hx Congestive Heart Failure, Hx Hypercholesterolemia, Hx Hypertension Pulmonary Medical History: Reports: Hx Asthma, Hx Bronchitis, Hx COPD, Hx Pneumonia, Hx Respiratory Failure, Hx Sleep Apnea Denies: Hx Tuberculosis Neurological Medical History: Reports: Hx Cerebrovascular Accident Endocrine Medical History: Reports: Hx Diabetes Mellitus Type 2 - prediabetic. Musculoskeletal Medical History: Reports Hx Arthritis, Reports Hx Muscu loskeletal Deformity Psychiatric Medical History: Denies: Hx Depression Past Surgical History: Reports: Hx Section - X2, Hx Orthopedic Surgery - Bilateral knee replacement, Hx Tubal Ligation, Other - D&C right groin cyst. - Immunizations Hx Diphtheria, Pertussis, Tetanus Vaccination: Yes Hx Pneumococcal Vaccination: 07/08/13 Review of Systems - Review of Systems Notes: REVIEW OF SYSTEMS: CONSTITUTIONAL : Denies fever. EENT: Denies eye, ear, nose or mouth or throat pain or other symptoms. CARDIOVASCULAR: Denies chest pain. RESPIRATORY: See HPI. GASTROINTESTINAL: Denies abdominal pain or nausea, vomiting, or diarrhea. GENITOURINARY: Denies difficulty or painful urinating, urinary frequency, blood in urine. MUSCULOSKELETAL: Denies back or neck pain. Denies joint pain or swelling. SKIN: Denies rash or skin lesions. NEUROLOGICAL: Denies LOC or altered mental status. Denies headache. Denies sensory loss or motor deficits. ALL OTHER SYSTEMS REVIEWED AND NEGATIVE. Physical Exam - Vital signs Vitals: Resp BP Pulse Ox 22 H 138/96 H 99 09/11/18 12:41 09/11/18 12:41 09/11/18 12:41 Interpretation: Normal. No: Hypoxic - O2 sat 99% on arrival Notes: PHYSICAL EXAMINATION: GENERAL: Very anxious, but no acute distress. Vital signs are all essentially normal. HEAD: Atraumatic, normocephalic. Small slightly tender round, 1 cm diameter ap parent cyst behind the patient's left ear. Does not look bruised. His not feel warm. Appears to be a simple cyst and I am sure is been there for a long time. EYES: Pupils equal round and reactive to light, extraocular movements intact. ENT: oropharynx clear without exudates. Moist mucous membranes. NECK: Normal range of motion, supple. LUNGS: Patient has a few scattered wheezes in both lung yanez. HEART: Irregularly irregular rate and rhythm without murmurs. ABDOMEN: Soft, nontender. No guarding or rebound. No masses. BACK: No tenderness throughout entire back. EXTREMITIES: Normal range of motion without pain. NEUROLOGICAL: Normal speech, normal gait. Normal sensory, motor, and reflex exams. Awake, alert, and oriented x3. Cranial nerves normal. PSYCH: Very anxious and upset appearing. SKIN: Warm, dry, no rashes. Course - Re-evaluation Re-evalutation: 09/11/18 19:10 Patient settled down and was calm throughout most of her stay in the department. Her breathing became very easy. Oxygen sat was in the 98-99% range the entire time she was in the department. Chest x-ray was normal. Patient was given Solu-Medrol 125 mg IV and a nebulizer treatment. She was sent home with a prescription for the prednisone taper. I note the patient has been here quite a few times in the past for difficulty b reathing, and many of those visits did not result in hospitalization or admission. I think patient has an underlying element of anxiety that is contributing to her problems with her breathing. - Vital Signs Vital signs: Temp Pulse Resp BP Pulse Ox 97.8 F 22 H 141/99 H 99 09/11/18 13:00 09/11/18 17:00 09/11/18 17:00 09/11/18 17:00 - Laboratory Result Diagrams: 09/11/18 12:45 09/11/18 12:45 Laboratory results interpreted by me: 09/11/18 09/11/18 12:45 12:45 WBC 15.5 H Hgb 11.7 L Hct 35.6 L MCH 26.6 L RDW 17.2 H Absolute Neutrophils 9.7 H BUN 32 H Creatinine 1.28 H Est GFR ( Amer) 51 L Est GFR (Non-Af Amer) 42 L - Diagnostic Test Radiology results interpreted by me: 09/11/18 19:10 Chest x-ray is normal. Discharge - Discharge Clinical Impression: COPD exacerbation, Allergic reaction Condition: Stable Disposition: HOME, SELF-CARE Additional Instructions: Chronic Obstructive Lung Disease You have chronic obstructive lung disease (COPD). The symptoms come from emphysema (damage to small airways, with trapping of air in large sacks in the lung) and chronic bronchitis (repeated infection and damage to larger airways). The cause is almost always cigarette smoking, although dust exposure, asthma, an d infections contribute. You should avoid fumes, dust, and smoke (especially tobacco smoke). Your condition will flare from time to time. There is no cure, but the symptoms can be treated. Bronchodilators (asthma medicine) are often helpful. Antibiotics help when infection is present. When shortness of breath is severe, we may prescribe cortisone medication. If medicine doesn't help enough, we can arrange for you to have an oxygen tank at home. Notify your doctor at once if sputum becomes thick, foul, or bloody, if you develop a fever or chest pain, or if your shortness of breath worsens. UPPER RESPIRATORY ILLNESS: You have a viral infection of the respiratory passages -- a "cold." This common infection causes nasal congestion, drainage, and often sore throat and cough. It is highly contagious. The disease usually lasts about 10 to 14 days. There is no "cure" for the viral infection -- it must run its course. If there is a complication, such as bacterial infection in the nose, sinuses, middle ear, or bronchial tubes, antibiotics may be required. The antibiotics won't affect the virus. Drink plenty of fluids. A humidifier may help. An expectorant medication or decongestant may make you more comfortable. Use acetaminophen or ibuprofen for fever or aches. See the doctor if fever persists over two days, if there is any significant worsening of your symptoms, or if you simply fail to improve as expected. BRONCHOSPASM: You have tightness in the bronchial tubes, called bronchospasm. This often occurs with bronchial infections. Allergies, inhaled chemicals, and polluted or cold air can also provoke bronchospasm. It's more likely in patients with asthma in the family. Emergency treatment of bronchospasm may include adrenaline shots or bronchodilator aerosol. You may feel lightheaded and have a rapid pulse for an hour or two. Rest and get plenty of fluids. At home, we'll treat you with a bronchodilator inhaler. Antibiotics and corticosteroids may be required for some patients. Until you recover, avoid chemical fumes, dusts, pollens, and exercising in very cold or dry air. If you smoke, stop now!! If you develop a fever, increased wheezing, chest pain, or severe shortness of breath, you should contact the doctor immediately. INHALED BRONCHODILATORS: You have received a treatment of and/or prescription for an inhaled bronchodilator -- a medication which stimulates the airways in the lung to dilate. This improves the flow of air in asthma, bronchitis, and emphysema. These medicines have some similarity to adrenaline, and can cause similar side effects: shakiness, racing heart, and a sense of nervousness. These side effects decrease with time. Contact your doctor if these side effects are severe. Do not over-use the medicine. Too-frequent use of the inhaler may make it ineffective. Call your doctor if the inhaler is not controlling your symptoms at the prescribed doses. STEROID MEDICATION: You have been given an injection of or oral medicine of the cortisone/steroid class. This medication is used to control inflammation or allergy. Lucho t is usually only given for a short period of time, until the acute process subsides. There are usually no side effects from short-term use of cortisone-like medications. Some persons feel an increased sense of well-being and are not sleepy at bedtime. Long-term use of cortisone medications is best avoided, unless required for a severe condition. If your condition does not remit, or relapses after the course of corticosteroid medication, you should consult your physician. FOLLOW-UP CARE: If you have been referred to a physician for follow-up care, call the physicians office for an appointment as you were instructed or within the next two days. If you experience worsening or a significant change in your symptoms, notify the physician immediately or return to the Emergency Department at any time for re-evaluation. ACUTE ALLERGIC REACTION: Your symptoms are due to an allergic reaction. Allergy can cause hives, swelling of the hands, feet, and face, hoarseness, and difficulty swallowing or breathing. It may be due to exposure to medication, animal dander, foods, infection, or insect bites. Medication is a common cause, even when prior use of this same medication caused no problems. Acute treatment may include adrenalin and antihistamines. Usually, the specific allergic agent can't be identified unless repeated episodes occur. Home treatment includes the following: (1) Stop any suspicious medications. This will be discussed with you. (2) Oral antihistamines for the next four to five days. Example, diphenhydramine (Benadryl) every four hours. (3) You may also use cimetidine (Tagamet), ranitidine (Zantac), or famotidine (Pepcid) every four hours if diphenhydramine is not controlling itching and hives. (4) Avoid aspirin until the hives completely disappear. (5) Avoid hot baths or showers until the hives are completely gone. Call the doctor if faintness, difficulty swallowing, tightness in the chest, or wheezing occurs. STEROID MEDICATION INJECTION: You have been given an injection of medicine of the cortisone/steroid class. This medication is used to control inflammation or allergy. It is often continued as a pill for a short period of time, until the acute process subsides. There are usually no side effects from short-term use of cortisone-like medications. Some persons feel an increased sense of well-being and are not sleepy at bedtime. Long-term use of cortisone medications is best avoided, unless required for a severe condition. If your condition does not remit, or relapses after the course of corticosteroid medication, you should consult your physician. STEROID MEDICATION: You have been given a medicine of the cortisone/steroid class. This medication is used to control inflammation or allergy. It is usually only given for a short period of time, until the acute process subsides. There are usually no side effects from short-term use of cortisone-like medications. Some persons feel an increased sense of well-being and are not sleepy at bedtime. Long-term use of cortisone medications is best avoided, unless required for a severe condition. If your condition does not remit, or relapses after the course of corticosteroid medication, you should consult your physician. FOLLOW-UP CARE: If you have been referred to a physician for follow-up care, call the physicians office for an appointment as you were instructed or within the next two days. If you experience worsening or a significant change in your symptoms, notify the physician immediately or return to the Emergency Department at any time for re-evaluation. Prescriptions: Prednisone [Deltasone 10 mg Tablet] 10 mg PO ASDIR PRN #21 tablet PRN Reason: Referrals: JHON PIMENTEL MD [Primary Care Provider] - Follow up as needed
[2018-09-11 13:32] LABS: ALANINE AMINOTRANSFERASE 35 U/L (9-52); ALBUMIN 4.3 g/dL (3.5-5.0); ALKALINE PHOSPHATASE 82 U/L (38-126); ANION GAP 12 (5-19); ASPARTATE AMINO TRANSFERASE 32 U/L (14-36); BILIRUBIN,DIRECT 0.3 mg/dL (0.0-0.4); BILIRUBIN,TOTAL 0.5 mg/dL (0.2-1.3); BLOOD UREA NITROGEN 32 mg/dL (7-20); CALCIUM 9.8 mg/dL (8.4-10.2); CARBON DIOXIDE 25 mmol/L (22-30); CHLORIDE 107 mmol/L (98-107); CREATINE KINASE 41 U/L (30-135); GLUCOSE 103 mg/dL (75-110); POTASSIUM 4.1 mmol/L (3.6-5.0); SODIUM 143.9 mmol/L (137-145); TOTAL PROTEIN 7.8 g/dL (6.3-8.2)
[2018-09-11 13:42] LABS: CREATINE KINASE MB 0.44 ng/mL (<4.55)
[2018-09-11 13:43] LABS: TROPONIN I < 0.012 ng/mL
[2018-09-11 13:44] LABS: PLATELET COUNT 228 10^3/uL (150-450)
--- NOTE | 2018-09-11 14:28 | RADIOLOGY REPORT (SQ) ---
EXAM DESCRIPTION: CHEST 2 VIEWS COMPLETED DATE/TIME: 09/11/2018 2:06 pm REASON FOR STUDY: Shortness of breath COMPARISON: 08/10/2018. EXAM PARAMETERS: NUMBER OF VIEWS: two views TECHNIQUE: Digital Frontal and Lateral radiographic views of the chest acquired. RADIATION DOSE: NA LIMITATIONS: none FINDINGS: LUNGS AND PLEURA: No opacities, masses or pneumothorax. No pleural effusion. MEDIASTINUM AND HILAR STRUCTURES: No masses or contour abnormalities. HEART AND VASCULAR STRUCTURES: Heart upper limits of normal size. No evidence for failure. BONES: No acute findings. Degenerative changes in the spine. HARDWARE: None in the chest. OTHER: No other significant finding. IMPRESSION: NO ACUTE RADIOGRAPHIC FINDING IN THE CHEST. TECHNICAL DOCUMENTATION: JOB ID: [id number] [employer]- All Rights Reserved Reading location - IP/workstation name: [email or web address]
[2018-09-11] MEDS ORDERED: IPRATROPIUM/ALBUTEROL 0.5-2.5 MG/3 ML AMPUL NEB ONE (15:42)
[2018-09-11 17:12] VITALS: BP 141/99
== END 2018-09-11 17:22 | disposition home or self-care (01) ==
LOC: ER 12:29
DX: R22.0 Localized swelling, mass and lump, head (principal); T78.40XA Allergy, unspecified, initial encounter; X58.XXXA Exposure to other specified factors, initial encounter; J44.1 Chronic obstructive pulmonary disease with (acute) exacerbation; F17.200 Nicotine dependence, unspecified, uncomplicated; I48.91 Unspecified atrial fibrillation; I50.9 Heart failure, unspecified; I11.0 Hypertensive heart disease with heart failure; E78.00 Pure hypercholesterolemia, unspecified; Z86.73 Personal history of transient ischemic attack (TIA), and cerebral infarction without residual deficits; Z96.653 Presence of artificial knee joint, bilateral; Z98.51 Tubal ligation status
CPT/HCPCS: 94640; 99285; 96374; 36415; 82553; 82550; 85025; 80053; 84484; 71046; J2930; A9270; J7620

== ENCOUNTER 2018-09-16 10:00 | Emergency (ER) | payer MEDICARE, MEDICAID ==
[2018-09-16] MEDS ORDERED: IPRATROPIUM/ALBUTEROL 0.5-2.5 MG/3 ML AMPUL NEB ONE (10:31)
--- NOTE | 2018-09-16 10:33 | ER Document Report ---
ED Medical Screen (RME) - General Chief Complaint: Facial Swelling Stated Complaint: SWOLLEN FACE Time Seen by Provider: 09/16/18 10:24 Notes: RAPID MEDICAL EVALUATION DISCLOSURE I have seen this patient as part of a Rapid Medical Evaluation and, if applicable, placed any initially appropriate orders. The patient will be seen and fully evaluated, including a full history and physical exam, by a provider (in Main ED or Fast Track) when a room becomes available. 62-year-old female here with complaints of shortness of breath and facial swelling ongoing for the past 1-2 months. She states that she has been here for this several times and has been placed on prednisone. She is currently on a prednisone taper and today has taken 2 tablets and then tomorrow will take 1 t ablet. She is here because her symptoms have persisted and have not improved. She has not yet followed up with her PCP Dr. Pimentel. EXAM No uvular edema Widely patent airway Mild end expiratory wheezes with mildly decreased aeration Mildly tachycardic low 100s TRAVEL OUTSIDE OF THE [place] IN LAST 30 DAYS: No - Related Data Allergies/Adverse Reactions: No Known Allergies Allergy (Verified 09/16/18 10:04) Past Medical History - Past Medical History Cardiac Medical History: Reports: Hx Atrial Fibrillation, Hx Congestive Heart Failure, Hx Hypercholesterolemia, Hx Hypertension Pulmonary Medical History: Reports: Hx Asthma, Hx Bronchitis, Hx COPD, Hx Pneumonia, Hx Respiratory Failure, Hx Sleep Apnea Denies: Hx Tuberculosis Neurological Medical History: Reports: Hx Cerebrovascular Accident. Denies: Hx Seizures Endocrine Medical History: Reports: Hx Diabetes Mellitus Type 2 - prediabetic.. Denies: Hx Diabetes Mellitus Type 1, Hx Hyperthyroidism, Hx Hypothyroidism Renal/ Medical History: Denies: Hx Peritoneal Dialysis GI Medical History: Denies: Hx Cirrhosis, Hx Crohn's Disease, Hx Hepatitis, Hx Ulcerative Colitis Musculoskeltal Medical History: Reports Hx Arthritis, Denies Hx Gout, Reports Hx Musculoskeletal Deformity Skin Medical History: Denies Hx Eczema, Denies Hx Psoriasis Psychiatric Medical History: Denies: Hx Depression Traumatic Medical History: Denies: Hx Traumatic Brain Injury Infectious Medical History: Denies: Hx Hepatitis Past Surgical History: Reports: Hx Section - X2, Hx Orthopedic Surgery - Bilateral knee replacement, Hx Tubal Ligation, Other - D&C right groin cyst. - Immunizations Hx Diphtheria, Pertussis, Tetanus Vaccination: Yes History of Influenza Vaccine for 06/2017 - 11/2017 Season: Yes Influenza Administration Date for 06/2017 - 11/2017 Season: 07/09/17 Physical Exam - Vital signs Vitals: Temp Pulse Resp BP Pulse Ox 97.9 F 105 H 24 H 140/83 H 97 09/16/18 10:11 09/16/18 10:11 09/16/18 10:11 09/16/18 10:11 09/16/18 10:11 Course - Vital Signs Vital signs: Temp Pulse Resp BP Pulse Ox 97.9 F 105 H 24 H 140/83 H 97 09/16/18 10:11 09/16/18 10:11 09/16/18 10:11 09/16/18 10:11 09/16/18 10:11 Doctor's Discharge - Discharge Referrals: JHON PIMENTEL MD [Primary Care Provider] - Follow up as needed
[2018-09-16 11:00] LABS: HEMATOCRIT 34.1 % (36.0-47.0); MEAN CORPUSCULAR HEMOGLOBIN 26.2 pg (27.0-33.4); MEAN CORPUSCULAR HGB CONC 32.2 g/dL (32.0-36.0); MEAN CORPUSCULAR VOLUME 81 fl (80-97); PLATELET COUNT 181 10^3/uL (150-450); RED BLOOD COUNT 4.19 10^6/uL (3.72-5.28); RED CELL DISTRIBUTION WIDTH 17.2 % (11.5-14.0); WHITE BLOOD COUNT 13.3 10^3/uL (4.0-10.5)
--- NOTE | 2018-09-16 11:07 | RADIOLOGY REPORT (SQ) ---
EXAM DESCRIPTION: CHEST 2 VIEWS COMPLETED DATE/TIME: 09/16/2018 10:54 am REASON FOR STUDY: SOB COMPARISON: 09/11/2018. EXAM PARAMETERS: NUMBER OF VIEWS: two views TECHNIQUE: Digital Frontal and Lateral radiographic views of the chest acquired. RADIATION DOSE: NA LIMITATIONS: none FINDINGS: LUNGS AND PLEURA: No opacities, masses or pneumothorax. No pleural effusion. MEDIASTINUM AND HILAR STRUCTURES: No masses or contour abnormalities. HEART AND VASCULAR STRUCTURES: Stable cardiomegaly. No evidence for failure. BONES: No acute findings. HARDWARE: None in the chest. OTHER: No other significant finding. IMPRESSION: STABLE CARDIOMEGALY. NO ACUTE RADIOGRAPHIC FINDING IN THE CHEST. TECHNICAL DOCUMENTATION: JOB ID: [id number] [employer]- All Rights Reserved Reading location - IP/workstation name: [email or web address]
[2018-09-16 11:24] LABS: ABSOLUTE LYMPHOCYTES# (MANUAL) 1.9 10^3/uL (0.5-4.7); ABSOLUTE MONOCYTES # (MANUAL) 0.4 10^3/uL (0.1-1.4); ANISOCYTOSIS 1+; BAND NEUTROPHILS % (MANUAL) 2 % (3-5); BASOPHILS % (MANUAL) 0 % (0-2); EOSINOPHILS % (MANUAL) 0 % (0-6); LYMPHOCYTES % (MANUAL) 11 % (13-45); MONOCYTES % (MANUAL) 3 % (3-13); OVALOCYTES 1+; POIKILOCYTOSIS 1+; POLYCHROMASIA SLIGHT; SEGMENTED NEUTROPHILS % (MAN) 81 % (42-78); TOTAL CELLS COUNTED 100
[2018-09-16 11:25] LABS: PLATELET COMMENT ADEQUATE; TARGET CELLS SLIGHT
[2018-09-16 11:28] LABS: ALANINE AMINOTRANSFERASE 55 U/L (9-52); ALKALINE PHOSPHATASE 70 U/L (38-126); ANION GAP 10 (5-19); ASPARTATE AMINO TRANSFERASE 39 U/L (14-36); BILIRUBIN,DIRECT 0.3 mg/dL (0.0-0.4); BILIRUBIN,TOTAL 0.7 mg/dL (0.2-1.3); BLOOD UREA NITROGEN 22 mg/dL (7-20); CALCIUM 9.7 mg/dL (8.4-10.2); CARBON DIOXIDE 24 mmol/L (22-30); CHLORIDE 108 mmol/L (98-107); GLUCOSE 187 mg/dL (75-110); POTASSIUM 4.2 mmol/L (3.6-5.0); SODIUM 141.7 mmol/L (137-145); TOTAL PROTEIN 6.9 g/dL (6.3-8.2)
[2018-09-16 11:38] LABS: NT PRO BNP 3540 pg/mL (5-900)
[2018-09-16 11:40] LABS: TROPONIN I < 0.012 ng/mL
[2018-09-16] MEDS ORDERED: METOPROLOL SUCCINATE 50 MG TAB.SR.24H PO ONE (11:56)
--- NOTE | 2018-09-16 12:53 | EKG REPORT ---
SEVERITY:- ABNORMAL ECG - ATRIAL FIBRILLATION, V-RATE 64-90 RIGHT BUNDLE BRANCH BLOCK : Confirmed by: Antonio Stuart MD 16-Sep-2018 12:52:46
[2018-09-16] MEDS ORDERED: ALBUTEROL SULFATE 0.083% NEB 2.5 MG/3 ML AMPUL NEB ONE (13:25)
--- NOTE | 2018-09-16 13:35 | ER Document Report ---
ED General - General Chief Complaint: Facial Swelling Stated Complaint: SWOLLEN FACE Time Seen by Provider: 09/16/18 10:24 TRAVEL OUTSIDE OF THE [place] IN LAST 30 DAYS: No - HPI Patient complains to provider of: Swelling of her face difficulty breathing Notes: Patient coming in for evaluation as stated above patient was seen by her triage provider whose note is provided below 62-year-old female here with complaints of shortness of breath and facial swelling ongoing for the past 1-2 months. She states that she has been here for this several times and has been placed on prednisone. She is currently on a prednisone taper and today has taken 2 tablets and then tomorrow will take 1 tablet. She is here because her symptoms have persisted and have not improved. She has not yet followed up with her PCP Dr. Pimentel. Patient does agree with this assessment provided above. Upon my evaluation patient is resting comfortably no signs of any obvious distress. Patient states she has not taken any of her medications earlier this morning. Patient states that she does continue to smoke and does not understand why she continues to have shortness of breath. Patient denies any recent travel patient was recently admitted to the hospital back in August for exacerbation of her COPD asthma. Patient states she did complete her prednisone course at that time was recently started on another prednisone taper. Patient denies any weight gain denies any orthopnea. Patient states compliance with her medications over the last few days does not take her a.m. doses. Patient denies fevers chills chest pain abdominal pain A brief review of the patient's past medical records available in [employer] was performed - Related Data Allergies/Adverse Reactions: No Known Allergies Allergy (Verified 09/16/18 10:04) Past Medical History - Social History Smoking Status: Current Some Day Smoker Chew tobacco use (# tins/day): No Frequency of alcohol use: None Drug Abuse: None Family History: Arthritis, CAD, CVA, DM, Hyperlipidemia, Hypertension, Malignancy Patient has suicidal ideation: No Patient has homicidal ideation: No - Past Medical History Cardiac Medical History: Reports: Hx Atrial Fibrillation, Hx Congestive Heart Failure, Hx Hypercholesterolemia, Hx Hypertension Pulmonary Medical History: Reports: Hx Asthma, Hx Bronchitis, Hx COPD, Hx Pn e[place], Hx Respiratory Failure, Hx Sleep Apnea Denies: Hx Tuberculosis Neurological Medical History: Reports: Hx Cerebrovascular Accident. Denies: Hx Seizures Endocrine Medical History: Reports: Hx Diabetes Mellitus Type 2 - prediabetic.. Denies: Hx Diabetes Mellitus Type 1, Hx Hyperthyroidism, Hx Hypothyroidism Renal/ Medical History: Denies: Hx Peritoneal Dialysis GI Medical History: Denies: Hx Cirrhosis, Hx Crohn's Disease, Hx Hepatitis, Hx Ulcerative Colitis Musculoskeletal Medical History: Reports Hx Arthritis, Denies Hx Gout, Reports Hx Musculoskeletal Deformity Skin Medical History: Denies Hx Eczema, Denies Hx Psoriasis Psychiatric Medical History: Denies: Hx Depression Traumatic Medical History: Denies: Hx Traumatic Brain Injury Infectious Medical History: Denies: Hx Hepatitis Past Surgical History: Reports: Hx Section - X2, Hx Orthopedic Surgery - Bilateral knee replacement, Hx Tubal Ligation, Other - D&C right groin cyst. - Immunizations Hx Diphtheria, Pertussis, Tetanus Vaccination: Yes Hx Pneumococcal Vaccination: 07/08/13 Review of Systems - Review of Systems Constitutional: Other - Swelling of the face EENT: No symptoms reported Cardiovascular: No symptoms reported Respiratory: Short of breath, Wheezing Gastrointestinal: No symptoms reported Genitourinary: No symptoms reported Female Genitourinary: No symptoms reported Musculoskeletal: No symptoms reported Skin: No symptoms reported Hematologic/Lymphatic: No symptoms reported Neurological/Psychological: No symptoms reported -: Yes All other systems reviewed and negative Physical Exam - Vital signs Vitals: Temp Pulse Resp BP Pulse Ox 97.9 F 105 H 24 H 140/83 H 97 09/16/18 10:11 09/16/18 10:11 09/16/18 10:11 09/16/18 10:11 09/16/18 10:11 Interpretation: Normal - General General appearance: Appears well, Alert - HEENT Head: Normocephalic - Patient does have some symmetrical swelling of her face which looks to be more consistent with chronic steroid use no signs of airway compromise, Atraumatic Eyes: Normal Pupils: PERRL Pharynx: Normal Neck: Normal - Respiratory Respiratory status: No respiratory distress Chest status: Nontender Breath sounds: Rhonchi, Wheezing Chest palpation: Normal - Cardiovascular Rhythm: Regular Heart sounds: Normal auscultation Murmur: No - Abdominal Inspection: Normal Distension: No distension Bowel sounds: Normal Tenderness: Nontender Organomegaly: No organomegaly - Back Back: Normal, Nontender - Extremities General upper extremity: Normal inspection, Nontender, Normal color, Normal ROM, Normal temperature General lower extremity: Normal inspection, Nontender, Normal color, Normal ROM, Normal temperature, Normal weight bearing. No: Skip's sign - Neurological Neuro grossly intact: Yes Cognition: Normal Orientation: AAOx4 Guillermo Coma Scale Eye Opening: Spontaneous [place] Coma Scale Verbal: Oriented Guillermo Coma Scale Motor: Obeys Commands Guillermo Coma Scale Total: 15 Speech: Normal Motor strength normal: LUE, RUE, LLE, RLE Sensory: Normal - Psychological Associated symptoms: Normal affect, Normal mood - Skin Skin Temperature: Warm Skin Moisture: Dry Skin Color: Normal Course - Re-evaluation Re-evalutation: 09/16/18 17:53 Patient was able to ambulate around the ER with no signs of hypoxia. Patient was given her morning dose of Lasix and her morning dose of metoprolol for her underlying atrial fibrillation. I did explain to the patient at a nausea and that she continues to smoke that her COPD asthma will continue to exacerbate did explain to the patient that she will need to stop smoking completely will add Atrovent to her adjunct her breathing treatments. Patient states understanding will be discharged home. - Vital Signs Vital signs: Temp Pulse Resp BP Pulse Ox 97.8 F 98 29 H 137/96 H 100 09/16/18 15:00 09/16/18 15:59 09/16/18 15:00 09/16/18 15:00 09/16/18 15:59 - Laboratory Result Diagrams: 09/16/18 10:40 09/16/18 10:40 Laboratory results interpreted by me: 09/16/18 09/16/18 09/16/18 10:40 10:40 10:40 WBC 13.3 H Hgb 11.0 L Hct 34.1 L MCH 26.2 L RDW 17.2 H Seg Neuts % (Manual) 81 H Band Neutrophils % 2 L Lymphocytes % (Manual) 11 L Abs Neuts (Manual) 11.0 H Chloride 108 H BUN 22 H Est GFR (Non-Af Amer) 57 L Glucose 187 H AST 39 H ALT 55 H NT-Pro-B Natriuret Pep 3540 H Discharge - Discharge Clinical Impression: Tobacco abuse, Chronic atrial fibrillation Asthma Qualifiers: Asthma severity: mild Asthma persistence: unspecified Asthma complication type: unspecified Qualified Code(s): J45.909 - Unspecified asthma, uncomplicated Condition: Good Disposition: HOME, SELF-CARE Instructions: Asthma ([facility]) Additional Instructions: Completely stop smoking. You have COPD and asthma he will continue to have shortness of breath if you continue to smoke. Please take your medications as previously prescribed can also add the Atrovent as prescribed to your nebulizer regiment used Atrovent in your nebulizer 1 treatment every 12 hours. Continue to take your steroids and follow-up with your primary care physician. Prescriptions: Ipratropium [place] [Atrovent 0.02% Neb 0.5 Mg/2.5 Ml Vial.Neb] 0.5 mg IH BID #60 vial.neb Forms: Smoking Cessation Education Referrals: JHON PIMENTEL MD [Primary Care Provider] - Follow up in 3-5 days
[2018-09-16] MEDS ORDERED: FUROSEMIDE 40 MG TABLET PO ONE (14:18)
[2018-09-16 15:01] VITALS: BP 137/96
== END 2018-09-16 15:18 | disposition home or self-care (01) ==
LOC: ER 10:00
DX: J45.20 Mild intermittent asthma, uncomplicated (principal); J44.9 Chronic obstructive pulmonary disease, unspecified; R22.0 Localized swelling, mass and lump, head; F17.200 Nicotine dependence, unspecified, uncomplicated; I11.0 Hypertensive heart disease with heart failure; I50.9 Heart failure, unspecified; Z86.73 Personal history of transient ischemic attack (TIA), and cerebral infarction without residual deficits; E11.9 Type 2 diabetes mellitus without complications
CPT/HCPCS: 93005; 94640 ×2; 99284; 36415; 85025; 80053; 84484; 83880; 71046; 93010; A9270 ×4; J7620

== ENCOUNTER 2018-10-03 15:48 | Inpatient (IN) | payer MEDICARE, MEDICAID ==
--- NOTE | 2018-10-03 16:07 | ER Document Report ---
ED General - General Chief Complaint: Respiratory Distress Stated Complaint: DIFFICULTY BREATHING Time Seen by Provider: 10/03/18 16:05 Mode of Arrival: Medic Information source: Patient TRAVEL OUTSIDE OF THE [place] IN LAST 30 DAYS: No - HPI Patient complains to provider of: Shortness of breath Onset: Other - 62-year-old female with COPD as well as heart failure that presents for the third time over the last month and a half for evaluation of shortness of breath and wheezing notes that she had gotten up to go from the bathroom into the kitchen to do some cooking at which time she had initiation of marked shortness of breath and then some pain along the right side of her breast. Nothing is made it better or worse she is not try anything to try and help with it since that time. She notes that anytime she tries to do anything she gets much much short of breath. - Related Data Allergies/Adverse Reactions: No Known Allergies Allergy (Verified 10/03/18 15:53) Past Medical History - General Information source: Patient - Social History Smoking Status: Former Smoker Family History: Arthritis, CAD, CVA, DM, Hyperlipidemia, Hypertension, Malignancy - Past Medical History Cardiac Medical History: Reports: Hx Atrial Fibrillation, Hx Congestive Heart Failure, Hx Hypercholesterolemia, Hx Hypertension Pulmonary Medical History: Reports: Hx Asthma, Hx Bronchitis, Hx COPD, Hx Pneumonia, Hx Respiratory Failure, Hx Sleep Apnea Denies: Hx Tuberculosis Neurological Medical History: Reports: Hx Cerebrovascular Accident. Denies: Hx Seizures Endocrine Medical History: Reports: Hx Diabetes Mellitus Type 2 - prediabetic.. Denies: Hx Diabetes Mellitus Type 1, Hx Hyperthyroidism, Hx Hypothyroidism Renal/ Medical History: Denies: Hx Peritoneal Dialysis GI Medical History: Denies: Hx Cirrhosis, Hx Crohn's Disease, Hx Hepatitis, Hx Ulcerative Colitis Musculoskeletal Medical History: Reports Hx Arthritis, Denies Hx Gout, Reports Hx Musculoskeletal Deformity Skin Medical History: Denies Hx Eczema, Denies Hx Psoriasis Psychiatric Medical History: Denies: Hx Depression Traumatic Medical History: Denies: Hx Traumatic Brain Injury Infectious Medical History: Denies: Hx Hepatitis Past Surgical History: Reports: Hx Section - X2, Hx Orthopedic Surgery - Bilateral knee replacement, Hx Tubal Ligation, Other - D&C right groin cyst. - Immunizations Hx Diphtheria, Pertussis, Tetanus Vaccination: Yes Hx Pneumococcal Vaccination: 07/08/13 Review of Systems - Review of Systems -: Yes All other systems reviewed and negative Physical Exam - Vital signs Vitals: Resp Pulse Ox 25 H 100 10/03/18 15:54 10/03/18 15:54 - General General appearance: Anxious - HEENT Head: Normocephalic Eyes: Normal Conjunctiva: Normal Cornea: Normal Extraocular movements intact: Yes Eyelashes: Normal Pupils: PERRL - Respiratory Respiratory status: Tachypnea Chest status: Tender Breath sounds: Decreased air movement, Wheezing Chest palpation: Normal - Cardiovascular Rhythm: Irregularly irregular, Tachycardia - Abdominal Inspection: Normal Distension: No distension Tenderness: Nontender - Back Back: Normal - Extremities General upper extremity: Normal inspection, Nontender, Normal ROM, Normal strength General lower extremity: Normal inspection, Nontender, Edema, Normal ROM - Neurological Neuro grossly intact: Yes Cognition: Normal Orientation: AAOx4 [place] Coma Scale Eye Opening: Spontaneous Guill[place] Coma Scale Verbal: Oriented [place] Coma Scale Motor: Obeys Commands Guillermo Coma Scale Total: 15 Cranial nerves: Normal Motor strength normal: LUE, RUE, LLE, RLE - Psychological Associated symptoms: Normal affect, Normal mood Course - Re-evaluation Re-evalutation: 62-year-old female who presents for shortness of breath in the setting of COPD as well as CHF. On examination she is grossly fluid overloaded, assessment of previous laboratory evaluation on previous visits is notable that this patient has responded well to IV diuretics observation reassessment. We will administer IV diuretic and reassess, she is received also nebulization as she does have an element of wheezing and does have COPD. On reassessment the patient is slightly improved after administration DuoNeb. Upon any movement this patient demonstrates marked tachycardia as well as profound dyspnea with a respiratory rate of approximately 30. Following several hours of observation with reassessment this patient continues to demonstrate marked tachycardia and tachypnea upon any movement. Believe that she would benefit from observation diuresis reassessment. Will administer another DuoNeb at this time as she is having some element of wheezing. She has had 2 troponins which I do not believe represent a significant risk for ACS at this time. - Vital Signs Vital signs: Temp Pulse Resp BP Pulse Ox 97.9 F 129 H 20 127/87 H 100 10/03/18 23:01 10/03/18 23:55 10/03/18 23:55 10/03/18 23:01 10/03/18 23:55 - Laboratory Result Diagrams: 10/03/18 15:58 10/03/18 16:46 Laboratory results interpreted by me: 10/03/18 10/03/18 10/03/18 15:58 16:46 16:46 Hgb 11.2 L Hct 34.0 L MCH 26.4 L RDW 17.8 H Chloride 108 H BUN 26 H Creatinine 1.34 H Est GFR ( Amer) 48 L Est GFR (Non-Af Amer) 40 L NT-Pro-B Natriuret Pep 2870 H Discharge - Discharge Clinical Impression: Shortness of breath CHF (congestive heart failure) Qualifiers: Heart failure type: unspecified Heart failure chronicity: unspecified Qualified Code(s): I50.9 - Heart failure, unspecified Afib Qualifiers: Atrial fibrillation type: unspecified Qualified Code(s): I48.91 - Unspecified atrial fibrillation Condition: Stable Disposition: ADMITTED INPATIENT Admitting Provider: Hospitalist Unit Admitted: Telemetry
[2018-10-03 16:16] LABS: ABSOLUTE BASOPHILS # (AUTO) 0.1 10^3/uL (0.0-0.2); ABSOLUTE EOSINOPHILS # (AUTO) 0.2 10^3/uL (0.0-0.6); ABSOLUTE LYMPHOCYTES (AUTO) 2.6 10^3/uL (0.5-4.7); ABSOLUTE MONOCYTES (AUTO) 0.9 10^3/uL (0.1-1.4); ABSOLUTE NEUT (AUTO) 4.7 10^3/uL (1.7-8.2); BASOPHILS % (AUTO) 0.9 % (0-2); HEMOGLOBIN 11.2 g/dL (12.0-15.5); LYMPHOCYTES % (AUTO) 30.6 % (13-45); MEAN CORPUSCULAR HEMOGLOBIN 26.4 pg (27.0-33.4); MEAN CORPUSCULAR HGB CONC 32.8 g/dL (32.0-36.0); MEAN CORPUSCULAR VOLUME 81 fl (80-97); PLATELET COUNT 230 10^3/uL (150-450); RED BLOOD COUNT 4.23 10^6/uL (3.72-5.28); RED CELL DISTRIBUTION WIDTH 17.8 % (11.5-14.0); SEGMENTED NEUTROPHILS % (AUTO) 55.5 % (42-78); TOTAL CELLS COUNTED % (AUTO) 100 %; WHITE BLOOD COUNT 8.5 10^3/uL (4.0-10.5)
[2018-10-03 16:29] LABS: INTERNATIONAL RATION (INR) 1.16; PROTHROMBIN TIME 15.4 SEC (11.4-15.4)
--- NOTE | 2018-10-03 16:54 | RADIOLOGY REPORT (SQ) ---
EXAM DESCRIPTION: CHEST SINGLE VIEW COMPLETED DATE/TIME: 10/03/2018 4:30 pm REASON FOR STUDY: short of breath COMPARISON: None. EXAM PARAMETERS: NUMBER OF VIEWS: One view. TECHNIQUE: Single frontal radiographic view of the chest acquired. RADIATION DOSE: NA LIMITATIONS: None. FINDINGS: LUNGS AND PLEURA: No opacities, masses or pneumothorax. No pleural effusion. MEDIASTINUM AND HILAR STRUCTURES: No masses. Contour normal. HEART AND VASCULAR STRUCTURES: Cardiomegaly. No pulmonary edema. BONES: No acute findings. HARDWARE: None in the chest. OTHER: No other significant finding. IMPRESSION: Cardiomegaly without pulmonary edema. TECHNICAL DOCUMENTATION: JOB ID: [id number] [employer]- All Rights Reserved Reading location - IP/workstation name: [email or web address]
[2018-10-03 17:10] LABS: ALANINE AMINOTRANSFERASE 45 U/L (9-52); ALBUMIN 4.3 g/dL (3.5-5.0); ALKALINE PHOSPHATASE 88 U/L (38-126); ANION GAP 9 (5-19); ASPARTATE AMINO TRANSFERASE 29 U/L (14-36); BILIRUBIN,DIRECT 0.1 mg/dL (0.0-0.4); BILIRUBIN,TOTAL 0.4 mg/dL (0.2-1.3); BLOOD UREA NITROGEN 26 mg/dL (7-20); CALCIUM 9.5 mg/dL (8.4-10.2); CARBON DIOXIDE 25 mmol/L (22-30); CHLORIDE 108 mmol/L (98-107); CREATINE KINASE 65 U/L (30-135); GLUCOSE 97 mg/dL (75-110); POTASSIUM 4.4 mmol/L (3.6-5.0); SODIUM 141.6 mmol/L (137-145); TOTAL PROTEIN 7.2 g/dL (6.3-8.2)
[2018-10-03 17:21] LABS: CREATINE KINASE MB 0.77 ng/mL (<4.55); NT PRO BNP 2870 pg/mL (5-900)
[2018-10-03 17:23] LABS: TROPONIN I < 0.012 ng/mL
[2018-10-03] MEDS ORDERED: FUROSEMIDE INJ/PF 40 MG/4 ML SDV IV ONE (17:33)
[2018-10-03] MEDS ORDERED: IPRATROPIUM/ALBUTEROL 0.5-2.5 MG/3 ML AMPUL NEB ONE ×2 (18:35→22:37)
[2018-10-03] MEDS ORDERED: MAGNESIUM HYDROXIDE SUSP 30 ML UDCUP PO PRN (21:23)
[2018-10-03] MEDS ORDERED: ONDANSETRON HCL INJ/PF 4 MG/2 ML SDV IV PRN (21:23)
[2018-10-03] MEDS ORDERED: ONDANSETRON 4 MG TAB.RAPDIS PO PRN (21:23)
[2018-10-03] MEDS ORDERED: MAG HYDROX/AL HYDROX/SIMETH SUSP 30 ML UDCUP PO PRN (21:23)
[2018-10-03] MEDS ORDERED: MELATONIN 1 MG TABLET PO PRN (21:27)
[2018-10-03] MEDS ORDERED: ACETAMINOPHEN 650 MG SUPP.RECT PR PRN (21:34)
[2018-10-03] MEDS ORDERED: NICOTINE 21 MG/24 HR PATCH.TD24 TD PRN (21:34)
[2018-10-03] MEDS ORDERED: ALBUTEROL SULFATE 0.083% NEB 2.5 MG/3 ML AMPUL NEB PRN (21:34)
[2018-10-03] MEDS: ACETAMINOPHEN 325 MG TABLET PO PRN (22:48)
--- NOTE | 2018-10-03 22:52 | EKG REPORT ---
SEVERITY:- ABNORMAL ECG - ATRIAL FIBRILLATION, V-RATE 68-120 RIGHT BUNDLE BRANCH BLOCK : Confirmed by: Shirley Moreland MD 03-Oct-2018 22:51:30
--- NOTE | 2018-10-03 22:52 | EKG REPORT ---
SEVERITY:- ABNORMAL ECG - ATRIAL FIBRILLATION, V-RATE 93-139 RIGHT BUNDLE BRANCH BLOCK : Confirmed by: Shirley Moreland MD 03-Oct-2018 22:52:02
[2018-10-03] MEDS ORDERED: FAMOTIDINE 20 MG TABLET PO ONE (23:00)
[2018-10-03] MEDS ORDERED: ATORVASTATIN CALCIUM 40 MG TABLET PO ONE (23:00)
[2018-10-03] MEDS ORDERED: MONTELUKAST SODIUM 10 MG TABLET PO ONE (23:00)
[2018-10-03] MEDS ORDERED: HYDRALAZINE HCL 50 MG TABLET PO ONE (23:00)
[2018-10-03] MEDS ORDERED: BUDESONIDE NEB 0.5 MG/2 ML AMPUL NEB ONE (23:00)
[2018-10-03] MEDS: LEVALBUTEROL HCL NEB 1.25 MG/3 ML AMPUL NEB SCH (23:52)
[2018-10-03] MEDS: IPRATROPIUM BROMIDE 0.02% NEB 0.5 MG/2.5 ML AMPUL NEB SCH (23:52)
[2018-10-04] MEDS: METHYLPREDNISOLONE INJ 40 MG/1 ML SDV IV SCH ×3 (00:04→11:27)
--- NOTE | 2018-10-04 01:43 | PDOC H&P ---
History of Present Illness Admission Date/PCP: JHON PIMENTEL MD Patient complains of: Dyspnea History of Present Illness: JOLIE CAMARA is a 62 year old female who presented to the emergency room with a 1 day history of dyspnea. She admits that on the afternoon of admission she had arrived home after a busy morning doing laundry and while she was preparing to cook turkey wings for supper she developed moderate to severe dyspnea which did not respond well to nebulizer therapy or use of her CPAP at home. Because she was not getting relief with treatments available to her she came to the emergency room for assistance. She describes her dyspnea as severe and denies any accompanying symptoms. She admits numerous similar episodes of dyspnea in the past with her COPD and with CHF. She has not identified any aggravating or ameliorating factors for her dyspnea earlier today. In the emergency room she was found to be hypoxic with initial improvement after an aggressive nebulizer therapy regiment and supplemental oxygen. She continued to do reasonably well except she would become extremely dyspneic and hypoxic with any activity. As such she was admitted to the hospital for further evaluation and treatment of her acute exacerbation of COPD. Past Medical History Cardiac Medical History: Reports: Atrial Fibrillation, Congestive Heart Failure, Hyperlipidema, Hypertension Pulmonary Medical History: Reports: Asthma, Bronchitis, Chronic Obstructive Pulmonary Disease (COPD), Pneumonia, Respiratory Failure, Sleep Apnea Denies: Tuberculosis EENT Medical History: Reports: None Neurological Medical History: Denies: Hemorrhagic CVA, Ischemic CVA, Multiple Sclerosis, Seizures Endocrine Medical History: Reports: Diabetes Mellitus Type 2 - prediabetic., Obesity Denies: Diabetes Mellitus Type 1, Hyperthyroidism, Hypothyroidism Renal/ Medical History: Denies: Chronic Kidney Disease, Nephrolithiasis Malignancy Medical History: Reports: None GI Medical History: Denies: Cirrhosis, Crohn's Disease, Hepatitis, Ulcerative Colitis Musculoskeltal Medical History: Reports: Arthritis Denies: Gout Skin Medical History: Denies: Eczema, Psoriasis Psychiatric Medical History: Reports: Tobacco Dependency Denies: Alcohol Dependency, Depression, Substance Abuse Traumatic Medical History: Reports: None Hematology: Denies: Anemia, Sickle Cell Disease, Bleeding Tendencies Infectious Medical History: Reports: None Past Surgical History Past Surgical History: Reports: Section - X2, Orthopedic Surgery - Bilateral knee replacement, Tubal Ligation, Other - D&C, right groin cyst. Social History Information Source: Patient Lives with: Alone Smoking Status: Former Smoker Frequency of Alcohol Use: None Hx Recreational Drug Use: No Drugs: None Hx Prescription Drug Abuse: No - Advance Directive Resuscitation Status: Full Code Surrogate healthcare decision maker:: Anette Camara Family History Family History: Arthritis, CAD, CVA, DM, Hyperlipidemia, Hypertension, Malignancy Parental Family History Reviewed: Yes Children Family History Reviewed: No Sibling(s) Family History Reviewed.: Yes Medication/Allergy Home Medications: Albuterol Sulfate [Proair HFA] 2 puff IH QID 11/27/17 Apixaban [Eliquis 5 mg Tablet] 5 mg PO BID 11/27/17 Atorvastatin Calcium [Lipitor 40 mg Tablet] 40 mg PO QHS 11/27/17 Metoprolol Succinate [Toprol Xl 50 mg Tab.sr] 50 mg PO DAILY 11/27/17 Montelukast Sodium [Singulair 10 mg Tablet] 10 mg PO QHS 11/27/17 Amlodipine Besylate [Norvasc 10 mg Tablet] 10 mg PO DAILY #30 tablet 12/02/17 Hydralazine HCl [Apresoline 50 mg Tablet] 25 mg PO Q8 #60 tablet 12/02/17 Acetaminophen [Tylenol 325 mg Tablet] 650 mg PO Q6HP PRN 08/10/18 Cholecalciferol (Vitamin D3) [Vitamin D3] 1,000 unit PO DAILY 08/10/18 Fluticasone/Salmeterol [Advair 250-50 Diskus 14 Dose/Diskus] 1 puff IN BID 10/27 Furosemide [Lasix 40 mg Tablet] 40 mg PO BID 08/10/18 Iron 65 65 mg PO DAILY 08/10/18 Lisinopril [Prinivil 40 mg Tablet] 40 mg PO DAILY 08/10/18 Magnesium Oxide [Magox] 400 mg PO DAILY 08/10/18 Melatonin [Melatonin 1 mg Tablet] 1 mg PO HSP PRN 08/10/18 Nicotine [Nicoderm 7 mg/24 Hr Transdermal Patch] 1 patch TD DAILY 08/10/18 Ipratropium/Albuterol Sulfate [Duoneb 3 ml Ampul] 3 ml NEB RTQ4 PRN #20 vial.neb 08/13/18 Prednisone [Deltasone 20 mg Tablet] 20 mg PO BID #10 tablet 08/13/18 Tiotropium [place] [Spiriva Handihaler 5 Cap/Kit (18 Mcg/Cap)] 1 cap IH DAILY #5 capsule 08/13/18 Torsemide [Demadex 20 mg Tablet] 20 mg PO BID tablet 08/13/18 Prednisone [Deltasone 10 mg Tablet] 10 mg PO ASDIR PRN #21 tablet 09/11/18 Ipratropium [place] [Atrovent 0.02% Neb 0.5 Mg/2.5 Ml Vial.Neb] 0.5 mg IH BID #60 vial.neb 09/16/18 Allergies/Adverse Reactions: No Known Allergies Allergy (Verified 10/03/18 15:53) Review of Systems Constitutional: ABSENT: chills, fever(s) Eyes: ABSENT: visual disturbances, other - Ocular pain Ears: ABSENT: hearing changes, other - Ear pain Nose, Mouth, and Throat: ABSENT: mouth pain, sore throat Cardiovascular: PRESENT: dyspnea on exertion. ABSENT: chest pain, edema, orthropnea, palpitations Respiratory: PRESENT: dyspnea. ABSENT: cough Gastrointestinal: ABSENT: abdominal pain, constipation, diarrhea, nausea, vomiting Genitourinary: ABSENT: dysuria, hematuria Integumentary: ABSENT: pruritus, rash Neurological: ABSENT: confusion, convulsions, memory loss, tremor(s) Psychiatric: ABSENT: anxiety, depression Endocrine: ABSENT: cold intolerance, heat intolerance Hematologic/Lymphatic: ABSENT: easy bleeding, easy bruising Physical Exam Vital Signs: Temp Pulse Resp BP Pulse Ox 97.3 F 102 H 26 H 105/75 99 10/03/18 21:20 10/03/18 21:20 10/03/18 21:20 10/03/18 21:20 10/03/18 21:20 Intake & Output 10/01/18 10/02/18 10/03/18 23:59 23:59 23:59 Weight 90.718 kg General appearance: PRESENT: no acute distress, cooperative, obese Head exam: PRESENT: atraumatic, normocephalic Eye exam: PRESENT: conjunctiva pink, EOMI. ABSENT: scleral icterus Ear exam: PRESENT: normal external ear exam. ABSENT: bleeding, drainage Mouth exam: PRESENT: dry mucosa, neck supple Neck exam: ABSENT: thyromegaly, tracheal deviation Respiratory exam: PRESENT: decreased breath sounds - Moderately decreased breath sounds throughout all yanez consistent with moderate to severe COPD. Very poor air movement noted on exam., prolonged expiratory phas - Moderately prolonged expiratory phase in all yanez, symmetrical, wheezes - Tight end expiratory wheezes noted in all yanez Cardiovascular exam: PRESENT: RRR. ABSENT: clicks, gallop, rubs Pulses: PRESENT: normal radial pulses, normal dorsalis pedis pul Vascular exam: PRESENT: normal capillary refill. ABSENT: pallor GI/Abdominal exam: PRESENT: normal bowel sounds, soft. ABSENT: tenderness Rectal exam: PRESENT: deferred Extremities exam: ABSENT: joint swelling, pedal edema, tenderness Musculoskeletal exam: ABSENT: deformity, dislocation Neurological exam: PRESENT: alert, oriented to person, oriented to place, oriented to time, oriented to situation, CN II-XII grossly intact. ABSENT: motor sensory deficit Psychiatric exam: PRESENT: appropriate affect, normal mood Skin exam: PRESENT: dry, intact, warm. ABSENT: jaundice, rash, urticaria Results Laboratory Results: 10/03/18 15:58 10/03/18 16:46 10/03/18 10/03/18 10/03/18 15:58 15:58 16:46 WBC 8.5 RBC 4.23 Hgb 11.2 L Hct 34.0 L MCV 81 MCH 26.4 L MCHC 32.8 RDW 17.8 H Plt Count 230 Seg Neutrophils % 55.5 Lymphocytes % 30.6 Monocytes % 11.0 Eosinophils % 2.0 Basophils % 0.9 Absolute Neutrophils 4.7 Absolute Lymphocytes 2.6 Absolute Monocytes 0.9 Absolute Eosinophils 0.2 Absolute Basophils 0.1 Sodium Cancelled 141.6 Potassium Cancelled 4.4 Chloride Cancelled 108 H Carbon Dioxide Cancelled 25 Anion Gap Cancelled 9 BUN Cancelled 26 H Creatinine Cancelled 1.34 H Est GFR ( Amer) Cancelled 48 L Est GFR (Non-Af Amer) Cancelled 40 L Glucose Cancelled 97 Calcium Cancelled 9.5 Total Bilirubin Cancelled 0.4 AST Cancelled 29 ALT Cancelled 45 Alkaline Phosphatase Cancelled 88 Total Protein Cancelled 7.2 Albumin Cancelled 4.3 10/03/18 10/03/18 10/03/18 15:58 15:58 16:46 Creatine Kinase Cancelled 65 CK-MB (CK-2) Cancelled Troponin I Cancelled NT-Pro-B Natriuret Pep Cancelled 10/03/18 10/03/18 16:46 19:50 Creatine Kinase CK-MB (CK-2) 0.77 Troponin I < 0.012 0.015 NT-Pro-B Natriuret Pep 2870 H Impressions: Chest X-Ray 10/03/18 16:06 IMPRESSION: Cardiomegaly without pulmonary edema. Assessment & Plan - Diagnosis (1) Acute exacerbation of COPD with asthma Is this a current diagnosis for this admission?: Yes Plan: Patient will be treated with an aggressive pulmonary toilet utilizing Xopenex, P ulmicort, Atrovent and albuterol given via nebulizer. She will also receive IV Solu-Medrol and she will be continued on her home nocturnal CPAP. She will receive supplemental oxygen as needed. (2) Acute on chronic respiratory failure with hypoxemia Is this a current diagnosis for this admission?: Yes Plan: Patient will be treated with supplemental oxygen as needed. She will be continued on her home CPAP for nocturnal use. (3) Pulmonary hypertension, moderate to severe Is this a current diagnosis for this admission?: Yes Plan: Patient will be continued on her home CPAP for nocturnal use and received supplemental oxygen as needed during her hospital course. (4) Chronic diastolic (congestive) heart failure Is this a current diagnosis for this admission?: Yes Plan: Patient will be continued on her usual medications for congestive heart failure with adjustments made on an as-needed basis. (5) Chronic atrial fibrillation Is this a current diagnosis for this admission?: Yes Plan: Patient will be continued on her usual rate control medications for atrial fibrillation with adjustments made on an as-needed basis. (6) Morbid obesity with BMI of 40.0-44.9, adult Is this a current diagnosis for this admission?: Yes Plan: Patient has been encouraged to lose weight and improve her overall health by making mcdowell lifestyle changes such as her recent discontinuation of smoking. (7) CKD (chronic kidney disease), stage III Is this a current diagnosis for this admission?: Yes Plan: Patient's renal functions be monitored on a regular basis with daily lab work including a CBC, basic metabolic profile and serum magnesium levels. - Time Time Spent: 30 to 50 Minutes Critical Time spent with patient: Less than 15 minutes Medications reviewed and adjusted accordingly: Yes Anticipated discharge: Home - Inpatient Certification Based on my medical assessment, after consideration of the patient's comorbidities, presenting symptoms, or acuity I expect that the services needed warrant INPATIENT care.: Yes I certify that my determination is in accordance with my understanding of Medicare's requirements for reasonable and necessary INPATIENT services [42 CFR 412.3e].: Yes Medical Necessity: Significant Comorbidiites Make Outpatient Treatment Too Risky, Need Close Monitoring Due to Risk of Patient Decompensation, Need for Nebulizer Therapy and Monitoring of Response, Risk of Complication if Not Cared For in Hospital
[2018-10-04] MEDS ORDERED: ATORVASTATIN CALCIUM 40 MG TABLET PO ONE (02:00)
[2018-10-04] MEDS ORDERED: FUROSEMIDE INJ/PF 40 MG/4 ML SDV IV ONE (02:00)
[2018-10-04] MEDS ORDERED: MONTELUKAST SODIUM 10 MG TABLET PO ONE (02:00)
[2018-10-04] MEDS ORDERED: FAMOTIDINE 20 MG TABLET PO ONE (02:00)
[2018-10-04] MEDS ORDERED: HYDRALAZINE HCL 50 MG TABLET PO ONE (02:00)
[2018-10-04] MEDS ORDERED: BUDESONIDE NEB 0.5 MG/2 ML AMPUL NEB ONE (02:00)
[2018-10-04 02:29] LABS: ABSOLUTE EOSINOPHILS # (AUTO) 0.2 10^3/uL (0.0-0.6); ABSOLUTE LYMPHOCYTES (AUTO) 2.2 10^3/uL (0.5-4.7); ABSOLUTE MONOCYTES (AUTO) 0.7 10^3/uL (0.1-1.4); BASOPHILS % (AUTO) 0.2 % (0-2); EOSINOPHILS % (AUTO) 2.6 % (0-6); HEMATOCRIT 32.1 % (36.0-47.0); HEMOGLOBIN 10.3 g/dL (12.0-15.5); LYMPHOCYTES % (AUTO) 35.9 % (13-45); MEAN CORPUSCULAR HEMOGLOBIN 25.8 pg (27.0-33.4); MEAN CORPUSCULAR HGB CONC 32.1 g/dL (32.0-36.0); MEAN CORPUSCULAR VOLUME 80 fl (80-97); MONOCYTES % (AUTO) 11.9 % (3-13); PLATELET COUNT 162 10^3/uL (150-450); RED CELL DISTRIBUTION WIDTH 17.3 % (11.5-14.0); SEGMENTED NEUTROPHILS % (AUTO) 49.4 % (42-78); TOTAL CELLS COUNTED % (AUTO) 100 %; WHITE BLOOD COUNT 6.1 10^3/uL (4.0-10.5)
[2018-10-04 02:45] LABS: ANION GAP 9 (5-19); BLOOD UREA NITROGEN 25 mg/dL (7-20); CALCIUM 9.3 mg/dL (8.4-10.2); CARBON DIOXIDE 25 mmol/L (22-30); CHLORIDE 109 mmol/L (98-107); GLUCOSE 102 mg/dL (75-110); POTASSIUM 3.9 mmol/L (3.6-5.0); SODIUM 142.5 mmol/L (137-145)
[2018-10-04 02:55] LABS: CREATINE KINASE MB 1.09 ng/mL (<4.55)
[2018-10-04 02:58] LABS: TROPONIN I < 0.012 ng/mL
[2018-10-04] MEDS: HYDRALAZINE HCL 50 MG TABLET PO SCH ×3 (06:08→21:38)
[2018-10-04] MEDS: LEVALBUTEROL HCL NEB 1.25 MG/3 ML AMPUL NEB SCH ×3 (08:07→23:24)
[2018-10-04] MEDS: IPRATROPIUM BROMIDE 0.02% NEB 0.5 MG/2.5 ML AMPUL NEB SCH ×3 (08:07→23:24)
[2018-10-04] MEDS: BUDESONIDE NEB 0.5 MG/2 ML AMPUL NEB SCH ×2 (08:07→20:11)
[2018-10-04 09:05] LABS: CREATINE KINASE MB 1.25 ng/mL (<4.55)
[2018-10-04 09:10] LABS: TROPONIN I < 0.012 ng/mL
[2018-10-04] MEDS ORDERED: (PENDING PHARMACY ID) (Cholecalciferol (Vitamin D3) [Vitamin D3] 1,000 UNIT) PO SCH (10:00)
[2018-10-04] MEDS ORDERED: (PENDING PHARMACY ID) (Iron 65 65 MG) PO SCH (10:00)
[2018-10-04] MEDS ORDERED: TORSEMIDE 20 MG TABLET PO SCH (10:00)
[2018-10-04] MEDS ORDERED: (PENDING PHARMACY ID) (Lisinopril [Prinivil 40 Mg Tablet] 20 MG) PO SCH (10:00)
[2018-10-04] MEDS: METOPROLOL SUCCINATE 50 MG TAB.SR.24H PO SCH (11:22)
[2018-10-04] MEDS: TIOTROPIUM BROMIDE DPI 5 CAP/KIT (18 MCG/CAP) IH SCH (11:22)
[2018-10-04] MEDS: APIXABAN 5 MG TABLET PO SCH ×2 (11:23→18:13)
[2018-10-04] MEDS: CHOLECALCIFEROL (D3) 1,000 UNIT TABLET PO SCH (11:23)
[2018-10-04] MEDS: MAGNESIUM OXIDE 400 MG TABLET PO SCH (11:23)
[2018-10-04] MEDS: LISINOPRIL 10 MG TABLET PO SCH (11:23)
[2018-10-04] MEDS: DOCUSATE SODIUM 100 MG CAPSULE PO SCH ×2 (11:23→18:13)
[2018-10-04] MEDS: FERROUS SULFATE 325 MG TABLET PO SCH (11:24)
[2018-10-04] MEDS: FAMOTIDINE 20 MG TABLET PO SCH ×2 (11:24→21:38)
[2018-10-04 14:24] LABS: CREATINE KINASE MB 1.25 ng/mL (<4.55)
[2018-10-04 14:28] LABS: TROPONIN I < 0.012 ng/mL
--- NOTE | 2018-10-04 17:02 | PDOC PROGRESS REPORT ---
Subjective Progress Note for:: 10/04/18 Subjective:: JOLIE CAMARA is a 62 year old female who presented to the emergency room with a 1 day history of dyspnea. She admits that on the afternoon of admission she had arrived home after a busy morning doing laundry and while she was preparing to cook turkey wings for supper she developed moderate to severe dyspnea which did not respond well to nebulizer therapy or use of her CPAP at home. Because she was not getting relief with treatments available to her she came to the emergency room for assistance. She describes her dyspnea as severe and denies any accompanying symptoms. She admits numerous similar episodes of dyspnea in the past with her COPD and with CHF. She has not identified any aggravating or ameliorating factors for her dyspnea earlier today. In the emergency room she was found to be hypoxic with initial improvement after an aggressive nebulizer therapy regiment and supplemental oxygen. She continued to do reasonably well except she would become extremely dyspneic and hypoxic with any activity. As such she was admitted to the hospital for further evaluation and treatment of her acute exacerbation of COPD. 10/04/2018. Patient stated that she is feeling much better still gets shortness of breath on exertion. She denies any fever, chest pain, nausea, vomiting, diarrhea patient or any urinary symptoms. Reason For Visit: SHORTNESS OF BREATH/CHF/AFIB Physical Exam Vital Signs: Temp Pulse Resp BP Pulse Ox 97.5 F 119 H 22 H 128/101 H 100 10/04/18 12:00 10/04/18 14:00 10/04/18 12:00 10/04/18 12:00 10/04/18 12:00 Pulse Oximeter Continuous Start: 10/03/18 21:48 Freq: RTQ4 Status: Complete Protocol: Document 10/03/18 23:55 CMI (Rec: 10/03/18 23:56 CMI [id number]) Pulse Oximetry Assessment Equipment Usage Equipment Standby Continuous SpO2 Machine # x Intake & Output 10/03/18 10/04/18 10/05/18 06:59 06:59 06:59 Output Total 1000 Balance -1000 Weight 137.5 kg General appearance: PRESENT: morbidly obese Head exam: PRESENT: atraumatic, normocephalic Respiratory exam: PRESENT: clear to auscultation tao, prolonged expiratory phas, wheezes - Expiratory wheezes. ABSENT: rales, rhonchi Cardiovascular exam: PRESENT: RRR. ABSENT: diastolic murmur, rubs, systolic murmur GI/Abdominal exam: PRESENT: normal bowel sounds, soft. ABSENT: distended, guarding, mass, organolmegaly, rebound, tenderness Extremities exam: PRESENT: full ROM. ABSENT: calf tenderness, clubbing, pedal edema Skin exam: PRESENT: dry, intact, warm. ABSENT: cyanosis, rash Results Laboratory Results: 10/04/18 02:20 10/04/18 02:20 10/03/18 10/04/18 10/04/18 16:46 02:20 02:20 WBC 6.1 RBC 4.00 Hgb 10.3 L Hct 32.1 L MCV 80 MCH 25.8 L MCHC 32.1 RDW 17.3 H Plt Count 162 Seg Neutrophils % 49.4 Lymphocytes % 35.9 Monocytes % 11.9 Eosinophils % 2.6 Basophils % 0.2 Absolute Neutrophils 3.0 Absolute Lymphocytes 2.2 Absolute Monocytes 0.7 Absolute Eosinophils 0.2 Absolute Basophils 0.0 Sodium 141.6 142.5 Potassium 4.4 3.9 Chloride 108 H 109 H Carbon Dioxide 25 25 Anion Gap 9 9 BUN 26 H 25 H Creatinine 1.34 H 1.29 H Est GFR ( Amer) 48 L 51 L Est GFR (Non-Af Amer) 40 L 42 L Glucose 97 102 Calcium 9.5 9.3 Magnesium 1.9 Total Bilirubin 0.4 AST 29 ALT 45 Alkaline Phosphatase 88 Total Protein 7.2 Albumin 4.3 10/03/18 10/03/18 10/03/18 15:58 15:58 16:46 Creatine Kinase Cancelled 65 CK-MB (CK-2) Cancelled Troponin I Cancelled NT-Pro-B Natriuret Pep Cancelled 10/03/18 10/03/18 10/03/18 16:46 19:50 22:00 Creatine Kinase Cancelled CK-MB (CK-2) 0.77 Troponin I < 0.012 0.015 NT-Pro-B Natriuret Pep 2870 H 10/03/18 10/04/18 10/04/18 22:00 02:20 02:20 Creatine Kinase 72 CK-MB (CK-2) Cancelled 1.09 Troponin I Cancelled < 0.012 NT-Pro-B Natriuret Pep 10/04/18 10/04/18 10/04/18 08:00 08:00 13:35 Creatine Kinase 83 90 CK-MB (CK-2) 1.25 Troponin I < 0.012 NT-Pro-B Natriuret Pep 10/04/18 13:35 Creatine Kinase CK-MB (CK-2) 1.25 Troponin I < 0.012 NT-Pro-B Natriuret Pep Impressions: Chest X-Ray 10/03/18 16:06 IMPRESSION: Cardiomegaly without pulmonary edema. Assessment & Plan - Diagnosis (1) Acute exacerbation of COPD with asthma Is this a current diagnosis for this admission?: Yes Plan: Continue aggressive pulmonary toilet utilizing Xopenex, Pulmicort, Atrovent and albuterol given via nebulizer. Day 2 of IV Solu-Medrol Continue home nocturnal CPAP. (2) Acute on chronic respiratory failure with hypoxemia Is this a current diagnosis for this admission?: Yes Plan: Likely secondary to COPD exacerbation. Continue treatment for COPD exacerbation. She will be continued on her home CPAP for nocturnal use. (3) CKD (chronic kidney disease), stage III Is this a current diagnosis for this admission?: Yes Plan: Nonoliguric. Sees Dr. Jo as outpatient. Electrolytes within normal limits. Monitor volume status and vitals. (4) Chronic atrial fibrillation Is this a current diagnosis for this admission?: Yes Plan: Rate controlled. Anticoagulated. Start home meds. Adjust if needed. (5) Chronic diastolic (congestive) heart failure Is this a current diagnosis for this admission?: Yes Plan: Patient recently had a 2D echo as outpatient. She stating that she was told that she has a normal ejection fraction. Restart home meds. Monitor volume status. (6) Morbid obesity with BMI of 45.0-49.9, adult Is this a current diagnosis for this admission?: No Plan: Advised on diet and lifestyle modification. (7) Pulmonary hypertension, moderate to severe Is this a current diagnosis for this admission?: Yes Plan: Start home meds. Monitor volume status. (8) LAYNE (obstructive sleep apnea) Is this a current diagnosis for this admission?: No Plan: Continue nocturnal CPAP.
[2018-10-04] MEDS: MONTELUKAST SODIUM 10 MG TABLET PO SCH (21:38)
[2018-10-04] MEDS: ATORVASTATIN CALCIUM 40 MG TABLET PO SCH (21:39)
[2018-10-05 05:59] LABS: ALANINE AMINOTRANSFERASE 41 U/L (9-52); ALBUMIN 4.1 g/dL (3.5-5.0); ALKALINE PHOSPHATASE 78 U/L (38-126); ANION GAP 8 (5-19); ASPARTATE AMINO TRANSFERASE 40 U/L (14-36); BILIRUBIN,DIRECT 0.2 mg/dL (0.0-0.4); BILIRUBIN,TOTAL 0.3 mg/dL (0.2-1.3); BLOOD UREA NITROGEN 38 mg/dL (7-20); CALCIUM 9.5 mg/dL (8.4-10.2); CARBON DIOXIDE 24 mmol/L (22-30); CHLORIDE 105 mmol/L (98-107); GLUCOSE 167 mg/dL (75-110); POTASSIUM 4.8 mmol/L (3.6-5.0); SODIUM 137.3 mmol/L (137-145)
[2018-10-05] MEDS: HYDRALAZINE HCL 50 MG TABLET PO SCH ×3 (06:06→21:03)
[2018-10-05 06:13] LABS: HEMATOCRIT 32.2 % (36.0-47.0); HEMOGLOBIN 10.5 g/dL (12.0-15.5); MEAN CORPUSCULAR HGB CONC 32.6 g/dL (32.0-36.0); MEAN CORPUSCULAR VOLUME 80 fl (80-97); PLATELET COUNT 163 10^3/uL (150-450); RED BLOOD COUNT 4.03 10^6/uL (3.72-5.28); RED CELL DISTRIBUTION WIDTH 17.5 % (11.5-14.0); WHITE BLOOD COUNT 10.3 10^3/uL (4.0-10.5)
[2018-10-05 06:24] LABS: ABSOLUTE MONOCYTES # (MANUAL) 0.3 10^3/uL (0.1-1.4); BASOPHILS % (MANUAL) 0 % (0-2); EOSINOPHILS % (MANUAL) 0 % (0-6); LYMPHOCYTES % (MANUAL) 10 % (13-45); MONOCYTES % (MANUAL) 3 % (3-13); SEGMENTED NEUTROPHILS % (MAN) 87 % (42-78); TOTAL CELLS COUNTED 100
[2018-10-05 06:26] LABS: ANISOCYTOSIS 1+; BURR CELLS SLIGHT; OVALOCYTES 1+; PLATELET COMMENT ADEQUATE; POIKILOCYTOSIS 1+; TEAR DROP CELLS SLIGHT; TOXIC GRANULATION SLIGHT
[2018-10-05] MEDS: IPRATROPIUM BROMIDE 0.02% NEB 0.5 MG/2.5 ML AMPUL NEB SCH ×2 (08:29→15:56)
[2018-10-05] MEDS: BUDESONIDE NEB 0.5 MG/2 ML AMPUL NEB SCH ×2 (08:29→20:27)
[2018-10-05] MEDS: LEVALBUTEROL HCL NEB 1.25 MG/3 ML AMPUL NEB SCH ×2 (08:29→15:56)
[2018-10-05] MEDS: MAGNESIUM OXIDE 400 MG TABLET PO SCH (09:10)
[2018-10-05] MEDS: DOCUSATE SODIUM 100 MG CAPSULE PO SCH ×2 (09:10→18:18)
[2018-10-05] MEDS: APIXABAN 5 MG TABLET PO SCH ×2 (09:10→18:18)
[2018-10-05] MEDS: METOPROLOL SUCCINATE 50 MG TAB.SR.24H PO SCH (09:10)
[2018-10-05] MEDS: LISINOPRIL 10 MG TABLET PO SCH (09:10)
[2018-10-05] MEDS: FAMOTIDINE 20 MG TABLET PO SCH ×2 (09:11→21:03)
[2018-10-05] MEDS: CHOLECALCIFEROL (D3) 1,000 UNIT TABLET PO SCH (09:11)
[2018-10-05] MEDS: FERROUS SULFATE 325 MG TABLET PO SCH (09:11)
[2018-10-05] MEDS: TIOTROPIUM BROMIDE DPI 5 CAP/KIT (18 MCG/CAP) IH SCH (09:11)
--- NOTE | 2018-10-05 16:06 | PDOC PROGRESS REPORT ---
Subjective Progress Note for:: 10/05/18 Subjective:: JOLIE CAMARA is a 62 year old female who presented to the emergency room with a 1 day history of dyspnea. She admits that on the afternoon of admission she had arrived home after a busy morning doing laundry and while she was preparing to cook turkey wings for supper she developed moderate to severe dyspnea which did not respond well to nebulizer therapy or use of her CPAP at home. Because she was not getting relief with treatments available to her she came to the emergency room for assistance. She describes her dyspnea as severe and denies any accompanying symptoms. She admits numerous similar episodes of dyspnea in the past with her COPD and with CHF. She has not identified any aggravating or ameliorating factors for her dyspnea earlier today. In the emergency room she was found to be hypoxic with initial improvement after an aggressive nebulizer therapy regiment and supplemental oxygen. She continued to do reasonably well except she would become extremely dyspneic and hypoxic with any activity. As such she was admitted to the hospital for further evaluation and treatment of her acute exacerbation of COPD. 10/04/2018. Patient stated that she is feeling much better still gets shortness of breath on exertion. She denies any fever, chest pain, nausea, vomiting, diarrhea patient or any urinary symptoms. 10/05/2018. No acute events overnight. Patient feeling much better. Was able to use her CPAP overnight. Received physical therapy today was able to walk with assistance about 150 feet. Patient gets short of breath when exerting herself. Is also mentioning that she is always very anxious and suffers from panic attacks. Denies being depressed. Any fever, nausea, vomiting, chest pain, abdominal pain, diarrhea, constipation. Reason For Visit: SHORTNESS OF BREATH/CHF/AFIB Physical Exam Vital Signs: Temp Pulse Resp BP Pulse Ox 97.3 F 87 24 H 111/70 96 10/05/18 12:00 10/05/18 12:00 10/05/18 12:00 10/05/18 12:00 10/05/18 12:00 Pulse Oximeter Continuous Start: 10/03/18 21:48 Freq: RTQ4 Status: Complete Protocol: Document 10/03/18 23:55 CMI (Rec: 10/03/18 23:56 CMI [id number]) Pulse Oximetry Assessment Equipment Usage Equipment Standby Continuous SpO2 Machine # x Intake & Output 10/04/18 10/05/18 10/06/18 06:59 06:59 06:59 Intake Total 1388 Output Total 1000 Balance -1000 1388 Weight 137.5 kg 139.5 kg General appearance: PRESENT: no acute distress, morbidly obese Head exam: PRESENT: atraumatic, normocephalic Respiratory exam: PRESENT: decreased breath sounds, prolonged expiratory phas. ABSENT: rales, rhonchi, wheezes Cardiovascular exam: PRESENT: irregular rhythm. ABSENT: diastolic murmur, rubs, systolic murmur GI/Abdominal exam: PRESENT: normal bowel sounds, soft. ABSENT: distended, guarding, mass, organolmegaly, rebound, tenderness Extremities exam: PRESENT: +1 edema Neurological exam: PRESENT: alert, awake, oriented to person, oriented to place, oriented to time, oriented to situation, CN II-XII grossly intact. ABSENT: motor sensory deficit Psychiatric exam: PRESENT: anxious Skin exam: PRESENT: dry, intact, warm. ABSENT: cyanosis, rash Results Laboratory Results: 10/05/18 05:24 10/05/18 05:24 10/05/18 10/05/18 05:24 05:24 WBC 10.3 RBC 4.03 Hgb 10.5 L Hct 32.2 L MCV 80 MCH 26.0 L MCHC 32.6 RDW 17.5 H Plt Count 163 Seg Neutrophils % Not Reportable Lymphocytes % Not Reportable Monocytes % Not Reportable Eosinophils % Not Reportable Basophils % Not Reportable Absolute Neutrophils Not Reportable Absolute Lymphocytes Not Reportable Absolute Monocytes Not Reportable Absolute Eosinophils Not Reportable Absolute Basophils Not Reportable Sodium 137.3 Potassium 4.8 Chloride 105 Carbon Dioxide 24 Anion Gap 8 BUN 38 H Creatinine 1.33 H Est GFR ( Amer) 49 L Est GFR (Non-Af Amer) 40 L Glucose 167 H Calcium 9.5 Magnesium 2.4 H Total Bilirubin 0.3 AST 40 H ALT 41 Alkaline Phosphatase 78 Total Protein 7.0 Albumin 4.1 10/03/18 10/03/18 10/03/18 15:58 15:58 16:46 Creatine Kinase Cancelled 65 CK-MB (CK-2) Cancelled Troponin I Cancelled NT-Pro-B Natriuret Pep Cancelled 10/03/18 10/03/18 10/03/18 16:46 19:50 22:00 Creatine Kinase Cancelled CK-MB (CK-2) 0.77 Troponin I < 0.012 0.015 NT-Pro-B Natriuret Pep 2870 H 10/03/18 10/04/18 10/04/18 22:00 02:20 02:20 Creatine Kinase 72 CK-MB (CK-2) Cancelled 1.09 Troponin I Cancelled < 0.012 NT-Pro-B Natriuret Pep 10/04/18 10/04/18 10/04/18 08:00 08:00 13:35 Creatine Kinase 83 90 CK-MB (CK-2) 1.25 Troponin I < 0.012 NT-Pro-B Natriuret Pep 10/04/18 13:35 Creatine Kinase CK-MB (CK-2) 1.25 Troponin I < 0.012 NT-Pro-B Natriuret Pep Impressions: Chest X-Ray 10/03/18 16:06 IMPRESSION: Cardiomegaly without pulmonary edema. Assessment & Plan - Diagnosis (1) Acute exacerbation of COPD with asthma Is this a current diagnosis for this admission?: Yes Plan: Continue aggressive pulmonary toilet utilizing Xopenex, Pulmicort, Atrovent and albuterol given via nebulizer. Day 3 of IV Solu-Medrol Continue home nocturnal CPAP. (2) Acute on chronic respiratory failure with hypoxemia Is this a current diagnosis for this admission?: Yes Plan: Likely secondary to COPD exacerbation. Continue treatment for COPD exacerbation. She will be continued on her home CPAP for nocturnal use. (3) CKD (chronic kidney disease), stage III Is this a current diagnosis for this admission?: Yes Plan: Nonoliguric. Sees Dr. Jo as outpatient. Electrolytes within normal limits. Monitor volume status and vitals. (4) Chronic atrial fibrillation Is this a current diagnosis for this admission?: Yes Plan: Rate controlled. Anticoagulated. Start home meds. Adjust if needed. (5) Chronic diastolic (congestive) heart failure Is this a current diagnosis for this admission?: Yes Plan: Patient recently had a 2D echo as outpatient. She stating that she was told that she has a normal ejection fraction. Restart home meds. Monitor volume status. Cardiac diet. (6) Morbid obesity with BMI of 45.0-49.9, adult Is this a current diagnosis for this admission?: No Plan: Advised on diet and lifestyle modification. (7) Pulmonary hypertension, moderate to severe Is this a current diagnosis for this admission?: Yes Plan: Start home meds. Monitor volume status. Followed by Dr. Solano as outpatient (8) LAYNE (obstructive sleep apnea) Is this a current diagnosis for this admission?: No Plan: Continue nocturnal CPAP. Followed by advertising agency manager as outpatient. (9) Anxiety disorder Qualifiers: Anxiety disorder type: generalized anxiety disorder Qualified Code(s): F41.1 - Generalized anxiety disorder Is this a current diagnosis for this admission?: No Plan: Start on BuSpar.
[2018-10-05] MEDS: ACETAMINOPHEN 325 MG TABLET PO PRN (18:19)
[2018-10-05] MEDS: ATORVASTATIN CALCIUM 40 MG TABLET PO SCH (21:02)
[2018-10-05] MEDS: MONTELUKAST SODIUM 10 MG TABLET PO SCH (21:03)
[2018-10-05] MEDS: BUSPIRONE HCL 10 MG TABLET PO SCH (21:05)
[2018-10-06] MEDS: LEVALBUTEROL HCL NEB 1.25 MG/3 ML AMPUL NEB SCH ×3 (00:22→16:47)
[2018-10-06] MEDS: IPRATROPIUM BROMIDE 0.02% NEB 0.5 MG/2.5 ML AMPUL NEB SCH ×3 (00:22→16:47)
[2018-10-06] MEDS: HYDRALAZINE HCL 50 MG TABLET PO SCH ×3 (05:28→21:08)
[2018-10-06 06:11] LABS: ABSOLUTE BASOPHILS # (AUTO) 0.1 10^3/uL (0.0-0.2); ABSOLUTE EOSINOPHILS # (AUTO) 0.1 10^3/uL (0.0-0.6); ABSOLUTE MONOCYTES (AUTO) 0.9 10^3/uL (0.1-1.4); ABSOLUTE NEUT (AUTO) 5.4 10^3/uL (1.7-8.2); BASOPHILS % (AUTO) 1.1 % (0-2); EOSINOPHILS % (AUTO) 0.6 % (0-6); HEMATOCRIT 32.2 % (36.0-47.0); HEMOGLOBIN 10.8 g/dL (12.0-15.5); MEAN CORPUSCULAR HEMOGLOBIN 26.6 pg (27.0-33.4); MEAN CORPUSCULAR HGB CONC 33.4 g/dL (32.0-36.0); MEAN CORPUSCULAR VOLUME 80 fl (80-97); MONOCYTES % (AUTO) 9.5 % (3-13); PLATELET COUNT 196 10^3/uL (150-450); RED BLOOD COUNT 4.05 10^6/uL (3.72-5.28); RED CELL DISTRIBUTION WIDTH 17.3 % (11.5-14.0); SEGMENTED NEUTROPHILS % (AUTO) 56.8 % (42-78); TOTAL CELLS COUNTED % (AUTO) 100 %; WHITE BLOOD COUNT 9.4 10^3/uL (4.0-10.5)
[2018-10-06 06:31] LABS: ALANINE AMINOTRANSFERASE 34 U/L (9-52); ALBUMIN 4.3 g/dL (3.5-5.0); ALKALINE PHOSPHATASE 68 U/L (38-126); ANION GAP 9 (5-19); ASPARTATE AMINO TRANSFERASE 42 U/L (14-36); BILIRUBIN,DIRECT 0.5 mg/dL (0.0-0.4); BILIRUBIN,TOTAL 0.6 mg/dL (0.2-1.3); BLOOD UREA NITROGEN 36 mg/dL (7-20); CALCIUM 9.8 mg/dL (8.4-10.2); CARBON DIOXIDE 24 mmol/L (22-30); CHLORIDE 108 mmol/L (98-107); GLUCOSE 124 mg/dL (75-110); POTASSIUM 5.1 mmol/L (3.6-5.0); SODIUM 140.7 mmol/L (137-145); TOTAL PROTEIN 7.1 g/dL (6.3-8.2)
[2018-10-06] MEDS: BUDESONIDE NEB 0.5 MG/2 ML AMPUL NEB SCH ×2 (08:14→22:14)
[2018-10-06] MEDS: LISINOPRIL 10 MG TABLET PO SCH (09:29)
[2018-10-06] MEDS: METOPROLOL SUCCINATE 50 MG TAB.SR.24H PO SCH (09:37)
[2018-10-06] MEDS: TIOTROPIUM BROMIDE DPI 5 CAP/KIT (18 MCG/CAP) IH SCH (09:37)
[2018-10-06] MEDS: MAGNESIUM OXIDE 400 MG TABLET PO SCH (09:37)
[2018-10-06] MEDS: FERROUS SULFATE 325 MG TABLET PO SCH (09:37)
[2018-10-06] MEDS: APIXABAN 5 MG TABLET PO SCH ×2 (09:38→17:13)
[2018-10-06] MEDS: CHOLECALCIFEROL (D3) 1,000 UNIT TABLET PO SCH (09:38)
[2018-10-06] MEDS: DOCUSATE SODIUM 100 MG CAPSULE PO SCH ×2 (09:38→17:13)
[2018-10-06] MEDS: FAMOTIDINE 20 MG TABLET PO SCH ×2 (09:38→21:08)
[2018-10-06] MEDS: BUSPIRONE HCL 10 MG TABLET PO SCH ×2 (09:38→21:08)
--- NOTE | 2018-10-06 14:22 | PDOC PROGRESS REPORT ---
Subjective Progress Note for:: 10/06/18 Subjective:: JOLIE CAMARA is a 62 year old female who presented to the emergency room with a 1 day history of dyspnea. She admits that on the afternoon of admission she had arrived home after a busy morning doing laundry and while she was preparing to cook turkey wings for supper she developed moderate to severe dyspnea which did not respond well to nebulizer therapy or use of her CPAP at home. Because she was not getting relief with treatments available to her she came to the emergency room for assistance. She describes her dyspnea as severe and denies any accompanying symptoms. She admits numerous similar episodes of dyspnea in the past with her COPD and with CHF. She has not identified any aggravating or ameliorating factors for her dyspnea earlier today. In the emergency room she was found to be hypoxic with initial improvement after an aggressive nebulizer therapy regiment and supplemental oxygen. She continued to do reasonably well except she would become extremely dyspneic and hypoxic with any activity. As such she was admitted to the hospital for further evaluation and treatment of her acute exacerbation of COPD. 10/04/2018. Patient stated that she is feeling much better still gets shortness of breath on exertion. She denies any fever, chest pain, nausea, vomiting, diarrhea patient or any urinary symptoms. 10/05/2018. No acute events overnight. Patient feeling much better. Was able to use her CPAP overnight. Received physical therapy today was able to walk with assistance about 150 feet. Patient gets short of breath when exerting herself. Is also mentioning that she is always very anxious and suffers from panic attacks. Denies being depressed. Any fever, nausea, vomiting, chest pain, abdominal pain, diarrhea, constipation. 10/06/2018. No acute events overnight. Patient did not use CPAP overnight because it was making her neck hurt. In the morning her blood pressure was found to be in the 100/74 lisinopril was held and metoprolol cut in half. Today she is feeling much better since yesterday. She was started on BuSpar and has not had another anxiety attack since then. Stating she was able to walk to the bathroom on her own without getting anxious or short of breath. Physical therapy was consulted recommending home health PT upon DC. She denies having any chest pain, shortness of breath, nausea, vomiting, diarrhea, constipation, abdominal pain or any urinary symptoms. Reason For Visit: SHORTNESS OF BREATH/CHF/AFIB Physical Exam Vital Signs: Temp Pulse Resp BP Pulse Ox 98.4 F 27 L 20 100/74 100 10/06/18 12:00 10/06/18 12:00 10/06/18 12:00 10/06/18 12:00 10/06/18 12:00 Pulse Oximeter Continuous Start: 10/03/18 21:48 Freq: RTQ4 Status: Complete Protocol: Document 10/03/18 23:55 CMI (Rec: 10/03/18 23:56 CMI [id number]) Pulse Oximetry Assessment Equipment Usage Equipment Standby Continuous SpO2 Machine # x Intake & Output 10/05/18 10/06/18 10/07/18 06:59 06:59 06:59 Intake Total 1388 360 Balance 1388 360 Weight 139.5 kg 137.7 kg General appearance: PRESENT: no acute distress, well-developed, well-nourished Head exam: PRESENT: atraumatic, normocephalic Throat exam: ABSENT: post pharyngeal erythema, tonsillar erythema, tonsillar exudate, tonsillogmegaly, other Neck exam: ABSENT: carotid bruit, JVD, lymphadenopathy, thyromegaly Respiratory exam: PRESENT: clear to auscultation tao, prolonged expiratory phas, wheezes. ABSENT: rales, rhonchi Cardiovascular exam: PRESENT: irregular rhythm. ABSENT: diastolic murmur, rubs, systolic murmur GI/Abdominal exam: PRESENT: normal bowel sounds, soft. ABSENT: distended, guarding, mass, organolmegaly, rebound, tenderness Neurological exam: PRESENT: alert, awake, oriented to person, oriented to place, oriented to time, oriented to situation, CN II-XII grossly intact. ABSENT: motor sensory deficit Results Laboratory Results: 10/06/18 05:50 10/06/18 05:50 10/06/18 10/06/18 05:50 05:50 WBC 9.4 RBC 4.05 Hgb 10.8 L Hct 32.2 L MCV 80 MCH 26.6 L MCHC 33.4 RDW 17.3 H Plt Count 196 Seg Neutrophils % 56.8 Lymphocytes % 32.0 Monocytes % 9.5 Eosinophils % 0.6 Basophils % 1.1 Absolute Neutrophils 5.4 Absolute Lymphocytes 3.0 Absolute Monocytes 0.9 Absolute Eosinophils 0.1 Absolute Basophils 0.1 Sodium 140.7 Potassium 5.1 H Chloride 108 H Carbon Dioxide 24 Anion Gap 9 BUN 36 H Creatinine 1.36 H Est GFR ( Amer) 48 L Est GFR (Non-Af Amer) 39 L Glucose 124 H Calcium 9.8 Magnesium 2.6 H Total Bilirubin 0.6 AST 42 H ALT 34 Alkaline Phosphatase 68 Total Protein 7.1 Albumin 4.3 10/03/18 10/03/18 10/03/18 15:58 15:58 16:46 Creatine Kinase Cancelled 65 CK-MB (CK-2) Cancelled Troponin I Cancelled NT-Pro-B Natriuret Pep Cancelled 10/03/18 10/03/18 10/03/18 16:46 19:50 22:00 Creatine Kinase Cancelled CK-MB (CK-2) 0.77 Troponin I < 0.012 0.015 NT-Pro-B Natriuret Pep 2870 H 10/03/18 10/04/18 10/04/18 22:00 02:20 02:20 Creatine Kinase 72 CK-MB (CK-2) Cancelled 1.09 Troponin I Cancelled < 0.012 NT-Pro-B Natriuret Pep 10/04/18 10/04/18 10/04/18 08:00 08:00 13:35 Creatine Kinase 83 90 CK-MB (CK-2) 1.25 Troponin I < 0.012 NT-Pro-B Natriuret Pep 10/04/18 13:35 Creatine Kinase CK-MB (CK-2) 1.25 Troponin I < 0.012 NT-Pro-B Natriuret Pep Impressions: Chest X-Ray 10/03/18 16:06 IMPRESSION: Cardiomegaly without pulmonary edema. Assessment & Plan - Diagnosis (1) Acute exacerbation of COPD with asthma Is this a current diagnosis for this admission?: Yes Plan: Improving. Continue aggressive pulmonary toilet utilizing Xopenex, Pulmicort, Atrovent and albuterol given via nebulizer. Day 4 of IV Solu-Medrol Continue home nocturnal CPAP. (2) Acute on chronic respiratory failure with hypoxemia Is this a current diagnosis for this admission?: Yes Plan: Likely secondary to COPD exacerbation. Continue treatment for COPD exacerbation. She will be continued on her home CPAP for nocturnal use. (3) CKD (chronic kidney disease), stage III Is this a current diagnosis for this admission?: Yes Plan: Nonoliguric. Creatinine stable. Mild hyperkalemia. Sees Dr. Jo as outpatient. Monitor volume status and vitals. (4) Chronic atrial fibrillation Is this a current diagnosis for this admission?: Yes Plan: Rate controlled. Anticoagulated. Start home meds. Adjust if needed. (5) Chronic diastolic (congestive) heart failure Is this a current diagnosis for this admission?: Yes Plan: Patient recently had a 2D echo as outpatient. She stating that she was told that she has a normal ejection fraction. Restart home meds. Monitor volume status. Cardiac diet. (6) Morbid obesity with BMI of 45.0-49.9, adult Is this a current diagnosis for this admission?: No Plan: Advised on diet and lifestyle modification. (7) Pulmonary hypertension, moderate to severe Is this a current diagnosis for this admission?: Yes Plan: Start home meds. Monitor volume status. Followed by Dr. Solano as outpatient (8) LAYNE (obstructive sleep apnea) Is this a current diagnosis for this admission?: No Plan: Continue nocturnal CPAP. Followed by technical support representative as outpatient. (9) Anxiety disorder Qualifiers: Anxiety disorder type: generalized anxiety disorder Qualified Code(s): F41.1 - Generalized anxiety disorder Is this a current diagnosis for this admission?: No Plan: Improved. Continue BuSpar. (10) Hyperkalemia Is this a current diagnosis for this admission?: Yes Plan: Repeat BMP. If still hyperkalemic will start on hyperkalemia protocol. Monitor volume status and electrolytes. BMP tomorrow.
[2018-10-06 15:45] LABS: ANION GAP 8 (5-19); BLOOD UREA NITROGEN 33 mg/dL (7-20); CALCIUM 9.9 mg/dL (8.4-10.2); CARBON DIOXIDE 26 mmol/L (22-30); CHLORIDE 106 mmol/L (98-107); GLUCOSE 151 mg/dL (75-110); POTASSIUM 4.7 mmol/L (3.6-5.0); SODIUM 139.8 mmol/L (137-145)
[2018-10-06] MEDS: ACETAMINOPHEN 325 MG TABLET PO PRN (17:41)
[2018-10-06] MEDS: ATORVASTATIN CALCIUM 40 MG TABLET PO SCH (21:07)
[2018-10-06] MEDS: MONTELUKAST SODIUM 10 MG TABLET PO SCH (21:08)
[2018-10-07] MEDS: LEVALBUTEROL HCL NEB 1.25 MG/3 ML AMPUL NEB SCH ×3 (01:03→17:33)
[2018-10-07] MEDS: IPRATROPIUM BROMIDE 0.02% NEB 0.5 MG/2.5 ML AMPUL NEB SCH ×3 (01:03→17:33)
[2018-10-07] MEDS: HYDRALAZINE HCL 50 MG TABLET PO SCH ×2 (05:25→14:05)
[2018-10-07 06:47] LABS: ABSOLUTE EOSINOPHILS # (AUTO) 0.1 10^3/uL (0.0-0.6); ABSOLUTE LYMPHOCYTES (AUTO) 2.4 10^3/uL (0.5-4.7); ABSOLUTE MONOCYTES (AUTO) 0.8 10^3/uL (0.1-1.4); ABSOLUTE NEUT (AUTO) 3.3 10^3/uL (1.7-8.2); BASOPHILS % (AUTO) 0.6 % (0-2); EOSINOPHILS % (AUTO) 0.8 % (0-6); HEMATOCRIT 31.7 % (36.0-47.0); HEMOGLOBIN 10.3 g/dL (12.0-15.5); LYMPHOCYTES % (AUTO) 36.7 % (13-45); MEAN CORPUSCULAR HEMOGLOBIN 25.9 pg (27.0-33.4); MEAN CORPUSCULAR HGB CONC 32.3 g/dL (32.0-36.0); MEAN CORPUSCULAR VOLUME 80 fl (80-97); MONOCYTES % (AUTO) 12.5 % (3-13); PLATELET COUNT 175 10^3/uL (150-450); RED BLOOD COUNT 3.96 10^6/uL (3.72-5.28); RED CELL DISTRIBUTION WIDTH 17.5 % (11.5-14.0); SEGMENTED NEUTROPHILS % (AUTO) 49.4 % (42-78); TOTAL CELLS COUNTED % (AUTO) 100 %; WHITE BLOOD COUNT 6.7 10^3/uL (4.0-10.5)
[2018-10-07 07:01] LABS: ALANINE AMINOTRANSFERASE 32 U/L (9-52); ALBUMIN 3.9 g/dL (3.5-5.0); ALKALINE PHOSPHATASE 70 U/L (38-126); ANION GAP 8 (5-19); ASPARTATE AMINO TRANSFERASE 27 U/L (14-36); BILIRUBIN,DIRECT 0.3 mg/dL (0.0-0.4); BILIRUBIN,TOTAL 0.4 mg/dL (0.2-1.3); BLOOD UREA NITROGEN 26 mg/dL (7-20); CALCIUM 9.6 mg/dL (8.4-10.2); CARBON DIOXIDE 26 mmol/L (22-30); CHLORIDE 109 mmol/L (98-107); GLUCOSE 123 mg/dL (75-110); POTASSIUM 4.4 mmol/L (3.6-5.0); SODIUM 142.8 mmol/L (137-145); TOTAL PROTEIN 6.6 g/dL (6.3-8.2)
[2018-10-07] MEDS: BUDESONIDE NEB 0.5 MG/2 ML AMPUL NEB SCH (09:03)
[2018-10-07] MEDS: FAMOTIDINE 20 MG TABLET PO SCH (10:21)
[2018-10-07] MEDS: CHOLECALCIFEROL (D3) 1,000 UNIT TABLET PO SCH (10:21)
[2018-10-07] MEDS: APIXABAN 5 MG TABLET PO SCH ×2 (10:21→18:05)
[2018-10-07] MEDS: METOPROLOL SUCCINATE 50 MG TAB.SR.24H PO SCH (10:21)
[2018-10-07] MEDS: DOCUSATE SODIUM 100 MG CAPSULE PO SCH ×2 (10:21→18:05)
[2018-10-07] MEDS: LISINOPRIL 10 MG TABLET PO SCH (10:21)
[2018-10-07] MEDS: MAGNESIUM OXIDE 400 MG TABLET PO SCH (10:22)
[2018-10-07] MEDS: BUSPIRONE HCL 10 MG TABLET PO SCH (10:22)
[2018-10-07] MEDS: TIOTROPIUM BROMIDE DPI 5 CAP/KIT (18 MCG/CAP) IH SCH (10:22)
[2018-10-07] MEDS: FERROUS SULFATE 325 MG TABLET PO SCH (10:22)
[2018-10-07 17:12] VITALS: BP 143/94
--- NOTE | 2018-10-10 06:25 | PDOC DISCHARGE SUMMARY ---
General - Admit/Disc Date/PCP Admission Date/Primary Care Provider: 10/03/18 21:53 JHON QUIROGA MD Discharge Date: 10/07/18 - Discharge Diagnosis (1) Acute exacerbation of COPD with asthma Is this a current diagnosis for this admission?: Yes (2) Acute on chronic respiratory failure with hypoxemia Is this a current diagnosis for this admission?: Yes (3) CKD (chronic kidney disease), stage III Is this a current diagnosis for this admission?: Yes (4) Chronic atrial fibrillation Is this a current diagnosis for this admission?: Yes (5) Chronic diastolic (congestive) heart failure Is this a current diagnosis for this admission?: Yes (6) Morbid obesity with BMI of 45.0-49.9, adult Is this a current diagnosis for this admission?: No (7) Pulmonary hypertension, moderate to severe Is this a current diagnosis for this admission?: Yes (8) LAYNE (obstructive sleep apnea) Is this a current diagnosis for this admission?: No (9) Anxiety disorder Is this a current diagnosis for this admission?: No (10) Hyperkalemia Is this a current diagnosis for this admission?: Yes - Additional Information Resuscitation Status: Full Code Discharge Diet: As Tolerated, Cardiac Discharge Activity: Activity As Tolerated Prescriptions: Buspirone HCl [Buspar 10 mg Tablet] 10 mg PO Q12 30 Days #60 tablet Home Medications: Albuterol Sulfate [Proair HFA] 2 puff IH Q6HP PRN 11/27/17 Apixaban [Eliquis 5 mg Tablet] 5 mg PO BID 11/27/17 Atorvastatin Calcium [Lipitor 40 mg Tablet] 40 mg PO QHS 11/27/17 Metoprolol Succinate [Toprol Xl 50 mg Tab.sr] 50 mg PO DAILY 11/27/17 Montelukast Sodium [Singulair 10 mg Tablet] 10 mg PO QHS 11/27/17 Amlodipine Besylate [Norvasc 10 mg Tablet] 10 mg PO DAILY #30 tablet 12/02/17 Hydralazine HCl [Apresoline 50 mg Tablet] 25 mg PO Q8 #60 tablet 12/02/17 Cholecalciferol (Vitamin D3) [Vitamin D3] 1,000 unit PO DAILY 08/10/18 Fluticasone/Salmeterol [Advair 250-50 Diskus 14 Dose/Diskus] 1 puff IN Q12 08/10/18 Furosemide [Lasix 40 mg Tablet] 40 mg PO BID 08/10/18 Lisinopril [Prinivil 40 mg Tablet] 40 mg PO DAILY 08/10/18 Magnesium Oxide [Magox] 400 mg PO DAILY 08/10/18 Melatonin [Melatonin 1 mg Tablet] 1 mg PO HSP PRN 08/10/18 Albuterol Sulfate [Ventolin 0.083% Neb 2.5 mg/3 mL Ampul] 2.5 mg NEB RTQ6HP PRN 10/04/18 Ferrous Sulfate [Feosol 325 mg Tablet] 325 mg PO DAILY 10/04/18 Flu Vacc [id number](6Mos Up)/Pf [Afluria Quad [id number] Syringe] 0.5 ml IM .RECEIVED 07/18/18 MDD 07/18/18 10/04/18 Ipratropium Cable [Atrovent 0.02% Neb 0.5 mg/2.5 ml Ampul] 0.5 mg NEB RTBID 10/04/18 Buspirone HCl [Buspar 10 mg Tablet] 10 mg PO Q12 30 Days #60 tablet 10/07/18 History of Present Illness History of Present Illness: JOLIE CAMARA is a 62 year old female who presented to the emergency room with a 1 day history of dyspnea. She admits that on the afternoon of admission she had arrived home after a busy morning doing laundry and while she was preparing to cook turkey wings for supper she developed moderate to severe dyspnea which did not respond well to nebulizer therapy or use of her CPAP at home. Because she was not getting relief with treatments available to her she came to the emergency room for assistance. She describes her dyspnea as severe and denies any accompanying symptoms. She admits numerous similar episodes of dyspnea in the past with her COPD and with CHF. She has not identified any aggravating or ameliorating factors for her dyspnea earlier today. In the emergency room she was found to be hypoxic with initial improvement after an aggressive nebulizer therapy regiment and supplemental oxygen. She continued to do reasonably well except she would become extremely dyspneic and hypoxic with any activity. As such she was admitted to the hospital for further evaluation and treatment of her acute exacerbation of COPD. Hospital Course Hospital Course: (1) Acute exacerbation of COPD with asthma Improved. Continued aggressive pulmonary toilet utilizing Xopenex, Pulmicort, Atrovent and albuterol given via nebulizer. Was started on IV Solu-Medrol and switch to p.o. prednisone to complete 5 days. Advised to continue home nocturnal CPAP. Appointment was made for her to see Jhon Quiroga PCP on 10/15/2018. Discharge planning was consulted for arrangement of home health and home physical therapy. (2) Acute on chronic respiratory failure with hypoxemia Likely secondary to COPD exacerbation. Continued treatment for COPD exacerbation. She will be continued on her home CPAP for nocturnal use. (3) CKD (chronic kidney disease), stage III Nonoliguric. Creatinine stable. Mild hyperkalemia. Sees Dr. Jo as outpatient. Monitor volume status and vitals. (4) Chronic atrial fibrillation Rate controlled. Anticoagulated. Start home meds. Adjust if needed. (5) Chronic diastolic (congestive) heart failure Patient recently had a 2D echo as outpatient. She stating that she was told that she has a normal ejection fraction. Restart home meds. Monitor volume status. Cardiac diet. (6) Morbid obesity with BMI of 45.0-49.9, adult Advised on diet and lifestyle modification. (7) Pulmonary hypertension, moderate to severe Started home meds. Monitor volume status. Followed by Dr. Solano as outpatient (8) LAYNE (obstructive sleep apnea) Continued nocturnal CPAP. Followed by pediatric dermatologist as outpatient. Advised on continue nocturnal CPAP at home. (9) Anxiety disorder Start on BuSpar twice daily, much improved. Patient was advised to follow-up with PCP. (10) Hyperkalemia Resolved. Physical Exam Vital Signs: Temp Pulse Resp BP Pulse Ox 98.5 F 92 18 143/94 H 100 10/07/18 17:06 10/07/18 17:34 10/07/18 17:34 10/07/18 17:06 10/07/18 17:34 Pulse Oximeter Continuous Start: 10/03/18 21:48 Freq: RTQ4 Status: Complete Protocol: Document 10/03/18 23:55 CMI (Rec: 10/03/18 23:56 CMI [id number]) Pulse Oximetry Assessment Equipment Usage Equipment Standby Continuous SpO2 Machine # x Intake & Output 10/08/18 10/09/18 10/10/18 06:59 06:59 06:59 Intake Total 1360 Balance 1360 General appearance: PRESENT: no acute distress, obese Respiratory exam: PRESENT: clear to auscultation tao. ABSENT: rales, rhonchi, wheezes Cardiovascular exam: PRESENT: RRR. ABSENT: diastolic murmur, rubs, systolic murmur GI/Abdominal exam: PRESENT: normal bowel sounds, soft. ABSENT: distended, guarding, mass, organolmegaly, rebound, tenderness Extremities exam: PRESENT: full ROM. ABSENT: calf tenderness, clubbing, pedal edema Neurological exam: PRESENT: alert, awake, oriented to person, oriented to place, oriented to time, oriented to situation, CN II-XII grossly intact. ABSENT: motor sensory deficit Results Laboratory Results: 10/07/18 06:20 10/07/18 06:20 10/03/18 10/03/18 10/03/18 15:58 15:58 16:46 Creatine Kinase Cancelled 65 CK-MB (CK-2) Cancelled Troponin I Cancelled NT-Pro-B Natriuret Pep Cancelled 10/03/18 10/03/18 10/03/18 16:46 19:50 22:00 Creatine Kinase Cancelled CK-MB (CK-2) 0.77 Troponin I < 0.012 0.015 NT-Pro-B Natriuret Pep 2870 H 10/03/18 10/04/18 10/04/18 22:00 02:20 02:20 Creatine Kinase 72 CK-MB (CK-2) Cancelled 1.09 Troponin I Cancelled < 0.012 NT-Pro-B Natriuret Pep 10/04/18 10/04/18 10/04/18 08:00 08:00 13:35 Creatine Kinase 83 90 CK-MB (CK-2) 1.25 Troponin I < 0.012 NT-Pro-B Natriuret Pep 10/04/18 13:35 Creatine Kinase CK-MB (CK-2) 1.25 Troponin I < 0.012 NT-Pro-B Natriuret Pep Impressions: Chest X-Ray 10/03/18 16:06 IMPRESSION: Cardiomegaly without pulmonary edema. Qualifiers - * PATIENT BEING DISCHARGED WITH ANY OF THE FOLLOWING DIAGNOSIS: No
== END 2018-10-07 19:45 | disposition home or self-care (01) | DRG 189 ==
LOC: ER 15:48 → EH 21:53 → 4S 10-04 00:26
PROVIDERS: ADMIT Emergency Medicine; ATTEND Emergency Medicine
DX: J96.21 Acute and chronic respiratory failure with hypoxia (principal); J44.1 Chronic obstructive pulmonary disease with (acute) exacerbation; I50.32 Chronic diastolic (congestive) heart failure; Z68.42 Body mass index [BMI] 45.0-49.9, adult; I13.0 Hypertensive heart and chronic kidney disease with heart failure and stage 1 through stage 4 chronic kidney disease, or unspecified chronic kidney disease; I48.2 Chronic atrial fibrillation; N18.3 Chronic kidney disease, stage 3 (moderate); E87.5 Hyperkalemia; E78.00 Pure hypercholesterolemia, unspecified; I27.20 Pulmonary hypertension, unspecified; G47.33 Obstructive sleep apnea (adult) (pediatric); F41.1 Generalized anxiety disorder; E66.01 Morbid (severe) obesity due to excess calories; Z60.2 Problems related to living alone; Z96.653 Presence of artificial knee joint, bilateral; Z86.73 Personal history of transient ischemic attack (TIA), and cerebral infarction without residual deficits; Z79.01 Long term (current) use of anticoagulants; Z79.51 Long term (current) use of inhaled steroids; Z79.52 Long term (current) use of systemic steroids; Z79.899 Other long term (current) drug therapy
CPT/HCPCS: 36415; 71045; 80048; 80053; 82550; 82553; 83735; 83880; 84484; 85025; 85610; 93005; 93010; 94640; 94660; 96374; 99285; J1940; J2920; J3490; J7620

== ENCOUNTER 2018-10-13 17:23 | Emergency (ER) | payer MEDICARE, MEDICAID ==
--- NOTE | 2018-10-13 17:51 | RADIOLOGY REPORT (SQ) ---
EXAM DESCRIPTION: CHEST SINGLE VIEW COMPLETED DATE/TIME: 10/13/2018 5:41 pm REASON FOR STUDY: bed 17 db COMPARISON: 10/03/2018. NUMBER OF VIEWS: One view. TECHNIQUE: Single frontal radiographic view of the chest acquired. LIMITATIONS: None. FINDINGS: LUNGS AND PLEURA: No opacities, masses or pneumothorax. No pleural effusion. MEDIASTINUM AND HILAR STRUCTURES: No masses. Contour normal. HEART AND VASCULAR STRUCTURES: Heart enlarged without failure. Normal vasculature. BONES: No acute findings. HARDWARE: None in the chest. OTHER: No other significant finding. IMPRESSION: HEART ENLARGED WITHOUT FAILURE. NO OTHER SIGNIFICANT RADIOGRAPHIC FINDING IN THE CHEST. TECHNICAL DOCUMENTATION: JOB ID: [id number] [email or web address] Rights Reserved Reading location - IP/workstation name: [email or web address]
[2018-10-13 17:56] LABS: HEMATOCRIT 31.6 % (36.0-47.0); HEMOGLOBIN 10.4 g/dL (12.0-15.5); MEAN CORPUSCULAR HEMOGLOBIN 26.1 pg (27.0-33.4); MEAN CORPUSCULAR HGB CONC 32.9 g/dL (32.0-36.0); MEAN CORPUSCULAR VOLUME 80 fl (80-97); PLATELET COUNT 186 10^3/uL (150-450); RED BLOOD COUNT 3.98 10^6/uL (3.72-5.28); RED CELL DISTRIBUTION WIDTH 17.6 % (11.5-14.0); WHITE BLOOD COUNT 7.6 10^3/uL (4.0-10.5)
--- NOTE | 2018-10-13 18:03 | ER Document Report ---
ED Respiratory Problem - General Chief Complaint: CHF Exacerbation Stated Complaint: SHORTNESS OF BREATH Time Seen by Provider: 10/13/18 18:02 Primary Care Provider: JHON PIMENTEL MD [Primary Care Provider] - Follow up as needed Mode of Arrival: Stretcher Information source: Patient, Relative Notes: HISTORY OF PRESENT ILLNESS: Patient is a 62-year-old female with a past medical history of COPD, heart failure, coronary artery disease, and multiple other chronic health conditions who presents with increased swelling in her feet for the past several days. Rosalee mejia was recently admitted to the hospital over 1 week ago for exacerbation of heart failure and COPD, was discharged home after improvement but has begun to have increased swelling in both her legs despite taking 40 mg of Lasix twice daily. Location: Leg swelling Onset: 2-3 days ago Alleviation: "Lying down and putting my feet up" Provocation: "Walking too much" Quality: Tightness, soreness Radiation: None Severity: Moderate Timing: Constant History of CAD: Yes Associated symptoms: Tightness/swelling in the legs, denies chest pain or shortness of breath, no fevers or chills, no cough or congestion REVIEW OF SYSTEMS: CONSTITUTIONAL : Denies fever or chills, no sweats. Denies recent illness. EENT: Denies eye, ear, throat, or mouth pain or symptoms. Denies nasal or sinus congestion. CARDIOVASCULAR: Denies chest pain. Positive swelling of the legs. RESPIRATORY: Denies cough, cold, or chest congestion. Denies shortness of breath or difficulty breathing. Denies wheezing. GASTROINTESTINAL: Denies abdominal pain. Denies nausea, vomiting, or diarrhea. Denies constipation. GENITOURINARY: Denies difficulty urinating, painful urination, burning, frequency, or blood in urine. FEMALE GENITOURINARY: Denies vaginal bleeding, abnormal or irregular periods. MUSCULOSKELETAL: Denies neck or back pain or joint pain or swelling. SKIN: Denies rash or skin lesions. HEMATOLOGIC : Denies easy bruising or bleeding. LYMPHATIC: Denies swollen, enlarged glands. NEUROLOGICAL: Denies altered mental status or loss of consciousness. Denies headache. Denies weakness or paralysis or loss of use of either side. Denies problems with gait or speech. Denies sensory or motor loss. PSYCHIATRIC: Denies anxiety or stress or depression. All other systems reviewed and negative. PHYSICAL EXAMINATION: GENERAL: Well-appearing, well-nourished and in no acute distress. HEAD: Atraumatic, normocephalic. No scalp deformity, depression, or crepitance. EYES: Pupils are 3 mm and equal/round/reactive to light, extraocular movements intact, sclera anicteric, conjunctiva are normal. ENT: Nares patent bilaterally, oropharynx normal. Moist mucous membranes. No tonsil hypertrophy. NECK: Normal range of motion, supple without lymphadenopathy. LUNGS: Breath sounds present, equal, and clear to auscultation bilaterally. No wheezes, rales, or rhonchi. HEART: Regular rate and rhythm without murmurs, rubs, or gallops. 2+ peripheral pulses. Normal capillary refill. ABDOMEN: Soft, nontender, nondistended. Normoactive bowel sounds. No guarding, no rebound. No masses appreciated. BACK: Normal contour, no midline tenderness. Rectal exam deferred. GENITAL/PELVIC: Deferred. EXTREMITIES: Normal range of motion, 3+ pitting edema of the bilateral lower extremities that is equal and symmetric without erythema or drainage. No cyanosis. NEUROLOGICAL: No focal neurological deficits. Moves all extremities spontaneously and on command. PSYCH: Normal mood, normal affect. No suicidal thoughts/ideations. No homocidal thoughts/ideations. No hallucinations. SKIN: Warm, dry, normal turgor, no rashes or lesions noted. ASSESSMENT AND PLAN: This patient is a 62-year-old female who presents with history of heart failure and increased swelling in her legs despite 40 mg of Lasix twice daily. Most likely represents increased swelling, given degree of symmetry unlikely to represent acute DVT. 1. Will obtain labs, cardiac enzymes, BNP, chest x-ray, and reassess. 2. Will give IV Lasix. TRAVEL OUTSIDE OF THE [place] IN LAST 30 DAYS: No - Related Data Allergies/Adverse Reactions: No Known Allergies Allergy (Verified 10/03/18 15:53) Past Medical History - General Information source: Patient - Social History Smoking Status: Former Smoker Chew tobacco use (# tins/day): No Frequency of alcohol use: None Drug Abuse: None Lives with: Family Family History: Arthritis, CAD, CVA, DM, Hyperlipidemia, Hypertension, Malignancy Patient has suicidal ideation: No Patient has homicidal ideation: No - Past Medical History Cardiac Medical History: Reports: Hx Atrial Fibrillation, Hx Congestive Heart Failure, Hx Hypercholesterolemia, Hx Hypertension Pulmonary Medical History: Reports: Hx Asthma, Hx Bronchitis, Hx COPD, Hx Pneumonia, Hx Respiratory Failure, Hx Sleep Apnea Denies: Hx Tuberculosis EENT Medical History: Reports: None Neurological Medical History: Reports: Hx Cerebrovascular Accident. Denies: Hx Seizures Endocrine Medical History: Reports: Hx Diabetes Mellitus Type 2 - prediabetic.. Denies: Hx Diabetes Mellitus Type 1, Hx Hyperthyroidism, Hx Hypothyroidism Renal/ Medical History: Reports: None. Denies: Hx Peritoneal Dialysis Malignancy Medical History: Reports: None GI Medical History: Reports: None. Denies: Hx Cirrhosis, Hx Crohn's Disease, Hx Hepatitis, Hx Ulcerative Colitis Musculoskeletal Medical History: Reports Hx Arthritis, Denies Hx Gout, Reports Hx Musculoskeletal Deformity Skin Medical History: Reports None, Denies Hx Eczema, Denies Hx Psoriasis Psychiatric Medical History: Reports: None Denies: Hx Depression Traumatic Medical History: Reports: None. Denies: Hx Traumatic Brain Injury Infectious Medical History: Reports: None. Denies: Hx Hepatitis Past Surgical History: Reports: Hx Section - X2, Hx Orthopedic Surgery - Bilateral knee replacement, Hx Tubal Ligation, Other - D&C, right groin cyst. - Immunizations Immunizations up to date: Yes Hx Diphtheria, Pertussis, Tetanus Vaccination: Yes History of Influenza Vaccine for 06/2017 - 11/2017 Season: Yes Hx Pneumococcal Vaccination: 07/08/13 Physical Exam - Vital signs Vitals: Pulse Ox 97 10/13/18 17:27 Course - Re-evaluation Re-evalutation: 10/13/18 21:18 Elevated BNP but normal cardiac enzymes, creatinine is mildly elevated but is likely secondary to combination of lisinopril and Lasix. Chest x-ray shows no evidence of heart failure. Patient was given dose of IV Lasix 80 mg and will be discharged home with return precautions and follow-up with her primary physician as already scheduled. Patient and her daughter at bedside report understanding and agreeing with the plan. - Vital Signs Vital signs: Temp Pulse Resp BP Pulse Ox 98.2 F 21 H 125/102 H 97 10/13/18 17:54 10/13/18 19:00 10/13/18 19:00 10/13/18 19:00 - Laboratory Result Diagrams: 10/13/18 17:44 10/13/18 17:44 Laboratory results interpreted by me: 10/13/18 10/13/18 10/13/18 17:44 17:44 17:44 Hgb 10.4 L Hct 31.6 L MCH 26.1 L RDW 17.6 H Chloride 109 H BUN 42 H Creatinine 1.71 H Est GFR ( Amer) 36 L Est GFR (Non-Af Amer) 30 L AST 41 H NT-Pro-B Natriuret Pep 3320 H - Diagnostic Test Radiology reviewed: Image reviewed, Reports reviewed - EKG Interpretation by Me EKG shows normal: Sinus rhythm Rate: Normal Rhythm: NSR Barney/QRS: LBBB Voltage: No: Increased voltage, Consistant with LVH, Decreased voltage, Throughout, Limb leads P Waves: No: CORA, LAE, Absent, AV Dissociation, Other When compared to previous EKG there are: No significant change Discharge - Discharge Clinical Impression: Peripheral edema Condition: Good Disposition: HOME, SELF-CARE Instructions: Edema, Peripheral ([facility]) Additional Instructions: You have been evaluated in the Emergency Department for increased swelling in your legs and were given IV Lasix/furosemide. Please follow-up with your primary physician as instructed in 1 week to be rechecked, however please have 1 of your physicians check your kidney function in the next 1-2 days. Return to the Emergency Department if you experience chest pain, shortness of breath, worsening swelling, or any other concerning symptoms. Prescriptions: Furosemide [Lasix 40 mg Tablet] 40 mg PO BID #30 tablet Referrals: JHON PIMENTEL MD [Primary Care Provider] - Follow up as needed Print Language: Qatari
[2018-10-13 18:06] LABS: ALANINE AMINOTRANSFERASE 35 U/L (9-52); ALBUMIN 4.4 g/dL (3.5-5.0); ALKALINE PHOSPHATASE 89 U/L (38-126); ANION GAP 10 (5-19); ASPARTATE AMINO TRANSFERASE 41 U/L (14-36); BILIRUBIN,DIRECT 0.2 mg/dL (0.0-0.4); BILIRUBIN,TOTAL 0.4 mg/dL (0.2-1.3); BLOOD UREA NITROGEN 42 mg/dL (7-20); CALCIUM 9.6 mg/dL (8.4-10.2); CARBON DIOXIDE 23 mmol/L (22-30); CHLORIDE 109 mmol/L (98-107); CREATINE KINASE 88 U/L (30-135); GLUCOSE 93 mg/dL (75-110); POTASSIUM 3.9 mmol/L (3.6-5.0); SODIUM 142.4 mmol/L (137-145); TOTAL PROTEIN 7.8 g/dL (6.3-8.2)
[2018-10-13 18:19] LABS: NT PRO BNP 3320 pg/mL (5-900)
[2018-10-13 18:20] LABS: ABSOLUTE MONOCYTES # (MANUAL) 0.5 10^3/uL (0.1-1.4); BASOPHILS % (MANUAL) 0 % (0-2); EOSINOPHILS % (MANUAL) 1 % (0-6); LYMPHOCYTES % (MANUAL) 26 % (13-45); MONOCYTES % (MANUAL) 7 % (3-13); PLATELET COMMENT ADEQUATE; PLATELET LARGE PRESENT; SEGMENTED NEUTROPHILS % (MAN) 66 % (42-78); TOTAL CELLS COUNTED 100; TROPONIN I < 0.012 ng/mL
[2018-10-13 18:21] LABS: ANISOCYTOSIS 1+; OVALOCYTES 1+; POIKILOCYTOSIS 1+
[2018-10-13 18:22] LABS: POLYCHROMASIA SLIGHT
[2018-10-13] MEDS ORDERED: FUROSEMIDE INJ/PF 40 MG/4 ML SDV IV ONE (18:44)
[2018-10-13 19:24] LABS: APPEARANCE,URINE CLEAR; BILIRUBIN,URINE NEGATIVE (NEGATIVE); COLOR,URINE YELLOW; GLUCOSE, URINE NEGATIVE (NEGATIVE); KETONES,URINE NEGATIVE (NEGATIVE); LEUKOCYTE ESTERASE,URINE NEGATIVE (NEGATIVE); NITRITE,URINE NEGATIVE (NEGATIVE); PROTEIN,URINE NEGATIVE (NEGATIVE); URINE SPECIFIC GRAVITY 1.012; UROBILINOGEN,URINE NEGATIVE mg/dL (<2.0)
[2018-10-13 21:33] VITALS: BP 118/76
--- NOTE | 2018-10-14 21:23 | EKG REPORT ---
SEVERITY:- ABNORMAL ECG - ATRIAL FIBRILLATION, V-RATE 71-126 RIGHT BUNDLE BRANCH BLOCK : Confirmed by: Bradley Olivarez 14-Oct-2018 21:22:44
== END 2018-10-13 21:40 | disposition home or self-care (01) ==
LOC: ER 17:23
DX: R60.0 Localized edema (principal); R06.02 Shortness of breath; J44.9 Chronic obstructive pulmonary disease, unspecified; I50.9 Heart failure, unspecified; I25.10 Atherosclerotic heart disease of native coronary artery without angina pectoris; I11.0 Hypertensive heart disease with heart failure; R73.03 Prediabetes; Z87.891 Personal history of nicotine dependence
CPT/HCPCS: 93005; 99285; 96374; 36415; 82553; 82550; 85025; 80053; 81001; 84484; 83880; 71045; 93010; J1940

== ENCOUNTER 2018-10-27 05:34 | Emergency (ER) | payer MEDICARE, MEDICAID ==
[2018-10-27] MEDS ORDERED: DEXAMETHASONE SOD PHOS INJ 10 MG/1 ML VIAL IV ONE (06:36)
[2018-10-27 06:44] LABS: ABSOLUTE EOSINOPHILS # (AUTO) 0.2 10^3/uL (0.0-0.6); ABSOLUTE LYMPHOCYTES (AUTO) 2.2 10^3/uL (0.5-4.7); ABSOLUTE MONOCYTES (AUTO) 0.9 10^3/uL (0.1-1.4); ABSOLUTE NEUT (AUTO) 3.8 10^3/uL (1.7-8.2); BASOPHILS % (AUTO) 0.6 % (0-2); EOSINOPHILS % (AUTO) 2.9 % (0-6); HEMATOCRIT 31.5 % (36.0-47.0); HEMOGLOBIN 10.3 g/dL (12.0-15.5); LYMPHOCYTES % (AUTO) 30.3 % (13-45); MEAN CORPUSCULAR HEMOGLOBIN 26.2 pg (27.0-33.4); MEAN CORPUSCULAR HGB CONC 32.7 g/dL (32.0-36.0); MEAN CORPUSCULAR VOLUME 80 fl (80-97); MONOCYTES % (AUTO) 13.1 % (3-13); PLATELET COUNT 170 10^3/uL (150-450); RED BLOOD COUNT 3.93 10^6/uL (3.72-5.28); RED CELL DISTRIBUTION WIDTH 17.6 % (11.5-14.0); SEGMENTED NEUTROPHILS % (AUTO) 53.1 % (42-78); TOTAL CELLS COUNTED % (AUTO) 100 %; WHITE BLOOD COUNT 7.1 10^3/uL (4.0-10.5)
[2018-10-27 06:54] LABS: ALANINE AMINOTRANSFERASE 17 U/L (9-52); ALBUMIN 4.4 g/dL (3.5-5.0); ALKALINE PHOSPHATASE 95 U/L (38-126); ANION GAP 15 (5-19); ASPARTATE AMINO TRANSFERASE 43 U/L (14-36); BILIRUBIN,DIRECT 0.4 mg/dL (0.0-0.4); BILIRUBIN,TOTAL 0.4 mg/dL (0.2-1.3); BLOOD UREA NITROGEN 54 mg/dL (7-20); CALCIUM 9.5 mg/dL (8.4-10.2); CARBON DIOXIDE 22 mmol/L (22-30); CHLORIDE 108 mmol/L (98-107); CREATINE KINASE 130 U/L (30-135); GLUCOSE 101 mg/dL (75-110); TOTAL PROTEIN 7.9 g/dL (6.3-8.2)
--- NOTE | 2018-10-27 07:25 | RADIOLOGY REPORT (SQ) ---
EXAM DESCRIPTION: XR CHEST 1 VIEW COMPLETED DATE/TME: 10/27/2018 06:35 CLINICAL HISTORY: 63 years Female, shoulder pain COMPARISON: 10/13/18 NUMBER OF VIEWS/TECHNIQUE: 1/AP FINDINGS: Adequate lung volume, clear parenchyma, normal cardiac silhouette, and intact bony thorax. Atherosclerotic vascular disease. IMPRESSION: No acute cardiopulmonary findings.
--- NOTE | 2018-10-27 07:27 | RADIOLOGY REPORT (SQ) ---
EXAM DESCRIPTION: XR SHOULDER 2 OR MORE VIEWS COMPLETED DATE/TME: 10/27/2018 06:35 CLINICAL HISTORY: 63 years Female, shoulder pain COMPARISON: CR, chest, October 03, 2018 Findings: Mild osteoarthritis involves the right acromioclavicular and acromiohumeral joints..Atherosclerotic vascular disease. Degenerative disc disease. Bones, joints, and soft tissues of the RIGHT XR SHOULDER 3 VIEWS appear otherwise intact. IMPRESSION: No acute findings.
[2018-10-27 07:29] LABS: ERYTHROCYTE SEDIMENTATION RATE 60 mm/hr (0-30)
--- NOTE | 2018-10-27 07:31 | EKG REPORT ---
SEVERITY:- ABNORMAL ECG - ATRIAL FIBRILLATION RIGHT BUNDLE BRANCH BLOCK : Confirmed by: Antonio Stuart MD 27-Oct-2018 07:31:18
[2018-10-27] MEDS ORDERED: IPRATROPIUM/ALBUTEROL 0.5-2.5 MG/3 ML AMPUL NEB ONE (07:42)
--- NOTE | 2018-10-27 11:45 | ER Document Report ---
ED General - General Chief Complaint: Arm Pain Stated Complaint: RIGHT ARM PAIN Time Seen by Provider: 10/27/18 06:03 Primary Care Provider: JHON PIMENTEL MD [Primary Care Provider] - Follow up as needed Notes: 63-year-old female with history of COPD presents to the ER complaining of some right shoulder pain. The patient states she was having trouble last night. She states her shoulder hurt no matter which way she would turn. States is worse with movement. She denies any falls or trauma. States she is always short of breath due to her COPD and today is no different. She denies any chest pain. Denies diaphoresis denies nausea or vomiting. He describes the pain as sharp in her shoulder is worse with movement. TRAVEL OUTSIDE OF THE [place] IN LAST 30 DAYS: No - Related Data Allergies/Adverse Reactions: No Known Allergies Allergy (Verified 10/27/18 06:13) Past Medical History - Social History Smoking Status: Former Smoker Frequency of alcohol use: None Drug Abuse: None Family History: Arthritis, CAD, CVA, DM, Hyperlipidemia, Hypertension, Malignancy Patient has suicidal ideation: No Patient has homicidal ideation: No - Past Medical History Cardiac Medical History: Reports: Hx Atrial Fibrillation, Hx Congestive Heart Failure, Hx Hypercholesterolemia, Hx Hypertension Pulmonary Medical History: Reports: Hx Asthma, Hx Bronchitis, Hx COPD, Hx Pneumonia, Hx Respiratory Failure, Hx Sleep Apnea Denies: Hx Tuberculosis Neurological Medical History: Reports: Hx Cerebrovascular Accident. Denies: Hx Seizures Endocrine Medical History: Reports: Hx Diabetes Mellitus Type 2 - prediabetic.. Denies: Hx Diabetes Mellitus Type 1, Hx Hyperthyroidism, Hx Hypothyroidism Renal/ Medical History: Denies: Hx Peritoneal Dialysis GI Medical History: Denies: Hx Cirrhosis, Hx Crohn's Disease, Hx Hepatitis, Hx Ulcerative Colitis Musculoskeletal Medical History: Reports Hx Arthritis, Denies Hx Gout, Reports Hx Musculoskeletal Deformity Skin Medical History: Denies Hx Eczema, Denies Hx Psoriasis Psychiatric Medical History: Denies: Hx Depression Traumatic Medical History: Denies: Hx Traumatic Brain Injury Infectious Medical History: Denies: Hx Hepatitis Past Surgical History: Reports: Hx Section - X2, Hx Orthopedic Surgery - Bilateral knee replacement, Hx Tubal Ligation, Other - D&C, right groin cyst. - Immunizations Immunizations up to date: Yes Hx Diphtheria, Pertussis, Tetanus Vaccination: Yes Hx Pneumococcal Vaccination: 07/08/13 Review of Systems - Review of Systems Constitutional: denies: Chills, Fever Cardiovascular: denies: Chest pain Respiratory: Cough, Short of breath Gastrointestinal: denies: Abdominal pain, Nausea, Vomiting Musculoskeletal: Joint pain Neurological/Psychological: denies: Headaches -: Yes All other systems reviewed and negative Physical Exam - Vital signs Vitals: Resp BP Pulse Ox 22 H 128/88 H 100 10/27/18 05:50 10/27/18 05:50 10/27/18 05:50 - Notes Notes: GENERAL_APPEARANCE: well_nourished, alert, cooperative VITALS: reviewed, see vital signs table. HEAD: no_swelling\tenderness on the head. EYES: PERRL, EOMI, conjunctiva_clear. NOSE: no_nasal_discharge. MOUTH: (-)decreased moisture. THROAT: no_throat_inflammation, no_airway_obstruction. no_lymphadenopathy NECK: supple, no_neck_tenderness, (-)thyromegaly. BACK: no_back_tenderness. CHEST_WALL: no_chest_tenderness. LUNGS: Scant_wheezing, no_rales, no_rhonchi, (-)accessory muscle use, good air exchange bilateral. HEART: normal_rate, normal_rhythm, normal_S1, normal_S2, (-)S3, (-)S4, no_murmur, no_rub. ABDOMEN: normal_BS, soft, no_abd_tenderness, (-)guarding, (-)rebound, no_organomegaly, no_abd_masses. EXTREMITIES: Trace edema noted no calf pain or tenderness right shoulder is not swollen. There is no tenderness on range of motion of the patient states is very uncomfortable when I move her shoulder. There is strong radial and ulnar pulses on the right brisk capillary refill. No change in alteration. SKIN: warm, dry, good_color, no_rash. MENTAL_STATUS: speech_clear, oriented_X_3, normal_affect, responds_appropriately to questions. Course - Re-evaluation Re-evalutation: 10/27/18 11:42 63-year-old female comes in with some right shoulder pain is seems to be very reproducible in nature. Certainly an anginal equivalent is a consideration we have done serial troponins which are been negative. Patient was given aerosol treatments for her steroids here she has not had her morning medications. Blood pressure slightly running high. Patient has no ripping or tearing sensations in her chest. The patient will be discharged home I did give her a dose of steroids here which seemed to help we will place her on a Medrol Dosepak for home she is not diabetic. It is of note her creatinine is slightly increased looks like she has been that high in the past. Spoke with her about some hydration. Follow-up for repeat lab work. - Vital Signs Vital signs: Temp Pulse Resp BP Pulse Ox 29 H 135/85 H 100 10/27/18 08:30 10/27/18 08:30 10/27/18 08:30 - Laboratory Result Diagrams: 10/27/18 05:53 10/27/18 05:53 Laboratory results interpreted by me: 10/27/18 10/27/18 05:53 05:53 Hgb 10.3 L Hct 31.5 L MCH 26.2 L RDW 17.6 H Monocytes % 13.1 H ESR 60 H Chloride 108 H BUN 54 H Creatinine 2.25 H Est GFR ( Amer) 26 L Est GFR (Non-Af Amer) 22 L AST 43 H Discharge - Discharge Clinical Impression: Shoulder pain, right Qualifiers: Chronicity: acute Qualified Code(s): M25.511 - Pain in right shoulder Condition: Good Disposition: HOME, SELF-CARE Instructions: Arthralgia ([facility]) Additional Instructions: Please follow-up with your doctor. You may need to see orthopedics for your shoulder. If you develop any chest pain or anything changes please return to e ER to allow us to reevaluate you. If you do not improve in 24-48 hours return to allow us to reevaluate you. Prescriptions: Methylprednisolone [Medrol 4 Mg Tablet] 4 mg PO ASDIR #1 packet Referrals: JHON PIMENTEL MD [Primary Care Provider] - Follow up as needed
[2018-10-27 12:15] VITALS: BP 133/100
== END 2018-10-27 12:15 | disposition home or self-care (01) ==
LOC: ER 05:34
DX: M25.511 Pain in right shoulder (principal); J44.9 Chronic obstructive pulmonary disease, unspecified; R06.02 Shortness of breath; R05 Cough; R60.0 Localized edema; I10 Essential (primary) hypertension; Z87.891 Personal history of nicotine dependence; Z87.01 Personal history of pneumonia (recurrent)
CPT/HCPCS: 93005; 94640; 99284; 96374; 36415; 82550; 85025; 85652; 80053; 84484; 71045; 73030; 93010; J1100; A9270; J7620

== ENCOUNTER 2018-11-17 10:19 | Emergency (ER) | payer MEDICARE, MEDICAID ==
--- NOTE | 2018-11-17 10:50 | ER Document Report ---
ED Medical Screen (RME) - General Chief Complaint: Abdominal Cramping Stated Complaint: ABDOMINAL PAIN Time Seen by Provider: 11/17/18 10:29 Primary Care Provider: JHON PIMENTEL MD [Primary Care Provider] - Follow up as needed Mode of Arrival: Wheelchair Information source: Patient, Friend Notes: 63-year-old female presents with complaint of sudden onset of abdominal cramping, nausea, vomiting that occurred just prior to arrival while on her way to her primary care physician's office for right foot pain and erythema that has been present for 2 weeks I have greeted and performed a rapid initial assessment of this patient. A comprehensive ED assessment and evaluation of the patient, analysis of test results and completion of medical decision making process we will be contacted by additional ED providers. PHYSICAL EXAMINATION: Vital signs reviewed GENERAL: Well-appearing, well-nourished and in no acute distress. LUNGS: No respiratory distress Musculoskeletal: Normal range of motion NEUROLOGICAL: Normal speech, normal gait. PSYCH: Normal mood, normal affect. SKIN: Warm, Dry, normal turgor, no rashes or lesions noted. TRAVEL OUTSIDE OF THE [place] IN LAST 30 DAYS: No - HPI Onset: Just prior to arrival Onset/Duration: Sudden, Gone Quality of pain: Cramping Associated Symptoms: Abdominal pain, Nausea, Vomiting, Other - Right foot redness, pain Exacerbated by: Walking Relieved by: Denies Similar symptoms previously: Yes Recently seen / treated by doctor: No - Related Data Smoking: Non-smoker Frequency of alcohol use: None Drug Abuse: None Allergies/Adverse Reactions: No Known Allergies Allergy (Verified 11/17/18 10:37) Past Medical History - Social History Frequency of alcohol use: None Drug Abuse: None - Past Medical History Cardiac Medical History: Reports: Hx Atrial Fibrillation, Hx Congestive Heart Failure, Hx Hypercholesterolemia, Hx Hypertension Pulmonary Medical History: Reports: Hx Asthma, Hx Bronchitis, Hx COPD, Hx Pneumonia, Hx Respiratory Failure, Hx Sleep Apnea Denies: Hx Tuberculosis Neurological Medical History: Reports: Hx Cerebrovascular Accident. Denies: Hx Seizures Endocrine Medical History: Reports: Hx Diabetes Mellitus Type 2 - prediabetic.. Denies: Hx Diabetes Mellitus Type 1, Hx Hyperthyroidism, Hx Hypothyroidism Renal/ Medical History: Denies: Hx Peritoneal Dialysis GI Medical History: Denies: Hx Cirrhosis, Hx Crohn's Disease, Hx Hepatitis, Hx Ulcerative Colitis Musculoskeltal Medical History: Reports Hx Arthritis, Denies Hx Gout, Reports Hx Musculoskeletal Deformity Skin Medical History: Denies Hx Eczema, Denies Hx Psoriasis Psychiatric Medical History: Denies: Hx Depression Traumatic Medical History: Denies: Hx Traumatic Brain Injury Infectious Medical History: Denies: Hx Hepatitis Past Surgical History: Reports: Hx Section - X2, Hx Orthopedic Surgery - Bilateral knee replacement, Hx Tubal Ligation, Other - D&C, right groin cyst. - Immunizations Immunizations up to date: Yes Hx Diphtheria, Pertussis, Tetanus Vaccination: Yes History of Influenza Vaccine for 06/2017 - 11/2017 Season: Yes Influenza Administration Date for 06/2017 - 11/2017 Season: 07/09/17 Physical Exam - Vital signs Vitals: Temp Pulse Resp BP Pulse Ox 98.1 F 118 H 18 126/69 H 96 11/17/18 10:23 11/17/18 10:23 11/17/18 10:23 11/17/18 10:23 11/17/18 10:23 Course - Vital Signs Vital signs: Temp Pulse Resp BP Pulse Ox 98.1 F 94 18 126/69 H 95 11/17/18 10:23 11/17/18 10:44 11/17/18 10:23 11/17/18 10:23 11/17/18 10:44 Doctor's Discharge - Discharge Referrals: JHON PIMENTEL MD [Primary Care Provider] - Follow up as needed
[2018-11-17] MEDS ORDERED: DICYCLOMINE HCL 20 MG TABLET PO ONE (11:18)
[2018-11-17] MEDS ORDERED: ONDANSETRON HCL INJ/PF 4 MG/2 ML SDV IV ONE (11:18)
--- NOTE | 2018-11-17 11:26 | ER Document Report ---
ED General - General Chief Complaint: Abdominal Cramping Stated Complaint: ABDOMINAL PAIN Time Seen by Provider: 11/17/18 10:29 Primary Care Provider: JHON PIMENTEL MD [Primary Care Provider] - Follow up as needed Mode of Arrival: Wheelchair TRAVEL OUTSIDE OF THE [place] IN LAST 30 DAYS: No - HPI Patient complains to provider of: Abdominal cramping nausea vomiting pain right foot Notes: Patient coming in today with history of chronic kidney disease obesity hypertension chronic kidney disease for abdominal cramping and nausea vomiting and pain in the right foot. Patient states that she was on the way to her doctor's office when she started having nausea vomiting feeling unwell therefore came to the ER. Patient states she was seen her doctor for her foot pain has been ongoing for the last 2 weeks now the foot is swollen and red at the first joint. Patient denies history of gout. Patient states she does have a history of constipation and yesterday took 2 laxatives now today experiencing abdominal cramps. Patient states now the cramping and nausea has resolved. Patient otherwise resting comfortably upon my evaluation denies any recent antibiotics changes in her medications or travel.Patient states she did have a normal bowel movement yesterday - Related Data Allergies/Adverse Reactions: No Known Allergies Allergy (Verified 11/17/18 10:37) Past Medical History - General Information source: Patient, Friend - Social History Smoking Status: Former Smoker Frequency of alcohol use: None Drug Abuse: None Family History: Arthritis, CAD, CVA, DM, Hyperlipidemia, Hypertension, Mal ignancy Patient has suicidal ideation: No Patient has homicidal ideation: No - Past Medical History Cardiac Medical History: Reports: Hx Atrial Fibrillation, Hx Congestive Heart Failure, Hx Hypercholesterolemia, Hx Hypertension Pulmonary Medical History: Reports: Hx Asthma, Hx Bronchitis, Hx COPD, Hx Pneumonia, Hx Respiratory Failure, Hx Sleep Apnea Denies: Hx Tuberculosis Neurological Medical History: Reports: Hx Cerebrovascular Accident. Denies: Hx Seizures Endocrine Medical History: Reports: Hx Diabetes Mellitus Type 2 - prediabetic.. Denies: Hx Diabetes Mellitus Type 1, Hx Hyperthyroidism, Hx Hypothyroidism Renal/ Medical History: Denies: Hx Peritoneal Dialysis GI Medical History: Denies: Hx Cirrhosis, Hx Crohn's Disease, Hx Hepatitis, Hx Ulcerative Colitis Musculoskeletal Medical History: Reports Hx Arthritis, Denies Hx Gout, Reports Hx Musculoskeletal Deformity Skin Medical History: Denies Hx Eczema, Denies Hx Psoriasis Psychiatric Medical History: Denies: Hx Depression Traumatic Medical History: Denies: Hx Traumatic Brain Injury Infectious Medical History: Denies: Hx Hepatitis Past Surgical History: Reports: Hx Section - X2, Hx Orthopedic Surgery - Bilateral knee replacement, Hx Tubal Ligation, Other - D&C, right groin cyst. - Immunizations Immunizations up to date: Yes Hx Diphtheria, Pertussis, Tetanus Vaccination: Yes Hx Pneumococcal Vaccination: 07/08/13 Review of Systems - Review of Systems Constitutional: No symptoms reported EENT: No symptoms reported Cardiovascular: No symptoms reported Respiratory: No symptoms reported Gastrointestinal: Abdominal pain, Nausea, Vomiting Genitourinary: No symptoms reported Female Genitourinary: No symptoms reported Musculoskeletal: Gout Skin: No symptoms reported Hematologic/Lymphatic: No symptoms reported Neurological/Psychological: No symptoms reported -: Yes All other systems reviewed and negative Physical Exam - Vital signs Vitals: Temp Pulse Resp BP Pulse Ox 98.1 F 118 H 18 126/69 H 96 11/17/18 10:23 11/17/18 10:23 11/17/18 10:23 11/17/18 10:23 11/17/18 10:23 Interpretation: Normal - General General appearance: Appears well, Alert - HEENT Head: Normocephalic, Atraumatic Eyes: Normal Pupils: PERRL - Respiratory Respiratory status: No respiratory distress Chest status: Nontender Breath sounds: Normal Chest palpation: Normal - Cardiovascular Rhythm: Regular, Tachycardia Heart sounds: Normal auscultation Murmur: No - Abdominal Inspection: Normal Distension: No distension Bowel sounds: Normal Tenderness: Nontender Organomegaly: No organomegaly - Back Back: Normal, Nontender - Extremities General upper extremity: Normal inspection, Nontender, Normal color, Normal ROM, Normal temperature General lower extremity: Normal inspection, Nontender, Normal color, Normal ROM, Normal temperature, Normal weight bearing. No: Skip's sign - Neurological Neuro grossly intact: Yes Cognition: Normal Orientation: AAOx4 Guillermo Coma Scale Eye Opening: Spontaneous Guillermo Coma Scale Verbal: Oriented Guillermo Coma Scale Motor: Obeys Commands Guillermo Coma Scale Total: 15 Speech: Normal Motor strength normal: LUE, RUE, LLE, RLE Sensory: Normal - Psychological Associated symptoms: Normal affect, Normal mood - Skin Skin Temperature: Warm Skin Moisture: Dry Skin Color: Normal Course - Re-evaluation Re-evalutation: 11/17/18 11:26 Patient coming in for evaluation of abdominal cramping patient recently used laxatives patient states stomach cramping as it resolved. Patient does have some redness to her foot consistent with callus. Will see what the laboratory studies in triage ordered show we will get an x-ray of the foot 11/17/18 13:04 Laboratory studies show acute on chronic renal insufficiency. Patient's creatinine is gone from 1.7 to greater than 3 showed gradual increase. Patient does take multiple medications that are nephrotoxic. Patient otherwise shows no signs of fluid overload state no signs of hypertensive crisis. Potassium was replaced orally. An x-ray of the patient's foot showed no signs of fracture clinical examination is consistent with gout. Explained to the patient that this time her abdominal cramping more likely due to the laxatives that she was taking will continue with Bentyl at home. Patient's 11/17/18 13:10 Discussed laboratory findings with the patient's cad intern will adjust her medications patient will be discharged home. - Vital Signs Vital signs: Temp Pulse Resp BP Pulse Ox 98.2 F 87 18 128/70 H 100 11/17/18 12:54 11/17/18 12:54 11/17/18 12:54 11/17/18 12:54 11/17/18 12:54 - Laboratory Result Diagrams: 11/17/18 10:52 11/17/18 10:52 Laboratory results interpreted by me: 11/17/18 11/17/18 10:52 10:52 Hgb 11.4 L Hct 34.8 L MCH 26.2 L RDW 18.5 H Sodium 136.6 L Potassium 2.9 L* Chloride 91 L Carbon Dioxide 31 H BUN 93 H Creatinine 3.18 H Est GFR ( Amer) 18 L Est GFR (Non-Af Amer) 15 L Glucose 118 H AST 38 H Total Protein 8.9 H Discharge - Discharge Clinical Impression: Hypokalemia, Abdominal cramping, Gout Acute on chronic renal failure Qualifiers: Acute renal failure type: unspecified Chronic kidney disease stage: unspecified stage Qualified Code(s): N17.9 - Acute kidney failure, unspecified; N18.9 - Chronic kidney disease, unspecified Condition: Good Disposition: HOME, SELF-CARE Instructions: Abdominal Pain ([facility]), Stool Softener ([facility]), Hypokalemia ([facility]), Kidney Failure ([facility]), Gout Diet ([facility]), Gout ([facility]) Additional Instructions: I discussed your laboratory findings with Dr. Garza Please hold your Lasix 24hour then restart your Lasix 80 mg in the morning 40 mg at night Hold your lisinopril for 24 hours Discontinue your Zaroxolyn Follow-up with Dr. Garza Your abdominal pain is more likely related to your laxative use I will highly recommend using stool softener for underlying constipation. Examination of her foot reveals gout I would take Tylenol for your pain control follow-up with your primary care physician for further evaluation. Prescriptions: Dicyclomine HCl [Bentyl 20 mg Tablet] 20 mg PO QID #14 tablet Ondansetron [Zofran Odt 4 mg Tablet] 1 - 2 tab PO Q4H PRN #30 tab.rapdis PRN Reason: For Nausea/Vomiting Referrals: JHON PIMENTEL MD [Primary Care Provider] - Follow up as needed AMOL GARZA MD [ACTIVE STAFF] - Follow up as needed
[2018-11-17 11:31] LABS: ABSOLUTE BASOPHILS # (AUTO) 0.1 10^3/uL (0.0-0.2); ABSOLUTE EOSINOPHILS # (AUTO) 0.1 10^3/uL (0.0-0.6); ABSOLUTE LYMPHOCYTES (AUTO) 2.5 10^3/uL (0.5-4.7); ABSOLUTE MONOCYTES (AUTO) 0.8 10^3/uL (0.1-1.4); ABSOLUTE NEUT (AUTO) 4.2 10^3/uL (1.7-8.2); BASOPHILS % (AUTO) 1.1 % (0-2); EOSINOPHILS % (AUTO) 1.9 % (0-6); HEMATOCRIT 34.8 % (36.0-47.0); HEMOGLOBIN 11.4 g/dL (12.0-15.5); LYMPHOCYTES % (AUTO) 32.6 % (13-45); MEAN CORPUSCULAR HEMOGLOBIN 26.2 pg (27.0-33.4); MEAN CORPUSCULAR HGB CONC 32.8 g/dL (32.0-36.0); MEAN CORPUSCULAR VOLUME 80 fl (80-97); MONOCYTES % (AUTO) 10.3 % (3-13); PLATELET COUNT 212 10^3/uL (150-450); RED BLOOD COUNT 4.35 10^6/uL (3.72-5.28); RED CELL DISTRIBUTION WIDTH 18.5 % (11.5-14.0); SEGMENTED NEUTROPHILS % (AUTO) 54.1 % (42-78); TOTAL CELLS COUNTED % (AUTO) 100 %; WHITE BLOOD COUNT 7.7 10^3/uL (4.0-10.5)
[2018-11-17 11:53] LABS: ALANINE AMINOTRANSFERASE 32 U/L (9-52); ALBUMIN 4.5 g/dL (3.5-5.0); ALKALINE PHOSPHATASE 108 U/L (38-126); ANION GAP 15 (5-19); ASPARTATE AMINO TRANSFERASE 38 U/L (14-36); BILIRUBIN,DIRECT 0.3 mg/dL (0.0-0.4); BILIRUBIN,TOTAL 0.7 mg/dL (0.2-1.3); BLOOD UREA NITROGEN 93 mg/dL (7-20); CARBON DIOXIDE 31 mmol/L (22-30); CHLORIDE 91 mmol/L (98-107); GLUCOSE 118 mg/dL (75-110); LIPASE 63.6 U/L (23-300); SODIUM 136.6 mmol/L (137-145); TOTAL PROTEIN 8.9 g/dL (6.3-8.2)
[2018-11-17 11:56] LABS: POTASSIUM 2.9 mmol/L (3.6-5.0)
[2018-11-17] MEDS ORDERED: POTASSIUM CHLORIDE 10 MEQ CAPSULE.ER PO ONE (12:04)
--- NOTE | 2018-11-17 12:07 | RADIOLOGY REPORT (SQ) ---
EXAM DESCRIPTION: FOOT RIGHT COMPLETE COMPLETED DATE/TIME: 11/17/2018 11:45 am REASON FOR STUDY: pain gout COMPARISON: None. NUMBER OF VIEWS: Three views. TECHNIQUE: AP, lateral and oblique radiographic images acquired of the right foot. LIMITATIONS: None. FINDINGS: MINERALIZATION: Normal. BONES: No acute fracture or dislocation. Prominent calcaneal spurs. JOINTS: No as for significant erosions. Slight narrowing at the first metatarsophalangeal joint. SOFT TISSUES: Soft tissue swelling. Soft tissue vascular calcifications. No foreign body. OTHER: No other significant finding. IMPRESSION: 1. Soft tissue swelling. 2. No acute osseous findings. 3. Slight narrowing at the first metatarsophalangeal joint. 4. Prominent calcaneal spurs. TECHNICAL DOCUMENTATION: JOB ID: [id number] [employer]- All Rights Reserved Reading location - IP/workstation name: [email or web address]
--- NOTE | 2018-11-17 12:37 | ER Document Report ---
ED General - General Chief Complaint: Abdominal Cramping Stated Complaint: ABDOMINAL PAIN Time Seen by Provider: 11/17/18 10:29 Primary Care Provider: JHON PIMENTEL MD [Primary Care Provider] - Follow up as needed Mode of Arrival: Wheelchair TRAVEL OUTSIDE OF THE [place] IN LAST 30 DAYS: No - Related Data Allergies/Adverse Reactions: No Known Allergies Allergy (Verified 11/17/18 10:37) Past Medical History - General Information source: Patient, Friend - Social History Smoking Status: Former Smoker Frequency of alcohol use: None Drug Abuse: None Family History: Arthritis, CAD, CVA, DM, Hyperlipidemia, Hypertension, Malignancy Patient has suicidal ideation: No Patient has homicidal ideation: No - Past Medical History Cardiac Medical History: Reports: Hx Atrial Fibrillation, Hx Congestive Heart Failure, Hx Hypercholesterolemia, Hx Hypertension Pulmonary Medical History: Reports: Hx Asthma, Hx Bronchitis, Hx COPD, Hx Pneumonia, Hx Respiratory Failure, Hx Sleep Apnea Denies: Hx Tuberculosis Neurological Medical History: Reports: Hx Cerebrovascular Accident. Denies: Hx Seizures Endocrine Medical History: Reports: Hx Diabetes Mellitus Type 2 - prediabetic.. Denies: Hx Diabetes Mellitus Type 1, Hx Hyperthyroidism, Hx Hypothyroidism Renal/ Medical History: Denies: Hx Peritoneal Dialysis GI Medical History: Denies: Hx Cirrhosis, Hx Crohn's Disease, Hx Hepatitis, Hx Ulcerative Colitis Musculoskeletal Medical History: Reports Hx Arthritis, Denies Hx Gout, Reports Hx Musculoskeletal Deformity Skin Medical History: Denies Hx Eczema, Denies Hx Psoriasis Psychiatric Medical History: Denies: Hx Depression Traumatic Medical History: Denies: Hx Traumatic Brain Injury Infectious Medical History: Denies: Hx Hepatitis Past Surgical History: Reports: Hx Section - X2, Hx Orthopedic Surgery - Bilateral knee replacement, Hx Tubal Ligation, Other - D&C, right groin cyst. - Immunizations Immunizations up to date: Yes Hx Diphtheria, Pertussis, Tetanus Vaccination: Yes Hx Pneumococcal Vaccination: 07/08/13 Physical Exam - Vital signs Vitals: Temp Pulse Resp BP Pulse Ox 98.1 F 118 H 18 126/69 H 96 11/17/18 10:23 11/17/18 10:23 11/17/18 10:23 11/17/18 10:23 11/17/18 10:23 Course - Vital Signs Vital signs: Temp Pulse Resp BP Pulse Ox 98.1 F 94 18 126/69 H 95 11/17/18 10:23 11/17/18 10:44 11/17/18 10:23 11/17/18 10:23 11/17/18 10:44 - Laboratory Result Diagrams: 11/17/18 10:52 11/17/18 10:52 Laboratory results interpreted by me: 11/17/18 11/17/18 10:52 10:52 Hgb 11.4 L Hct 34.8 L MCH 26.2 L RDW 18.5 H Sodium 136.6 L Potassium 2.9 L* Chloride 91 L Carbon Dioxide 31 H BUN 93 H Creatinine 3.18 H Est GFR ( Amer) 18 L Est GFR (Non-Af Amer) 15 L Glucose 118 H AST 38 H Total Protein 8.9 H Discharge - Discharge Referrals: JHON PIMENTEL MD [Primary Care Provider] - Follow up as needed
[2018-11-17 12:56] VITALS: BP 128/70
== END 2018-11-17 13:15 | disposition home or self-care (01) ==
LOC: ER 10:19
DX: R10.9 Unspecified abdominal pain (principal); R11.2 Nausea with vomiting, unspecified; M10.9 Gout, unspecified; I12.9 Hypertensive chronic kidney disease with stage 1 through stage 4 chronic kidney disease, or unspecified chronic kidney disease; N18.9 Chronic kidney disease, unspecified; N17.9 Acute kidney failure, unspecified; E87.6 Hypokalemia; M79.671 Pain in right foot; J44.9 Chronic obstructive pulmonary disease, unspecified; R00.0 Tachycardia, unspecified
CPT/HCPCS: 99284; 96374; 36415; 83690; 83735; 85025; 80053; 73630; A9270 ×2; J2405; J3490

== ENCOUNTER 2018-12-19 03:41 | Emergency (ER) | payer MEDICARE, MEDICAID ==
--- NOTE | 2018-12-19 03:51 | ER Document Report ---
ED Extremity Problem, Lower - General Stated Complaint: KNEE PAIN Time Seen by Provider: 12/19/18 03:50 Primary Care Provider: JHON PIMENTEL MD [Primary Care Provider] - Follow up as needed Notes: Patient is a 63-year-old female that comes emergency department for chief complaint of left knee pain. Pain started during the day, started to worsen, she states now when she tries to move the knee or stand on the knee she has severe pain. The knee also feels swollen. She denies fever or chills, denies injury. She reports a history of gout in her foot but never in her knee. She also has history of bilateral knee replacements. Medical history includes atrial fibrillation on Eliquis, CHF, hypertension, COPD, but not diabetes. TRAVEL OUTSIDE OF THE [place] IN LAST 30 DAYS: No - Related Data Allergies/Adverse Reactions: No Known Allergies Allergy (Verified 11/17/18 10:37) Past Medical History - General Information source: Patient - Social History Smoking Status: Never Smoker Frequency of alcohol use: None Drug Abuse: None Lives with: Family Family History: Arthritis, CAD, CVA, DM, Hyperlipidemia, Hypertension, Malignancy - Past Medical History Cardiac Medical History: Reports: Hx Atrial Fibrillation, Hx Congestive Heart Failure, Hx Hypercholesterolemia, Hx Hypertension Pulmonary Medical History: Reports: Hx Asthma, Hx Bronchitis, Hx COPD, Hx Pneumonia, Hx Respiratory Failure, Hx Sleep Apnea Denies: Hx Tuberculosis Neurological Medical History: Reports: Hx Cerebrovascular Accident. Denies: Hx Seizures Endocrine Medical History: Reports: Hx Diabetes Mellitus Type 2 - prediabetic.. Denies: Hx Diabetes Mellitus Type 1, Hx Hyperthyroidism, Hx Hypothyroidism Renal/ Medical History: Denies: Hx Peritoneal Dialysis GI Medical History: Denies: Hx Cirrhosis, Hx Crohn's Disease, Hx Hepatitis, Hx Ulcerative Colitis Musculoskeletal Medical History: Reports Hx Arthritis, Denies Hx Gout, Reports Hx Musculoskeletal Deformity Skin Medical History: Denies Hx Eczema, Denies Hx Psoriasis Psychiatric Medical History: Denies: Hx Depression Traumatic Medical History: Denies: Hx Traumatic Brain Injury Infectious Medical History: Denies: Hx Hepatitis Past Surgical History: Reports: Hx Section - X2, Hx Orthopedic Surgery - Bilateral knee replacement, Hx Tubal Ligation, Other - D&C, right groin cyst. - Immunizations Immunizations up to date: Yes Hx Diphtheria, Pertussis, Tetanus Vaccination: Yes Hx Pneumococcal Vaccination: 07/08/13 Review of Systems - Review of Systems Constitutional: No symptoms reported EENT: No symptoms reported Cardiovascular: No symptoms reported Respiratory: No symptoms reported Gastrointestinal: No symptoms reported Genitourinary: No symptoms reported Female Genitourinary: No symptoms reported Musculoskeletal: See HPI Skin: No symptoms reported Hematologic/Lymphatic: No symptoms reported Neurological/Psychological: No symptoms reported Physical Exam - Vital signs Vitals: Temp Pulse Resp BP Pulse Ox 97.4 F 107 H 24 H 114/78 100 12/19/18 03:54 12/19/18 03:54 12/19/18 03:54 12/19/18 03:54 12/19/18 03:54 - Notes Notes: GENERAL: Alert, interacts well. No acute distress. HEAD: Normocephalic, atraumatic. EYES: Pupils equal, round, and reactive to light. Extraocular movements intact. ENT: Oral mucosa moist, tongue midline. Oropharynx unremarkable. Airway patent. Nares patent, no nasal septal hematoma, TM's intact. NECK: Full range of motion. Supple. Trachea midline. LUNGS: Clear to auscultation bilaterally, no wheezes, rales, or rhonchi. No respiratory distress. HEART: Regular rate and rhythm. No murmur ABDOMEN: Soft, non-tender. Non-distended. Bowel sounds present in all 4 quadrants. GENITOURINARY: Deferred EXTREMITIES: Pain over the anterior left knee, specifically over the inferior aspect of the knee, slightly more so immediately. I cannot get patient to bend her knee. Surgical scars. Slight warmth but this is equal bilaterally. No overt swelling, no overt erythema. Normal hip, ankle exam. Normal distal neurovascular exam. BACK: no cervical, thoracic, lumbar midline tenderness. No saddle anesthesia, normal distal neurovascular exam. NEUROLOGICAL: Alert and oriented x3. Normal speech. [cranial nerves II through XII grossly intact]. PSYCH: Normal affect, normal mood. SKIN: Warm, dry, normal turgor. No rashes or lesions noted. Course - Re-evaluation Re-evalutation: Initially patient in obvious discomfort, pain with palpation mainly over the lower knee, some warmth, questionable swelling, difficult to tell based on body habitus. No overt erythema. Patient unwilling to bend because of discomfort. Unsure of range of motion. After pain medication patient able to straighten and bend the knee without difficulty. Lower suspicion of septic arthritis as a result. CBC nonspecific, ESR is 60, this is essentially the same as previous measurements. CRP slightly elevated. Chemistry nonspecific except for chronic renal disease without notable change. No fever or leukocytosis. X-ray with no acute findings. Suspect this is most likely either gout or arthritis. Discussed with Dr. Park, he evaluated the knee at bedside. Feel this is most likely bursitis versus possible gout. Low suspicion of septic arthritis. Recommends treatment with steroids, pain medication. Patient is not diabetic. Patient has good orthopedic follow-up with her orthopedic surgeon. Discussed return precautions. Patient and sister state satisfaction and agreement with plan. - Vital Signs Vital signs: Temp Pulse Resp BP Pulse Ox 97.4 F 107 H 24 H 114/78 100 12/19/18 03:54 12/19/18 03:54 12/19/18 03:54 12/19/18 03:54 12/19/18 03:54 - Laboratory Result Diagrams: 12/19/18 04:20 12/19/18 04:20 Laboratory results interpreted by me: 12/19/18 12/19/18 04:20 04:20 Hgb 10.1 L Hct 31.2 L MCH 26.3 L RDW 20.1 H Monocytes % 13.8 H ESR 69 H Carbon Dioxide 20 L BUN 77 H Creatinine 2.49 H Est GFR ( Amer) 24 L Est GFR (Non-Af Amer) 19 L Calcium 10.4 H C-Reactive Protein 27.1 H Discharge - Discharge Clinical Impression: Left knee pain Qualifiers: Chronicity: acute Qualified Code(s): M25.562 - Pain in left knee Condition: Stable Disposition: HOME, SELF-CARE Additional Instructions: Based on your evaluation we feel this is most likely bursitis, although it could be gout or another problem. Recommendation is prednisone (next dose is tomorrow), pain medication if needed, ice, elevation. Symptoms should improve with time. Follow-up closely with your orthopedic surgeon. If you take the pain medication also take an over the counter stool softener such as colace to avoid constipation. Return if you worsen including swelling, developing/spreading redness, severe wo rsening pain, fever/chills, or any other concerning symptoms. Prescriptions: Oxycodone HCl/Acetaminophen [Percocet 5-325 mg Tablet] 1 - 2 tab PO Q6H PRN #15 tablet PRN Reason: Prednisone [Deltasone 10 mg Tablet] 10 mg PO ASDIR PRN #21 tablet PRN Reason: Referrals: JHON PIMENTEL MD [Primary Care Provider] - Follow up as needed
[2018-12-19] MEDS ORDERED: OXYCODONE HCL IR 5 MG TABLET PO ONE (03:57)
--- NOTE | 2018-12-19 04:30 | RADIOLOGY REPORT (SQ) ---
EXAM DESCRIPTION: XR KNEE 4 OR MORE VIEWS COMPLETED DATE/TME: 12/19/2018 03:57 CLINICAL HISTORY: 63 years, Female, severe pain COMPARISON: None. NUMBER OF VIEWS: Four TECHNIQUE: Four views of the left knee LIMITATIONS: None. FINDINGS: No acute fracture or dislocation. There are changes of a left arthroplasty with no periprosthetic lucencies. No radiopaque foreign body. IMPRESSION: No acute fracture or dislocation. copyright 2010 [employer]- All Rights Reserved
[2018-12-19 04:34] LABS: ABSOLUTE BASOPHILS # (AUTO) 0.1 10^3/uL (0.0-0.2); ABSOLUTE EOSINOPHILS # (AUTO) 0.2 10^3/uL (0.0-0.6); ABSOLUTE MONOCYTES (AUTO) 1.1 10^3/uL (0.1-1.4); ABSOLUTE NEUT (AUTO) 4.3 10^3/uL (1.7-8.2); EOSINOPHILS % (AUTO) 2.6 % (0-6); HEMATOCRIT 31.2 % (36.0-47.0); HEMOGLOBIN 10.1 g/dL (12.0-15.5); LYMPHOCYTES % (AUTO) 26.4 % (13-45); MEAN CORPUSCULAR HEMOGLOBIN 26.3 pg (27.0-33.4); MEAN CORPUSCULAR HGB CONC 32.5 g/dL (32.0-36.0); MEAN CORPUSCULAR VOLUME 81 fl (80-97); MONOCYTES % (AUTO) 13.8 % (3-13); PLATELET COUNT 172 10^3/uL (150-450); RED BLOOD COUNT 3.86 10^6/uL (3.72-5.28); RED CELL DISTRIBUTION WIDTH 20.1 % (11.5-14.0); SEGMENTED NEUTROPHILS % (AUTO) 56.2 % (42-78); TOTAL CELLS COUNTED % (AUTO) 100 %; WHITE BLOOD COUNT 7.7 10^3/uL (4.0-10.5)
[2018-12-19 04:50] LABS: ANION GAP 16 (5-19); BLOOD UREA NITROGEN 77 mg/dL (7-20); C-REACTIVE PROTEIN 27.1 mg/L (<10.0); CALCIUM 10.4 mg/dL (8.4-10.2); CARBON DIOXIDE 20 mmol/L (22-30); CHLORIDE 104 mmol/L (98-107); GLUCOSE 85 mg/dL (75-110); POTASSIUM 4.9 mmol/L (3.6-5.0); SODIUM 139.6 mmol/L (137-145)
[2018-12-19 05:16] LABS: ERYTHROCYTE SEDIMENTATION RATE 69 mm/hr (0-30)
--- NOTE | 2018-12-19 06:21 | ER Document Report ---
Doctor's Note Notes: I personally and independently obtained patient history and examined the patient in conjunction with the APC and agree with the assessment, treatment plan and disposition of the patient as recorded by the APC, and have reviewed the APC's note. HISTORY OF PRESENT ILLNESS: Patient is a 63-year-old female that presents to the emergency department for chief complaint of left knee pain. ROS: Constitutional: Negative for fever. Cardiovascular: Negative for chest pain. Respiratory: Negative for shortness of breath. Gastrointestinal: Negative for vomiting or abdominal pain Musculoskeletal: Negative for arm, leg or back pain Skin: Negative for rash. Neurological: Negative for weakness or numbness. Other than noted above, the 12 point review of systems was reviewed with the patient and were negative, all pertinent findings are included in the HPI. PHYSICAL EXAMINATION: Vital signs reviewed, nursing noted reviewed. GENERAL: Obese female, appears uncomfortable HEAD: Atraumatic, normocephalic. EYES: Eyes appear normal, conjunctiva are normal. ENT: nares patent, oropharynx clear without exudates. Moist mucous membranes. NECK: Normal range of motion, supple without lymphadenopathy LUNGS: Breath sounds clear to auscultation bilaterally and equal. No wheezes rales or rhonchi. HEART: Regular rate and rhythm without murmurs EXTREMITIES: Patient does have pain with range of motion particularly flexion of the left knee, she has got tenderness over the anserine bursa, no lateral tenderness, or posterior tenderness of the knee, there is no erythema, knee effusion, or warmth when compared to the left knee. NEUROLOGICAL: No focal neurological deficits. Moves all extremities spontaneously Motor and sensory grossly intact on exam. PSYCH: Normal mood, normal affect. SKIN: Warm, Dry, normal turgor, no rashes or lesions noted on exposed skin MEDICAL DECISION MAKING: Patient seen and examined, vital signs reviewed, on my exam patient had particular tenderness over the anserine bursa, and did not have tenderness anywhere else in the knee, with pain with election, her exam is most consistent with anserine bursitis, patient does have chronic kidney disease, blood work was reviewed, ESR is at the patient's baseline, there is a mild elevation of CRP, which would not be concerning for septic arthritis, the patient's clinical exam is not consistent with this either. We will treat the patient with oxycodone, which she did get improvement with in the ED, as well as with corticosteroids, and have her follow-up with orthopedics. She is advised to use her cane, to reduce weightbearing, and warm and cold compresses to help alleviate her symptoms as well. Please review detail APC documentation. *Note is created using voice recognition software and may contain spelling, syntax or grammatical errors. Laboratory 12/19/18 12/19/18 04:20 04:20 WBC 7.7 RBC 3.86 Hgb 10.1 L Hct 31.2 L MCV 81 MCH 26.3 L MCHC 32.5 RDW 20.1 H Plt Count 172 Seg Neutrophils % 56.2 Lymphocytes % 26.4 Monocytes % 13.8 H Eosinophils % 2.6 Basophils % 1.0 Absolute Neutrophils 4.3 Absolute Lymphocytes 2.0 Absolute Monocytes 1.1 Absolute Eosinophils 0.2 Absolute Basophils 0.1 ESR 69 H Sodium 139.6 Potassium 4.9 Chloride 104 Carbon Dioxide 20 L Anion Gap 16 BUN 77 H Creatinine 2.49 H Est GFR ( Amer) 24 L Est GFR (Non-Af Amer) 19 L Glucose 85 Calcium 10.4 H C-Reactive Protein 27.1 H Knee X-Ray 12/19/18 03:57 IMPRESSION: No acute fracture or dislocation. copyright 2010 [employer]- All Rights Reserved
[2018-12-19] MEDS ORDERED: PREDNISONE 20 MG TABLET PO ONE (06:38)
[2018-12-19] MEDS ORDERED: HYDROCODONE/ACETAMINOPHEN 5-325 MG (6 TAB/ER DISP) PO PRN (06:38)
[2018-12-19 08:06] VITALS: BP 115/79
== END 2018-12-19 08:16 | disposition home or self-care (01) ==
LOC: ER 03:41
DX: M25.562 Pain in left knee (principal); I48.91 Unspecified atrial fibrillation; I50.9 Heart failure, unspecified; E78.00 Pure hypercholesterolemia, unspecified; I11.0 Hypertensive heart disease with heart failure; Z96.653 Presence of artificial knee joint, bilateral; Z86.73 Personal history of transient ischemic attack (TIA), and cerebral infarction without residual deficits; Z98.51 Tubal ligation status
CPT/HCPCS: 99284; 36415; 85025; 85652; 86140; 80048; 73564; A9270 ×2; J7512

== ENCOUNTER 2019-01-22 00:15 | Emergency (ER) | payer MEDICARE, MEDICAID ==
[2019-01-22] MEDS ORDERED: HYDROMORPHONE HCL INJ/PF 2 MG/ML AMPULE IM ONE (03:12)
[2019-01-22] MEDS ORDERED: KETOROLAC TROMETHAMINE 60 MG/2 ML SDV IM ONE (03:12)
[2019-01-22] MEDS ORDERED: DIAZEPAM 5 MG TABLET PO ONE (03:12)
--- NOTE | 2019-01-22 04:00 | ER Document Report ---
ED General - General Chief Complaint: Back Pain Stated Complaint: BACK PAIN Time Seen by Provider: 01/22/19 03:00 Primary Care Provider: JHON PIMENTEL MD [Primary Care Provider] - Follow up as needed Mode of Arrival: Ambulatory Information source: Patient, Relative, [facility] Records Notes: 63-year-old female with atrial fibrillation, hypertension, COPD, type 2 diabetes presents with low back pain that started 3 days prior to arrival with worsening of pain today. Pain is located in the lumbar spine, described as a sharp pain without radiation. Patient has a history of chronic back pain and has been seen by pain management who has injected her spine multiple times. She states that she was told that she has severe arthritis. She denies any recent fall, injury. Patient denies any saddle anesthesia, lower extremity weakness, urinary retention or fecal incontinence. She denies fever, history of IV drug use. TRAVEL OUTSIDE OF THE [place] IN LAST 30 DAYS: No - HPI Onset: Other Onset/Duration: Gradual, Persistent, Worse Quality of pain: Sharp, Stabbing Severity: Moderate Pain Level: 3 Associated symptoms: Body/muscle aches. denies: Chest pain, Chills, Nausea, Vomiting, Shortness of breath, Weakness Exacerbated by: Movement, Walking Relieved by: Denies Similar symptoms previously: Yes Recently seen / treated by doctor: Yes - Related Data Allergies/Adverse Reactions: No Known Allergies Allergy (Verified 11/17/18 10:37) Past Medical History - General Information source: Patient, Relative, [facility] Records - Social History Smoking Status: Former Smoker Frequency of alcohol use: None Drug Abuse: None Lives with: Alone Family History: Arthritis, CAD, CVA, DM, Hyperlipidemia, Hypertension, Malignancy - Past Medical History Cardiac Medical History: Reports: Hx Atrial Fibrillation, Hx Congestive Heart Failure, Hx Hypercholesterolemia, Hx Hypertension Pulmonary Medical History: Reports: Hx Asthma, Hx Bronchitis, Hx COPD, Hx Pneumonia, Hx Respiratory Failure, Hx Sleep Apnea Denies: Hx Tuberculosis Neurological Medical History: Reports: Hx Cerebrovascular Accident. Denies: Hx Seizures Endocrine Medical History: Reports: Hx Diabetes Mellitus Type 2 - prediabetic.. Denies: Hx Diabetes Mellitus Type 1, Hx Hyperthyroidism, Hx Hypothyroidism Renal/ Medical History: Denies: Hx Peritoneal Dialysis GI Medical History: Denies: Hx Cirrhosis, Hx Crohn's Disease, Hx Hepatitis, Hx Ulcerative Colitis Musculoskeletal Medical History: Reports Hx Arthritis, Denies Hx Gout, Reports Hx Musculoskeletal Deformity Skin Medical History: Denies Hx Eczema, Denies Hx Psoriasis Psychiatric Medical History: Denies: Hx Depression Traumatic Medical History: Denies: Hx Traumatic Brain Injury Infectious Medical History: Denies: Hx Hepatitis Past Surgical History: Reports: Hx Section - X2, Hx Orthopedic Surgery - Bilateral knee replacement, Hx Tubal Ligation, Other - D&C, right groin cyst. - Immunizations Immunizations up to date: Yes Hx Diphtheria, Pertussis, Tetanus Vaccination: Yes Hx Pneumococcal Vaccination: 07/08/13 Review of Systems - Review of Systems Notes: REVIEW OF SYSTEMS: CONSTITUTIONAL : Denies fever, chills, or sweats. Denies recent illness. Denies weight loss, recent hospitalizations. EENT: Denies visual changes, eye pain. Denies sore throat, oral lesions, difficulty swallowing. CARDIOVASCULAR: Denies chest pain. Denies palpitations. Denies lower extremity edema. RESPIRATORY: Denies cough. Denies shortness of breath, wheezing. GASTROINTESTINAL: Denies abdominal pain or distention. Denies nausea, vomitin g, or diarrhea. Denies blood in vomitus, stools, or per rectum. Denies black, tarry stools. Denies constipation. GENITOURINARY: Denies difficulty urinating, painful urination, frequency, blood in urine, or vaginal discharge. MUSCULOSKELETAL: + back denies neck pain or stiffness. Denies joint pain or swelling. SKIN: Denies rash, lesions or sores. HEMATOLOGIC : Denies easy bruising or bleeding. LYMPHATIC: Denies swollen glands. NEUROLOGICAL: Denies confusion or altered mental status. Denies loss of consciousness. Denies dizziness or lightheadedness. Denies headache. Denies weakness or paralysis. Denies problems difficulty with ambulation, slurred speech. Denies sensory loss, numbness, or tingling. Denies seizures. PSYCHIATRIC: Denies anxiety or stress. Denies depression, suicidal ideation, or homicidal ideation. Denies visual or auditory hallucinations. Physical Exam - Vital signs Vitals: Temp Pulse Resp BP Pulse Ox 98.2 F 98 19 131/74 H 97 01/22/19 00:40 01/22/19 00:40 01/22/19 00:40 01/22/19 00:40 01/22/19 00:40 - Notes Notes: PHYSICAL EXAMINATION: GENERAL: Well-appearing, well-nourished and in no acute distress. HEAD: Atraumatic, normocephalic. EYES: Pupils equal round and reactive to light, extraocular movements intact, conjunctiva are normal. ENT: Nares patent, oropharynx clear without exudates. Moist mucous membranes. NECK: Normal range of motion, supple without lymphadenopathy LUNGS: Breath sounds clear to auscultation bilaterally and equal. No wheezes rales or rhonchi. HEART: Regular rate and rhythm without murmurs ABDOMEN: Soft, nontender, nondistended abdomen. No guarding, no rebound. No masses appreciated. Female : deferred Musculoskeletal: Normal range of motion, no pitting or edema. No cyanosis. NEUROLOGICAL:Mental status; alert and oriented x3. Cranial nerves II through XII intact. Sensation intact to sharp/dull differentiation in all extremities. Motor; normal tone. No abnormal movements appreciated. No pronator drift. Strength tested and 5/5 in bilateral wrist flexion/extension, elbow flexion/extension, shoulder abduction, straight leg raise, knee flexion/extension, ankle dorsiflexion/plantar flexion. Patient ambulates with a steady gait. Coordination; no ataxia. Finger to nose and heel to plascencia testing intact bilaterally. Reflexes; brachial radialis, biceps, and patellar reflexes within normal limits and symmetric bilaterally. Babinski with downgoing toes bilaterally. PSYCH: Normal mood, normal affect. SKIN: Warm, Dry, normal turgor, no rashes or lesions noted. Course - Re-evaluation Re-evalutation: 01/22/19 04:[address] 01/22/19 03:13 IMPRESSION: Degenerative changes at the L4-5 and L5-S1 levels, as above TECHNICAL DOCUMENTATION: Quality ID # 436: Final reports with documentation of one or more dose reduction techniques (e.g., Automated exposure control, adjustment of the mA and/or kV according to patient size, use of iterative reconstruction technique) copyright 2011 [employer]- All Rights Reserved Temp Pulse Resp BP Pulse Ox 98.2 F 98 19 131/74 H 97 01/22/19 00:40 01/22/19 00:40 01/22/19 00:40 01/22/19 00:40 01/22/19 00:40 63-year-old female presents with acute on chronic back pain. No evidence of epidural abscess, cauda equina. Patient was administered IM morphine, IM Toradol and on reevaluation she is sleeping comfortably. CT of the lumbar spine was significant for degenerative changes of L4, L5 and L5 and S1. Findings discussed with patient and her daughter who was at the bedside. Advised that patient seek pain management for her chronic issues. Patient discharged home in stable condition. Patient was provided a copy of her CAT scan that was performed today. Patient was evaluated and treated as appropriate for the patient's presenting symptoms and complaint, with consideration of any critical or life threatening conditions that may be associated with their obtained history and exam as noted above. All results were discussed with patient and her daughter who is at the bedside patient provided the opportunity to ask questions, and express concerns. Patient was educated on treatments based on their presumed diagnosis as noted above. At this time we will discharge the patient with return precautions and follow-up recommendations. Verbal discharge instructions given a the bedside. Medication warnings reviewed. Patient is in agreement with this plan and has verbalized understanding of return precautions. After careful consideration I feel that that patient can be safely discharged from the emergency department, they were advised to followup with a primary care physician in 2-3 days. Dictation on this chart was performed using voice recognition software and may result in unintended grammatical, spelling, syntax or errors. - Vital Signs Vital signs: Temp Pulse Resp BP Pulse Ox 98.2 F 98 19 131/74 H 97 01/22/19 00:40 01/22/19 00:40 01/22/19 00:40 01/22/19 00:40 01/22/19 00:40 - Diagnostic Test Radiology reviewed: Image reviewed, Reports reviewed - EKG Interpretation by Me Rate: Tachycardia Rhythm: A.Fib When compared to previous EKG there are: No significant change Discharge - Discharge Clinical Impression: Degenerative disc disease at L5-S1 level Afib Qualifiers: Atrial fibrillation type: chronic Qualified Code(s): I48.2 - Chronic atrial fibrillation Condition: Good Disposition: HOME, SELF-CARE Instructions: Low Back Pain ([facility]), Ice Packs ([facility]), Muscle Strain ([facility]) Additional Instructions: You have been seen in the Emergency Department (ED) today for back pain. Your workup and exam have not shown any acute abnormalities and you are likely suffering from muscle strain or possible problems with your discs, but there is no treatment that will fix your symptoms at this time. Please take the naproxen that has been prescribed as directed. You should also purchase a local lidocaine cream such as "aspercreme with lidocaine" and use per bottle instructions to the affected area. Apply heat to the area as often as you are able. Continue to keep active and avoid prolonged periods of bed rest. Please follow up with your doctor as soon as possible regarding today's ED visit and your back pain. Return to the ED for worsening back pain, fever, weakness or numbness of either leg, or if you develop either (1) an inability to urinate or have bowel movements, or (2) loss of your ability to control your bathroom functions (if you start having "accidents"), or if you develop other new symptoms that concern you.concern you. Forms: Elevated Blood Pressure Referrals: JHON PIMENTEL MD [Primary Care Provider] - Follow up as needed
--- NOTE | 2019-01-22 04:22 | RADIOLOGY REPORT (SQ) ---
EXAM DESCRIPTION: CT LUMBAR SPINE WITHOUT IV CONTRAST COMPLETED DATE/TME: 01/22/2019 03:13 CLINICAL HISTORY: 63 years, Female, low back pain COMPARISON: None. TECHNIQUE: 359 Images stored on PACS. All CT scanners at this facility use dose modulation, iterative reconstruction, and/or weight based dosing when appropriate to reduce radiation dose to as low as reasonably achievable (ALARA). [facility]: Dose Right [facility]: CareDose [facility]: Dose Right [facility]: Teradose 4D [facility]: Posibl. LIMITATIONS: None. FINDINGS: Mild dextroconvex scoliosis of the lumbar spine. 5 lumbar type vertebral bodies. Vertebral body height and alignment is preserved. Limited evaluation of extraspinal anatomic structures shows moderate atheromatous changes. T12-L1, L1-L2, L2-L3, L3-L4 levels are grossly unremarkable. Disc space narrowing at L4-5 with endplate degenerative changes ossific spurring. Bilateral facet arthropathy and diffuse disc bulging. Moderate central canal stenosis and moderate neural foraminal narrowing bilaterally at this level. At L5-S1, there is disc space narrowing with endplate degenerative change and facet arthropathy. Osteophytic spurring. Diffuse disc bulging causing severe bilateral neural foraminal narrowing and moderate to severe central canal stenosis IMPRESSION: Degenerative changes at the L4-5 and L5-S1 levels, as above TECHNICAL DOCUMENTATION: Quality ID # 436: Final reports with documentation of one or more dose reduction techniques (e.g., Automated exposure control, adjustment of the mA and/or kV according to patient size, use of iterative reconstruction technique) copyright 2010 [employer]- All Rights Reserved
[2019-01-22 05:11] VITALS: BP 105/85
--- NOTE | 2019-01-22 06:29 | EKG REPORT ---
SEVERITY:- ABNORMAL ECG - ATRIAL FIBRILLATION, V-RATE 94-142 RIGHT BUNDLE BRANCH BLOCK LOW VOLTAGE EKG : Confirmed by: Antonio Stuart MD 22-Jan-2019 06:28:48
== END 2019-01-22 05:11 | disposition home or self-care (01) ==
LOC: ER 00:15
DX: M51.37 Other intervertebral disc degeneration, lumbosacral region (principal); I48.2 Chronic atrial fibrillation; I10 Essential (primary) hypertension; J44.9 Chronic obstructive pulmonary disease, unspecified; R00.0 Tachycardia, unspecified; Z87.891 Personal history of nicotine dependence
CPT/HCPCS: 93005; 99284; 96372; 72131; 93010; A9270; J1885; J1170

== ENCOUNTER 2019-02-10 03:17 | Inpatient (IN) | payer MEDICARE, MEDICAID ==
--- NOTE | 2019-02-10 04:56 | RADIOLOGY REPORT (SQ) ---
EXAM DESCRIPTION: XR CHEST 1 VIEW COMPLETED DATE/TME: 02/10/2019 03:47 CLINICAL HISTORY: 63 years Female, LEG SWELLING COMPARISON: 10/27/18 NUMBER OF VIEWS/TECHNIQUE: 1/AP FINDINGS: Adequate lung volume, small linear atelectasis or scar in the left mid and right lower lung field, normal cardiac silhouette, and intact bony thorax. Atherosclerotic vascular disease. IMPRESSION: No acute cardiopulmonary findings.
[2019-02-10 05:44] LABS: PROTHROMBIN TIME 20.8 SEC (11.4-15.4)
[2019-02-10 05:45] LABS: ABSOLUTE LYMPHOCYTES (AUTO) 1.7 10^3/uL (0.5-4.7); ABSOLUTE MONOCYTES (AUTO) 1.4 10^3/uL (0.1-1.4); ABSOLUTE NEUT (AUTO) 14.4 10^3/uL (1.7-8.2); BASOPHILS % (AUTO) 0.1 % (0-2); EOSINOPHILS % (AUTO) 0.2 % (0-6); HEMATOCRIT 27.9 % (36.0-47.0); HEMOGLOBIN 8.8 g/dL (12.0-15.5); LYMPHOCYTES % (AUTO) 9.5 % (13-45); MEAN CORPUSCULAR HEMOGLOBIN 24.8 pg (27.0-33.4); MEAN CORPUSCULAR HGB CONC 31.7 g/dL (32.0-36.0); MEAN CORPUSCULAR VOLUME 79 fl (80-97); MONOCYTES % (AUTO) 8.1 % (3-13); PLATELET COUNT 221 10^3/uL (150-450); RED BLOOD COUNT 3.56 10^6/uL (3.72-5.28); SEGMENTED NEUTROPHILS % (AUTO) 82.1 % (42-78); TOTAL CELLS COUNTED % (AUTO) 100 %; WHITE BLOOD COUNT 17.6 10^3/uL (4.0-10.5)
[2019-02-10 06:00] LABS: ALANINE AMINOTRANSFERASE 30 U/L (9-52); ALBUMIN 2.9 g/dL (3.5-5.0); ALKALINE PHOSPHATASE 167 U/L (38-126); ANION GAP 14 (5-19); ASPARTATE AMINO TRANSFERASE 51 U/L (14-36); BILIRUBIN,DIRECT 0.8 mg/dL (0.0-0.4); BILIRUBIN,TOTAL 0.9 mg/dL (0.2-1.3); BLOOD UREA NITROGEN 79 mg/dL (7-20); CALCIUM 8.2 mg/dL (8.4-10.2); CARBON DIOXIDE 16 mmol/L (22-30); CHLORIDE 112 mmol/L (98-107); CREATINE KINASE 112 U/L (30-135); GLUCOSE 92 mg/dL (75-110); POTASSIUM 4.4 mmol/L (3.6-5.0); SODIUM 141.7 mmol/L (137-145); TOTAL PROTEIN 6.4 g/dL (6.3-8.2)
[2019-02-10 06:13] LABS: CREATINE KINASE MB 2.28 ng/mL (<4.55); TROPONIN I 0.014 ng/mL
[2019-02-10] MEDS ORDERED: IPRATROPIUM/ALBUTEROL 0.5-2.5 MG/3 ML AMPUL NEB ONE (07:46)
--- NOTE | 2019-02-10 07:46 | ER Document Report ---
ED General - General Chief Complaint: Leg Swelling Stated Complaint: LEG SWELLING Time Seen by Provider: 02/10/19 07:36 Notes: 63-year-old female to emergency department chief complaint of severe pain in the bilateral lower extremities right greater than the left with redness and swelling. Patient has multiple comorbidities. Renal failure not on dialysis. Has been feeling ill for the last 2 days. Has not been able to stand or walk because of the pain in her right leg is severe. Also having a wheeze and shortness of breath. Possible fever. TRAVEL OUTSIDE OF THE [place] IN LAST 30 DAYS: No - HPI Onset: Last week Onset/Duration: Gradual, Constant, Worse Quality of pain: Throbbing Severity: Severe Pain Level: 4 - Related Data Allergies/Adverse Reactions: No Known Allergies Allergy (Verified 11/17/18 10:37) Past Medical History - General Information source: Patient, [facility] Records - Social History Smoking Status: Smoker,Current Status Unk Frequency of alcohol use: None Drug Abuse: None Lives with: Family Family History: Arthritis, CAD, CVA, DM, Hyperlipidemia, Hypertension, Malignancy - Past Medical History Cardiac Medical History: Reports: Hx Atrial Fibrillation, Hx Congestive Heart Failure, Hx Hypercholesterolemia, Hx Hypertension Pulmonary Medical History: Reports: Hx Asthma, Hx Bronchitis, Hx COPD, Hx Pneumonia, Hx Respiratory Failure, Hx Sleep Apnea Denies: Hx Tuberculosis Neurological Medical History: Reports: Hx Cerebrovascular Accident. Denies: Hx Seizures Endocrine Medical History: Reports: Hx Diabetes Mellitus Type 2 - prediabetic.. Denies: Hx Diabetes Mellitus Type 1, Hx Hyperthyroidism, Hx Hypothyroidism Renal/ Medical History: Denies: Hx Peritoneal Dialysis GI Medical History: Denies: Hx Cirrhosis, Hx Crohn's Disease, Hx Hepatitis, Hx Ulcerative Colitis Musculoskeletal Medical History: Reports Hx Arthritis, Denies Hx Gout, Reports Hx Musculoskeletal Deformity Skin Medical History: Denies Hx Eczema, Denies Hx Psoriasis Psychiatric Medical History: Denies: Hx Depression Traumatic Medical History: Denies: Hx Traumatic Brain Injury Infectious Medical History: Denies: Hx Hepatitis Past Surgical History: Reports: Hx Section - X2, Hx Orthopedic Surgery - Bilateral knee replacement, Hx Tubal Ligation, Other - D&C, right groin cyst. - Immunizations Immunizations up to date: Yes Hx Diphtheria, Pertussis, Tetanus Vaccination: Yes Hx Pneumococcal Vaccination: 07/08/13 Review of Systems - Review of Systems Notes: Constitutional: denies: Chills, Diaphoresis, +Fever, Malaise, Weakness EENT: denies: Eye discharge, Blurred vision, Tearing, Double vision, Nose congestion, Nose discharge, Throat swelling, Mouth pain Cardiovascular: denies: Palpitations, Heart racing, Orthopnea, Dyspnea, Chest pain Respiratory: denies: Cough, Hurts to breathe, Wheezing, Shortness of breath Gastrointestinal: denies: Abdominal pain, Diarrhea, Nausea, Vomiting, Black stools, bright red blood in stool Genitourinary: denies: Burning, Dysuria, Discharge, Frequency, Flank pain, Hematuria Musculoskeletal: Complaining of severe leg swelling, leg pain, right greater than the left. Unable to bear weight. Hematologic/Lymphatic: denies: Anemia, Easy bleeding, Easy bruising, Blood clots Neurological/Psychological: denies: Confusion, Dementia, Depression, Loss of consciousness Skin: No lesions, no masses, no skin breakdown, no abscesses Physical Exam - Vital signs Vitals: Temp Pulse Resp BP Pulse Ox 97.5 F 102 H 26 H 100/68 100 02/10/19 03:31 02/10/19 03:31 02/10/19 03:31 02/10/19 03:31 02/10/19 03:31 Interpretation: Normal - Notes Notes: Uncomfortable appearing morbidly obese -English female - General General appearance: Appears well, Alert - HEENT Head: Normocephalic, Atraumatic Eyes: Normal Pupils: PERRL - Respiratory Respiratory status: Labored Chest status: Nontender Breath sounds: Wheezing Chest palpation: Normal - Cardiovascular Rhythm: Tachycardia Heart sounds: Normal auscultation Murmur: No - Abdominal Inspection: Normal Distension: No distension Bowel sounds: Normal Tenderness: Nontender Organomegaly: No organomegaly - Back Back: Normal, Nontender - Extremities General upper extremity: Normal inspection, Nontender, Normal color, Normal ROM, Normal temperature General lower extremity: Other - Patient has very large bilateral lower extremities. She has a very warm cellulitic appearing right leg. The left leg is moderately warm. Very tender to the touch.. No: Skip's sign - Neurological Neuro grossly intact: Yes Cognition: Normal Orientation: AAOx4 Karn[place] Coma Scale Eye Opening: Spontaneous [place] Coma Scale Verbal: Oriented [place] Coma Scale Motor: Obeys Commands Karnack Coma Scale Total: 15 Speech: Normal Motor strength normal: LUE, RUE, LLE, RLE Sensory: Normal - Psychological Associated symptoms: Normal affect, Normal mood - Skin Skin Temperature: Warm Skin Moisture: Dry Skin Color: Other Course - Re-evaluation Re-evalutation: 02/10/19 10:16 Patient with more likely cellulitis in her legs. Right greater than the left. Elevated WBC count. No fever here but slightly elevated lactate. She has congestive heart failure with an elevated BNP so I am not going to flat her with fluid even though her blood pressure is a little bit low at this time. She was wheezing so breathing treatments were given. I have started her on Zosyn. 500 of normal saline has been ordered. Some pain medication given. Stat bilateral lower extremely ultrasound was performed which did not show any evidence of significant blood clot. At this time patient is sick and needs to be admitted to the hospital. Consult with hospitalist who agrees with admit at this time. 02/10/19 10:19 Laboratory 02/10/19 02/10/19 02/10/19 05:23 05:23 05:23 WBC 17.6 H RBC 3.56 L Hgb 8.8 L Hct 27.9 L MCV 79 L MCH 24.8 L MCHC 31.7 L RDW 20.0 H Plt Count 221 Seg Neutrophils % 82.1 H Lymphocytes % 9.5 L Monocytes % 8.1 Eosinophils % 0.2 Basophils % 0.1 Absolute Neutrophils 14.4 H Absolute Lymphocytes 1.7 Absolute Monocytes 1.4 Absolute Eosinophils 0.0 Absolute Basophils 0.0 PT 20.8 H INR 1.70 Sodium 141.7 Potassium 4.4 Chloride 112 H Carbon Dioxide 16 L Anion Gap 14 BUN 79 H Creatinine 2.42 H Est GFR ( Amer) 24 L Est GFR (Non-Af Amer) 20 L Glucose 92 Lactic Acid Calcium 8.2 L Total Bilirubin 0.9 Direct Bilirubin 0.8 H Neonat Total Bilirubin Not Reportable Neonat Direct Bilirubin Not Reportable Neonat Indirect Bili Not Reportable AST 51 H ALT 30 Alkaline Phosphatase 167 H Creatine Kinase 112 CK-MB (CK-2) Troponin I NT-Pro-B Natriuret Pep Total Protein 6.4 Albumin 2.9 L 02/10/19 02/10/19 02/10/19 05:23 08:10 08:10 WBC RBC Hgb Hct MCV MCH MCHC RDW Plt Count Seg Neutrophils % Lymphocytes % Monocytes % Eosinophils % Basophils % Absolute Neutrophils Absolute Lymphocytes Absolute Monocytes Absolute Eosinophils Absolute Basophils PT INR Sodium Potassium Chloride Carbon Dioxide Anion Gap BUN Creatinine Est GFR ( Amer) Est GFR (Non-Af Amer) Glucose Lactic Acid 2.1 Calcium Total Bilirubin Direct Bilirubin Neonat Total Bilirubin Neonat Direct Bilirubin Neonat Indirect Bili AST ALT Alkaline Phosphatase Creatine Kinase CK-MB (CK-2) 2.28 Troponin I 0.014 0.013 NT-Pro-B Natriuret Pep 15800 H Total Protein Albumin Chest X-Ray 02/10/19 03:47 IMPRESSION: No acute cardiopulmonary findings. 02/10/19 11:52 Chest X-Ray 02/10/19 03:47 IMPRESSION: No acute cardiopulmonary findings. - Vital Signs Vital signs: Temp Pulse Resp BP Pulse Ox 97.5 F 98 34 H 119/70 100 02/10/19 03:31 02/10/19 05:16 02/10/19 11:02 02/10/19 11:02 02/10/19 11:02 - Laboratory Result Diagrams: 02/10/19 05:23 02/10/19 05:23 Laboratory results interpreted by me: 02/10/19 02/10/19 02/10/19 05:23 05:23 05:23 WBC 17.6 H RBC 3.56 L Hgb 8.8 L Hct 27.9 L MCV 79 L MCH 24.8 L MCHC 31.7 L RDW 20.0 H Seg Neutrophils % 82.1 H Lymphocytes % 9.5 L Absolute Neutrophils 14.4 H PT 20.8 H Chloride 112 H Carbon Dioxide 16 L BUN 79 H Creatinine 2.42 H Est GFR ( Amer) 24 L Est GFR (Non-Af Amer) 20 L Calcium 8.2 L Direct Bilirubin 0.8 H AST 51 H Alkaline Phosphatase 167 H NT-Pro-B Natriuret Pep Albumin 2.9 L 02/10/19 05:23 WBC RBC Hgb Hct MCV MCH MCHC RDW Seg Neutrophils % Lymphocytes % Absolute Neutrophils PT Chloride Carbon Dioxide BUN Creatinine Est GFR ( Amer) Est GFR (Non-Af Amer) Calcium Direct Bilirubin AST Alkaline Phosphatase NT-Pro-B Natriuret Pep 11374 H Albumin - EKG Interpretation by [place] EKG shows normal: QRS Complexes, ST-T Waves Rate: Tachycardia Rhythm: A.Fib [place]/QRS: RBBB When compared to previous EKG there are: No significant change Critical Care Note - Critical Care Note Total time excluding time spent on procedures (mins): 45 Comments: Hypotension, early sepsis Discharge - Discharge Clinical Impression: Bilateral lower leg cellulitis Condition: Good Disposition: ADMITTED INPATIENT Admitting Provider: Leonor (Hospitalist) Unit Admitted: [facility]
--- NOTE | 2019-02-10 07:48 | EKG REPORT ---
SEVERITY:- ABNORMAL ECG - ATRIAL FIBRILLATION, V-RATE 76-149 RIGHT BUNDLE BRANCH BLOCK NONSPECIFIC ST-T CHANGES DIFFUSE. : Confirmed by: Antonio Stuart MD 10-Feb-2019 07:47:50
[2019-02-10] MEDS ORDERED: KETOROLAC TROMETHAMINE INJ/PF 30 MG/1 ML SDV IV ONE (08:21)
[2019-02-10] MEDS ORDERED: NORMAL SALINE 500 ML IV ONE (08:21)
[2019-02-10] MEDS ORDERED: FENTANYL CITRATE INJ/PF 100 MCG/2 ML AMPUL IV ONE (08:21)
[2019-02-10] MEDS ORDERED: PIPERACILLIN/TAZOBACTAM 3.375 GM VIAL IV ONE (09:27)
--- NOTE | 2019-02-10 10:25 | XCELERA REPORT ---
[address] [address] Lower Extremity Venous Evaluation Procedure: Color flow and duplex imaging bilaterally of the veins of the lower extremities as well as the Common Femoral veins. Right Sided Venous Evaluation Increased anthony pulsatility noted. Normal vessel filling wall to wall, compression and augmentation as well as Colour flow down to the infrageniculate veins. Left Sided Venous Evaluation Increased anthony pulsatility noted. Normal vessel filling wall to wall, compression and augmentation as well as Colour flow down to the infrageniculate veins. Interpretation Summary No duplex evidence of DVT or obstruction in the bilateral lower extremities. Name: JOLIE CAMARA Age: 63 yrs Gender: Female : 1955 Patient Status: Emergency Patient Location: ER Study Date: 02/10/2019 09:07 AM Reason For Study: leg pain and swelling Ordering Physician: ALISA BUSTILLO Performed By: Malena Hernandez : ALISA BUSTILLO > Husam Baez
[2019-02-10] MEDS: IPRATROPIUM/ALBUTEROL 0.5-2.5 MG/3 ML AMPUL NEB SCH ×3 (13:05→20:24)
[2019-02-10 13:16] LABS: ARTERIAL BLOOD H2CO3 1.26 mmol/L (1.05-1.35); ARTERIAL BLOOD HCO3 20.8 mmol/L (20-24); ARTERIAL BLOOD O2 SATURATION 97.8 % (94-98); ARTERIAL BLOOD PCO2 41.9 mmHg (35-45); ARTERIAL BLOOD PH 7.31 (7.35-7.45); ARTERIAL BLOOD PO2 114.1 mmHg (80-100); ARTERIAL BLOOD TOTAL CO2 22.1 mmol/L (21-25)
[2019-02-10 13:17] LABS: ARTERIAL BLOOD FIO2 2L
[2019-02-10] MEDS: CLINDAMYCIN 600 MG/D5W RTU 600 MG/50 ML RTUPB IV SCH ×2 (13:45→21:31)
[2019-02-10] MEDS: METHYLPREDNISOLONE INJ 40 MG/1 ML SDV IV SCH ×2 (13:46→21:32)
[2019-02-10] MEDS ORDERED: NITROGLYCERIN 0.4 MG/TAB 25 TAB/BOTTLE SL PRN (14:00)
--- NOTE | 2019-02-10 14:20 | PDOC H&P ---
History of Present Illness Admission Date/PCP: 02/10/19 10:32 JHON PIMENTEL MD Patient complains of: Leg pain History of Present Illness: JOLIE CAMARA is a 63 year old female with a past medical history of prior DVT, chronic atrial fibrillation on Eliquis, COPD, CKD 3, LAYNE on CPAP, anxiety, severe pulmonary hypertension and CHF who presented with right leg pain. Patient says that she started having right leg tenderness 4 days ago. She denies fever or chills. She did say she was scratching her legs. In the ER, she was noted to have significant erythema and tenderness on the anterior aspect of the right leg. She says she is also having shortness of breath is close to her baseline. She was noted to have bilateral wheezing. She denies chest pain. Past Medical History Cardiac Medical History: Reports: Atrial Fibrillation, Congestive Heart Failure, Hyperlipidema, Hypertension Pulmonary Medical History: Reports: Asthma, Bronchitis, Chronic Obstructive Pulmonary Disease (COPD), Pneumonia, Respiratory Failure, Sleep Apnea Denies: Tuberculosis Neurological Medical History: Denies: Seizures Endocrine Medical History: Reports: Diabetes Mellitus Type 2 - prediabetic. Denies: Diabetes Mellitus Type 1, Hyperthyroidism, Hypothyroidism GI Medical History: Denies: Cirrhosis, Crohn's Disease, Hepatitis, Ulcerative Colitis Musculoskeltal Medical History: Reports: Arthritis Denies: Gout Skin Medical History: Denies: Eczema, Psoriasis Psychiatric Medical History: Denies: Depression Traumatic Medical History: Denies: Traumatic Brain Injury Hematology: Denies: Anemia, Sickle Cell Disease, Bleeding Tendencies Past Surgical History Past Surgical History: Reports: Section - X2, Orthopedic Surgery - Bilateral knee replacement, Tubal Ligation, Other - D&C, right groin cyst. Social History Lives with: Family Smoking Status: Smoker,Current Status Unk Frequency of Alcohol Use: None Hx Recreational Drug Use: No Drugs: None Hx Prescription Drug Abuse: No Family History Family History: Arthritis, CAD, CVA, DM, Hyperlipidemia, Hypertension, Malignancy Parental Family History Reviewed: Yes - No premature CAD Children Family History Reviewed: No Sibling(s) Family History Reviewed.: No Medication/Allergy Home Medications: Albuterol Sulfate [Proair HFA] 2 puff IH Q6HP PRN 11/27/17 Apixaban [Eliquis 5 mg Tablet] 5 mg PO BID 11/27/17 Atorvastatin Calcium [Lipitor 40 mg Tablet] 40 mg PO QHS 11/27/17 Metoprolol Succinate [Toprol Xl 50 mg Tab.sr] 50 mg PO DAILY 11/27/17 Montelukast Sodium [Singulair 10 mg Tablet] 10 mg PO QHS 11/27/17 Cholecalciferol (Vitamin D3) [Vitamin D3] 1,000 unit PO DAILY 08/10/18 Melatonin [Melatonin 1 mg Tablet] 1 mg PO HSP PRN 08/10/18 Albuterol Sulfate [Ventolin 0.083% Neb 2.5 mg/3 mL Ampul] 2.5 mg NEB RTQ6HP PRN 10/04/18 Ferrous Sulfate [Feosol 325 mg Tablet] 325 mg PO DAILY 10/04/18 Metolazone [Zaroxolyn 2.5 Mg Tablet] 2.5 mg PO Q6AM 11/17/18 Paricalcitol 1 mcg PO MOWEFR@1000 11/17/18 Potassium Chloride 20 meq PO DAILY 11/17/18 Fluticasone/Salmeterol [Advair 500-50 Diskus 14 Dose/Diskus] 1 inh IH Q12 02/10/19 Furosemide [Lasix 40 mg Tablet] 40 mg PO QPM 02/10/19 Furosemide [Lasix 40 mg Tablet] 80 mg PO QAM 02/10/19 Isosorbide Mononitrate [Imdur 30 mg Tablet.er] 30 mg PO DAILY 02/10/19 Nitroglycerin [Nitrostat 0.4 mg (1/150 Gr) Tabs 25/Bottle] 1 tab SL Q5MP PRN 02/10/19 Sodium Bicarbonate [Sodium Bicarbonate 650 mg Tablet] 1,300 mg PO BID 02/10/19 Allergies/Adverse Reactions: No Known Allergies Allergy (Verified 11/17/18 10:37) Review of Systems All systems: reviewed and no additional remarkable complaints except as stated - As mentioned in HPI Physical Exam Vital Signs: Temp Pulse Resp BP Pulse Ox 97.5 F 98 34 H 119/70 100 02/10/19 03:31 02/10/19 05:16 02/10/19 11:02 02/10/19 11:02 02/10/19 11:02 Intake & Output 02/09/19 02/10/19 02/11/19 06:59 06:59 06:59 Intake Total 500 Balance 500 Weight 283 lb 15.286 oz General appearance: PRESENT: no acute distress, morbidly obese Head exam: PRESENT: atraumatic, normocephalic Eye exam: PRESENT: conjunctiva pink, EOMI, PERRLA. ABSENT: scleral icterus Ear exam: PRESENT: normal external ear exam Mouth exam: PRESENT: moist, tongue midline Neck exam: ABSENT: carotid bruit, JVD, lymphadenopathy, thyromegaly Respiratory exam: PRESENT: rhonchi, wheezes. ABSENT: rales Cardiovascular exam: PRESENT: RRR. ABSENT: diastolic murmur, rubs, systolic murmur Pulses: PRESENT: normal dorsalis pedis pul GI/Abdominal exam: PRESENT: normal bowel sounds, soft. ABSENT: distended, guarding, mass, organolmegaly, rebound, tenderness Rectal exam: PRESENT: deferred - [id number] Extremities exam: PRESENT: +2 edema, other - Noted localized tenderness and erythema on the right Neurological exam: PRESENT: alert, awake, oriented to person, oriented to place, oriented to time, oriented to situation, CN II-XII grossly intact. ABSENT: motor sensory deficit Results Laboratory Results: 02/10/19 05:23 02/10/19 05:23 02/10/19 02/10/19 02/10/19 05:23 05:23 08:10 WBC 17.6 H RBC 3.56 L Hgb 8.8 L Hct 27.9 L MCV 79 L MCH 24.8 L MCHC 31.7 L RDW 20.0 H Plt Count 221 Seg Neutrophils % 82.1 H Lymphocytes % 9.5 L Monocytes % 8.1 Eosinophils % 0.2 Basophils % 0.1 Absolute Neutrophils 14.4 H Absolute Lymphocytes 1.7 Absolute Monocytes 1.4 Absolute Eosinophils 0.0 Absolute Basophils 0.0 Sodium 141.7 Potassium 4.4 Chloride 112 H Carbon Dioxide 16 L Anion Gap 14 BUN 79 H Creatinine 2.42 H Est GFR ( Amer) 24 L Est GFR (Non-Af Amer) 20 L Glucose 92 Lactic Acid 2.1 Calcium 8.2 L Total Bilirubin 0.9 AST 51 H ALT 30 Alkaline Phosphatase 167 H Total Protein 6.4 Albumin 2.9 L 02/10/19 02/10/19 02/10/19 05:23 05:23 08:10 Creatine Kinase 112 CK-MB (CK-2) 2.28 Troponin I 0.014 0.013 NT-Pro-B Natriuret Pep [id number] H Impressions: Chest X-Ray 02/10/19 03:47 IMPRESSION: No acute cardiopulmonary findings. Assessment and Plan - Diagnosis (1) Cellulitis of leg, right Is this a current diagnosis for this admission?: Yes Plan: There is noticeable localized tenderness and erythema on the anterior aspect of the right leg. Lesion has been marked and demarcated. Ultrasound duplex was negative for DVT. Will start patient on IV clindamycin. (2) COPD exacerbation Is this a current diagnosis for this admission?: Yes Plan: Patient says she has shortness of breath but this is close to her baseline. She does have significant bilateral wheezing. Will start her on IV steroids and scheduled breathing treatments. (3) Chronic renal failure, stage 4 (severe) Is this a current diagnosis for this admission?: Yes Plan: Creatinine appears to be at baseline. Continue to monitor renal functions. (4) LAYNE (obstructive sleep apnea) Is this a current diagnosis for this admission?: Yes Plan: She uses CPAP at home but says that her machine at home has been defective. BiPAP at night. (5) CHF (congestive heart failure) Qualifiers: Heart failure type: unspecified Heart failure chronicity: unspecified Qualified Code(s): I50.9 - Heart failure, unspecified Is this a current diagnosis for this admission?: Yes Plan: Last echo shows normal EF but she does have grade 2 diastolic dysfunction and severe pulmonary hypertension. Currently not in exacerbation. Will resume home diuretics. (6) Chronic atrial fibrillation Is this a current diagnosis for this admission?: Yes Plan: Rate controlled. Heart rate in the 90s. Resume Eliquis and metoprolol. - Time Time Spent with patient: 25-34 minutes
--- NOTE | 2019-02-10 14:21 | ADVANCED CARE ---
- Diagnosis (1) Cellulitis of leg, right Diagnosis Current: Yes (2) COPD exacerbation Diagnosis Current: Yes (3) Chronic renal failure, stage 4 (severe) Diagnosis Current: Yes (4) LAYNE (obstructive sleep apnea) Diagnosis Current: Yes (5) CHF (congestive heart failure) Diagnosis Current: Yes (6) Chronic atrial fibrillation Diagnosis Current: Yes Resuscitation Status: Full Code Discussion: Discussed with patient in length. She says she is a full code and she would prefer chest compressions, defibrillation and mechanical ventilation if the need arises. She says her daughterAnette is her surrogate medical decision maker.
[2019-02-10] MEDS: FUROSEMIDE 40 MG TABLET PO SCH (18:01)
[2019-02-10] MEDS: APIXABAN 5 MG TABLET PO SCH (20:02)
[2019-02-10] MEDS: SODIUM BICARBONATE 650 MG TABLET PO SCH (20:02)
[2019-02-10] MEDS: ATORVASTATIN CALCIUM 40 MG TABLET PO SCH (21:31)
[2019-02-10] MEDS: MELATONIN 1 MG TABLET PO PRN (21:52)
[2019-02-10] MEDS ORDERED: HEPARIN SOD (PORCINE) 5,000 UNIT/ML 1 ML SYRINGE SUBCUT SCH (22:00)
[2019-02-11] MEDS: IPRATROPIUM/ALBUTEROL 0.5-2.5 MG/3 ML AMPUL NEB SCH ×6 (00:33→20:27)
[2019-02-11] MEDS: CLINDAMYCIN 600 MG/D5W RTU 600 MG/50 ML RTUPB IV SCH ×3 (05:51→21:00)
[2019-02-11] MEDS: METOLAZONE 2.5 MG TABLET PO SCH (05:51)
[2019-02-11] MEDS ORDERED: FUROSEMIDE 40 MG TABLET PO SCH (08:00)
[2019-02-11] MEDS: FUROSEMIDE 80 MG TABLET PO SCH (08:13)
[2019-02-11] MEDS ORDERED: (PENDING PHARMACY ID) (Cholecalciferol (Vitamin D3) [Vitamin D3] 1,000 UNIT) PO SCH (10:00)
[2019-02-11] MEDS: SODIUM BICARBONATE 650 MG TABLET PO SCH ×2 (11:19→18:19)
[2019-02-11] MEDS: FERROUS SULFATE 325 MG TABLET PO SCH (11:19)
[2019-02-11] MEDS: CHOLECALCIFEROL (D3) 1,000 UNIT TABLET PO SCH (11:19)
[2019-02-11] MEDS: METHYLPREDNISOLONE INJ 40 MG/1 ML SDV IV SCH ×2 (11:19→21:00)
[2019-02-11] MEDS: METOPROLOL SUCCINATE 50 MG TAB.SR.24H PO SCH (11:19)
[2019-02-11] MEDS: POTASSIUM CHLORIDE 10 MEQ CAPSULE.ER PO SCH (11:20)
[2019-02-11] MEDS: APIXABAN 5 MG TABLET PO SCH ×2 (11:20→18:20)
[2019-02-11] MEDS: ISOSORBIDE MONONITRATE 30 MG TAB.ER.24H PO SCH (11:20)
[2019-02-11] MEDS: PARICALCITOL 1 MCG CAPSULE PO SCH (11:22)
--- NOTE | 2019-02-11 14:52 | PDOC PROGRESS REPORT ---
Subjective Progress Note for:: 02/11/19 Subjective:: This is 63 years old black female patient with multiple medical problems including atrial fibrillation, hypertension, hyperlipidemia, diabetes mellitus, morbid obesity, COPD, history of DVT, obstructive sleep apnea, severe pulmonary hypertension, diastolic CHF, anxiety disorder presented with 4 days history of right leg tenderness and swelling. Patient is found to have cellulitis involving the right leg she has also had leukocytosis of 17,000. Patient has been started on IV clindamycin. This morning I seen patient and she stated her pain is relatively improved. And also found to have BNP of 11,700 since patient has underlying congestive heart failure CHF exacerbation is a possibility. Her last echocardiogram which was done in 2013 her ejection fraction was 65% I think it is appropriate to request echocardiogram to evaluate her cardiac status. Reason For Visit: CELLULITIS,COPD EXACERBATION,CHRONIC AFIB Physical Exam Vital Signs: Temp Pulse Resp BP Pulse Ox 97.4 F 108 H 25 H 127/77 H 99 02/11/19 11:31 02/11/19 12:12 02/11/19 12:12 02/11/19 11:31 02/11/19 12:12 Intake & Output 02/10/19 02/11/19 02/12/19 06:59 06:59 06:59 Intake Total 650 Output Total 0 Balance 650 Weight 128.8 kg 131.7 kg General appearance: PRESENT: morbidly obese Head exam: PRESENT: atraumatic Eye exam: PRESENT: conjunctiva pink Mouth exam: PRESENT: moist Neck exam: ABSENT: carotid bruit, JVD, lymphadenopathy, thyromegaly Respiratory exam: PRESENT: clear to auscultation tao. ABSENT: rales, rhonchi, wheezes Cardiovascular exam: PRESENT: irregular rhythm GI/Abdominal exam: PRESENT: normal bowel sounds, soft. ABSENT: distended, gu arding, mass, organolmegaly, rebound, tenderness Extremities exam: PRESENT: +2 edema Neurological exam: PRESENT: alert, oriented to person, oriented to place, oriented to time, oriented to situation Results Laboratory Results: 02/10/19 05:23 02/10/19 05:23 02/10/19 02/10/19 02/10/19 05:23 05:23 08:10 Creatine Kinase 112 CK-MB (CK-2) 2.28 Troponin I 0.014 0.013 NT-Pro-B Natriuret Pep [id number] H Impressions: Chest X-Ray 02/10/19 03:47 IMPRESSION: No acute cardiopulmonary findings. Assessment and Plan - Diagnosis (1) Bilateral cellulitis of lower leg Is this a current diagnosis for this admission?: Yes Plan: Continue IV clindamycin (2) Diastolic CHF exacerbation Is this a current diagnosis for this admission?: Yes Plan: I will start her on IV Lasix and check her cardiac status by requesting echocardiogram. (3) Type 2 diabetes mellitus Is this a current diagnosis for this admission?: Yes Plan: We will put her on sliding scale, check her hemoglobin A1c status and adjust her medication accordingly. (4) COPD exacerbation Is this a current diagnosis for this admission?: Yes Plan: Continue current regimen (5) Chronic kidney disease, stage IV (severe) Is this a current diagnosis for this admission?: Yes Plan: Her kidney function is stable. Will avoid nephrotoxic agents and patient needs outpatient follow-up with [facility]. (6) A-fib Qualifiers: Atrial fibrillation type: chronic Qualified Code(s): I48.2 - Chronic atrial fibrillation Is this a current diagnosis for this admission?: Yes Plan: Rate controlled and I will continue Eliquis for anticoagulation. (7) Hypertension Qualifiers: Hypertension type: essential hypertension Qualified Code(s): I10 - Essential (primary) hypertension Is this a current diagnosis for this admission?: Yes Plan: Continue her home medication (8) Hyperlipidemia Qualifiers: Hyperlipidemia type: unspecified Qualified Code(s): E78.5 - Hyperlipidemia, unspecified Is this a current diagnosis for this admission?: Yes Plan: Continue her home medications. (9) Obstructive sleep apnea Is this a current diagnosis for this admission?: Yes Plan: Continue CPAP (10) Morbid obesity Is this a current diagnosis for this admission?: Yes Plan: Encouraged to do lifestyle modification. (11) Severe pulmonary arterial systolic hypertension Is this a current diagnosis for this admission?: Yes Plan: Continues outpatient follow-up with her suction plate carrier cleaner. And continue her current medications.
[2019-02-11] MEDS: LORAZEPAM 1 MG TABLET PO PRN (16:37)
[2019-02-11] MEDS: FUROSEMIDE 40 MG TABLET PO SCH (18:20)
[2019-02-11] MEDS: MORPHINE SULFATE 10 MG/ML INJ IV PRN (20:57)
[2019-02-11] MEDS: MELATONIN 1 MG TABLET PO PRN (20:57)
[2019-02-11] MEDS: ATORVASTATIN CALCIUM 40 MG TABLET PO SCH (21:00)
[2019-02-12] MEDS: IPRATROPIUM/ALBUTEROL 0.5-2.5 MG/3 ML AMPUL NEB SCH ×6 (00:02→20:26)
[2019-02-12] MEDS: LORAZEPAM 1 MG TABLET PO PRN ×2 (02:36→22:21)
[2019-02-12] MEDS: METOLAZONE 2.5 MG TABLET PO SCH (05:39)
[2019-02-12] MEDS: CLINDAMYCIN 600 MG/D5W RTU 600 MG/50 ML RTUPB IV SCH ×3 (05:40→22:21)
[2019-02-12] MEDS: FUROSEMIDE 80 MG TABLET PO SCH (08:54)
[2019-02-12] MEDS: POTASSIUM CHLORIDE 10 MEQ CAPSULE.ER PO SCH (10:11)
[2019-02-12] MEDS: FERROUS SULFATE 325 MG TABLET PO SCH (10:11)
[2019-02-12] MEDS: CHOLECALCIFEROL (D3) 1,000 UNIT TABLET PO SCH (10:12)
[2019-02-12] MEDS: SODIUM BICARBONATE 650 MG TABLET PO SCH ×2 (10:12→17:23)
[2019-02-12] MEDS: METHYLPREDNISOLONE INJ 40 MG/1 ML SDV IV SCH ×3 (10:12→17:23)
[2019-02-12] MEDS: ISOSORBIDE MONONITRATE 30 MG TAB.ER.24H PO SCH (10:12)
[2019-02-12] MEDS: METOPROLOL SUCCINATE 50 MG TAB.SR.24H PO SCH (10:12)
[2019-02-12] MEDS: APIXABAN 5 MG TABLET PO SCH ×2 (10:12→17:23)
[2019-02-12] MEDS ORDERED: FUROSEMIDE INJ/PF 40 MG/4 ML SDV IV ONE (11:30)
[2019-02-12 11:44] LABS: ARTERIAL BLOOD BASE EXCESS -6.6 mmol/L; ARTERIAL BLOOD FIO2 40%; ARTERIAL BLOOD H2CO3 1.07 mmol/L (1.05-1.35); ARTERIAL BLOOD HCO3 18.5 mmol/L (20-24); ARTERIAL BLOOD PCO2 35.7 mmHg (35-45); ARTERIAL BLOOD PH 7.33 (7.35-7.45); ARTERIAL BLOOD PO2 115.5 mmHg (80-100); ARTERIAL BLOOD TOTAL CO2 19.6 mmol/L (21-25)
[2019-02-12] MEDS ORDERED: TIOTROPIUM BROMIDE DPI 5 CAP/KIT (18 MCG/CAP) IH ONE (12:00)
--- NOTE | 2019-02-12 12:26 | RADIOLOGY REPORT (SQ) ---
EXAM DESCRIPTION: CHEST SINGLE VIEW COMPLETED DATE/TIME: 02/12/2019 12:11 pm REASON FOR STUDY: sob COMPARISON: 02/10/2019 EXAM PARAMETERS: NUMBER OF VIEWS: One view. TECHNIQUE: Single frontal radiographic view of the chest acquired. RADIATION DOSE: NA LIMITATIONS: None. FINDINGS: LUNGS AND PLEURA: Elevated right hemidiaphragm. No infiltrate, effusion, or mass. MEDIASTINUM AND HILAR STRUCTURES: No masses. Contour normal. HEART AND VASCULAR STRUCTURES: Heart size is borderline. No pulmonary edema. BONES: No acute findings. HARDWARE: None in the chest. OTHER: No other significant finding. IMPRESSION: Borderline cardiomegaly without CHF. TECHNICAL DOCUMENTATION: JOB ID: [id number] [employer]- All Rights Reserved Reading location - IP/workstation name: [email or web address]
--- NOTE | 2019-02-12 15:18 | PDOC PROGRESS REPORT ---
Subjective Progress Note for:: 02/12/19 Subjective:: Patient seen and examined at bedside. She is in moderate respiratory distress with labored breathing shortness of breath and wheezing and she has bilateral diffuse wheezing on auscultation. Patient started on BiPAP. Stat ABG and chest x-ray done and it reports that her chest x-ray show cardiomegaly without CHF and her ABG shows mild acidosis. I increase the dose and frequency of her Solu- Medrol. Reason For Visit: CELLULITIS,COPD EXACERBATION,CHRONIC AFIB Physical Exam Vital Signs: Temp Pulse Resp BP Pulse Ox 97.3 F 99 24 H 111/66 93 02/12/19 12:31 02/12/19 14:00 02/12/19 12:31 02/12/19 12:31 02/12/19 12:31 Intake & Output 02/11/19 02/12/19 02/13/19 06:59 06:59 06:59 Intake Total 650 750 50 Output Total 0 Balance 650 750 50 Weight 131.7 kg 133.1 kg General appearance: PRESENT: morbidly obese Head exam: PRESENT: atraumatic Eye exam: PRESENT: conjunctiva pink Neck exam: ABSENT: carotid bruit, JVD, lymphadenopathy, thyromegaly Respiratory exam: PRESENT: decreased breath sounds, prolonged expiratory phas, wheezes Cardiovascular exam: PRESENT: RRR. ABSENT: diastolic murmur, rubs, systolic murmur Neurological exam: PRESENT: alert, awake, oriented to time, oriented to situation Results Laboratory Results: 02/10/19 05:23 02/10/19 05:23 02/12/19 11:35 Carbonic Acid 1.07 HCO3/H2CO3 Ratio 17:1 ABG pH 7.33 L ABG pCO2 35.7 ABG pO2 115.5 H ABG HCO3 18.5 L ABG O2 Saturation 98.0 ABG Base Excess -6.6 FiO2 40% 02/10/19 02/10/19 02/10/19 05:23 05:23 08:10 Creatine Kinase 112 CK-MB (CK-2) 2.28 Troponin I 0.014 0.013 NT-Pro-B Natriuret Pep [id number] H Impressions: Chest X-Ray 02/12/19 00:00 IMPRESSION: Borderline cardiomegaly without CHF. Assessment and Plan - Diagnosis (1) Bilateral cellulitis of lower leg Is this a current diagnosis for this admission?: Yes (2) Diastolic CHF exacerbation Is this a current diagnosis for this admission?: Yes (3) Type 2 diabetes mellitus Is this a current diagnosis for this admission?: Yes Plan: We will put her on sliding scale, check her hemoglobin A1c status and adjust her medication accordingly. (4) COPD exacerbation Is this a current diagnosis for this admission?: Yes Plan: Bronchodilators and her Solu-Medrol increased to 80 mg every 6 hours. (5) Chronic kidney disease, stage IV (severe) Is this a current diagnosis for this admission?: Yes Plan: Her kidney function is stable. Will avoid nephrotoxic agents and patient needs outpatient follow-up with us pl sql developer. (6) A-fib Qualifiers: Atrial fibrillation type: chronic Qualified Code(s): I48.2 - Chronic atrial fibrillation Is this a current diagnosis for this admission?: Yes Plan: Rate controlled and I will continue Eliquis for anticoagulation. (7) Hypertension Qualifiers: Hypertension type: essential hypertension Qualified Code(s): I10 - Esse ntial (primary) hypertension Is this a current diagnosis for this admission?: Yes Plan: Continue her home medication (8) Hyperlipidemia Qualifiers: Hyperlipidemia type: unspecified Qualified Code(s): E78.5 - Hyperlipidemia, unspecified Is this a current diagnosis for this admission?: Yes Plan: Continue her home medications. (9) Obstructive sleep apnea Is this a current diagnosis for this admission?: Yes Plan: Continue CPAP (10) Morbid obesity Is this a current diagnosis for this admission?: Yes Plan: Encouraged to do lifestyle modification. (11) Severe pulmonary arterial systolic hypertension Is this a current diagnosis for this admission?: Yes Plan: Continues outpatient follow-up with her social human services assistants. And continue her current medications.
[2019-02-12] MEDS: MELATONIN 1 MG TABLET PO PRN (22:21)
[2019-02-12] MEDS: FUROSEMIDE INJ/PF 40 MG/4 ML SDV IV SCH (22:21)
[2019-02-12] MEDS: ATORVASTATIN CALCIUM 40 MG TABLET PO SCH (22:21)
[2019-02-13] MEDS: IPRATROPIUM/ALBUTEROL 0.5-2.5 MG/3 ML AMPUL NEB SCH ×7 (00:08→23:50)
[2019-02-13 05:25] LABS: HEMATOCRIT 26.7 % (36.0-47.0); HEMOGLOBIN 8.4 g/dL (12.0-15.5); MEAN CORPUSCULAR HGB CONC 31.6 g/dL (32.0-36.0); MEAN CORPUSCULAR VOLUME 79 fl (80-97); PLATELET COUNT 237 10^3/uL (150-450); RED BLOOD COUNT 3.37 10^6/uL (3.72-5.28); RED CELL DISTRIBUTION WIDTH 19.8 % (11.5-14.0); WHITE BLOOD COUNT 18.4 10^3/uL (4.0-10.5)
[2019-02-13] MEDS: CLINDAMYCIN 600 MG/D5W RTU 600 MG/50 ML RTUPB IV SCH ×2 (05:40→14:07)
[2019-02-13] MEDS: METOLAZONE 2.5 MG TABLET PO SCH (05:40)
[2019-02-13] MEDS: METHYLPREDNISOLONE INJ 40 MG/1 ML SDV IV SCH ×4 (05:40→17:49)
[2019-02-13 05:43] LABS: CALCIUM 9.6 mg/dL (8.4-10.2); CARBON DIOXIDE 15 mmol/L (22-30); GLUCOSE 152 mg/dL (75-110)
[2019-02-13 05:48] LABS: CHLORIDE 99 mmol/L (98-107); SODIUM 135.1 mmol/L (137-145)
[2019-02-13 05:53] LABS: ANION GAP 21 (5-19); BLOOD UREA NITROGEN 128 mg/dL (7-20)
[2019-02-13 05:55] LABS: POTASSIUM 6.3 mmol/L (3.6-5.0)
[2019-02-13 06:28] LABS: ABSOLUTE LYMPHOCYTES# (MANUAL) 1.3 10^3/uL (0.5-4.7); ABSOLUTE MONOCYTES # (MANUAL) 0.7 10^3/uL (0.1-1.4); ABSOLUTE NEUTROPHILS# (MANUAL) 16.4 10^3/uL (1.7-8.2); BASOPHILS % (MANUAL) 0 % (0-2); EOSINOPHILS % (MANUAL) 0 % (0-6); LYMPHOCYTES % (MANUAL) 7 % (13-45); MONOCYTES % (MANUAL) 4 % (3-13); NUCLEATED RED BLOOD CELLS 2 /100 WBC (0); SEGMENTED NEUTROPHILS % (MAN) 89 % (42-78); TOTAL CELLS COUNTED 100
[2019-02-13 06:31] LABS: ANISOCYTOSIS 2+; BURR CELLS 2+; HELMET CELLS 1+; HYPOCHROMASIA 3+; OVALOCYTES 1+; PLATELET COMMENT ADEQUATE; POLYCHROMASIA 1+; SCHISTOCYTES 1+; TARGET CELLS 2+; TEAR DROP CELLS SLIGHT
[2019-02-13] MEDS ORDERED: LACTULOSE SYRUP 20 GM/30 ML UDCUP PO ONE ×2 (06:44→07:30)
[2019-02-13] MEDS ORDERED: DEXTROSE 40% GEL 15 GM TUBE PO PRN ×2 (06:45)
[2019-02-13] MEDS ORDERED: GLUCAGON,HUMAN RECOMB 1 MG INJ IM PRN (06:45)
[2019-02-13] MEDS ORDERED: INSULIN REG, HUMAN 100 UNIT/ML 3 ML VIAL (PYX) SUBCUT ONE (06:45)
[2019-02-13] MEDS ORDERED: DEXTROSE 50%-WATER 25 GM/50 ML DISP.SYRIN IV PRN ×2 (06:45)
[2019-02-13] MEDS ORDERED: IPRATROPIUM/ALBUTEROL 0.5-2.5 MG/3 ML AMPUL NEB ONE (06:46)
--- NOTE | 2019-02-13 07:09 | EKG REPORT ---
SEVERITY:- DEFECTIVE ECG - ATRIAL FIBRILLATION IVCD, CONSIDER ATYPICAL RBBB : Confirmed by: Antonio Stuart MD 13-Feb-2019 07:08:41
[2019-02-13] MEDS: LORAZEPAM 1 MG TABLET PO PRN (09:24)
[2019-02-13] MEDS: CHOLECALCIFEROL (D3) 1,000 UNIT TABLET PO SCH (10:39)
[2019-02-13] MEDS: METOPROLOL SUCCINATE 50 MG TAB.SR.24H PO SCH (10:40)
[2019-02-13] MEDS: TIOTROPIUM BROMIDE DPI 5 CAP/KIT (18 MCG/CAP) IH SCH (10:40)
[2019-02-13] MEDS: FERROUS SULFATE 325 MG TABLET PO SCH (10:40)
[2019-02-13] MEDS: APIXABAN 5 MG TABLET PO SCH ×2 (10:40→17:49)
[2019-02-13] MEDS: POTASSIUM CHLORIDE 10 MEQ CAPSULE.ER PO SCH ×2 (10:40→10:48)
[2019-02-13] MEDS: SODIUM BICARBONATE 650 MG TABLET PO SCH ×2 (10:40→17:49)
[2019-02-13] MEDS: FUROSEMIDE INJ/PF 40 MG/4 ML SDV IV SCH (10:40)
[2019-02-13] MEDS: PARICALCITOL 1 MCG CAPSULE PO SCH (10:40)
[2019-02-13] MEDS: ISOSORBIDE MONONITRATE 30 MG TAB.ER.24H PO SCH (10:40)
[2019-02-13] MEDS: LORAZEPAM INJ 2 MG/1 ML VIAL IV PRN ×4 (11:08→23:41)
--- NOTE | 2019-02-13 15:36 | PDOC PROGRESS REPORT ---
Subjective Progress Note for:: 02/13/19 Subjective:: Patient is on full mask BiPAP. Still she is short of breath. On auscultation her wheezing has subsided. She has been started on Lasix 40 mg IV every 12 hours it improves her wheezing but her creatinine jumped from 2.4-2 4.62 her leukocytosis also slightly worsened. Also noticed to have hyperkalemia of 6.2 for which she was given dextrose, insulin and Kayexalate by on-call physician. I will check her starting BMP. Reason For Visit: CELLULITIS,COPD EXACERBATION,CHRONIC AFIB Physical Exam Vital Signs: Temp Pulse Resp BP Pulse Ox 97.4 F 101 H 17 92/50 L 97 02/13/19 08:21 02/13/19 12:06 02/13/19 12:06 02/13/19 12:49 02/13/19 12:06 Intake & Output 02/12/19 02/13/19 02/14/19 06:59 06:59 06:59 Intake Total 750 750 50 Balance 750 750 50 Weight 133.1 kg 133.7 kg Results Laboratory Results: 02/13/19 04:59 02/13/19 04:59 02/13/19 02/13/19 04:59 04:59 WBC 18.4 H RBC 3.37 L Hgb 8.4 L Hct 26.7 L MCV 79 L MCH 25.0 L MCHC 31.6 L RDW 19.8 H Plt Count 237 Seg Neutrophils % Not Reportable Lymphocytes % Not Reportable Monocytes % Not Reportable Eosinophils % Not Reportable Basophils % Not Reportable Absolute Neutrophils Not Reportable Absolute Lymphocytes Not Reportable Absolute Monocytes Not Reportable Absolute Eosinophils Not Reportable Absolute Basophils Not Reportable Sodium 135.1 L Potassium 6.3 H* Chloride 99 Carbon Dioxide 15 L Anion Gap 21 H BUN 128 H Creatinine 4.62 H Est GFR ( Amer) 12 L Est GFR (Non-Af Amer) 10 L Glucose 152 H Calcium 9.6 02/10/19 02/10/19 02/10/19 05:23 05:23 08:10 Creatine Kinase 112 CK-MB (CK-2) 2.28 Troponin I 0.014 0.013 NT-Pro-B Natriuret Pep [id number] H Impressions: Chest X-Ray 02/12/19 00:00 IMPRESSION: Borderline cardiomegaly without CHF. Assessment and Plan - Diagnosis (1) Hyperkalemia Is this a current diagnosis for this admission?: Yes Plan: Patient given Kayexalate and dextrose, insulin. I requested stat BMP and based on that I will manage her. (2) Bilateral cellulitis of lower leg Is this a current diagnosis for this admission?: Yes Plan: Improving (3) Diastolic CHF exacerbation Is this a current diagnosis for this admission?: Yes Plan: I hold her Lasix because of worsening kidney function (4) Type 2 diabetes mellitus Is this a current diagnosis for this admission?: Yes Plan: We will put her on sliding scale, check her hemoglobin A1c status and adjust her medication accordingly. (5) COPD exacerbation Is this a current diagnosis for this admission?: Yes Plan: Bronchodilators and her Solu-Medrol increased to 80 mg every 6 hours. (6) Chronic kidney disease, stage IV (severe) Is this a current diagnosis for this admission?: Yes Plan: Her kidney function is worsening evidenced by increased creatinine to 4.62. Dr. Jo consulted (7) A-fib Qualifiers: Atrial fibrillation type: chronic Qualified Code(s): I48.2 - Chronic atrial fibrillation Is this a current diagnosis for this admission?: Yes Plan: Rate controlled and I will continue Eliquis for anticoagulation. (8) Hypertension Qualifiers: Hypertension type: essential hypertension Qualified Code(s): I10 - Essential (primary) hypertension Is this a current diagnosis for this admission?: Yes Plan: Continue her home medication (9) Hyperlipidemia Qualifiers: Hyperlipidemia type: unspecified Qualified Code(s): E78.5 - Hyperlipidemia, unspecified Is this a current diagnosis for this admission?: Yes Plan: Continue her home medications. (10) Obstructive sleep apnea Is this a current diagnosis for this admission?: Yes Plan: Continue CPAP (11) Morbid obesity Is this a current diagnosis for this admission?: Yes Plan: Encouraged to do lifestyle modification. (12) Severe pulmonary arterial systolic hypertension Is this a current diagnosis for this admission?: Yes Plan: Continues outpatient follow-up with her methods analyst data processing. And continue her current medications.
[2019-02-13 16:40] LABS: CALCIUM 9.4 mg/dL (8.4-10.2); CARBON DIOXIDE 16 mmol/L (22-30); CHLORIDE 100 mmol/L (98-107); GLUCOSE 179 mg/dL (75-110); SODIUM 135.8 mmol/L (137-145)
[2019-02-13 16:52] LABS: ANION GAP 20 (5-19); BLOOD UREA NITROGEN 144 mg/dL (7-20)
[2019-02-13 17:00] LABS: POTASSIUM 6.2 mmol/L (3.6-5.0)
[2019-02-13] MEDS ORDERED: INSULIN REG, HUMAN 100 UNIT/ML 3 ML VIAL (PYX) IV ONE (18:00)
[2019-02-13] MEDS ORDERED: CALCIUM GLUCONATE 1000 MG/10 ML INJ IV ONE (18:00)
[2019-02-13] MEDS ORDERED: DEXTROSE 50%-WATER 25 GM/50 ML DISP.SYRIN IV ONE (18:00)
[2019-02-13] MEDS ORDERED: SODIUM POLYSTYRENE SULFONATE 15 GM/60 ML PO ONE ×2 (18:00→20:30)
[2019-02-13] MEDS ORDERED: ALBUTEROL SULFATE 0.083% NEB 2.5 MG/3 ML AMPUL NEB ONE (18:30)
[2019-02-13] MEDS ORDERED: PIPERACILLIN/TAZOBACTAM 4.5 GM VIAL IV ONE (18:45)
[2019-02-13 19:09] LABS: ARTERIAL BLOOD BASE EXCESS -12.9 mmol/L; ARTERIAL BLOOD H2CO3 1.23 mmol/L (1.05-1.35); ARTERIAL BLOOD HCO3 14.7 mmol/L (20-24); ARTERIAL BLOOD O2 SATURATION 95.5 % (94-98); ARTERIAL BLOOD PCO2 40.9 mmHg (35-45); ARTERIAL BLOOD PO2 95.8 mmHg (80-100)
[2019-02-13 19:11] LABS: ARTERIAL BLOOD FIO2 40%; ARTERIAL BLOOD PH 7.17 (7.35-7.45)
--- NOTE | 2019-02-13 19:11 | RADIOLOGY REPORT (SQ) ---
EXAM DESCRIPTION: CHEST SINGLE VIEW COMPLETED DATE/TIME: 02/13/2019 6:56 pm REASON FOR STUDY: respiratory distress COMPARISON: Previous day. EXAM PARAMETERS: NUMBER OF VIEWS: One view. TECHNIQUE: Single frontal radiographic view of the chest acquired. RADIATION DOSE: NA LIMITATIONS: Body habitus portable technique. FINDINGS: Lung volumes are low. Chronic elevation right diaphragm. Cardiomegaly without obvious fa ilure or pneumonia. IMPRESSION: No significant change. TECHNICAL DOCUMENTATION: JOB ID: [id number] [employer]- All Rights Reserved Reading location - IP/workstation name: [email or web address]
[2019-02-13 20:08] LABS: CALCIUM 9.3 mg/dL (8.4-10.2); GLUCOSE 205 mg/dL (75-110); POTASSIUM 5.8 mmol/L (3.6-5.0)
[2019-02-13 20:14] LABS: CARBON DIOXIDE 15 mmol/L (22-30); CHLORIDE 98 mmol/L (98-107); SODIUM 133.8 mmol/L (137-145)
[2019-02-13 20:18] LABS: ANION GAP 21 (5-19); BLOOD UREA NITROGEN 140 mg/dL (7-20)
[2019-02-13] MEDS ORDERED: NORMAL SALINE 1000 ML 1,000 ML IV PRN (20:23)
[2019-02-13] MEDS ORDERED: NORMAL SALINE 1000 ML 1,000 ML IV ONE (20:28)
[2019-02-13 21:48] LABS: AMORPHOUS SEDIMENT,URINE TRACE /HPF; APPEARANCE,URINE CLOUDY; BILIRUBIN,URINE NEGATIVE (NEGATIVE); COLOR,URINE YELLOW; GLUCOSE, URINE NEGATIVE (NEGATIVE); KETONES,URINE NEGATIVE (NEGATIVE); LEUKOCYTE ESTERASE,URINE NEGATIVE (NEGATIVE); NITRITE,URINE NEGATIVE (NEGATIVE); PROTEIN,URINE 100 mg/dL (NEGATIVE); URINE SPECIFIC GRAVITY 1.023; UROBILINOGEN,URINE NEGATIVE mg/dL (<2.0)
--- NOTE | 2019-02-13 22:06 | EKG REPORT ---
SEVERITY:- ABNORMAL ECG - ATRIAL FIBRILLATION RIGHT BUNDLE BRANCH BLOCK : Confirmed by: Antonio Stuart MD 13-Feb-2019 22:06:15
[2019-02-13] MEDS ORDERED: SODIUM BICARBONATE 8.4% INJ 50 MEQ/50 ML DISP.SYRIN ONE (22:27)
[2019-02-13] MEDS ORDERED: PIPERACILLIN/TAZOBACTAM 2.25 GM VIAL IV ONE (22:32)
[2019-02-13] MEDS: DEXTROSE 5%-WATER 1000 ML 1,000 ML with SODIUM BICARBONATE 150 MEQ IV PRN ×2 (22:33)
--- NOTE | 2019-02-13 22:41 | PDOC CONSULTATION ---
Consultation Consult Date: 02/13/19 Provider Consulted: AMOL GARZA Consult reason:: I was asked to see the patient due to acute worsening of kidney function. History of Present Illness Admission Date/PCP: 02/10/19 10:32 JHON PIMENTEL MD History of Present Illness: JOLIE CAMARA is a 63 year old female known to me with history of chronic kidney disease stage III-IV, anemia of chronic kidney disease, iron deficiency anemia, diastolic congestive heart failure, hypertension, who was admitted on 02/10/2019 for lower extremity cellulitis started on IV antibiotics, and COPD exacerbation. Patient was started with IV Zosyn. She was also treated with IV Solu-Medrol for her COPD with nebulization treatment and BiPAP. On admission the patient is actually in her baseline kidney function with BUN of 79, creatinine of 2.42 and EGFR of 24. I just recently saw her in my office last week and her last blood work done on 01/28/2019 showed a BUN of 89, creatinine of 2.76 and EGFR of 20. Upon admission the patient was started on Lasix 40 mg IV every 12 hours. Today the patient has a BUN of 128, creatinine of 4.62 and EGFR of 12 and the most recent one repeated today showed a BUN of 140, creatinine of 4.97 and EGFR of 11. She was also hyperkalemic with initial potassium of 6.3. The hospitalist will ordered anti-potassium regimen including Kayexalate and calcium gluconate. Repeat potassium was 5.8. Today the patient is relatively hypotensive with blood pressure as low as 83/67 and most recently 95/63. Unfortunately the urine output is not being quantified. When I entered the room to evaluate the patient this afternoon she was very lethargic and is currently on BiPAP. Her nurse for today informed me that the patient has been having panic attacks so she is on a PRN lorazepam which they have been given pretty much at least every 4 hours. Patient just received lorazepam when I saw her. Past Medical History Cardiac Medical History: Reports: Atrial Fibrillation, CHF-Diastolic, Hyperlipidemia, Hypertension-primary, Peripheral Vascular Disease, Pulmonary Hypertension Pulmonary Medical History: Reports: Asthma, Chronic Obstructive Pulmonary Disease (COPD), Pneumonia, Respiratory Failure, Sleep Apnea Endocrine Medical History: Reports: Diabetes Mellitus Type 2 - prediabetic. Renal/ Medical History: Reports: Chronic Kidney Disease Stage IV, Hyperphos phatemia, Metabolic Acidosis, Proteinuria, Secondary Hyperparathyroidism Musculoskeltal Medical History: Reports: Arthritis Hematology Medical History: Reports Anemia of Chronic Kidney Disease, Reports Iron Deficiency Anemia Past Surgical History Past Surgical History: Reports: Section - X2, Knee Replacement, Orthopedic Surgery - Bilateral knee replacement, Tubal Ligation, Other - D&C, right groin cyst. Social History Information Source: Dr. Patel, [facility] Records Lives with: Family Smoking Status: Former Smoker Number of Years Smokin Last Time Smoked: 02/09/19 Frequency of Alcohol Use: None Hx Recreational Drug Use: No Drugs: None Hx Prescription Drug Abuse: No - Advance Directive Resuscitation Status: Full Code Family History Family History: CAD - Brother and sister, CVA - Father and brother, DM - Mother and brother, Hypertension - Brother, Malignancy - Breast cancer in her sister Parental Family History Reviewed: Yes Children Family History Reviewed: Yes Sibling(s) Family History Reviewed.: Yes Medication/Allergy Home Medications: Albuterol Sulfate [Proair HFA] 2 puff IH Q6HP PRN 11/27/17 Apixaban [Eliquis 5 mg Tablet] 5 mg PO BID 11/27/17 Atorvastatin Calcium [Lipitor 40 mg Tablet] 40 mg PO QHS 11/27/17 Metoprolol Succinate [Toprol Xl 50 mg Tab.sr] 50 mg PO DAILY 11/27/17 Montelukast Sodium [Singulair 10 mg Tablet] 10 mg PO QHS 11/27/17 Cholecalciferol (Vitamin D3) [Vitamin D3] 1,000 unit PO DAILY 08/10/18 Melatonin [Melatonin 1 mg Tablet] 1 mg PO HSP PRN 08/10/18 Albuterol Sulfate [Ventolin 0.083% Neb 2.5 mg/3 mL Ampul] 2.5 mg NEB RTQ6HP PRN 10/04/18 Ferrous Sulfate [Feosol 325 mg Tablet] 325 mg PO DAILY 10/04/18 Metolazone [Zaroxolyn 2.5 Mg Tablet] 2.5 mg PO Q6AM 11/17/18 Paricalcitol 1 mcg PO MOWEFR@1000 11/17/18 Potassium Chloride 20 meq PO DAILY 11/17/18 Fluticasone/Salmeterol [Advair 500-50 Diskus 14 Dose/Diskus] 1 inh IH Q12 02/10/19 Furosemide [Lasix 40 mg Tablet] 40 mg PO QPM 02/10/19 Furosemide [Lasix 40 mg Tablet] 80 mg PO QAM 02/10/19 Isosorbide Mononitrate [Imdur 30 mg Tablet.er] 30 mg PO DAILY 02/10/19 Nitroglycerin [Nitrostat 0.4 mg (1/150 Gr) Tabs 25/Bottle] 1 tab SL Q5MP PRN 02/10/19 Sodium Bicarbonate [Sodium Bicarbonate 650 mg Tablet] 1,300 mg PO BID 02/10/19 Allergies/Adverse Reactions: No Known Allergies Allergy (Verified 11/17/18 10:37) Review of Systems ROS unobtainable: Due to mental status Physical Exam Vital Signs: Temp Pulse Resp BP Pulse Ox 97.4 F 106 H 23 H 92/50 L 100 02/13/19 12:37 02/13/19 16:16 02/13/19 16:16 02/13/19 12:49 02/13/19 16:16 Intake & Output 02/12/19 02/13/19 02/14/19 06:59 06:59 06:59 Intake Total 750 750 100 Balance 750 750 100 Weight 133.1 kg 133.7 kg Exam: General appearance: Patient is currently on BiPAP and is lethargic after a dose of Ativan Head exam: PRESENT: atraumatic, normocephalic Eye exam: PRESENT: Eyes are closed Mouth exam: PRESENT: moist, neck supple, tongue midline Neck exam: PRESENT: full ROM. ABSENT: carotid bruit, JVD, lymphadenopathy, thyromegaly Respiratory exam: PRESENT: Coarse breath sounds to auscultation bilaterally. ABSENT: rales, rhonchi, stridor, wheezes Cardiovascular exam: PRESENT: RRR, +S1, +S2. ABSENT: systolic murmur Pulses: PRESENT: normal radial pulses, normal dorsalis pedis pulses GI/Abdominal exam: PRESENT: normal bowel sounds, soft. ABSENT: guarding, mass, tenderness Rectal exam: Deferred Extremities exam: PRESENT: full ROM. She has bilateral grade 1 lower extremity edema which is actually her baseline. There is an area on the anterior aspect of her right lower extremity which was marked and apparently was previously erythematous and warm which seems to have improved at this time. ABSENT: calf tenderness Musculoskeletal: PRESENT: full ROM. ABSENT: deformity Neurological exam: PRESENT: alert, Awake, Oriented to person, Oriented to place, Oriented to time, reflexes normal, CN II-XII grossly intact. Her lower extremity seems to be very sensitive and might have been painful to touch as she flinches whenever I touch her lower extremities bilaterally. ABSENT: motor deficit Psychiatric exam: PRESENT: Currently lethargic Skin exam: PRESENT: intact, dry, warm. ABSENT: rash Results Laboratory Results: 02/13/19 04:59 02/13/19 15:48 02/13/19 02/13/19 02/13/19 04:59 04:59 15:48 WBC 18.4 H RBC 3.37 L Hgb 8.4 L Hct 26.7 L MCV 79 L MCH 25.0 L MCHC 31.6 L RDW 19.8 H Plt Count 237 Seg Neutrophils % Not Reportable Lymphocytes % Not Reportable Monocytes % Not Reportable Eosinophils % Not Reportable Basophils % Not Reportable Absolute Neutrophils Not Reportable Absolute Lymphocytes Not Reportable Absolute Monocytes Not Reportable Absolute Eosinophils Not Reportable Absolute Basophils Not Reportable Sodium 135.1 L 135.8 L Potassium 6.3 H* 6.2 H* Chloride 99 100 Carbon Dioxide 15 L 16 L Anion Gap 21 H 20 H BUN 128 H 144 H Creatinine 4.62 H 4.79 H Est GFR ( Amer) 12 L 11 L Est GFR (Non-Af Amer) 10 L 9 L Glucose 152 H 179 H Calcium 9.6 9.4 02/10/19 02/10/19 02/10/19 05:23 05:23 08:10 Creatine Kinase 112 CK-MB (CK-2) 2.28 Troponin I 0.014 0.013 NT-Pro-B Natriuret Pep [id number] H Impressions: Chest X-Ray 02/13/19 00:00 IMPRESSION: No significant change. Assessment & Plan - Diagnosis (1) Acute kidney injury superimposed on chronic kidney disease Is this a current diagnosis for this admission?: Yes Plan: Acute worsening of the patient's kidney function is likely secondary to overdiuresis associated with current hypotension. She might be going into acute tubular necrosis. Elevation of her BUN is partly due to administration of IV steroids. Agree with discontinuation of Lasix at this point. Patient needs cautious IV fluid hydration. Needs to quantify urine output so will order insertion of Lewis catheter. Monitor kidney function daily. At this point there is no indication for urgent renal replacement therapy. Monitor closely. (2) Hyperkalemia Is this a current diagnosis for this admission?: Yes Plan: Patient has been given calcium gluconate and Kayexalate earlier. Cautious IV fluid hydration will help. If persistent may start daily Veltassa. (3) Hypotension Is this a current diagnosis for this admission?: Yes Plan: Likely due to overdiuresis. (4) Anemia in chronic kidney disease (CKD) Is this a current diagnosis for this admission?: Yes Plan: Needs to correct iron deficiency before we can initiate Procrit. (5) Iron deficiency anemia Is this a current diagnosis for this admission?: Yes Plan: Recent iron studies that was done 2 weeks ago showed iron of only 36, trans john saturation of only 12 and ferritin of 63. We will give a dose of IV Injectafer. (6) COPD exacerbation Is this a current diagnosis for this admission?: Yes Plan: Defer to hospitalist service. (7) Cellulitis of leg, right Is this a current diagnosis for this admission?: Yes Plan: On IV Zosyn. (8) Chronic atrial fibrillation Is this a current diagnosis for this admission?: Yes (9) Chronic kidney disease, stage IV (severe) Is this a current diagnosis for this admission?: Yes Plan: Secondary to hypertensive nephrosclerosis. (10) LAYNE (obstructive sleep apnea) Is this a current diagnosis for this admission?: Yes (11) Type 2 diabetes mellitus Is this a current diagnosis for this admission?: Yes (12) Anxiety disorder Qualifiers: Anxiety disorder type: generalized anxiety disorder Qualified Code(s): F41.1 - Generalized anxiety disorder Is this a current diagnosis for this admission?: Yes (13) Chronic diastolic (congestive) heart failure Is this a current diagnosis for this admission?: Yes - Notes Notes: Thank you very much for this consultation. - Time Time Spent: Greater than 70 Minutes
[2019-02-13] MEDS: ATORVASTATIN CALCIUM 40 MG TABLET PO SCH (23:27)
[2019-02-13] MEDS: PIPERACILLIN SODIUM/TAZOBACTAM 2.25 GM in NORMAL SALINE 50 ML IV SCH (23:39)
[2019-02-13] MEDS ORDERED: PHARMACY COMMUNICATION ORDER MC NR (23:45)
[2019-02-13] MEDS ORDERED: MELATONIN 1 MG TABLET NG PRN (23:47)
[2019-02-14] MEDS ORDERED: LINEZOLID 600 MG/300 ML RTUPB IV SCH
[2019-02-14] MEDS ORDERED: LINEZOLID 600 MG/300 ML RTUPB IV ONE (00:38)
[2019-02-14] MEDS: METHYLPREDNISOLONE INJ 40 MG/1 ML SDV IV SCH ×2 (01:01→05:00)
[2019-02-14] MEDS: MORPHINE SULFATE 10 MG/ML INJ IV PRN (02:42)
[2019-02-14 03:36] LABS: ARTERIAL BLOOD H2CO3 1.15 mmol/L (1.05-1.35); ARTERIAL BLOOD HCO3 13.6 mmol/L (20-24); ARTERIAL BLOOD O2 SATURATION 94.9 % (94-98); ARTERIAL BLOOD PCO2 38.1 mmHg (35-45); ARTERIAL BLOOD PO2 91.5 mmHg (80-100); ARTERIAL BLOOD TOTAL CO2 14.7 mmol/L (21-25)
[2019-02-14 03:42] LABS: ARTERIAL BLOOD FIO2 40%
[2019-02-14 03:43] LABS: ARTERIAL BLOOD PH 7.17 (7.35-7.45)
[2019-02-14 03:45] LABS: HEMATOCRIT 24.5 % (36.0-47.0); MEAN CORPUSCULAR HEMOGLOBIN 25.2 pg (27.0-33.4); MEAN CORPUSCULAR HGB CONC 31.9 g/dL (32.0-36.0); MEAN CORPUSCULAR VOLUME 79 fl (80-97); PLATELET COUNT 225 10^3/uL (150-450); RED BLOOD COUNT 3.09 10^6/uL (3.72-5.28); RED CELL DISTRIBUTION WIDTH 20.2 % (11.5-14.0); WHITE BLOOD COUNT 15.4 10^3/uL (4.0-10.5)
[2019-02-14 03:59] LABS: HEMOGLOBIN 7.8 g/dL (12.0-15.5)
[2019-02-14 04:00] LABS: CALCIUM 8.9 mg/dL (8.4-10.2); GLUCOSE 191 mg/dL (75-110)
[2019-02-14] MEDS ORDERED: NORMAL SALINE 1000 ML 1,000 ML IV ONE (04:00)
[2019-02-14 04:04] LABS: ABSOLUTE LYMPHOCYTES# (MANUAL) 0.3 10^3/uL (0.5-4.7); ABSOLUTE MONOCYTES # (MANUAL) 0.3 10^3/uL (0.1-1.4); ABSOLUTE NEUTROPHILS# (MANUAL) 14.8 10^3/uL (1.7-8.2); BASOPHILS % (MANUAL) 0 % (0-2); EOSINOPHILS % (MANUAL) 0 % (0-6); LYMPHOCYTES % (MANUAL) 2 % (13-45); MONOCYTES % (MANUAL) 2 % (3-13); SEGMENTED NEUTROPHILS % (MAN) 96 % (42-78); TOTAL CELLS COUNTED 100
[2019-02-14 04:05] LABS: ANISOCYTOSIS 1+; HYPOCHROMASIA 1+; PLATELET COMMENT ADEQUATE; POLYCHROMASIA 1+
[2019-02-14 04:06] LABS: CARBON DIOXIDE 13 mmol/L (22-30); CHLORIDE 98 mmol/L (98-107); SODIUM 133.8 mmol/L (137-145)
[2019-02-14] MEDS: IPRATROPIUM/ALBUTEROL 0.5-2.5 MG/3 ML AMPUL NEB SCH ×2 (04:13→08:04)
[2019-02-14 04:18] LABS: ANION GAP 23 (5-19); BLOOD UREA NITROGEN 137 mg/dL (7-20); POTASSIUM 6.5 mmol/L (3.6-5.0)
[2019-02-14] MEDS ORDERED: SODIUM BICARBONATE 8.4% INJ 50 MEQ/50 ML DISP.SYRIN IV ONE (04:45)
[2019-02-14] MEDS ORDERED: SODIUM BICARBONATE 8.4% INJ 50 MEQ/50 ML DISP.SYRIN ONE (04:47)
[2019-02-14] MEDS: PIPERACILLIN SODIUM/TAZOBACTAM 2.25 GM in NORMAL SALINE 50 ML IV SCH (05:00)
--- NOTE | 2019-02-14 05:15 | RADIOLOGY REPORT (SQ) ---
CLINICAL HISTORY: Respiratory failure COMPARISON: February 13, 2019. TECHNIQUE: XR CHEST 1 VIEW 02/14/2019 12:00 AM CDT FINDINGS: The heart is enlarged. Lungs are clear without consolidation, atelectasis, mass or edema. There is no pleural effusion. There is no pneumothorax. There are no acute osseous findings. IMPRESSION: Clear lungs.
--- NOTE | 2019-02-14 05:18 | RADIOLOGY REPORT (SQ) ---
CLINICAL HISTORY: ISCHEMIC BOWEL? COMPARISON: None. TECHNIQUE: XR ABDOMEN 1 VIEW (KUB) 02/14/2019 12:00 AM CDT FINDINGS: There is also gaseous distention of the colon. There are no abnormal radiopaque foreign bodies or abnormal calcifications. Osseous structures are grossly unremarkable. There is gaseous distention of the stomach. IMPRESSION: No bowel obstruction.
--- NOTE | 2019-02-14 05:21 | PDOC TRANSFER SUMMARY ---
General Admission Date/PCP: 02/10/19 10:32 JHON PIMENTEL MD Resuscitation Status: Full Code - Transfer Diagnosis (1) Acute tubular necrosis Is this a current diagnosis for this admission?: Yes Diagnosis Summary: Rapid renal deterioration over the last 48 hours with oliguria metabolic acidosis, hyperkalemia requiring hemodialysis renal replacement therapy. (2) Metabolic acidosis Is this a current diagnosis for this admission?: Yes Diagnosis Summary: Secondary to ATN (3) Hyperkalemia Is this a current diagnosis for this admission?: Yes Diagnosis Summary: Secondary to ATN (4) Anemia Is this a current diagnosis for this admission?: Yes Diagnosis Summary: Chronic but stable (5) Atrial fibrillation Is this a current diagnosis for this admission?: Yes Diagnosis Summary: Renal dosed Eliquis, metoprolol, rate suboptimally controlled at 110 (6) Acute encephalopathy Is this a current diagnosis for this admission?: Yes Diagnosis Summary: Complicated by delirium of acute illness and benzodiazepine dependence. - Transfer Medications Home Medications: Albuterol Sulfate [Proair HFA] 2 puff IH Q6HP PRN 11/27/17 Apixaban [Eliquis 5 mg Tablet] 5 mg PO BID 11/27/17 Atorvastatin Calcium [Lipitor 40 mg Tablet] 40 mg PO QHS 11/27/17 Metoprolol Succinate [Toprol Xl 50 mg Tab.sr] 50 mg PO DAILY 11/27/17 Montelukast Sodium [Singulair 10 mg Tablet] 10 mg PO QHS 11/27/17 Cholecalciferol (Vitamin D3) [Vitamin D3] 1,000 unit PO DAILY 08/10/18 Melatonin [Melatonin 1 mg Tablet] 1 mg PO HSP PRN 08/10/18 Albuterol Sulfate [Ventolin 0.083% Neb 2.5 mg/3 mL Ampul] 2.5 mg NEB RTQ6HP PRN 10/04/18 Ferrous Sulfate [Feosol 325 mg Tablet] 325 mg PO DAILY 10/04/18 Metolazone [Zaroxolyn 2.5 Mg Tablet] 2.5 mg PO Q6AM 11/17/18 Paricalcitol 1 mcg PO MOWEFR@1000 11/17/18 Potassium Chloride 20 meq PO DAILY 11/17/18 Fluticasone/Salmeterol [Advair 500-50 Diskus 14 Dose/Diskus] 1 inh IH Q12 02/10/19 Furosemide [Lasix 40 mg Tablet] 40 mg PO QPM 02/10/19 Furosemide [Lasix 40 mg Tablet] 80 mg PO QAM 02/10/19 Isosorbide Mononitrate [Imdur 30 mg Tablet.er] 30 mg PO DAILY 02/10/19 Nitroglycerin [Nitrostat 0.4 mg (1/150 Gr) Tabs 25/Bottle] 1 tab SL Q5MP PRN 02/10/19 Sodium Bicarbonate [Sodium Bicarbonate 650 mg Tablet] 1,300 mg PO BID 02/10/19 Transfer Medications: Current Medications Albuterol/Ipratropium (Duoneb 3 Ml Ampul) 3 ml NEB RTQ4 [facility] Stop: 03/12/19 12:29 Last Admin: 02/14/19 04:13 Dose: 3 ml Documented by: Apixaban (Eliquis 5 Mg Tablet) 5 mg NG BID [facility] Stop: 03/12/19 17:59 Atorvastatin Calcium (Lipitor 40 Mg Tablet) 40 mg NG QHS [facility] Stop: 03/12/19 21:59 Cholecalciferol (Vitamin D3 1000 Unit Tablet) 1,000 unit NG DAILY [facility] Stop: 03/13/19 09:59 Dextrose (Dextrose Inj 50% Syringe (25 Gm/50 Ml)) 12.5 gm IV PRN PRN; Protocol PRN Reason: FOR BG 50-69 IN ALERT PATIENT Stop: 03/15/19 06:44 Dextrose (Dextrose Inj 50% Syringe (25 Gm/50 Ml)) 25 gm IV PRN PRN; Protocol PRN Reason: PER PROTOCOL Stop: 03/15/19 06:44 Ferrous Sulfate (Feosol 325 Mg Tablet) 325 mg PO DAILY [facility] Stop: 03/13/19 09:59 Last Admin: 02/13/19 10:40 Dose: 325 mg Documented by: Glucagon (Glucagen Inj 1 Mg Vial) 1 mg IM PRN PRN; Protocol PRN Reason: Evaluate for BG < 70 Stop: 03/15/19 06:44 Glucose (Glutose 40% Gel 15 Gm Tube) 30 gm PO PRN PRN; Protocol PRN Reason: FOR BG < 50 IN ALERT PATIENT Stop: 03/15/19 06:44 Glucose (Glutose 40% Gel 15 Gm Tube) 15 gm PO PRN PRN; Protocol PRN Reason: FOR BG 50-69 IN ALERT PATIENT Stop: 03/15/19 06:44 Piperacillin Sod/Tazobactam (Sod 2.25 gm/ Sodium Chloride) 50 mls @ 100 mls/hr IV Q8 [facility] Stop: 02/20/19 21:59 Last Admin: 02/14/19 05:00 Dose: 100 mls/hr Documented by: Sodium Chloride (Nacl 0.9% 1000 Ml Iv Soln) 1,000 mls @ 100 mls/hr IV CONTINUOUS PRN PRN Reason: THIS MED IS NOT "PRN" Stop: 03/15/19 20:22 Last Admin: 02/14/19 01:01 Dose: 100 mls/hr Documented by: Linezolid (Zyvox Rtu 600 Mg/300 Ml Premixed) 600 mg in 300 mls @ 300 mls/hr IV Q12@0000,1200 [facility] Stop: 02/21/19 00:00 Last Infusion: 02/14/19 02:23 Dose: Infused Documented by: Sodium Bicarbonate 150 meq/ (Dextrose) 1,000 mls @ 150 mls/hr IV CONTINUOUS PRN PRN Reason: THIS MED IS NOT "PRN" Stop: 03/15/19 20:56 Last Admin: 02/13/19 22:33 Dose: 150 mls/hr Documented by: Isosorbide Mononitrate (Imdur 30 Mg Tablet.Er) 30 mg PO DAILY [facility] Stop: 03/13/19 09:59 Last Admin: 02/13/19 10:40 Dose: 30 mg Documented by: Lorazepam (Ativan Inj 2 Mg/1 Ml Vial) 2 mg IV Q4HP PRN PRN Reason: ANXIETY Stop: 02/20/19 10:31 Last Admin: 02/13/19 23:41 Dose: 2 mg Documented by: Melatonin (Melatonin 1 Mg Tablet) 1 mg NG HSP PRN PRN Reason: FOR SLEEP Stop: 03/12/19 13:59 Methylprednisolone Sodium Succinate (Solu-Medrol Inj/Pf 40 Mg/1 Ml Sdv) 80 mg IV Q6 [facility] Stop: 03/14/19 11:59 Last Admin: 02/14/19 05:00 Dose: 80 mg Documented by: Metoprolol Succinate (Toprol Xl 50 Mg Tab.Sr) 50 mg PO DAILY [facility] Stop: 03/13/19 09:59 Last Admin: 02/13/19 10:40 Dose: 50 mg Documented by: Morphine Sulfate (Morphine 10 Mg/Ml Inj) 1 mg IV Q6HP PRN PRN Reason: FOR PAIN Stop: 02/17/19 18:05 Last Admin: 02/14/19 02:42 Dose: 1 mg Documented by: Nitroglycerin (Nitrostat 0.4 Mg (1/150 Gr) Tabs 25/Bottle) 1 tab SL Q5MP PRN PRN Reason: CHEST PAIN Stop: 03/12/19 13:59 Paricalcitol (Zemplar 1 Mcg Capsule) 1 mcg PO MOWEFR@1000 [facility] Stop: 03/13/19 09:59 Last Admin: 02/13/19 10:40 Dose: 1 mcg Documented by: Pharmacy Profile Note (Medication Communication Order) 1 each MC .NOTICE NR Stop: 03/15/19 23:44 Sodium Bicarbonate (Sodium Bicarbonate 650 Mg Tablet) 1,300 mg NG BID [facility] Stop: 03/12/19 17:59 Sodium Chloride (Saline Flush 2.5 Ml Monoject Prefil Syrin) 2.5 ml IV Q8 [facility] Stop: 03/12/19 13:59 Last Admin: 02/14/19 05:01 Dose: 2.5 ml Documented by: Tiotropium [place] (Spiriva Handihaler 5 Cap/Kit (18 Mcg/Cap)) 1 cap IH DAILY [facility] Stop: 03/15/19 09:59 Last Admin: 02/13/19 10:40 Dose: 1 cap Documented by: - Allergies Allergies/Adverse Reactions: No Known Allergies Allergy (Verified 11/17/18 10:37) Hospital Course Hospital Course: Patient admitted 4 days ago with culture negative right leg cellulitis she was placed on Zosyn and clindamycin empirically with significant improvement. She was also felt to be volume overloaded and received IV Lasix for diuresis. Over the past 48 hours she has developed acute tubular necrosis with oliguria, severe metabolic acidosis, baseline GFR of 24 has dropped to 8, and persistent hyperkalemia of 6 without peak T waves despite volume resuscitation of 3 L of normal saline, bicarb drip, Kayexalate, lactulose, calcium gluconate she has shown persistent worsening and transferred to the ICU. Nephrology is consulted but hemo-dialysis is unavailable at our facility prompting a call to tertiary care for transfer. She is subsequently accepted by Carlos Estrada at [facility] in [facility]. Patient is in critical but stable condition for transport. Physical Exam Vital Signs: Temp Pulse Resp BP Pulse Ox 96.1 F L 118 H 24 H 111/77 100 02/14/19 04:00 02/14/19 04:14 02/14/19 04:14 02/14/19 03:45 02/14/19 04:14 Intake & Output 02/12/19 02/13/19 02/14/19 11:59 11:59 11:59 Intake Total 911 996 8906 Output Total 0 Balance 051 885 0448 Weight 133.1 kg 133.7 kg 136.9 kg General appearance: PRESENT: disheveled, hard of hearing, morbidly obese, severe distress Head exam: PRESENT: atraumatic, normocephalic Eye exam: PRESENT: conjunctiva pink, EOMI, PERRLA. ABSENT: scleral icterus Ear exam: PRESENT: normal external ear exam Mouth exam: PRESENT: dry mucosa Neck exam: ABSENT: carotid bruit, JVD, lymphadenopathy, thyromegaly Respiratory exam: PRESENT: crackles, symmetrical, tachypnea. ABSENT: rales, rhonchi, wheezes Cardiovascular exam: PRESENT: irregular rhythm, tachycardia. ABSENT: diastolic murmur, rubs, systolic murmur Pulses: PRESENT: normal dorsalis pedis pul Vascular exam: PRESENT: normal capillary refill GI/Abdominal exam: PRESENT: normal bowel sounds, soft. ABSENT: distended, guarding, mass, organolmegaly, rebound, tenderness Rectal exam: PRESENT: deferred Extremities exam: PRESENT: full ROM, +1 edema. ABSENT: calf tenderness, clubbing, pedal edema Neurological exam: PRESENT: altered, oriented to person, oriented to place, CN II-XII grossly intact Psychiatric exam: PRESENT: appropriate affect, normal mood. ABSENT: homicidal ideation, suicidal ideation Skin exam: PRESENT: dry, intact, warm. ABSENT: cyanosis, rash Results Laboratory Results: 02/14/19 03:27 02/14/19 03:27 02/13/19 02/13/19 02/13/19 04:59 04:59 15:48 WBC 18.4 H RBC 3.37 L Hgb 8.4 L Hct 26.7 L MCV 79 L MCH 25.0 L MCHC 31.6 L RDW 19.8 H Plt Count 237 Seg Neutrophils % Not Reportable Lymphocytes % Not Reportable Monocytes % Not Reportable Eosinophils % Not Reportable Basophils % Not Reportable Absolute Neutrophils Not Reportable Absolute Lymphocytes Not Reportable Absolute Monocytes Not Reportable Absolute Eosinophils Not Reportable Absolute Basophils Not Reportable Carbonic Acid HCO3/H2CO3 Ratio ABG pH ABG pCO2 ABG pO2 ABG HCO3 ABG O2 Saturation ABG Base Excess FiO2 Sodium 135.1 L 135.8 L Potassium 6.3 H* 6.2 H* Chloride 99 100 Carbon Dioxide 15 L 16 L Anion Gap 21 H 20 H BUN 128 H 144 H Creatinine 4.62 H 4.79 H Est GFR ( Amer) 12 L 11 L Est GFR (Non-Af Amer) 10 L 9 L Glucose 152 H 179 H Lactic Acid Calcium 9.6 9.4 Urine Color Urine Appearance Urine pH Ur Specific [place] Urine Protein Urine Glucose (UA) Urine Ketones Urine Blood Urine Nitrite Ur Leukocyte Esterase Urine WBC (Auto) Urine RBC (Auto) 02/13/19 02/13/19 02/13/19 18:50 19:15 20:45 WBC RBC Hgb Hct MCV MCH MCHC RDW Plt Count Seg Neutrophils % Lymphocytes % Monocytes % Eosinophils % Basophils % Absolute Neutrophils Absolute Lymphocytes Absolute Monocytes Absolute Eosinophils Absolute Basophils Carbonic Acid 1.23 HCO3/H2CO3 Ratio 11:1 ABG pH 7.17 L* ABG pCO2 40.9 ABG pO2 95.8 ABG HCO3 14.7 L ABG O2 Saturation 95.5 ABG Base Excess -12.9 FiO2 40% Sodium 133.8 L Potassium 5.8 H Chloride 98 Carbon Dioxide 15 L Anion Gap 21 H BUN 140 H Creatinine 4.97 H Est GFR ( Amer) 11 L Est GFR (Non-Af Amer) 9 L Glucose 205 H Lactic Acid Calcium 9.3 Urine Color YELLOW Urine Appearance CLOUDY Urine pH 5.0 Ur Specific [place] 1.023 Urine Protein 100 H Urine Glucose (UA) NEGATIVE Urine Ketones NEGATIVE Urine Blood NEGATIVE Urine Nitrite NEGATIVE Ur Leukocyte Esterase NEGATIVE Urine WBC (Auto) 9 Urine RBC (Auto) 6 02/13/19 02/14/19 02/14/19 22:48 03:27 03:27 WBC 15.4 H RBC 3.09 L Hgb 7.8 L Hct 24.5 L MCV 79 L MCH 25.2 L MCHC 31.9 L RDW 20.2 H Plt Count 225 Seg Neutrophils % Not Reportable Lymphocytes % Not Reportable Monocytes % Not Reportable Eosinophils % Not Reportable Basophils % Not Reportable Absolute Neutrophils Not Reportable Absolute Lymphocytes Not Reportable Absolute Monocytes Not Reportable Absolute Eosinophils Not Reportable Absolute Basophils Not Reportable Carbonic Acid HCO3/H2CO3 Ratio ABG pH ABG pCO2 ABG pO2 ABG HCO3 ABG O2 Saturation ABG Base Excess FiO2 Sodium 133.8 L Potassium 6.5 H* Chloride 98 Carbon Dioxide 13 L Anion Gap 23 H BUN 137 H Creatinine 5.32 H Est GFR ( Amer) 10 L Est GFR (Non-Af Amer) 8 L Glucose 191 H Lactic Acid 3.7 H Calcium 8.9 Urine Color Urine Appearance Urine pH Ur Specific [place] Urine Protein Urine Glucose (UA) Urine Ketones Urine Blood Urine Nitrite Ur Leukocyte Esterase Urine WBC (Auto) Urine RBC (Auto) 02/14/19 02/14/19 03:27 03:31 WBC RBC Hgb Hct MCV MCH MCHC RDW Plt Count Seg Neutrophils % Lymphocytes % Monocytes % Eosinophils % Basophils % Absolute Neutrophils Absolute Lymphocytes Absolute Monocytes Absolute Eosinophils Absolute Basophils Carbonic Acid 1.15 HCO3/H2CO3 Ratio 11:1 ABG pH 7.17 L* ABG pCO2 38.1 ABG pO2 91.5 ABG HCO3 13.6 L ABG O2 Saturation 94.9 ABG Base Excess -14.0 FiO2 40% Sodium Potassium Chloride Carbon Dioxide Anion Gap BUN Creatinine Est GFR ( Amer) Est GFR (Non-Af Amer) Glucose Lactic Acid 5.3 H Calcium Urine Color Urine Appearance Urine pH Ur Specific [place] Urine Protein Urine Glucose (UA) Urine Ketones Urine Blood Urine Nitrite Ur Leukocyte Esterase Urine WBC (Auto) Urine RBC (Auto) 02/10/19 02/10/19 02/10/19 05:23 05:23 08:10 Creatine Kinase 112 CK-MB (CK-2) 2.28 Troponin I 0.014 0.013 NT-Pro-B Natriuret Pep [id number] H Plan Discharge Plan: Patient admitted 4 days ago with culture negative right leg cellulitis she was p laced on Zosyn and clindamycin empirically with significant improvement. She was also felt to be volume overloaded and received IV Lasix for diuresis. Over the past 48 hours she has developed acute tubular necrosis with oliguria, severe metabolic acidosis, baseline GFR of 24 has dropped to 8, and persistent hyperkalemia of 6 without peak T waves despite volume resuscitation of 3 L of normal saline, bicarb drip, Kayexalate, lactulose, calcium gluconate she has shown persistent worsening and transferred to the ICU. Nephrology is consulted but hemo-dialysis is unavailable at our facility prompt ing a call to tertiary care for transfer. She is subsequently accepted by Carlos Estrada at [facility] in [facility]. Patient is in critical but stable condition for transport. Time Spent: Greater than 30 Minutes
[2019-02-14] MEDS: DEXTROSE 5%-WATER 1000 ML 1,000 ML with SODIUM BICARBONATE 150 MEQ IV PRN ×2 (06:45)
[2019-02-14] MEDS ORDERED: CALCIUM GLUCONATE 1000 MG/10 ML INJ IV ONE ×2 (09:30→09:57)
[2019-02-14] MEDS ORDERED: DEXTROSE 50%-WATER 25 GM/50 ML DISP.SYRIN IV ONE (09:30)
[2019-02-14] MEDS ORDERED: INSULIN REG, HUMAN 100 UNIT/ML 3 ML VIAL (PYX) IV ONE (09:30)
[2019-02-14] MEDS ORDERED: INSULIN REG, HUMAN 100 UNIT/ML 3 ML VIAL (PYX) ONE (09:57)
[2019-02-14] MEDS ORDERED: CHOLECALCIFEROL (D3) 1,000 UNIT TABLET NG SCH (10:00)
[2019-02-14] MEDS ORDERED: SODIUM BICARBONATE 650 MG TABLET NG SCH (10:00)
[2019-02-14] MEDS ORDERED: APIXABAN 5 MG TABLET NG SCH (10:00)
[2019-02-14] MEDS: ISOSORBIDE MONONITRATE 30 MG TAB.ER.24H PO SCH (10:16)
[2019-02-14] MEDS: FERROUS SULFATE 325 MG TABLET PO SCH (10:16)
[2019-02-14] MEDS: TIOTROPIUM BROMIDE DPI 5 CAP/KIT (18 MCG/CAP) IH SCH (10:17)
[2019-02-14] MEDS: METOPROLOL SUCCINATE 50 MG TAB.SR.24H PO SCH (10:17)
[2019-02-14 11:32] VITALS: BP 130/75
--- NOTE | 2019-02-14 13:18 | Progress Note ---
Provider Note Provider Note: Saw patient this morning. She was upgraded last night to the ICU due to worsening acute renal failure with persistent hyperkalemia. Transfer has been arranged to [facility] and she is just awaiting transport. She is saturating well on BiPAP. Vital signs remain stable. Daughter on bedside is updated about. Repeat BMP this morning shows potassium 6.5. Will treat with insulin, calcium gluconate and dextrose regimen prior to transport.
[2019-02-14] MEDS ORDERED: ATORVASTATIN CALCIUM 40 MG TABLET NG SCH (22:00)
--- NOTE | 2019-02-15 20:44 | XCELERA REPORT ---
[address] [address] Transthoracic Echocardiogram Report Name: JOLIE CAMARA Age: 63 yrs Gender: Female : 1955 Patient Status: Inpatient Patient Location: [address] [place], [place] [address] Study Date: 02/12/2019 02:58 PM Height: 67 in Weight: 293 lb BSA: 2.4 m2 Procedure: A two-dimensional transthoracic echocardiogram with color flow Doppler was performed. Study Quality: Technically suboptimal. Images were not obtained from all of the standard acoustic windows due to the limited scope of the study. POOR ENDOCARDIAL VISUALISATION. Reason For Study: chf History: CHF. Ordering Physician: ELVIS ZAYAS Performed By: Malena Hernandez Interpretation Summary POOR ENDOCARDIAL VISUALISATION. The left ventricle is normal in size. There is normal left ventricular wall thickness. No True apical 2 chamber views obtained.Hence cannot comment on the apical anterior , the basal anterior, the basal inferior and apical inferior blanchard.The mid anterior , the mid inferior and the rest of the LV blanchard contract normally. .Normal LVEF is normal and is low normal at 55% in the limited views. Doppler measurements suggest normal left ventricular diastolic function Flattened septum is consistent with RV pressure/volume overload The right ventricle is moderate to severely dilated. The right atrium is moderate to severely dilated. The left atrium is moderately dilated. unable to assess VSD,ASD , or PFO. There is no evidence of mitral valve prolapse. There is no vegetation seen on the mitral valve. There is no mitral valve stenosis. There is a moderate amount of mitral regurgitation There is no aortic valvular vegetation. There is no aortic valve stenosis There is no LVOT obstruction. There is a mild to moderate amount of aortic regurgitation There is no tricuspid stenosis. There is a severe amount of tricuspid regurgitation Unable to estimate RVSP due to TR jet velocity not being obtained.Suspect severe pulmonary hypertension. There is no pulmonic valvular stenosis. There is a mild amount of pulmonic regurgitation The inferior vena cava appeared dilated and did not change with respiration (RAP > 20 mmHg) There is no pericardial effusion. MMode/2D Measurements & Calculations RVDd: 4.7 cm LVIDd: 4.4 cm FS: 34.4 % Ao root diam: 3.1 cm IVSd: 0.86 cm LVIDs: 2.9 cm EDV(Teich): 87.9 ml Ao root area: 7.4 cm2 LVPWd: 0.91 cm ESV(Teich): 31.9 ml LA dimension: 5.0 cm EF(Teich): 63.7 % Doppler Measurements & Calculations MV E max hillary: MV P1/2t max hillary: Ao V2 max: AI max hillary: 127.3 cm/sec 127.3 cm/sec 147.4 cm/sec 387.3 cm/sec MV A max hillary: MV P1/2t: 64.7 msec Ao max PG: AI max P.0 cm/sec MVA(P1/2t): 3.4 cm2 8.7 mmHg 60.0 mmHg MV E/A: 3.1 MV dec slope: AI dec slope: 260.0 cm/sec2 576.6 cm/sec2 AI P1/2t: MV dec time: 0.21 sec 436.4 msec LV V1 max PG: PA V2 max: PI end-d hillary: AV P1/2t-pr_phl: 3.2 mmHg 58.7 cm/sec 107.2 cm/sec 436.4 msec LV V1 max: PA max P.4 mmHg 89.8 cm/sec MV P1/2t-pr_phl: 64.7 msec Left Ventricle The left ventricle is normal in size. There is normal left ventricular wall thickness. No True apical 2 chamber views obtained.Hence cannot comment on the apical anterior , the basal anterior, the basal inferior and apical inferior blanchard.The mid anterior , the mid inferior and the rest of the LV blanchard contract normally. .Normal LVEF is normal and is low normal at 55% in the limited views. Doppler measurements suggest normal left ventricular diastolic function. Flattened septum is consistent with RV pressure/volume overload. Right Ventricle The right ventricle is moderate to severely dilated. The right ventricle is not well visualized secondary to technical limitations. The right ventricular systolic function is moderately reduced. Atria The right atrium is moderate to severely dilated. The left atrium is moderately dilated. unable to assess VSD,ASD , or PFO. Mitral Valve There is no evidence of mitral valve prolapse. There is no vegetation seen on the mitral valve. There is no mitral valve stenosis. There is a moderate amount of mitral regurgitation. Aortic Valve There is no aortic valvular vegetation. There is no aortic valve stenosis. There is no LVOT obstruction. There is a mild to moderate amount of aortic regurgitation. Tricuspid Valve There is no tricuspid stenosis. There is a severe amount of tricuspid regurgitation. Unable to estimate RVSP due to TR jet velocity not being obtained.Suspect severe pulmonary hypertension. Pulmonic Valve There is no pulmonic valvular stenosis. There is a mild amount of pulmonic regurgitation. Great Vessels The aortic root is not well visualized but is probably normal size. The inferior vena cava appeared dilated and did not change with respiration (RAP > 20 mmHg). Effusions There is no pericardial effusion. : ELVIS ZAYAS > Shirley Moreland
== END 2019-02-14 11:20 | disposition short-term general hospital (02) | DRG 602 ==
LOC: ER 03:17 → OBSVTOIN 10:32 → INTOOBSV 10:32 → EH 10:32 → 3W 18:56 → ICU 02-13 21:35
PROVIDERS: ADMIT Internal Medicine; ATTEND Internal Medicine
DX: L03.115 Cellulitis of right lower limb (principal); N17.0 Acute kidney failure with tubular necrosis; I13.0 Hypertensive heart and chronic kidney disease with heart failure and stage 1 through stage 4 chronic kidney disease, or unspecified chronic kidney disease; N18.4 Chronic kidney disease, stage 4 (severe); J44.1 Chronic obstructive pulmonary disease with (acute) exacerbation; I50.32 Chronic diastolic (congestive) heart failure; E87.2 Acidosis; G93.40 Encephalopathy, unspecified; Z68.42 Body mass index [BMI] 45.0-49.9, adult; L03.116 Cellulitis of left lower limb; I48.2 Chronic atrial fibrillation; E87.5 Hyperkalemia; E78.00 Pure hypercholesterolemia, unspecified; I27.20 Pulmonary hypertension, unspecified; E11.22 Type 2 diabetes mellitus with diabetic chronic kidney disease; D63.1 Anemia in chronic kidney disease; F41.9 Anxiety disorder, unspecified; G47.33 Obstructive sleep apnea (adult) (pediatric); E66.01 Morbid (severe) obesity due to excess calories; Z79.01 Long term (current) use of anticoagulants; Z79.51 Long term (current) use of inhaled steroids; Z79.899 Other long term (current) drug therapy; Z86.73 Personal history of transient ischemic attack (TIA), and cerebral infarction without residual deficits; Z75.1 Person awaiting admission to adequate facility elsewhere
CPT/HCPCS: 36415; 36600; 71045; 74018; 80048; 80053; 81001; 82550; 82553; 82803; 82962; 83605; 83880; 84484; 85025; 85610; 87040; 93005; 93010; 93306; 93970; 94660; 96361; 96365; 96375; 99291; G0378; J0610; J1815; J1885; J1940; J2020; J2060; J2270; J2543; J2920; J3010; J3490; J7030; J7040; J7060; J7620